=== PATIENT | female | born 1975 | race Caucasian/White ===

== ENCOUNTER 2025-01-28 09:24 | Outpatient (AMB) | payer BC, SELFPAY ==
--- OUTSIDE RECORDS SUMMARY | 2025-01-28 10:31 | XMS_ITS | Clinical Summary ---
Author Organization [facility] Address [address] [place] [address] Care Team Providers Care Junior Copywriter Name Role Phone Philip Bartlett MD Primary Care Provider Allergies Active Allergy Reactions Criticality Noted Date Comments Ipratropium Other (See Comments),Swelling 08/21/2007 Doesn't remember Facial swelling Ipratropium [facility] 04/15/2019 Other Swelling Low 04/13/2015 Prochlorperazine Other (See Comments) 04/15/2019 Doesn't remember Prochlorperazine Edisylate Other (See Comments) 05/13/2008 Passed out Tioconazole Other (See Comments) 04/22/2021 Doesn't remember Medications Medication Sig Dispensed Refills Start Date End Date Status pantoprazole (PROTONIX) 40 MG tablet TAKE 1 TAB BY MOUTH DAILY IN THE MORNING ON EMPTY STOMACH WAIT 30 MIN AND THEN EAT 0 10/28/2023 Active OXcarbazepine (TRILEPTAL) 150 MG tablet Take 1 tablet (150 mg total) by mouth 2 (two) times a day. 0 11/09/2023 Active oxybutynin (DITROPAN-XL) 10 MG 24 hr tablet Take 1 tablet (10 mg total) by mouth daily. 0 10/29/2023 Active citalopram (CeleXA) 10 MG tablet TAKE 1 TABLET BY MOUTH EVERY DAY IN THE MORNING 0 11/09/2023 Active fluticasone (FLONASE) 50 MCG/ACT nasal spray SPRAY 2 SPRAYS INTO EACH NOSTRIL EVERY DAY 0 11/13/2023 Active lactulose (CHRONULAC) 10 GM/15ML solution Take 30 mL (20 g total) by mouth. 0 08/31/2022 Active Magnesium 400 MG CAPS Take 400 mg by mouth daily. 30 capsule 3 01/23/2024 Active Riboflavin 400 MG CAPS Take 400 mg by mouth daily. 30 capsule 3 01/23/2024 Active Active Problems No known active problems Family History Medical History Relation Name Comments Diabetes Mother Relation Name Status Comments Mother Social History Tobacco Use Types Packs/Day Years Used Date Smoking Tobacco: Former Cigarettes Q uit: 1995 Smokeless Tobacco: Never Tobacco Cessation:Counseling Given: Not Answered Alcohol Use Standard Drinks/Week Comments Yes 0 (1 standard drink = 0.6 oz pur e alcohol) occ Sex and Gender Information Value Date Recorded Sex Assigned at Female 09/12/2021 2:58 PM EDT Gender Identity Female 09/12/2021 2:58 PM EDT Sexual Orientation Not on file Job Start Date Occupation Industry Not on file Not on file Not on file Last Filed Vital Signs Vital Sign Reading Time Taken Comments Blood Pressure 104/66 01/23/2024 8:04 AM EDT Pulse 73 01/23/2024 8:04 AM EDT Temperature 36.6 C (97.9 F) 01/23/2024 8:04 AM EDT Respiratory Rate 16 11/08/2022 12:47 PM EDT Oxygen Saturation 97% 01/23/2024 8:04 AM EDT Inhaled Oxygen Concentration - - Weight 72.3 kg (159 lb 6.4 oz) 01/23/2024 8:04 A M EDT Height 154.9 cm (5' 1 ) 01/23/2024 8:04 AM EDT Body Mass Index 30.12 01/23/2024 8:04 AM EDT Plan of Treatment Health Maintenance Due Date Last Done Comments Hepatitis B Vaccines (1 of 3 - 3-dose series) 1975 Hepatitis C Screening 1975 Depression Screening 1987 BMI Counseling 1993 Preventative Health Evaluation 1993 Cervical Cancer Screening (Pap Smear) 1996 Colon Cancer Screening (Colonoscopy) 2020 DTap / Tdap / Td (2 - Td or Tdap) 04/13/2021 04/13/2011 COVID-19 Vaccine ( season) 2024 08/17/2020, 07/27/2020 Influenza Vaccine (#1) 2025 4, 06/07/2022, 04/19/2021, Additional history exists Pneumococcal Vaccine Aged Out 07/09/2013 No long er eligible based on patient's age to complete this topic RSV Ped < 20 months Aged Out No longe r eligible based on patient's age to complete this topic Care Teams Junior Copywriter Relationship Specialty Start Date End Date Philip Bartlett MD PCP - General Internal Medicine 09/12/21
--- OUTSIDE RECORDS SUMMARY | 2025-01-28 10:31 | XMS_ITS | Clinical Summary ---
Author Organization [facility] Address [address] [place] [address] Care Team Providers Care Net Developer Programmer Name Role Phone Philip Bartlett MD Primary Care Provider Unavail able Allergies Active Allergy Reactions Criticality Noted Date Comments Prochlorperazine Edisylate Other (See Comments) 05/13/2008 Passed out Benzyl Alcohol Unknown/Patient and Family Unable to Define Medium 01/15/2023 Ipratropium [facility] Swelling Medium 04/15/2019 Linaclotide Itching Low 11/12/2022 Miconazole Swelling Medium 08/10/2022 Pneumococcal Vaccine Unknown/Patient and Family Unable to Define Medium 01/15/2023 Pneumococcal Vaccines Swelling,Unknown/P a tient and Family Unable to Define High 07/13/2013 Localized swelling @ inj site Prochlorperazine Other (See Comments) 08/10/2022 other Tioconazole Other (See Comments),Unknown/P atient and Family Unable to Define Medium 04/22/2021 Doesn't remember Doesn't remember Verapamil Unknown/Patient and Family Unable to Define Medium 01/15/2023 Medications cyanocobalamin (VITAMIN B-12) 500 MCG tablet Take 1 tablet (500 mcg total) by mouth daily. 05/14/2022 Active hydrOXYzine HCl (ATARAX) 25 MG tablet Take 1 tablet (25 mg total) by mouth. Active fluticasone (FloVENT HFA) 110 mcg/puff inhaler Inhale 1 puff. 03/30/2022 Active OMEprazole (PriLOSEC) 20 MG capsule 1 capsule 30 minutes before morning meal Active ondansetron (ZOFRAN) 4 MG tablet 1 tablet 06/09/2021 Active propranolol (INDERAL) 20 MG tablet 06/15/2022 Active naproxen (NAPROSYN) 375 MG tablet 1 tablet with food or milk as needed 07/28/2021 Active SUMAtriptan (IMITREX) 50 MG tablet 1 tablet at least 2 hours between doses as needed 07/28/2021 Active montelukast (SINGULAIR) 10 MG tablet 06/23/2022 Active lactulose (ENULOSE) 10 gm/15 mL solution Take by mouth. 02/17/2021 Active albuterol (PROVENTIL HFA; VENTOLIN HFA) 108 (90 Base) MCG/ACT inhaler Inhale. 02/17/2021 Act ael buPROPion (WELLBUTRIN SR) 150 MG 12 hr tablet 1 tablet in the morning 09/22/2014 Active Multiple Vitamin tablet Take 1 tablet by mouth daily. Active busPIRone (BUSPAR) 5 MG tablet Take 1 tablet by mouth daily as needed. 12/14/2022 Active medroxyPROGESTE Jack (PROVERA) 10 MG tablet TAKE 1 TABLET BY MOUTH THREE TIMES A DAY FOR 10 DAYS 12/24/2022 Active diphenhydrAMINE -Zinc Acetate (BANOPHEN EX) Apply topically. Active Active Problems No known active problems Encounters Date Type Department Care Team Description 11/20/2024 Transcribe Orders GENERIC EXTERNAL DATA DEPARTMENT Leslie Mann RN Migraine without status migrainosus, not intractable, unspecified migraine type (Primary Dx) from Last 3 Months Social History Tobacco Use Types Packs/Day Years Used Date Smoking Tobacco: Never Smokeless Tobacco: Former Tobacco Cessation:Counseling Given: Not Answered Alcohol Use Standard Drinks/Week Comments Never 0 (1 standard drink = 0.6 oz pur e alcohol) Comments Unknown Sex and Gender Information Value Date Recorded Sex Assigned at Not on file Legal Sex Female 12:04 PM EDT Gender Identity Not on file Sexual Orientation Not on file Last Filed Vital Signs Vital Sign Reading Time Taken Comments Blood Pressure 120/80 01/15/2023 12:53 PM EDT Pulse 83 01/15/2023 12:53 PM EDT Temperature 36.4 C (97.6 F) 08/10/2022 10:27 AM EST Respiratory Rate - - Oxygen Saturation 97% 01/15/2023 12:53 PM EDT Inhaled Oxygen Concentration - - Weight 71.2 kg (157 lb) 01/15/2023 12:53 PM EDT Height 154.9 cm (5' 1 ) 01/15/2023 12:53 PM EDT Body Mass Index 29.66 01/15/2023 12:53 PM EDT Plan of Treatment Health Maintenance Due Date Last Done Comments Hepatitis C Virus Screening 1975 HIV Screening 1988 DTaP/Tdap/Td Vaccines (1 - Tdap) 1994 Hepatitis B Vaccines (1 of 3 - 19+ 3-dose series) 1994 Pap Smear (Ages 21-65) 1996 Mammogram 2015 Colonoscopy 2020 COVID-19 Vaccine ( - 2023- season) 2024 08/17/2020, 07/27/2020 Influenza Vaccine 01/08/2025 06/18/2023, , 06/07/2022, Additional history exists Pneumococcal Vaccine: Pediatric (0-5 Years) and At-Risk Patients (6 to 49 Years) Aged Out No longer eligible based on patient's age to complete this topic Insurance [place] [employer] [facility] Care Teams Net Developer Programmer Relationship Specialty Start Date End Date Philip Bartlett MD PCP - General Internal Medicine 01/15/23
--- OUTSIDE RECORDS SUMMARY | 2025-01-28 10:31 | XMS_ITS ---
[facility] Name [facility] History of Medication Use Medication Directions Dispensed Refills Start Date End Date Stat us busPIRone (BUSPAR) 5 MG tablet Take 1 tablet by mouth daily as needed. 12/14/2022 active montelukast (SINGULAIR) 10 MG tablet 06/23/2022 active SUMAtriptan (IMITREX) 50 MG tablet 1 tablet at least 2 hours between doses as needed 07/28/2021 active ondansetron (ZOFRAN) 4 MG tablet 1 tablet 06/09/2021 active albuterol (PROVENTIL HFA; VENTOLIN HFA) 108 (90 Base) MCG/ACT inhaler Inhale. 02/17/2021 active lactulose (ENULOSE) 10 gm/15 mL solution Take by mouth. 02/17/2021 active buPROPion (WELLBUTRIN SR) 150 MG 12 hr tablet 1 tablet in the morning 09/22/2014 active diphenhydrAMINE-Zinc Acetate (BANOPHEN EX) Apply topically. active OMEprazole (PriLOSEC) 20 MG capsule 1 capsule 30 minutes before morning meal active Allergies Allergen Reaction Severity Comment Documented Date Source Status VERAPAMIL UNKNOWN/PATIE NT AND FAMILY UNABLE TO DEFINE 01/15/2023 [facility] active LINACLOTIDE ITCHING 11/12/2022 [facility] active PROCHLORPERAZINE OTHER (SEE COMMENTS) other 08/10/2022 [facility] active TIOCONAZOLE UNKNOWN/PATIE NT AND FAMILY UNABLE TO DEFINE Doesn't remember 04/22/2021 [facility] active IPRATROPIUM BROMIDE HFA SWELLING 04/15/2019 [facility] active PNEUMOCOCCAL VACCINES UNKNOWN/PATIE NT AND FAMILY UNABLE TO DEFINE Localized swelling @ inj site 07/13/2013 [facility] active PROCHLORPERAZINE EDISYLATE OTHER (SEE COMMENTS) Passed out 05/13/2008 [facility] active BENZYL ALCOHOL UNKNOWN/PATIE NT AND FAMILY UNABLE TO DEFINE [facility] MICONAZOLE SWELLING [facility] PNEUMOCOCCAL VACCINE UNKNOWN/PATIE NT AND FAMILY UNABLE TO DEFINE [facility] Problems Problem Status Onset Date Problem Type Date of Resoluti on Source Migraine without status migrainosus, not intractable, unspecified migraine type active EncounterDiagnosisAct [facility] Encounters Encounter Type Encounter Reason Primary Diagnosis Location Date Ambulatory Other specified abnormal findings of blood chemistry Other specified abnormal findings of blood chemistry [facility] 01/15/2023 Ambulatory Other symptoms a nd signs involving the musculoskeletal system [facility] Care Team Organization Name Specialty Phone Email Start Date End Da [facility] Philip Quijano Primary Care 01/15/2023 [facility] PHILIP QUIJANO Primary Care 01/15/2023 [facility] NO PCP Primary Care 06/28/2022 08/10/2022 [facility] PCP,No Primary Care 06/28/2022
--- OUTSIDE RECORDS SUMMARY | 2025-01-28 10:31 | XMS_ITS | Patient Health Record ---
Author Organization [facility] Address [address] [place] [address] Care Team Providers Care Senior Project Controls Specialist Name Role Phone Dhruv YIN, Philip Primary Care Provider Katherine Stout Unavailable [phone] Allergies Allergen (clinical drug ingredient) Drug/Non Drug Allergy documented on EMR Reaction Allergy Type Onset Date Status Atrovent Unknown Drug Allergy Active ipratropium Ipratropium [place] Unknown Drug Allergy Active tioconazole Monistat 1 Unknown Drug Allergy Acti ve Compazine Unknown Drug Allergy Active benzyl alcohol Benzyl Alcohol Unknown Drug Allergy Active Vaccine product containing Streptococcus pneumoniae antigen (medicinal product) Pneumococcal Vaccines Unknown Drug Allergy Active prochlorperazine Prochlorperazine Unknown Drug Allergy Active Reason For Referral No Information Medications Medication SIG (Take, Route, Frequency, Duration) Notes Start Date End Date Status Beano Active Topiramate 50 MG 1 tablet Orally Once a day; Duration: 30 day(s) Active Albuterol Sulfate HFA Active Iron Active Multivitamin Active Claritin 10 MG 1 tablet Orally Once a day; Duration: 30 day(s) Active Vitamin D Active MiraLax 17 GM/SCOOP as directed Orally Active SUMAtriptan Succinate 50 MG 1 tablet at least 2 hours between doses as needed Orally Twice a day Active Omeprazole 20 MG 1 capsule 30 minutes before morning meal Orally Once a day; Duration: 30 day(s) Active Sucralfate 1 GM 1 tablet on an empty stomach Orally Twice a day; Duration: 30 day(s) Active Singulair 10 MG 1 tablet Orally Once a day; Duration: 30 day(s) Active Ondansetron HCl 4 MG 1 tablet Orally Onc e a day; Duration: 30 day(s) Active Naproxen 375 MG 1 tablet with food o r milk as needed Orally every 12 hrs Active Pirmella 1-35 MG-MCG as directed Orally Active buPROPion HCl ER (SR) 150 MG 1 tablet in the morning Orally Once a day; Duration: 30 day(s) + 300 mg AM Active Phazyme Maximum Strength 250 MG 1 capsule after meals and at bedtime as needed Orally Twice a day Active Propranolol HCl 20 MG 1 tablet Orally On ce a day; Duration: 30 day(s) Active Pepcid Active Immunizations Vaccine Route Administration Date Status Comme nts COVID-19 Pfizer BioNTech Vaccine Unknown 08/17/2020 Administered 1st vaccine Social History Tobacco Use: Social History Observation Description Date Details (start date - stop date) Former Smoker NA - NA Tobacco Use/Smoking Question Answer Notes Are you a: former smoker Additional Findings: Tobacco Non-User Ex-cigaret te smoker Alcohol Screen Question Answer Notes Did you have a drink containing alcohol in the p ast year? No Points 0 Interpretation Negative Tobacco use other than smoking: Question Answer Notes Are you an other tobacco user? No Plan Of Treatment No Information Insurance Providers Payer Name Payer Address Payer Phone Subscriber Number Group Number Insured Name Patient Relationship to Insured Coverage Start Date Coverage End Date [facility] All Others [address] [place] [address] [id number] Jose R Harris Spouse - patient is the spouse of the insured Medical (General) History Medical History History ICD Code Anxiety asthma Depression Headaches/Migraines Chicken pox Gall bladder problems Irritable bowel syndrome Constipation Reflux ( GERD) Surgical History Surgery Date(Month/Year) gall bladder 04/2019
--- OUTSIDE RECORDS SUMMARY | 2025-01-28 10:31 | XMS_ITS | Clinical Summary ---
Author Organization [address] [facility] Address [address] [place] [address] Phone Care Team Providers Care Monument Letterer Name Role Phone Dwayne Puentes MD Primary Care Provider Allergies Active Allergy Reactions Criticality Noted Date Comments Benzocaine Swelling Low 04/13/2015 Benzyl Alcohol Unknown High 01/12/2025 Ipratropium Other,Swelling 08/21/2007 Facial swelling Doesn't remember Facial swelling Ipratropium Alanson 04/15/2019 Linaclotide Itching 11/12/2022 Boric Acid 06/08/2024 Other Swelling Low 05/13/2008 BENZYL NIN-[id number]-FAP - Other Reaction(s): OTHER Passed out Pneumococcal Vaccine High 07/13/2013 Localized swelling @ inj site Prochlorperazine Other 05/13/2008 Doesn't remember Passed out Tioconazole Other 04/22/2021 Doesn't remember Verapamil Unknown High 01/12/2025 Medications acetaminophen (TYLENOL) 325 mg capsule Take by mouth. OTC Active cetirizine (ZyrTEC) 10 mg tablet Take 1 tablet (10 mg total) by mouth 2 (two) times a day. Prescribed by keeper helper 06/18/19 24 Active fluticasone propionate (FLONASE) 50 mcg/actuation nasal spray Administer 2 sprays into affected nostril(s). Prescribe by keeper helper 06/18/19 24 Active OXcarbazepine (TRILEPTAL) 150 mg tablet Take 1 tablet (150 mg total) by mouth 1 (one) time each day in the morning. Prescribe by Psychiatrist 06/14/19 24 Active oxyBUTYnin XL (DITROPAN-XL) 10 mg 24 hr tablet Take 1 tablet (10 mg total) by mouth 1 (one) time each day. 08/01/19 24 Active pantoprazole (PROTONIX) 40 mg EC tablet Take 1 tablet (40 mg total) by mouth 2 (two) times a day. Do not crush, chew, or split. 180 tablet 3 04/22/20 24 Active cycloSPORINE (RESTASIS) 0.05 % ophthalmic emulsion 1 drop 2 (two) times a day. Active carboxymethylc [id number] 80 (Refresh Digital) 0.5-1-0.5 % drops Administer into affected eye(s). Active multivitamin tablet Take 1 tablet by mouth 1 (one) time each day. Buy OTC Active citalopram (CeleXA) 10 mg tablet Take 1 tablet (10 mg total) by mouth 1 (one) time each day. Prescribe by Psychiatrist Active aspirin 81 mg chewable tablet Chew 1 tablet (81 mg total) 1 (one) time each day. 30 each 11 09/08/19 25 026 Active topiramate (Topamax) 25 mg tablet 1 p.o. at bedtime x 1 week, then 1 p.o. twice daily 60 each 5 10/29/19 25 Active predniSONE (DELTASONE) 20 mg tablet Take 60 mg PO daily for 3 days, then take 40 mg PO daily for 3 days, then 20 mg PO daily for 3 days, then stop 18 tablet 01/13/20 25 Active sodium,potassi um,mag sulfates (Suprep Bowel Prep Kit) 17.5-3.13-1.6 gram recon soln bowel prep kit oral solution Take 177ML by mouth for 2 doses. SEE INSTRUCTIONS PROVIDED BY OFFICE. 1 kit 01/06/20 25 025 Discontinued Active Problems Problem Noted Date Diagnosed Date Varicose veins of lower extremity 10/07/2024 Bipolar disorder ([facility] V24, [facility] V28) 09/10 Anxiety 10/07/2024 Hyperlipidemia 10/07/2024 Obesity (BMI 30-39.9) 07/24/2024 Thyroid nodule 07/24/2024 Excessive eating 07/24/2024 Somatization disorder 05/24/2022 Chronic pain of right upper extremity 11/20/2021 Assessment & Plan (06/08/2024 4:32 PM EST): Patient describes pain in the right upper trapezius, right shoulder, on active days the pain increases and somewhat radiates down the right arm. Things started on a holiday weekend February 2021, she could not bend or lift the arm. She saw her PCP who ordered an x-ray, was referred to [facility] orthopedics, over the last few years has tried physical therapy 3 or 4 separate times addressing the neck and shoulder pain. She has tried injections with Dr. Carlisle, neonatal intensive care nurse. This morning she started a prednisone pack because the pain was worsening. 3 to 4 weeks ago she also started noticing some numbness in the right hand and digits. She cannot take NSAIDs because of her GERD. She uses Biofreeze, ice daily. She had EMGs June 2022, October 2021, read as normal studies. She was sent to [facility] for subtle nonspecific T2 changes on her brain MRI, no cord lesions noted in the thoracic spine, history of migraines. Overall denies axial neck pain. Patient had MRI thoracic spine January 2024 at [facility] with minimal degenerative changes, no significant degenerative disc disease noted other than small disc osteophyte C5-6, mild right foraminal stenosis, no signal change noted in the spinal cord. I reviewed MRI images in detail with the patient and her on the computer. Dr. Muñiz reviewed the MRI as well while patient was here. She also had shoulder x-ray 09/12/2021 that was read as normal, MRI shoulder 2020 that was unremarkable. Ms. Harris has chronic right upper trapezius, shoulder and at times right arm pain, and over the last 3 to 4 weeks noted some numbness tingling in the hand and fingers. On cervical MRI there are minimal degenerative changes, no significant foraminal or central stenosis, Dr. Muñiz is not recommending any neurosurgical intervention. She just started a prednisone Dosepak this morning, will see if she notes improvement. We talked about conservative treatment options, including acupuncture which she has not yet tried, name provided. I also talked to her about considering restarting the estrogen patch that she was prescribed by her LOADING CHECKER, musculoskeletal issues like she describes can be a symptom from perimenopause/menopause low hormone levels. She will call her LOADING CHECKER to let them know she is interested in restarting it. I asked her to call me with an update in a few months, call with any concerns or questions sooner. I also asked her to talk to her PCP to see if she needs updated thyroid ultrasound since there is mention on her C-spine MRI of a increased cystic nodule right lateral upper esophagus, possibly thyroid nodule. All questions answered at today's visit. Generalized anxiety disorder 06/12/2021 History of attempted suicide 06/12/2021 Acute non-recurrent maxillary sinusitis 05/22/20 21 Endometriosis 02/23/2019 Major depressive disorder, r ecurrent episode, moderate (CMS/HCC V24, [facility] V28) 10/06/2013 Genital herpes 04/13/2011 Overview (08/06/2023): Occasional outbreaks GERD (gastroesophageal reflux disease) 1 Tremor, essential 01/11/2010 Overview (08/06/2023): hands Depression 05/13/2008 Allergic rhinitis 03/12/2007 Migraine without aura 07/31/2006 Overview (08/06/2023): IMO update Asthma 03/05/2006 Irritable bowel syndrome 10/26/2005 Constipation 09/06/2005 Overview (08/06/2023): IMO update Papanicolaou smear of cervix with atypical squamous cells of undetermined significance (ASC-US) 08/30/2005 Overview (08/06/2023): colposcopy Encounters Date Type Department Care Team Description 01/19/2025 1:09 PM EDT Anesthesia Event [facility] Endoscopy [address] [place] [phone] Ceasar Bauer MD 01/19/2025 12:09 PM EDT - 01/19/2025 11:59 PM EDT Hospital Encounter [facility] [address] [place] [phone] Keon Sheehan MD Abrokwah, Foster Myles G, CRNA Saliga, Jesse L, MD Irritable bowel syndrome with constipation; Colon cancer screening Discharge Disposition: Home or Self Care 01/12/2025 10:11 AM EDT - 01/12/2025 11:59 PM EDT Hospital Encounter [address] [phone] Left elbow pain Discharge Disposition: Home or Self Care 01/12/2025 10:00 AM EDT Office Visit [address] [phone] Leda Bell PA Left lateral epicondylitis (Primary Dx); Left elbow pain 01/11/[address] [phone] Dwayne Puentes MD Arm Pain 12/29/2024 10:00 AM EDT Consult Vascular Surgery [facility] [address] [facility] [address] [place] [address] Danielle Spivey MD Ankle swelling, unspecified laterality 11/16/2024 3:30 PM EDT Office Visit [address] [phone] Karoline Mann NP Annual physical exam (Primary Dx); Generalized pain; Major depressive disorder, recurrent episode, moderate (CMS/HCC V24, CMS/HCC V28); Decreased hearing of both ears 10/28/2024 4:00 PM EDT Office Visit [facility] [address] [facility] [address] [place] [address] Jacklyn Altman, PA Headache associated with sexual activity (Primary Dx) from Last 3 Months Immunizations Name Administration Dates Next Due Influenza Quadravalent, MDCK , 0.5ml, preservative free (Flucelvax) 6mo and older 06/18/2023,06/07/2022,04/19/2021,03/07,02/23/2019 Influenza Quadravalent, MDCK , 0.5ml, with preservative (Flucelvax) 6mo and older 02/18/2018,02/20/2017 Influenza trivalent, with pr eservative (Fluzone; Afluria) 6mo and older 07/09/2013,07/02/2012,04/13/2011,03/29 Measles 02/18/2018 Mumps 02/18/2018 PPD Test 02/12/2018 [address] SARS-CoV-2 COVID-19, mRNA, LNP-S, preservative free 08/17/2020,07/27/2020 Pneumococcal polysaccharide 23 valent (Pneumovax 23) 2yo and older 07/09/2013 Rubella 06/24/2002 Td Tetanus diptheria (Tdvax) 7yo and older 08/02/2021 Td, Unspecified 08/16/2004 Tdap Tetanus diptheria acell ular pertussis (Boostrix; Adacel) 7yo and older 04/13/2011 Varicella live (Varivax) 12m o and older 02/18/2018 Surgical History Surgery Date Site/Laterality Comments SECTION times 2: 1995, 2002 ESOPHAGOGASTRODUODENOSCOPY 01/12/2010 Normal esophagus, Nl stomach-biopsy:reactive gastropathy with scanty eosinophils(HPylori-), Nl duodenum-biopsy:nl COLONOSCOPY 02/2010 SINUS SURGERY 1996 sinus opened up OTHER SURGICAL HISTORY 08/2018 CHOLECYSTECTOMY 04/2019 APPENDECTOMY 01/31/2023 HYSTERECTOMY 04/03/2023 with bilateral salpingectomy URETHRAL SLING 06/10/2023 - 06/09/2024 Medical History Medical History Date Comments Asthma Diverticulitis Unspecified constipation 09/06/2005 Irritable bowel syndrome 10/26/2005 Migraine without aura, witho ut mention of intractable migraine without mention of status migrainosus 07/31/2006 SEEING NEUROLOGIST Unspecified asthma(493.90) 03/05/2006 Depression 05/13/2008 DX:Depression Abnormal involuntary movements(781.0) benign Tremor, essential 01/11/2010 Genital herpes 04/13/2011 Papanicolaou smear of cervix with atypical squamous cells of undetermined significance (ASC-US) 08/30/2005 : colposco py Papanicolaou smear of cervix with atypical squamous cells of undetermined significance (ASC-US) 08/30/2005 Endometriosis 02/23/2019 GERD (gastroesophageal reflux disease) TMJ (dislocation of temporomandibular joint) Family History Medical History Relation Name Comments Breast cancer Aunt 1 maternal Breast cancer Aunt 2 maternal Depression Daughter 1 2 daughters Asthma Daughter 2 Other: alive and well Father Diabetes Maternal Grandmother Diabetes Mother Drug abuse Sister 1 Drug abuse Sister 2 Allergies Son 1 Asthma Son 2 Colon cancer Neg Hx Ovarian cancer Neg Hx Relation Name Status Comments Aunt 1 maternal Alive Aunt 2 maternal Alive Daughter 1 Alive Daughter 2 Alive Father Alive Maternal Grandmother Mother Alive Sister 1 Alive Sister 2 Alive Son 1 Alive Son 2 Alive Social History Tobacco Use Types Packs/Day Years Used Date Smoking Tobacco: Former Cigarettes Q uit: 06/10/1995 Passive Smoke Exposure: Past Smokeless Tobacco: Never Tobacco Cessation:Counseling Given: Not Answered Alcohol Use Standard Drinks/Week Comments Not Currently 0 (1 standard drink = 0.6 oz pur e alcohol) Interpersonal Safety Answer Date Record ed Physical Abuse 01/19/2025 Verbal Abuse 01/19/2025 Comments No Sex and Gender Information Value Date Recorded Sex Assigned at Female 01/19/2025 12:07 PM EDT Legal Sex Female 3:19 PM EST Gender Identity Female 01/19/2025 12:07 PM EDT Sexual Orientation Straight 01/19/2025 12 :07 PM EDT Obstetrics History Para Term AB IAB SAB Ectopic Multiple Livin g Live Births 3 3 3 3 Date Outcome GA Total Labor Labor/2nd/3rd Weight Sex Type Anes PTL Jackelin A1 A5 Name Clin Term Term Term Last Filed Vital Signs Vital Sign Reading Time Taken Comments Blood Pressure 112/45 01/19/2025 1:50 PM EDT Pulse 64 01/19/2025 1:50 PM EDT Temperature 36.3 C (97.3 F) 01/19/2025 1:30 PM EDT Respiratory Rate 14 01/19/2025 1:50 PM EDT Oxygen Saturation 97% 01/19/2025 1:50 PM EDT Inhaled Oxygen Concentration - - Weight 78.5 kg (173 lb) 01/15/2025 12:00 PM EDT Height 154.9 cm (5' 1 ) 01/15/2025 12:00 PM EDT Body Mass Index 32.69 01/15/2025 12:00 PM EDT Plan of Treatment Upcoming Encounters Date Type Department Care Team (Late st Contact Info) Description 02/03/2025 4:00 PM EDT Office Visit [facility] [address] [place] [address] Jacklyn Altman PA [address] [place] [address] [place] [address] 09/28/2025 10:40 AM EDT Appointment Radiology Department - [address] [phone] Health Maintenance Due Date Last Done Comments Medicare Annual Wellness Visit 05/18/2022 Social Influencers of Health Screening 05/18/2022 Influenza Vaccine (#1) 2025 , 06/07/2022, 04/19/2021, Additional history exists Cervical Cancer Screening: HPV 06/24/2025 06/24/2020 Breast Cancer Screening 09/22/2026 09/23/19 25, 09/10/2023, 08/08/2022, Additional history exists Cholesterol Screening (Lipid Panel) 09/02/2029 09/02/2024, 07/30/2024, 04/25/2024, Additional history exists DTaP,Tdap,and Td Vaccines (4 - Td or Tdap) 08/02/2031 08/02/2021, 04/13/2011, 08/16/2004 Colorectal Cancer Screening: Colonoscopy 01/19/2035 01/19/2025, 08/23/2023 Pneumococcal Vaccine: Pediatrics (0 to 5 Years) and At-Risk Patients (6 to 49 Years) Discontinued 07/09/2013 Varicella Vaccines Aged Out 02/18/2018 No longer eligible based on patient's age to complete this topic Hepatitis C Screening Completed 11/29/2022 COVID-19 Vaccine Discontinued 06/20/2023, 03/2021, 07/27/2020 Depression Screening Completed 11/16/2024 HIB Vaccines Aged Out No longer eligi ble based on patient's age to complete this topic HIV Screening Discontinued HPV Vaccines Aged Out No longer eligi ble based on patient's age to complete this topic Hepatitis A Vaccines Aged Out No long er eligible based on patient's age to complete this topic Hepatitis B Vaccines Discontinued IPV Vaccines Aged Out No longer eligi ble based on patient's age to complete this topic MMR Vaccines Aged Out No longer eligi ble based on patient's age to complete this topic Meningococcal ACWY Vaccine Aged Out N o longer eligible based on patient's age to complete this topic Meningococcal B Vaccine Aged Out No l onger eligible based on patient's age to complete this topic RSV Immunization Patients Under 20 months Aged Out No longer eligible based on patient's age to complete this topic Goals Goal Patient Goal Type Associated Problems Recent Progress Patient-Stated? Author STG (6 visits) General Eri Meza, PT Note: Pt will demonstrate compliance with HEP Pt will report decreased pain level to < 6/10 at worst Pt will report centralization of radicular symptoms Pt will demonstrate improved scapular resting position Pt will increase R shoulder flexion AROM to WFL Pt will demonstrate at least 3/5 middle and lower trapezius MMT LTG (12 visits) Eri Benitez, PT Note: Pt will demonstrate independence with HEP Pt will report decreased pain level to < 3/10 at worst Pt will report no radicular symptoms Pt will demonstrate R shoulder flexion and ABD AROM to 165 deg Pt will increase R shoulder MMT to 5/5 Pt will demonstrate fair -> fair plus scapulothoracic rhythm Procedures Procedure Name Priority Date/Time Associated Diagnosis Comments COLONOSCOPY Routine 01/19/2025 1:29 PM EDT Irritable bowel syndrome with constipation Colon cancer screening XR ELBOW 3+ VIEWS LEFT Routine 01/12/2025 10:31 AM EDT Left elbow pain CBC WITH AUTO DIFFERENTIAL Routine 11/16/2024 4:18 PM EDT Annual physical exam COMPREHENSIVE METABOLIC PANEL Routine 11/16/2024 4:18 PM EDT Annual physical exam CBC AND DIFFERENTIAL Routine 11/16/2024 4:18 PM EDT Annual physical exam EXTERNAL ULTRASOUND REPORT 11/06/2024 MG MAMMO DIGITAL SCREENING W ERIC BILAT Routine 09/22/2024 10:30 AM EDT Encounter for screening mammogram for breast cancer LIPID PANEL WITH REFLEX TO DIRECT LDL Routine 09/02/2024 8:38 AM EDT Hyperlipidemia, unspecified hyperlipidemia type HM HEPATITIS C SCREENING Routine 11/29/2022 HPV Routine 06/24/2020 from Last 3 Months or Most Recently Relevant to Health Maintenance Results * COLONOSCOPY Anesthesia - MAC; [facility] ENDOSCOPY (01/19/2025 1:29 PM EDT) Anatomical Region Laterality Modality Other 01/19/2025 1:15 PM EDT Impressions 01/19/2025 1:30 PM EDT - Diverticulosis in the entire examined colon. - No specimens collected. Recommendation: - Repeat colonoscopy in 10 years for screening purposes. - Use fiber, for example Citrucel, Fibercon, Konsyl or Metamucil. Narrative 01/19/2025 1:30 PM EDT [facility] GI Patient Name: Royal Harris Procedure Date: 01/19/2025 1:15 PM Date of : 1975 Age: 49 Gender: Female Note Status: Finalized Attending MD: Keon Sheehan MD, Procedure Date No Time: 01/19/2025 Procedure: Colonoscopy Indications: Screening for colorectal malignant neoplasm Providers: Keon Sheehan MD Referring MD: Keon Sheehan MD Medicines: Propofol per Anesthesia Complications: No immediate complications. Estimated Blood Loss: Estimated blood loss: none. Procedure: Pre-Anesthesia Assessment: - ASA Grade Assessment: II - A patient with mild systemic disease. After I obtained informed consent, the scope was passed under direct vision. Throughout the procedure, the patient's blood pressure, pulse, and oxygen saturations were monitored continuously.The Olympus Pediatric Colonosocpe was introduced through the anus and advanced to the cecum, identified by appendiceal orifice and ileocecal valve. The colonoscopy was performed without difficulty. The patient tolerated the procedure well. The quality of the bowel preparation was good. Findings: The perianal and digital rectal examinations were normal. Scattered diverticula were found in the entire colon. Procedure Code(s): --- Professional --- G0121, Colorectal cancer screening; colonoscopy on individual not meeting criteria for high risk Diagnosis Code(s): --- Professional --- Z12.11, Encounter for screening for malignant neoplasm of colon K57.30, Diverticulosis of large intestine without perforation or abscess without bleeding CPT copyright 2020 [employer]. All rights reserved. The codes documented in this report are preliminary and upon cash management associate review may be revised to meet current compliance requirements. Keon Sheehan MD 01/19/2025 1:29:57 PM This report has been signed electronically.Keon Sheehan MD Number of Addenda: 0 Note Initiated On: 01/19/2025 1:15 PM Scope In: Scope Out: Endoscopy Department at [facility] - [address] [place] [phone] Procedure Note Keon Sheehan MD - 01/19/2025 [facility] GI Patient Name: Royal Harris Procedure Date: 01/19/2025 1:15 PM Date of : 1975 Age: 49 Gender: Female Note Status: Finalized Attending MD: Keon Sheehan MD, Procedure Date No Time: 01/19/2025 Procedure: Colonoscopy Indications: Screening for colorectal malignant neoplasm Providers: Keon Sheehan MD Referring MD: Keon Sheehan MD Medicines: Propofol per Anesthesia Complications: No immediate complications. Estimated Blood Loss: Estimated blood loss: none. Procedure: Pre-Anesthesia Assessment: - ASA Grade Assessment: II - A patient with mild systemic disease. After I obtained informed consent, the scope was passed under direct vision. Throughout theprocedure, the patient's blood pressure, pulse, and oxygen saturations were monitored continuously.The Olympus Pediatric Colonosocpe was introduced through theanus and advanced to the cecum, identified byappendiceal orifice and ileocecal valve. The colonoscopy was performed without difficulty. The patient tolerated the procedure well. The quality of the bowel preparation was good. Findings: The perianal and digital rectal examinations were normal. Scattered diverticula were found in the entirecolon. Procedure Code(s): --- Professional --- G0121, Colorectal cancer screening; colonoscopy on individual not meeting criteria for high risk Diagnosis Code(s): --- Professional --- Z12.11, Encounter for screening for malignantneoplasm of colon K57.30, Diverticulosis of large intestine without perforation or abscess without bleeding CPT copyright 2020 [employer]. All rights reserved. The codes documented in this report are preliminary and upon cash management associate reviewmay be revised to meet current compliance requirements. Keon Sheehan MD 01/19/2025 1:29:57 PM This report has been signed electronically.Keon Sheehan MD Number of Addenda: 0 Note Initiated On: 01/19/2025 1:15 PM Scope In: Scope Out: Endoscopy Department at [facility] - [address] [place] [id number] IMPRESSION: - Diverticulosis in the entire examined colon. - No specimens collected. Recommendation: - Repeat colonoscopy in 10 years for screening purposes. - Use fiber, for example Citrucel, Fibercon, Konsylor Metamucil. us Keon Sheehan MD GI~PROCEDURE ORDERABLES Final Re sult * XR Elbow 3+ Views Left (01/12/2025 10:31 AM EDT) Anatomical Region Laterality Modality Upper Extremities, Elbow Left Radiogr aphic Imaging 01/12/2025 7:41 PM EDT Impressions 01/12/2025 7:43 PM EDT No abnormality detected. POS - [id number] -------- FINAL REPORT -------- Dictated By: Jeanne Hidalgo Dictated Date: 01/12/2025 19:41 ET Assigned Physician: Jeanne Hidalgo Reviewed and Electronically Signed By: Jeanne Hidalgo Signed Date: 01/12/2025 19:43 ET Workstation ID: [id number] Transcribed By: Self Edit Transcribed Date: 01/12/2025 19:41 ET Narrative 01/12/2025 7:43 PM EDT EXAM: Left elbow x-ray HISTORY: Left lateral elbow pain for 3 months. COMPARISON: None FINDINGS: 3 views performed. No acute fracture or dislocation. Joint spaces are maintained. No destructive bone lesion. No joint effusion. No soft tissue calcifications. Procedure Note Jeanne Hidalgo MD - 01/12/2025 EXAM: Left elbow x-ray HISTORY: Left lateral elbow pain for 3 months. COMPARISON: None FINDINGS: 3 views performed. No acute fracture or dislocation. Joint spaces are maintained. Nodestructive bone lesion. No joint effusion. No soft tissuecalcifications. IMPRESSION: No abnormality detected. POS - [id number] -------- FINAL REPORT -------- Dictated By: Jeanne Hidalgo Dictated Date: 01/12/2025 19:41 ET Assigned Physician: Jeanne Hidalgo Reviewed and Electronically Signed By: Jeanne Hidalgo Signed Date: 01/12/2025 19:43 ET Workstation ID: [id number] Transcribed By: Self Edit Transcribed Date: 01/12/2025 19:41 ET Leda NAILS IMG XR PROCEDURES Final Result * CBC auto differential (11/16/2024 4:18 PM EDT) WBC 6.5 4.8 - 10.8 K/mcL LAB HEMETOLOGY METHOD 11/16/2024 6:32 PM EDT [facility] RBC 4.10 3.80 - 4.80 M/mcL LAB HEMETOLOGY METHOD 11/16/2024 6:32 PM EDT [facility] Hemoglobin 12.5 11.5 - 16.0 g/dL LAB HEMETOLOGY METHOD 11/16/2024 6:32 PM EDT [facility] Hematocrit 38.1 35.0 - 47.0 % LAB HEMETOLOGY METHOD 11/16/2024 6:32 PM EDT [facility] MCV 94.1 79.0 - 98.0 FL LAB HEMETOLOGY METHOD 11/16/2024 6:32 PM EDT [facility] MCH 30.9 27.0 - 32.0 pcg LAB HEMETOLOGY METHOD 11/16/2024 6:32 PM EDT [facility] MCHC 32.8 32.0 - 37.0 g/dL LAB HEMETOLOGY METHOD 11/16/2024 6:[facility] PM [facility] RDW 11.6 11.0 - 15.0 % LAB HEMETOLOGY METHOD 11/16/2024 6:32 PM [facility] Platelets 300 130 - 400 K/mcL LAB HEMETOLOGY METHOD 11/16/2024 6:32 PM EDT [facility] MPV 10.5 7.0 - 11.0 FL LAB HEMETOLOGY METHOD 11/16/2024 6:32 PM [facility] NRBC 0.0 <1.0 % LAB HEMETOLOGY METHOD 11/16/2024 6:32 PM [facility] NRBC Absolute 0.00 <0.10 K/mcL LAB HEMETOLOGY METHOD 11/16/2024 6:32 PM EDT [facility] Neutrophils Relative 55.9 % LAB HEMETOLOGY METHOD 11/16/2024 6:32 PM EDT [facility] Lymphocytes Relative 33.0 % LAB HEMETOLOGY METHOD 11/16/2024 6:32 PM [facility] Monocytes Relative 8.2 % LAB [facility] Eosinophils Relative 2.0 % LAB HEMETOLOGY METHOD 11/16/2024 6:32 PM EDT [facility] Basophils Relative 0.6 % LAB HEMETOLOGY METHOD 11/16/2024 6:32 PM EDT [facility] Immature Granulocytes Relative 0.3 % LAB HEMETOLOGY METHOD 11/16/2024 6:32 PM EDT [facility] Neutrophils Absolute 3.61 1.50 - 7.00 K/mcL LAB HEMETOLOGY METHOD 11/16/2024 6:32 PM EDT [facility] Lymphocytes Absolute 2.13 1.00 - 5.00 K/mcL LAB HEMETOLOGY METHOD 11/16/2024 6:32 PM EDT [facility] Monocytes Absolute 0.53 0.20 - 1.00 K/mcL LAB HEMETOLOGY METHOD 11/16/2024 6:32 PM EDT [facility] Eosinophils Absolute 0.13 0.00 - 0.50 K/mcL LAB HEMETOLOGY METHOD 11/16/2024 6:32 PM EDT [facility] Basophils Absolute 0.04 0.00 - 0.20 K/mcL LAB HEMETOLOGY METHOD 11/16/2024 6:32 PM EDT [facility] Immature Granulocytes Absolute 0.02 0.00 - 0.03 K/mcL LAB HEMETOLOGY METHOD 11/16/2024 6:32 PM EDT [facility] Blood Venous blood specimen / Unknown Venipuncture / Unknown 11/16/2024 4:18 PM EDT 11/16/2024 4:18 PM EDT us Karoline Mann SLICE CUTTING MACHINE OPERATOR HELPER LAB BLOOD ORDERABLES Final R esult [facility] [address] [place] [address], * (ABNORMAL) Comprehensive metabolic panel (11/16/2024 4:18 PM EDT) [facility] Signature Sodium 138 133 - 145 mmol/L LAB CHEMISTRY METHOD 11/16/2024 8:[address] [facility] Potassium 4.0 3.5 - 5.5 mmol/L LAB CHEMISTRY METHOD 11/16/2024 8:[address] [facility] Chloride 105 96 - 110 mmol/L LAB CHEMISTRY METHOD 11/16/2024 8:[address] [facility] CO2 28 21 - 32 mmol/L LAB CHEMISTRY METHOD 11/16/2024 8:[address] [facility] Anion Gap 5 3 - 11 LAB CHEMISTRY METHOD 11/16/2024 8:[address] [facility] Glucose 104(H) 70 - 100 mg/dL LAB CHEMISTRY METHOD 11/16/2024 8:[address] [facility] BUN 12 5 - 25 mg/dL LAB CHEMISTRY METHOD 11/16/2024 8:[address] [facility] Creatinine 0.88 0.50 - 1.10 mg/dL LAB CHEMISTRY METHOD 11/16/2024 8:[address] [facility] eGFR 81 >=60 mL/min/1. 73m2 LAB CHEMISTRY METHOD 11/16/2024 8:[address] [facility] Comment:Calculation based on the Chronic Kidney Disease Epidemiology Collaboration (CKD-EPI) equation refit without adjustment for race. BUN/Creatinine Ratio 13.6 LAB CHEMISTRY METHOD 11/16/2024 8:[address] [facility] Calcium 9.2 8.5 - 10.5 mg/dL LAB CHEMISTRY METHOD 11/16/2024 8:[address] [facility] AST (SGOT) 12 10 - 42 unit/L LAB CHEMISTRY METHOD 11/16/2024 8:[address] [facility] ALT (SGPT) 33 10 - 60 unit/L LAB CHEMISTRY METHOD 11/16/2024 8:36 PM EDT [facility] Alkaline Phosphatase 103 42 - 121 unit/L LAB CHEMISTRY METHOD 11/16/2024 8:36 PM EDT [facility] Total Protein 6.8 6.0 - 8.0 g/dL LAB CHEMISTRY METHOD 11/16/2024 8:36 PM EDT [facility] Albumin 4.0 3.2 - 5.0 g/dL LAB CHEMISTRY METHOD 11/16/2024 8:36 PM EDT [facility] Total Bilirubin 0.2 0.0 - 1.4 mg/dL LAB CHEMISTRY METHOD 11/16/2024 8:36 PM EDT [facility] Blood Venous blood specimen / Unknown Venipuncture / Unknown 11/16/2024 4:18 PM EDT 11/16/2024 4:18 PM EDT Karoline Mann NP LAB BLOOD ORDERABLES Final R esult [facility] [address] [place] [address], * External Ultrasound Report (11/06/2024) Anatomical Region Laterality Modality Ultrasound us Provider [facility] IMG US PROCEDURES Final Result * MG Mammo Digital Screening w Eric bilat (09/22/2024 10:30 AM EDT) Anatomical Region Laterality Modality Breast Bilateral Mammography 09/22/2024 2:23 PM EDT Impressions 09/22/2024 2:28 PM EDT Benign. BI-RADS CATEGORY: 1 - NEGATIVE RECOMMENDATION: Screening bilateral mammogram is recommended in 1 year. Mammo Location: [facility], [address] [place] [address], [id number], . -------- FINAL REPORT -------- Dictated By: Iraida Curry Dictated Date: 09/22/2024 14:23 ET Assigned Physician: Iraida Curry Reviewed and Electronically Signed By: Iraida Curry Signed Date: 09/22/2024 14:28 ET Workstation ID: [id number] Transcribed By: Self Edit Transcribed Date: 09/22/2024 14:23 ET Narrative 09/22/2024 2:28 PM EDT CLINICAL: 49 years old, Female, routine annual exam. COMPARISON: Mammograms dating back to 07/21/2020 with most recent of 09/10/2023 TECHNIQUE: Bilateral MLO and CC views were obtained digitally with 3-D mammogram (digital breast tomosynthesis). Computer-aided detection was utilized in evaluation of this exam (CAD). FINDINGS: There is no evidence of suspicious mass or architectural distortion. No worrisome calcifications are evident. There has been no significant change from prior exam(s). BREAST DENSITY: B - There are scattered areas of fibroglandular density. Procedure Note Iraida Curry MD - 09/22/2024 CLINICAL: 49 years old, Female, routine annual exam. COMPARISON: Mammograms dating back to 07/21/2020 with most recent of09/10/2023 TECHNIQUE: Bilateral MLO and CC views were obtained digitally with 3-Dmammogram (digital breast tomosynthesis). Computer-aided detection wasutilized in evaluation of this exam (CAD). FINDINGS: There is no evidence of suspicious mass or architectural distortion. Noworrisome calcifications are evident. There has been no significantchange from prior exam(s). BREAST DENSITY: B - There are scattered areas of fibroglandular density. IMPRESSION: Benign. BI-RADS CATEGORY: 1 - NEGATIVE RECOMMENDATION: Screening bilateral mammogram is recommended in 1 year. Mammo Location: [facility], [address] [place] [address], [phone], . -------- FINAL REPORT -------- Dictated By: Iraida Curry Dictated Date: 09/22/2024 14:23 ET Assigned Physician: Iraida Curry Reviewed and Electronically Signed By: Iraida Curry Signed Date: 09/22/2024 14:28 ET Workstation ID: [id number] Transcribed By: Self Edit Transcribed Date: 09/22/2024 14:23 ET Dwayne Puentes MD IMG BI PROCEDURES Final Res ult * Lipid panel with reflex to direct LDL (09/02/2024 8:38 AM EDT) Cholesterol 170 0 - 200 mg/dL LAB CHEMISTRY METHOD 09/02/2024 1:48 PM EDT [facility] Triglycerides 119 0 - 150 mg/dL LAB CHEMISTRY METHOD 09/02/2024 1:48 PM EDT [facility] HDL 54 >=40 mg/dL LAB CHEMISTRY METHOD 09/02/2024 1:48 PM EDT [facility] LDL Calculated 92 0 - 100 mg/dL LAB CHEMISTRY METHOD 09/02/2024 1:48 PM EDT [facility] VLDL Cholesterol Jon 23.8 mg/dL LAB CHEMISTRY METHOD 09/02/2024 1:48 PM EDT [facility] Non HDL Chol. (LDL+VLDL) 116 <145 mg/dL LAB CHEMISTRY METHOD 09/02/2024 1:48 PM EDT [facility] Chol/HDL Ratio 3.1 0.0 - 4.4 LAB CHEMISTRY METHOD 09/02/2024 1:48 PM EDT [facility] Blood Venous blood specimen / Unknown Venipuncture / Unknown 09/02/2024 8:38 AM EDT 09/02/2024 8:38 AM EDT Dwayne Puentes MD LAB BLOOD ORDERABLES Final Result [facility] [address] [place] [address], [place] [phone] * Hepatitis C Screening (11/29/2022) Hepatitis C Screening abstracted Historical Provider HEALTH MAINTENANCE Final Result * Hm Cervical Cancer Screening: HPV (06/24/2020) Cervical Cancer Screening: HPV abstracted, negative Historical Provider HEALTH MAINTENANCE Final Result from Last 3 Months or Most Recently Relevant to Health Maintenance Insurance [facility] [id number] Care Teams Monument Letterer Relationship Specialty Start Date End Date Dwayne Puentes MD [address] [place] [address] PCP - General 01/13/24
== END 2025-01-28 09:27 | disposition home or self-care (01) ==
LOC: HO.HMGAL 09:24
PROVIDERS: PCP Internal Medicine; Visit Provider Registered Nurse Emergency
DX: J30.89 Other allergic rhinitis (principal)
CPT/HCPCS: 95117; 95165

== ENCOUNTER 2025-02-10 08:41 | Outpatient (AMB) | payer BC, SELFPAY ==
--- OUTSIDE RECORDS SUMMARY | 2025-02-10 09:07 | XMS_ITS | Patient Health Record ---
[facility] Address [address] [place] [address] Care Team Providers Care Event Set Up Specialist Name Role Phone Dhruv YIN, Philip Primary Care Provider Katherine Stout Unavailable [phone] Allergies Allergen (clinical drug ingredient) Drug/Non Drug Allergy documented on EMR Reaction Allergy Type Onset Date Status Atrovent Unknown Drug Allergy Active ipratropium Ipratropium [place] Unknown Drug Allergy Active tioconazole Monistat 1 [...] Insured Coverage Start Date Coverage End Date [facility] All Others [address] [place] [address] [phone] [id number] Jose R Harris Spouse - patient is the spouse of the insured Medical (General) History Medical History History ICD Code Anxiety asthma Depression Headaches/Migraines Chicken pox Gall bladder problems Irritable bowel syndrome Constipation Reflux ( GERD) Surgical History Surgery Date(Month/Year) gall bladder 04/2019
--- OUTSIDE RECORDS SUMMARY | 2025-02-10 09:07 | XMS_ITS | Clinical Summary ---
Author Organization [facility] Address [address] [place] [address] Care Team Providers Care Room Designer Name Role Phone Philip Bartlett MD Primary Care Provider [phone] Allergies Active Allergy Reactions Criticality Noted Date Comments Ipratropium Other (See Comments),Swelling 08/21/2007 Doesn't remember Facial swelling Ipratropium [place] [facility] 04/15/2019 Other Swelling Low 04/13/2015 Prochlorperazine [...] Tdap) 04/13/2021 04/13/2011 COVID-19 Vaccine ( season) 2025 08/17/2020, 07/27/2020 Influenza Vaccine (#1) 2025 4, 06/07/2022, 04/19/2021, Additional history exists Pneumococcal Vaccine Aged Out 07/09/2013 No long er eligible based on patient's age to complete this topic RSV Ped < 20 months Aged Out No longe r eligible based on patient's age to complete this topic Care Teams Room Designer Relationship Specialty Start Date End Date Philip Bartlett MD PCP - General Internal Medicine 09/12/21
--- OUTSIDE RECORDS SUMMARY | 2025-02-10 09:08 | XMS_ITS | Encounter Summary ---
Author Organization [facility] Address [address] [place] [address] Care Team Providers Care Hot Water Heater Installer Name Role Phone Pcp, Nidhi Primary Care Provider Unavailabl e Philip Bartlett MD Primary Care Provider Unavail able Encounter Details Date Type Department Care Team (Late st Contact Info) Description 12/12/2022 Scanned Document [facility] NE[facility] Unknown Unknow Provider Address Social History Tobacco Use Types Packs/Day Years Used Date Smoking Tobacco: Never Smokeless Tobacco: Never Alcohol Use Standard Drinks/Week Comments Never 0 (1 standard drink = 0.6 oz pur e alcohol) Comments Unknown Sex and Gender Information Value Date Recorded Sex Assigned at Not on file Legal Sex Female 12:04 PM EDT Gender Identity Not on file Sexual Orientation Not on file documented as of this encounter Plan of Treatment Not on file documented as of this encounter Visit Diagnoses Not on filedocumented in this encounter Care Teams Hot Water Heater Installer Relationship Specialty Start Date End Date Pcp, No PCP - General 04/13/22 01/14/23 Philip Bartlett MD PCP - General Internal Medicine 01/15/23 documented as of this encounter
--- OUTSIDE RECORDS SUMMARY | 2025-02-10 09:08 | XMS_ITS | Clinical Summary ---
Author Organization [facility] Address [address] [place] [address] Care Team Providers Care Pressure Vessel Inspector Name Role Phone Philip Bartlett MD Primary Care Provider Unavail able Allergies Active Allergy Reactions Criticality Noted Date Comments Prochlorperazine Edisylate Other (See Comments) 05/13/2008 Passed out Benzyl Alcohol Unknown/Patient and Family Unable to Define Medium 01/15/2023 Ipratropium [place] [facility] Swelling Medium 04/15/2019 Linaclotide Itching Low [...] (90 Base) MCG/ACT inhaler Inhale. 02/17/2021 Act ale buPROPion (WELLBUTRIN SR) 150 MG 12 hr [...] patient's age to complete this topic Insurance [employer] [facility] Care Teams Pressure Vessel Inspector Relationship Specialty Start Date End Date Philip Bartlett MD PCP - General Internal Medicine 01/15/23
--- OUTSIDE RECORDS SUMMARY | 2025-02-10 09:08 | XMS_ITS | Encounter Summary ---
Author Organization [facility] Address [address] [place] [address] Care Team Providers Care Payroll Processor Name Role Phone Philip Bartlett MD Primary Care Provider Unavail able Encounter Details Date Type Department Care Team (Late st Contact Info) Description 03/28/2023 Telephone [facility] Primary Care [address] [address] Philip Bartlett MD Social History Tobacco Use Types Packs/Day Years Used Date Smoking Tobacco: Never Smokeless Tobacco: Former Alcohol Use Standard Drinks/Week Comments Never 0 [...] on filedocumented in this encounter Care Teams Payroll Processor Relationship Specialty Start Date End Date Philip Bartlett MD PCP - General Internal Medicine 01/15/23 documented as of this encounter
--- OUTSIDE RECORDS SUMMARY | 2025-02-10 09:08 | XMS_ITS | Clinical Summary ---
Author Organization 175 [facility] Address [address] [place] [address] Phone Care Team Providers Care Ice Scraper Name Role Phone Dwayne Puentes MD Primary Care Provider Allergies Active Allergy Reactions Criticality Noted Date Comments Benzocaine Swelling Low 04/13/2015 Benzyl Alcohol Unknown High 01/12/2025 Ipratropium Other,Swelling 08/21/2007 Facial swelling Doesn't remember Facial swelling Ipratropium [place] 04/15/2019 Linaclotide Itching 11/12/2022 Boric Acid 06/08/2024 Other Swelling Low 05/13/2008 BENZYL [id number] - Other Reaction(s): OTHER Passed out Pneumococcal Vaccine High 07/13/2013 Localized swelling @ inj site Prochlorperazine Other 05/13/2008 Doesn't remember Passed out Tioconazole Other 04/22/2021 Doesn't remember Verapamil Unknown High 01/12/2025 Medications acetaminophen (TYLENOL) 325 mg capsule Take by mouth. OTC Active cetirizine (ZyrTEC) 10 mg tablet Take 1 tablet (10 mg total) by mouth 2 (two) times a day. Prescribed by lmft 06/18/19 24 Active fluticasone propionate (FLONASE) 50 mcg/actuation nasal spray Administer 2 sprays into affected nostril(s). Prescribe by lmft 06/18/19 24 Active OXcarbazepine (TRILEPTAL) 150 mg [...] drop 2 (two) times a day. Active carboxymethyl [id number] ly80 (Refresh Digital) 0.5-1-0.5 % drops Administer into [...] 30 each 11 09/08/19 25 026 Active predniSONE (DELTASONE) 20 mg tablet Take 60 mg PO daily for 3 days, then take 40 mg PO daily for 3 days, then 20 mg PO daily for 3 days, then stop 18 tablet 01/13/20 25 Active topiramate (Topamax) 25 mg tablet 2 po bid 120 each 02/04/20 25 Active topiramate (Topamax) 25 mg tablet 1 p.o. at bedtime x 1 week, then 1 p.o. twice daily 60 each 5 10/29/19 25 025 Discontinued(R eorder) sodium,potass ium,mag sulfates (Suprep Bowel Prep Kit) 17.5-3.13-1.6 gram recon soln bowel prep kit oral solution Take 177ML by mouth for 2 doses. SEE INSTRUCTIONS PROVIDED BY OFFICE. 1 kit 01/06/20 25 025 Discontinued Active Problems Problem Noted Date Diagnosed Date Varicose veins of lower extremity 10/07/2024 Bipolar disorder ([facility] V24, [facility] V28) 09/10 Anxiety 10/07/2024 Hyperlipidemia 10/07/2024 Obesity [...] who ordered an x-ray, was referred to [facility] orthopedics, over the last few years has tried physical therapy 3 or 4 separate times addressing the neck and shoulder pain. She has tried injections with Dr. Carlisle, health care sanitary technician. This morning she started a prednisone pack [...] had MRI thoracic spine January 2024 at [facility] with minimal degenerative changes, no significant degenerative [...] patch that she was prescribed by her DIRECTOR PART, musculoskeletal issues like she describes can be a symptom from perimenopause/menopause low hormone levels. She will call her DIRECTOR PART to let them know she is interested [...] Major depressive disorder, r ecurrent episode, moderate ([facility] V24, [facility] V28) 10/06/2013 Genital herpes 04/13/2011 Overview (08/06/2023): [...] Encounters Date Type Department Care Team Description 02/03/2025 4:00 PM EDT Office Visit [facility] 175 [facility] [address] [place] [phone] Jacklyn Altman PA 01/19/2025 1:09 PM EDT Anesthesia Event [facility] [address] [place] [phone] Ceasar Bauer MD 01/19/2025 12:09 PM EDT - 01/19/2025 11:59 PM EDT Hospital Encounter [facility] [address] [place] [phone] Keon Sheehan MD Abrokwah, Foster Myles G, CRNA Saliga, Jesse L, MD Irritable bowel syndrome with constipation; Colon cancer screening Discharge Disposition: Home or Self Care 01/12/2025 10:11 AM EDT - 01/12/2025 11:59 PM EDT Hospital Encounter [address] [phone] Left elbow pain Discharge Disposition: Home or Self Care 01/12/2025 10:00 AM EDT Office Visit Adult [address] [phone] Leda Bell PA Left lateral epicondylitis (Primary Dx); Left elbow pain 01/11/2025 Telephone Adult [address] [phone] Dwayne Puentes MD 12/29/2024 10:00 AM EDT Consult Vascular Surgery - [place] [address] [place] [phone] Danielle Spivey MD Ankle swelling, unspecified laterality 11/16/2024 3:30 PM EDT Office Visit Adult [address] [phone] Karoline Mann, [employer] Annual physical exam (Primary Dx); Generalized pain; Major depressive disorder, recurrent episode, moderate (CMS/HCC V24, CMS/HCC V28); Decreased hearing of both ears from Last 3 Months Immunizations Name Administration Dates Next Due Influenza Quadravalent, MDCK , 0.5ml, preservative free (Flucelvax) 6mo and older 06/18/2023,06/07/2022,04/19/2021,03/07,02/23/2019 Influenza Quadravalent, MDCK , 0.5ml, with preservative (Flucelvax) 6mo and older 02/18/2018,02/20/2017 Influenza trivalent, with pr eservative (Fluzone; Afluria) 6mo and older 07/09/2013,07/02/2012,04/13/2011,03/29 Measles 02/18/2018 Mumps 02/18/2018 PPD Test 02/12/2018 scrible SARS-CoV-2 COVID-19, mRNA, LNP-S, preservative free 08/17/2020,07/27/2020 [...] Sign Reading Time Taken Comments Blood Pressure 106/69 02/03/2025 3:57 PM EDT Pulse 66 02/03/2025 3:57 PM EDT Temperature 36.3 C (97.3 F) 01/19/2025 1:30 PM EDT Respiratory Rate 14 01/19/2025 1:50 PM EDT Oxygen Saturation 97% 02/03/2025 3:57 PM EDT Inhaled Oxygen Concentration - - Weight 78.9 kg (174 lb) 02/03/2025 3:57 PM EDT Height 162.6 cm (5' 4 ) 02/03/2025 3:57 PM EDT Body Mass Index 29.87 02/03/2025 3:57 PM EDT Plan of Treatment Upcoming Encounters Date Type Department Care Team (Late st Contact Info) Description 06/07/2025 8:30 AM EST Office Visit [facility] [place] [address] [facility] [address] [place] [phone] Kj Varma MD [address] [place] [phone] 09/28/2025 10:40 AM EDT Appointment Radiology Department - [address] [phone] Health Maintenance Due Date Last Done Comments [...] 11/16/2024 4:18 PM EDT Annual physical exam MG MAMMO DIGITAL SCREENING W ERIC BILAT Routine 09/22/2024 10:30 AM EDT Encounter for screening mammogram for breast cancer LIPID PANEL WITH REFLEX TO DIRECT LDL Routine 09/02/2024 8:38 AM EDT Hyperlipidemia, unspecified hyperlipidemia type HM HEPATITIS C SCREENING Routine 11/29/2022 HM HPV Routine 06/24/2020 from Last 3 Months or Most Recently Relevant to Health Maintenance Results * COLONOSCOPY Anesthesia - MAC; [facility] (01/19/2025 1:29 PM EDT) Anatomical Region Laterality Modality Other 01/19/2025 1:15 PM EDT Impressions 01/19/2025 1:30 PM EDT - Diverticulosis in the entire examined colon. - No specimens collected. Recommendation: - Repeat colonoscopy in 10 years for screening purposes. - Use fiber, for example Citrucel, Fibercon, Konsyl or Metamucil. Narrative 01/19/2025 1:30 PM EDT [facility] Patient Name: Royal Harris Procedure Date: [...] or abscess without bleeding CPT copyright 2020 [employer]. All rights reserved. The codes documented in this report are preliminary and upon fiction and nonfiction prose writer review may be revised to meet current compliance requirements. Keon Sheehan MD 01/19/2025 1:29:57 PM This report has been signed electronically.Keon Sheehan MD Number of Addenda: 0 Note Initiated On: 01/19/2025 1:15 PM Scope In: Scope Out: Endoscopy Department at [facility] - [address] [place] [phone] Procedure Note Keon Sheehan MD - 01/19/2025 [facility] Patient Name: Royal Harris Procedure Date: [...] or abscess without bleeding CPT copyright 2020 [employer]. All rights reserved. The codes documented in this report are preliminary and upon fiction and nonfiction prose writer reviewmay be revised to meet current compliance requirements. Keon Sheehan MD 01/19/2025 1:29:57 PM This report has been signed electronically.Keon Sheehan MD Number of Addenda: 0 Note Initiated On: 01/19/2025 1:15 PM Scope In: Scope Out: Endoscopy Department at [facility] - [address] [place] [phone] IMPRESSION: - Diverticulosis in the entire examined colon. - No specimens collected. Recommendation: - Repeat colonoscopy in 10 years for screening purposes. - Use fiber, for example Citrucel, Fibercon, Konsylor Metamucil. Keon Sheehan MD GI~PROCEDURE ORDERABLES Final Re sult * XR Elbow 3+ Views Left (01/12/2025 10:31 AM EDT) Anatomical Region Laterality Modality Upper Extremities, Elbow Left Radiogr aphic Imaging 01/12/2025 7:41 PM EDT Impressions 01/12/2025 7:43 PM EDT No abnormality detected. POS - [id number] -------- FINAL REPORT -------- Dictated By: Jeanne Hidalgo Dictated Date: 01/12/2025 19:41 ET Assigned Physician: Jeanne Hidalgo Reviewed and Electronically Signed By: Jeanne Hidalgo Signed Date: 01/12/2025 19:43 ET Workstation ID: [id number] Transcribed By: Self Edit Transcribed Date: 01/12/2025 [...] tissuecalcifications. IMPRESSION: No abnormality detected. POS - [id number] -------- FINAL REPORT -------- Dictated By: Jeanne Hidalgo Dictated Date: 01/12/2025 19:41 ET Assigned Physician: Jeanne Hidalgo Reviewed and Electronically Signed By: Jeanne Hidalgo Signed Date: 01/12/2025 19:43 ET Workstation ID: [id number] Transcribed By: Self Edit Transcribed Date: 01/12/2025 19:41 ET [facility] Nohemi NAILS IMG XR PROCEDURES Final Result * CBC auto differential (11/16/2024 4:18 PM EDT) WBC 6.5 4.8 - 10.8 K/mcL LAB HEMETOLOGY METHOD 11/16/2024 6:32 PM EDT [facility] RBC 4.10 3.80 - 4.80 M/mcL LAB HEMETOLOGY METHOD 11/16/2024 6:32 PM EDT [facility] Hemoglobin 12.5 11.5 - 16.0 g/dL LAB HEMETOLOGY METHOD 11/16/2024 6:32 PM EDT [facility] Hematocrit 38.1 35.0 - 47.0 % [facility] MCV 94.1 79.0 - 98.0 FL LAB HEMETOLOGY METHOD 11/16/2024 6:32 PM [facility] MCH 30.9 27.0 - 32.0 pcg LAB HEMETOLOGY METHOD 11/16/2024 6:32 PM [facility] MCHC 32.8 32.0 - 37.0 g/dL LAB HEMETOLOGY METHOD 11/16/2024 6:32 PM [facility] RDW 11.6 11.0 - 15.0 % LAB HEMETOLOGY METHOD 11/16/2024 6:32 PM [facility] Platelets 300 130 - 400 K/mcL LAB HEMETOLOGY METHOD 11/16/2024 6:32 PM [facility] MPV 10.5 7.0 - 11.0 FL LAB HEMETOLOGY METHOD 11/16/2024 6:32 PM [facility] NRBC 0.0 <1.0 % LAB HEMETOLOGY METHOD 11/16/2024 6:32 PM [facility] NRBC Absolute 0.00 <0.10 K/mcL LAB HEMETOLOGY METHOD 11/16/2024 6:32 PM [facility] Neutrophils Relative 55.9 % LAB HEMETOLOGY METHOD 11/16/2024 6:32 PM [facility] Lymphocytes Relative 33.0 % LAB HEMETOLOGY METHOD 11/16/2024 6:32 PM [facility] Monocytes Relative 8.2 % LAB HEMETOLOGY METHOD 11/16/2024 6:32 PM [facility] Eosinophils Relative 2.0 % LAB HEMETOLOGY METHOD 11/16/2024 6:32 PM EDT [facility] Basophils Relative 0.6 % LAB HEMETOLOGY METHOD 11/16/2024 6:32 PM EDT [facility] Immature Granulocytes Relative 0.3 % LAB HEMETOLOGY METHOD 11/16/2024 6:32 PM EDT [facility] Neutrophils Absolute 3.61 1.50 - 7.00 K/mcL LAB HEMETOLOGY METHOD 11/16/2024 6:32 PM EDT [facility] Lymphocytes Absolute 2.13 1.00 - 5.00 K/mcL LAB HEMETOLOGY METHOD 11/16/2024 6:32 PM EDT [facility] Monocytes Absolute 0.53 0.20 - 1.00 K/mcL LAB HEMETOLOGY METHOD 11/16/2024 6:32 PM EDT [facility] Eosinophils Absolute 0.13 0.00 - 0.50 K/mcL LAB HEMETOLOGY METHOD 11/16/2024 6:32 PM EDT [facility] Basophils Absolute 0.04 0.00 - 0.20 K/mcL LAB HEMETOLOGY METHOD 11/16/2024 6:32 PM EDT [facility] Immature Granulocytes Absolute 0.02 0.00 - 0.03 K/mcL LAB HEMETOLOGY METHOD 11/16/2024 6:32 PM EDT [facility] Blood Venous blood specimen / Unknown Venipuncture / Unknown 11/16/2024 4:18 PM EDT 11/16/2024 4:18 PM EDT us Karoline Mann NP LAB BLOOD ORDERABLES Final R esult [facility] [address] [place] [address], * (ABNORMAL) Comprehensive metabolic panel (11/16/2024 4:18 PM EDT) [facility] Signature Sodium 138 133 - 145 mmol/L LAB CHEMISTRY METHOD 11/16/2024 8:36 PM [facility] Potassium 4.0 3.5 - 5.5 mmol/L LAB CHEMISTRY METHOD 11/16/2024 8:36 PM [facility] Chloride 105 96 - 110 mmol/L LAB CHEMISTRY METHOD 11/16/2024 8:36 PM [facility] CO2 28 21 - 32 mmol/L LAB CHEMISTRY METHOD 11/16/2024 8:36 PM [facility] Anion Gap 5 3 - 11 LAB CHEMISTRY METHOD 11/16/2024 8:36 PM [facility] Glucose 104(H) 70 - 100 mg/dL LAB CHEMISTRY METHOD 11/16/2024 8:36 PM [facility] BUN 12 5 - 25 mg/dL LAB CHEMISTRY METHOD 11/16/2024 8:36 PM [facility] Creatinine 0.88 0.50 - 1.10 mg/dL LAB CHEMISTRY METHOD 11/16/2024 8:36 PM [facility] eGFR 81 >=60 mL/min/1. 73m2 LAB CHEMISTRY METHOD 11/16/2024 8:36 PM [facility] Comment:Calculation based on the Chronic Kidney Disease Epidemiology Collaboration (CKD-EPI) equation refit without adjustment for race. BUN/Creatinine Ratio 13.6 LAB CHEMISTRY METHOD 11/16/2024 8:36 PM [facility] Calcium 9.2 8.5 - 10.5 mg/dL LAB CHEMISTRY METHOD 11/16/2024 8:36 PM [facility] AST (SGOT) 12 10 - 42 unit/L LAB CHEMISTRY METHOD 11/16/2024 8:36 PM [facility] ALT (SGPT) 33 10 - 60 unit/L LAB CHEMISTRY METHOD 11/16/2024 8:36 PM [facility] Alkaline Phosphatase 103 42 - 121 unit/L LAB CHEMISTRY METHOD 11/16/2024 8:36 PM EDT [facility] Total Protein 6.8 6.0 - 8.0 g/dL LAB CHEMISTRY METHOD 11/16/2024 8:36 PM EDT [facility] Albumin 4.0 3.2 - 5.0 g/dL LAB CHEMISTRY METHOD 11/16/2024 8:36 PM EDT [facility] Total Bilirubin 0.2 0.0 - 1.4 mg/dL LAB CHEMISTRY METHOD 11/16/2024 8:36 PM EDT [facility] Blood Venous blood specimen / Unknown Venipuncture / Unknown 11/16/2024 4:18 PM EDT 11/16/2024 4:18 PM EDT Karoline Mann NP LAB BLOOD ORDERABLES Final R esult [facility] [address] [place] [address], [place] [phone] * MG Mammo Digital Screening w Eric bilat (09/22/2024 10:30 AM EDT) Anatomical Region Laterality Modality Breast Bilateral Mammography 09/22/2024 2:23 PM EDT Impressions 09/22/2024 2:28 PM EDT Benign. BI-RADS CATEGORY: 1 - NEGATIVE RECOMMENDATION: Screening bilateral mammogram is recommended in 1 year. Mammo Location: [facility], [address] [place] [address], [id number], . -------- FINAL REPORT -------- Dictated By: Iraida Curry Dictated Date: 09/22/2024 14:23 ET Assigned Physician: Iraida Curry Reviewed and Electronically Signed By: Iraida Curry Signed Date: 09/22/2024 14:28 ET Workstation ID: [id number] Transcribed By: Self Edit Transcribed Date: 09/22/2024 [...] is recommended in 1 year. Mammo Location: [facility], [address] [place] [address], [phone], . -------- FINAL REPORT -------- Dictated By: Iraida Curry Dictated Date: 09/22/2024 14:23 ET Assigned Physician: Iraida Curry Reviewed and Electronically Signed By: Iraida Curry Signed Date: 09/22/2024 14:28 ET Workstation ID: [id number] Transcribed By: Self Edit Transcribed Date: 09/22/2024 14:23 ET us Dwayne Puentes MD IMG BI PROCEDURES Final Res ult * Lipid panel with reflex to direct LDL (09/02/2024 8:38 AM EDT) [facility] Cholesterol 170 0 - 200 mg/dL LAB CHEMISTRY METHOD 09/02/2024 1:48 PM EDT [facility] Triglycerides 119 0 - 150 mg/dL LAB CHEMISTRY METHOD 09/02/2024 1:48 PM EDT [facility] HDL 54 >=40 mg/dL LAB CHEMISTRY METHOD 09/02/2024 1:48 PM EDT [facility] LDL Calculated 92 0 - 100 mg/dL LAB CHEMISTRY METHOD 09/02/2024 1:48 PM EDT [facility] VLDL Cholesterol Jon 23.8 mg/dL LAB CHEMISTRY METHOD 09/02/2024 1:48 PM EDT [facility] Non HDL Chol. (LDL+VLDL) 116 <145 mg/dL LAB CHEMISTRY METHOD 09/02/2024 1:48 PM EDT [facility] Chol/HDL Ratio 3.1 0.0 - 4.4 LAB CHEMISTRY METHOD 09/02/2024 1:48 PM EDT [facility] Blood Venous blood specimen / Unknown Venipuncture / Unknown 09/02/2024 8:38 AM EDT 09/02/2024 8:38 AM EDT Dwayne Puentes MD LAB BLOOD ORDERABLES Final Result [facility] [address] [place] [address], * Hepatitis C Screening (11/29/2022) [facility] Hepatitis C Screening abstracted Historical Provider HEALTH MAINTENANCE Final Result * Cervical Cancer Screening: HPV (06/24/2020) [facility] Cervical Cancer Screening: HPV abstracted, negative Historical Provider HEALTH MAINTENANCE Final Result from Last 3 Months or Most Recently Relevant to Health Maintenance Insurance [facility]) MEDICARE Care Teams Ice Scraper Relationship Specialty Start Date End Date Dwayne Puentes MD [address] [place] [address] PCP - General 01/13/24
== END 2025-02-10 09:09 | disposition home or self-care (01) ==
LOC: HO.HMGAL 08:41
PROVIDERS: PCP Internal Medicine; Visit Provider Registered Nurse Emergency
DX: J30.89 Other allergic rhinitis (principal)
CPT/HCPCS: 95117; 95165

== ENCOUNTER 2025-02-24 11:01 | Outpatient (AMB) | payer BC, SELFPAY ==
--- OUTSIDE RECORDS SUMMARY | 2025-02-20 09:45 | XMS_ITS | Encounter Summary ---
Author Organization [facility] Address [address] [place] [address] Care Team Providers Care Item Processing Clerk Name Role Phone Dwayne Puentes MD Primary Care Provider [phone] Reason for Referral * Imaging (Routine) - Pending Review Specialty Diagnoses / Procedures Referred By Suzy sinclair Referred To Contact Radiology Diagnoses Headache associated with sexual activity Procedures MR Brain wo Contrast Jacklyn Altman PA [address] [place] [address] Phone: tel: fax: [address] [address] Phone: tel: Referral ID Status Reason Start Date Expiration Date V isits Requested Visits Authorized [id number] Pending Review 02/14/2025 02/14/2026 1 1 Reason for Visit * Imaging (Routine) - Pending Review Specialty Diagnoses / Procedures Referred By Suzy sinclair Referred To Contact Radiology Diagnoses Headache associated with sexual activity Procedures MR Brain wo Contrast Jacklyn Altman PA [address] [place] [address] Phone: tel: fax: [address] [address] Phone: tel: Referral ID Status Reason Start Date Expiration Date V isits Requested Visits Authorized [id number] Pending Review 02/14/2025 02/14/2026 1 1 Encounter Details Date Type Department Care Team (Latest Contact Info) Description 02/20/2025 9:45 AM EDT - 02/20/2025 11:59 PM EDT Hospital Encounter [facility] MRI [address] [place] [address] Headache associated with sexual activity Discharge Disposition: Home or Self Care Social History Tobacco Use Types Packs/Day Years Used Date Smoking Tobacco: Former Cigarettes Q uit: 06/10/1995 Passive Smoke Exposure: Past Smokeless Tobacco: Never Alcohol Use Standard Drinks/Week Comments Not Currently [...] Orientation Straight 01/19/2025 12 :07 PM EDT documented as of this encounter Medications at Time of Discharge acetaminophen (TYLENOL) 325 mg capsule Take by mouth. OTC aspirin 81 mg chewable tablet Chew 1 tablet (81 mg total) 1 (one) time each day. 30 each 09/07/2024 carboxymethylce- glycern-poly80 (Refresh Digital) 0.5-1-0.5 % drops Administer into affected eye(s). cetirizine (ZyrTEC) 10 mg tablet Take 1 tablet (10 mg total) by mouth 2 (two) times a day. Prescribed by senior validation engineer 06/18/2023 citalopram (CeleXA) 10 mg tablet Take 1 tablet (10 mg total) by mouth 1 (one) time each day. Prescribe by Psychiatrist cycloSPORINE (RESTASIS) 0.05 % ophthalmic emulsion 1 drop 2 (two) times a day. fluticasone propionate (FLONASE) 50 mcg/actuation nasal spray Administer 2 sprays into affected nostril(s). Prescribe by senior validation engineer 06/18/2023 multivitamin tablet Take 1 tablet by mouth 1 (one) time each day. Buy OTC OXcarbazepine (TRILEPTAL) 150 mg tablet Take 1 tablet (150 mg total) by mouth 1 (one) time each day in the morning. Prescribe by Psychiatrist 06/14/2023 oxyBUTYnin XL (DITROPAN-XL) 10 mg 24 hr tablet Take 1 tablet (10 mg total) by mouth 1 (one) time each day. 08/01/2023 pantoprazole (PROTONIX) 40 mg EC tablet Take 1 tablet (40 mg total) by mouth 2 (two) times a day. Do not crush, chew, or split. 180 tablet 3 04/22/2024 predniSONE (DELTASONE) 20 mg tablet Take 60 mg PO daily for 3 days, then take 40 mg PO daily for 3 days, then 20 mg PO daily for 3 days, then stop 18 tablet 01/12/2025 topiramate (Topamax) 25 mg tablet 2 po bid 120 each 5 02/03/2025 documented as of this encounter Discharge Disposition Disposition Code Departure Means Destination Home or Self Care documented in this encounter Plan of Treatment Upcoming Encounters Date Type Department Care Team (Late st Contact Info) Description 03/03/2025 4:15 PM EDT Office Visit Adult Medicine [place] - [address] [phone] Karoline Mann, ALIA [address] [place], [place] 06/07/2025 8:30 AM EST Office Visit [facility] [place] [facility] [place] [address] [facility] [address] [place] [address] Kj Varma MD [address] [place] [phone] 09/28/2025 10:40 AM EDT Appointment Radiology Department - [address] [phone] documented as of this encounter Goals Goal Patient Goal Type Associated Problems Recent Progress Patient-Stated? Author STG (6 visits) General No Eri Benjamin PT Note: Pt will demonstrate compliance with HEP Pt will report decreased pain level to < 6/10 at worst Pt will report centralization of radicular symptoms Pt will demonstrate improved scapular resting position Pt will increase R shoulder flexion AROM to WFL Pt will demonstrate at least 3/5 middle and lower trapezius MMT LTG (12 visits) General No Eri Benjamin PT Note: Pt will demonstrate independence with HEP Pt will report decreased pain level to < 3/10 at worst Pt will report no radicular symptoms Pt will demonstrate R shoulder flexion and ABD AROM to 165 deg Pt will increase R shoulder MMT to 5/5 Pt will demonstrate fair -> fair plus scapulothoracic rhythm documented as of this encounter Procedures Procedure Name Priority Date/Time Associated Diagnosis Comments MR BRAIN WO CONTRAST Routine 02/20/2025 10:38 AM EDT Headache associated with sexual activity documented in this encounter Results * MR Brain wo Contrast (02/20/2025 10:38 AM EDT) Anatomical Region Laterality Modality Head and Neck Magnetic Resonan ce 02/23/2025 12:3 4 PM EDT Impressions 02/23/2025 3:15 PM EDT No acute findings. Unchanged appearance of the brain compared with 01/21/2014. -------- FINAL REPORT -------- Dictated By: Jose Clemens Dictated Date: 02/23/2025 12:34 ET Assigned Physician: Jose Clemens Reviewed and Electronically Signed By: Jose Clemens Signed Date: 02/23/2025 15:15 ET Workstation ID: [id number] Transcribed By: Self Edit Transcribed Date: 02/23/2025 12:41 ET Narrative 02/23/2025 3:15 PM EDT PROCEDURE: Noncontrast MRI of the brain. HISTORY: Multiple sclerosis, monitor. COMPARISON: 01/21/2014. TECHNIQUE: Multiplanar multisequence MRI of the brain without intravenous contrast administration. FINDINGS: BRAIN: No diffusion abnormality. No mass or extra-axial fluid collection. No hydrocephalus. The major intracranial flow voids are preserved. Age commensurate ventricles and sulci. A few very small scattered foci of T2 prolongation in the supratentorial white matter are unchanged. ORBITS: Normal. SINUSES/MASTOIDS: Small mucous retention cyst in the inferior maxillary antra. Minimal mucosal thickening in the frontal sinuses and ethmoid air cells. CALVARIUM: Normal. OTHER: The visualized skull base soft tissues are normal. Procedure Note Jose Clemens MD - 02/23/2025 PROCEDURE: Noncontrast MRI of the brain. HISTORY: Multiple sclerosis, monitor. COMPARISON: 01/21/2014. TECHNIQUE: Multiplanar multisequence MRI of the brain without intravenouscontrast administration. FINDINGS: BRAIN: No diffusion abnormality. No mass or extra-axial fluid collection.No hydrocephalus. The major intracranial flow voids are preserved. Agecommensurate ventricles and sulci. A few very small scattered foci of J8szoxzvlhtrrp in the supratentorial white matter are unchanged. ORBITS: Normal. SINUSES/MASTOIDS: Small mucous retention cyst in the inferior maxillaryantra. Minimal mucosal thickening in the frontal sinuses and ethmoid aircells. CALVARIUM: Normal. OTHER: The visualized skull base soft tissues are normal. IMPRESSION: No acute findings. Unchanged appearance of the brain compared with01/21/2014. -------- FINAL REPORT -------- Dictated By: Jose Clemens Dictated Date: 02/23/2025 12:34 ET Assigned Physician: Jose Clemens Reviewed and Electronically Signed By: Joes Clemens Signed Date: 02/23/2025 15:15 ET Workstation ID: [id number] Transcribed By: Self Edit Transcribed Date: 02/23/2025 12:41 ET Jacklyn ROWE MRI PROCEDURES Final Res ult documented in this encounter Visit Diagnoses Diagnosis Headache associated with sexual activity documented in this encounter Additional Health Concerns Assessment Noted Time PHQ-9 Depression Total Score: 10 11/16/ 025 3:00 PM EDT documented as of this encounter Care Teams Item Processing Clerk Relationship Specialty Start Date End Date Dwayne Puentes MD [address] [place] [address] PCP - General 01/13/24 documented as of this encounter
--- OUTSIDE RECORDS SUMMARY | 2025-02-24 14:08 | XMS_ITS | Clinical Summary ---
Author Organization [facility] Address [address] [place] [address] Care Team Providers Care Linux System Admin Name Role Phone Philip Bartlett MD Primary Care Provider Unavail able Allergies Active Allergy Reactions Criticality Noted Date Comments Prochlorperazine Edisylate Other (See Comments) 05/13/2008 Passed out Benzyl Alcohol Unknown/Patient and Family Unable to Define Medium 01/15/2023 Ipratropium [place] [facility] Swelling Medium 04/15/2019 Linaclotide Itching Low [...] Active Active Problems No known active problems Social History Tobacco Use Types Packs/Day Years [...] (Ages 21-65) 1996 Mammogram 2015 Colonoscopy 2020 Influenza Vaccine 01/08/2025 06/18/2023, , 06/07/2022, Additional history exists COVID-19 Vaccine (2024- season) 2025 08/17/2020, 07/27/2020 Pneumococcal Vaccine: Pediatric (0-5 Years) and At-Risk Patients (6 to 49 Years) Aged Out No longer eligible based on patient's age to complete this topic Insurance [facility] [employer] [facility] Care Teams Linux System Admin Relationship Specialty Start Date End Date Philip Bartlett MD PCP - General Internal Medicine 01/15/23
--- OUTSIDE RECORDS SUMMARY | 2025-02-24 14:08 | XMS_ITS | Encounter Summary ---
Author Organization [facility] Address [address] [place] [address] Care Team Providers Care Tire Sorter Name Role Phone Philip Bartlett MD Primary Care Provider Unavail able Encounter Details Date Type Department Care Team (Late st Contact Info) Description 03/28/2023 Telephone [facility] Primary Care [address] [phone] Philip Bartlett MD Social History [...] on filedocumented in this encounter Care Teams Tire Sorter Relationship Specialty Start Date End Date Philip Bartlett MD PCP - General Internal Medicine 01/15/23 documented as of this encounter
--- OUTSIDE RECORDS SUMMARY | 2025-02-24 14:08 | XMS_ITS | Encounter Summary ---
Author Organization [facility] Address [address] [place] [address] Care Team Providers Care Data Processing Systems Project Planner Name Role Phone Pcp, Nidhi Primary Care Provider Unavailabl e Philip Bartlett MD Primary Care Provider Unavail able Encounter Details Date Type Department Care Team (Late st Contact Info) Description 12/12/2022 Scanned Document [facility] NEUROPSYCH SCAN Unknown Unknow Provider Address [...] on filedocumented in this encounter Care Teams Data Processing Systems Project Planner Relationship Specialty Start Date End Date Pcp, No PCP - General 04/13/22 01/14/23 Philip Bartlett MD PCP - General Internal Medicine 01/15/23 documented as of this encounter
--- OUTSIDE RECORDS SUMMARY | 2025-02-24 14:08 | XMS_ITS | Clinical Summary ---
Author Organization [address] [facility] Address [address] [place] [address] Phone Care Team Providers Care Clinical Social Work Aide Name Role Phone Dwayne Puentes MD Primary Care Provider Allergies Active Allergy Reactions Criticality Noted Date Comments Benzocaine Swelling Low 04/13/2015 Benzyl Alcohol Unknown High 01/12/2025 Ipratropium Other,Swelling 08/21/2007 Facial swelling Doesn't remember Facial swelling Ipratropium [place] 04/15/2019 Linaclotide Itching 11/12/2022 Boric Acid 06/08/2024 Other Swelling Low 05/13/2008 BENZYL CAP-ATFEPRIBROQKYSNJ-KPL - Other Reaction(s): OTHER Passed out Pneumococcal Vaccine High 07/13/2013 Localized swelling @ inj site Prochlorperazine Other 05/13/2008 Doesn't remember Passed out Tioconazole Other 04/22/2021 Doesn't remember Verapamil Unknown High 01/12/2025 Medications acetaminophen (TYLENOL) 325 mg capsule Take by mouth. OTC Active cetirizine (ZyrTEC) 10 mg tablet Take 1 tablet (10 mg total) by mouth 2 (two) times a day. Prescribed by elevator mechanic apprentice 4 Active fluticasone propionate (FLONASE) 50 mcg/actuation nasal spray Administer 2 sprays into affected nostril(s). Prescribe by elevator mechanic apprentice 4 Active OXcarbazepine (TRILEPTAL) 150 mg tablet Take 1 tablet (150 mg total) by mouth 1 (one) time each day in the morning. Prescribe by Psychiatrist 4 Active oxyBUTYnin XL (DITROPAN-XL) 10 mg 24 hr tablet Take 1 tablet (10 mg total) by mouth 1 (one) time each day. 4 Active pantoprazole (PROTONIX) 40 mg EC tablet Take 1 tablet (40 mg total) by mouth 2 (two) times a day. Do not crush, chew, or split. 180 tablet 3 4 Active cycloSPORINE (RESTASIS) 0.05 % ophthalmic emulsion 1 drop 2 (two) times a day. Active carboxymethylc j-ulbkbkc-fvyk 80 (Refresh Digital) 0.5-1-0.5 % drops Administer [...] (one) time each day. 30 each 11 5 026 Active predniSONE (DELTASONE) 20 mg tablet Take 60 mg PO daily for 3 days, then take 40 mg PO daily for 3 days, then 20 mg PO daily for 3 days, then stop 18 tablet 5 Active topiramate (Topamax) 25 mg tablet 2 po bid 120 each 5 5 Active topiramate (Topamax) 25 mg tablet 1 p.o. at bedtime x 1 week, then 1 p.o. twice daily 60 each 5 5 025 Discontin ued(Reord er) Active Problems Problem Noted Date Diagnosed Date Varicose veins of lower extremity 10/07/2024 Bipolar disorder (CMS/HCC V24, CMS/HCC V28) 09/10 Anxiety 10/07/2024 Hyperlipidemia 10/07/2024 Obesity [...] who ordered an x-ray, was referred to [facility] orthopedics, over the last few years has tried physical therapy 3 or 4 separate times addressing the neck and shoulder pain. She has tried injections with Dr. Carlisle, home health care respiratory therapist. This morning she started a prednisone pack [...] had MRI thoracic spine January 2024 at [facility] with minimal degenerative changes, no significant degenerative [...] patch that she was prescribed by her WATER TREATMENT PLANT REPAIRER, musculoskeletal issues like she describes can be a symptom from perimenopause/menopause low hormone levels. She will call her WATER TREATMENT PLANT REPAIRER to let them know she is interested [...] disorder, r ecurrent episode, moderate (CMS/HCC V24, CMS/HCC V28) 10/06/2013 Genital herpes 04/13/2011 Overview (08/06/2023): [...] Encounters Date Type Department Care Team Description 02/20/2025 9:45 AM EDT - 02/20/2025 11:59 PM EDT Hospital Encounter [facility] MRI [address] [place] [phone] Headache associated with sexual activity Discharge Disposition: Home or Self Care 02/03/2025 4:00 PM EDT Office Visit [facility] [address] [facility] [address] [place] [phone] Jacklyn Altman PA Headache associated with sexual activity (Primary Dx) 01/19/2025 1:09 PM EDT Anesthesia Event [facility] Endoscopy [address] [place] [phone] Ceasar Bauer MD 01/19/2025 12:09 PM EDT - 01/19/2025 11:59 PM EDT Hospital Encounter [facility] Endoscopy [address] [place] [phone] Keon Sheehan MD Abrokwah, Foster Myles G, CRNA Saliga, Jesse L, MD Irritable bowel syndrome with constipation; Colon cancer screening Discharge Disposition: Home or Self Care 01/12/2025 10:11 AM EDT - 01/12/2025 11:59 PM EDT Hospital Encounter [address] [phone] Left elbow pain Discharge Disposition: Home or Self Care 01/12/2025 10:00 AM EDT Office Visit Adult Medicine [address] [phone] Leda Bell PA Left lateral epicondylitis (Primary Dx); Left elbow pain 01/11/2025 Telephone Adult [address] [phone] Dwayne Puentes MD 12/29/2024 10:00 AM EDT Consult Vascular Surgery - [place] [address] [place] [phone] Danielle Spivey MD Ankle swelling, unspecified laterality from Last 3 Months Immunizations Name Administration Dates Next Due Influenza Quadravalent, MDCK , 0.5ml, preservative free (Flucelvax) 6mo and older 06/18/2023,06/07/2022,04/19/2021,03/07,02/23/2019 Influenza Quadravalent, MDCK , 0.5ml, with preservative (Flucelvax) 6mo and older 02/18/2018,02/20/2017 Influenza trivalent, with pr eservative (Fluzone; Afluria) 6mo and older 07/09/2013,07/02/2012,04/13/2011,03/29 Measles 02/18/2018 Mumps 02/18/2018 PPD Test 02/12/2018 EarlySense SARS-CoV-2 COVID-19, mRNA, LNP-S, preservative free 08/17/2020,07/27/2020 [...] eosinophils(HPylori-), Nl duodenum-biopsy:nl COLONOSCOPY 02/2010 SINUS SURGERY 1997 sinus opened up OTHER SURGICAL HISTORY 08/2018 [...] 4:15 PM EDT Office Visit Adult Medicine [facility] [address] [place] [address] Karoline Mann NP [address] [place], [place] 06/07/2025 8:30 AM EST Office Visit [address] [place] [address] Kj Vrama MD [address] [place] [phone] 09/28/2025 10:40 AM EDT Appointment Radiology Department - [address] [phone] Health Maintenance Due Date Last Done Comments Medicare Annual Wellness Visit 05/18/2022 Social Influencers of Health Screening 05/18/2022 Influenza Vaccine (#1) 2025 , 06/07/2022, 04/19/2021, Additional history exists Cervical Cancer Screening: HPV 06/24/2025 06/24/2020 Breast Cancer Screening 09/22/2026 09/23/19, 09/10/2023, 08/08/2022, Additional history exists Cholesterol Screening [...] AM EDT Headache associated with sexual activity COLONOSCOPY Routine 01/19/2025 1:29 PM EDT Irritable bowel syndrome with constipation Colon cancer screening XR ELBOW 3+ VIEWS LEFT Routine 01/12/2025 10:31 AM EDT Left elbow pain MG MAMMO DIGITAL SCREENING W ERIC BILAT Routine 09/22/2024 10:30 AM EDT Encounter for screening mammogram for breast cancer LIPID PANEL WITH REFLEX TO DIRECT LDL Routine 09/02/2024 8:38 AM EDT Hyperlipidemia, unspecified hyperlipidemia type HM HEPATITIS C SCREENING Routine 11/29/2022 HM HPV Routine 06/24/2020 from Last 3 Months or Most Recently Relevant to Health Maintenance Results * MR Brain wo Contrast (02/20/2025 [...] Signed Date: 02/23/2025 15:15 ET Workstation ID: [id number] Transcribed By: Self Edit Transcribed Date: 02/23/2025 [...] A few very small scattered foci of L5wewzwundrhyn in the supratentorial white matter are unchanged. [...] Signed Date: 02/23/2025 15:15 ET Workstation ID: [id number] Transcribed By: Self Edit Transcribed Date: 02/23/2025 12:41 ET Jacklyn NAILS IMUmesh MRI PROCEDURES Final Res ult * COLONOSCOPY Anesthesia - MAC; [facility] ENDOSCOPY (01/19/2025 1:29 PM EDT) Anatomical Region Laterality Modality Other 01/19/2025 1:15 PM EDT Impressions 01/19/2025 1:30 PM EDT - Diverticulosis in the entire examined colon. - No specimens collected. Recommendation: - Repeat colonoscopy in 10 years for screening purposes. - Use fiber, for example Citrucel, Fibercon, Konsyl or Metamucil. Narrative 01/19/2025 1:30 PM EDT [facility] GI Patient Name: Royal Harris Procedure [...] or abscess without bleeding CPT copyright 2020 [employer] [place] [employer]. All rights reserved. The codes documented in this report are preliminary and upon intelligence group supervisor review may be revised to meet current compliance requirements. Keon Sheehan MD 01/19/2025 1:29:57 PM This report has been signed electronically.Keon Sheehan MD Number of Addenda: 0 Note Initiated On: 01/19/2025 1:15 PM Scope In: Scope Out: Endoscopy Department at [facility] - [address] [place] [phone] Procedure Note Keon Sheehan MD - 01/19/2025 [facility] GI Patient Name: Royal Harris Procedure [...] or abscess without bleeding CPT copyright 2020 [employer] [place] [employer]. All rights reserved. The codes documented in this report are preliminary and upon intelligence group supervisor reviewmay be revised to meet current compliance requirements. Keon Sheehan MD 01/19/2025 1:29:57 PM This report has been signed electronically.Keon Sheehan MD Number of Addenda: 0 Note Initiated On: 01/19/2025 1:15 PM Scope In: Scope Out: Endoscopy Department at [facility] - [address] [place] [phone] IMPRESSION: - Diverticulosis in the entire examined [...] PM EDT No abnormality detected. POS - [id number] -------- FINAL REPORT -------- Dictated By: Jeanne Hidalgo Dictated Date: 01/12/2025 19:41 ET Assigned Physician: Jeanne Hidalgo Reviewed and Electronically Signed By: Jeanne Hidalgo Signed Date: 01/12/2025 19:43 ET Workstation ID: [id number] Transcribed By: Self Edit Transcribed Date: 01/12/2025 [...] tissuecalcifications. IMPRESSION: No abnormality detected. POS - [id number] -------- FINAL REPORT -------- Dictated By: Jeanne Hidalgo Dictated Date: 01/12/2025 19:41 ET Assigned Physician: Jeanne Hidalgo Reviewed and Electronically Signed By: Jeanne Hidalgo Signed Date: 01/12/2025 19:43 ET Workstation ID: [id number] Transcribed By: Self Edit Transcribed Date: 01/12/2025 19:41 ET [facility] Nohemi Claude Bell PA IMG XR PROCEDURES Final Result * MG Mammo Digital Screening w Eric bilat (09/22/2024 10:30 AM EDT) Anatomical Region Laterality Modality Breast Bilateral Mammography 09/22/2024 2:23 PM EDT Impressions 09/22/2024 2:28 PM EDT Benign. BI-RADS CATEGORY: 1 - NEGATIVE RECOMMENDATION: Screening bilateral mammogram is recommended in 1 year. Mammo Location: [facility], [address] [place] [address], [id number], . -------- FINAL REPORT -------- Dictated By: Iraida Curry Dictated Date: 09/22/2024 14:23 ET Assigned Physician: Iraida Curry Reviewed and Electronically Signed By: Iraida Curry Signed Date: 09/22/2024 14:28 ET Workstation ID: [id number] Transcribed By: Self Edit Transcribed Date: 09/22/2024 [...] is recommended in 1 year. Mammo Location: [facility], [address] [place] [address], [id number], . -------- FINAL REPORT -------- Dictated By: Iraida Curry Dictated Date: 09/22/2024 14:23 ET Assigned Physician: Iraida Curry Reviewed and Electronically Signed By: Iraida Curry Signed Date: 09/22/2024 14:28 ET Workstation ID: [id number] Transcribed By: Self Edit Transcribed Date: 09/22/2024 14:23 ET us Dwayne Puentes MD IMG BI PROCEDURES Final Res ult * Lipid panel with reflex to direct LDL (09/02/2024 8:38 AM EDT) Cholesterol 170 0 - 200 mg/dL LAB CHEMISTRY METHOD 09/02/2024 1:48 PM EDT [facility] Triglycerides 119 0 - 150 mg/dL LAB CHEMISTRY METHOD 09/02/2024 1:48 PM EDT [facility] HDL 54 >=40 mg/dL LAB CHEMISTRY METHOD 09/02/2024 1:48 PM EDT [facility] LDL Calculated 92 0 - 100 mg/dL LAB CHEMISTRY METHOD 09/02/2024 1:48 PM EDT [facility] VLDL Cholesterol Jon 23.8 mg/dL LAB CHEMISTRY METHOD 09/02/2024 1:48 PM EDT [facility] Non HDL Chol. (LDL+VLDL) 116 <145 mg/dL LAB CHEMISTRY METHOD 09/02/2024 1:48 PM EDT [facility] Chol/HDL Ratio 3.1 0.0 - 4.4 LAB CHEMISTRY METHOD 09/02/2024 1:48 PM EDT [facility] Blood Venous blood specimen / Unknown Venipuncture / Unknown 09/02/2024 8:38 AM EDT 09/02/2024 8:38 AM EDT Dwayne Puentes MD LAB BLOOD ORDERABLES Final Result [facility] [address] [place] [address], * Hepatitis C Screening (11/29/2022) Hepatitis C Screening abstracted Historical Provider HEALTH MAINTENANCE Final Result * Cervical Cancer Screening: HPV (06/24/2020) Cervical Cancer Screening: HPV abstracted, negative Historical Provider HEALTH MAINTENANCE Final Result from Last 3 Months or Most Recently Relevant to Health Maintenance Insurance [facility]) MEDICARE Care Teams Clinical Social Work Aide Relationship Specialty Start Date End Date Dwayne Puentes MD [address] [place] [address] PCP - General 01/13/24
--- OUTSIDE RECORDS SUMMARY | 2025-02-24 14:08 | XMS_ITS | Patient Health Record ---
[facility] Address [address] [place] [address] Care Team Providers Care Assistant Professor Of Surgery Name Role Phone Dhruv YIN, Philip Primary Care Provider Katherine Stout Unavailable [phone] Allergies Allergen (clinical drug ingredient) Drug/Non Drug Allergy documented on EMR Reaction Allergy Type Onset Date Status Atrovent Unknown Drug Allergy Active ipratropium Ipratropium [place] Unknown Drug Allergy Active tioconazole Monistat 1 [...] Insured Coverage Start Date Coverage End Date [facility] All Others [address] [place] [address] [id number] Jose R Harris Spouse - patient is the spouse of the insured Medical (General) History Medical History History ICD Code Anxiety asthma Depression Headaches/Migraines Chicken pox Gall bladder problems Irritable bowel syndrome Constipation Reflux ( GERD) Surgical History Surgery Date(Month/Year) gall bladder 04/2019
--- OUTSIDE RECORDS SUMMARY | 2025-02-24 14:08 | XMS_ITS | Clinical Summary ---
Author Organization [facility] Address [address] [place] [address] Care Team Providers Care Chart Collector Name Role Phone Philip Bartlett MD Primary Care Provider [phone] Allergies Active Allergy Reactions Criticality Noted Date Comments Ipratropium Other (See Comments),Swelling 08/21/2007 Doesn't remember Facial swelling Ipratropium [place] [facility] 04/15/2019 Other Swelling Low 04/13/2015 Prochlorperazine [...] age to complete this topic Care Teams Chart Collector Relationship Specialty Start Date End Date Philip Bartlett MD PCP - General Internal Medicine 09/12/21
== END 2025-02-24 11:13 | disposition home or self-care (01) ==
LOC: HO.HMGAL 11:01
PROVIDERS: PCP Internal Medicine; Visit Provider Registered Nurse Emergency
DX: J30.89 Other allergic rhinitis (principal)
CPT/HCPCS: 95117; 95165

== ENCOUNTER 2025-03-15 15:26 | Outpatient (AMB) | payer BC, SELFPAY ==
--- OUTSIDE RECORDS SUMMARY | 2025-03-15 17:50 | XMS_ITS | Encounter Summary ---
Author Organization [facility] [place] [address] Care Team Providers Care Cap Lining Machine Operator Name Role Phone Dwayne Puentes MD Primary Care Provider [phone] Encounter Details Date Type Department Care Team ([facility] st Contact Info) Description 03/11/2025 Results Follow-Up Adult Medicine [facility] [address] [place] [address] Dwayne Puentes MD [address] [place] [address] Social History Tobacco Use Types Packs/Day Years Used Date Smoking Tobacco: Former Cigarettes Q uit: 06/10/1995 Passive Smoke Exposure: Past Smokeless Tobacco: Never Alcohol Use Standard Drinks/Week Comments Not Currently 0 (1 standard drink = 0.6 oz pur e alcohol) Housing Instability Answer Date Recorde d Are you worried that in the next 2 months you may not have stable housing? No 03/08/2025 Food Access & Nutrition Answer Date Rec orded Do you have access to a vari ety of food including fruits and vegetables? Yes 03/08/2025 Access to Healthcare Answer Date Record ed Within the last 3 months, ho w many times did you visit the emergency department for your medical care? 0 03/08/2025 Health Literacy Answer Date Recorded How often do you need to hav e someone help you when you read instructions, pamphlets, or other written material from your doctor or pharmacy? Never 03/08/2025 Caregiver: How often do you need to have someone help you when you read instructions, pamphlets, or other written material from your doctor or pharmacy? Not on file 03/08/2025 Financial Risk Answer Date Recorded How hard is it for you to pa y for the very basics like food, housing, medical care, and air conditioning / heating? Hard 03/08/2025 Transportation Answer Date Recorded Has the lack of transportati on kept you from meetings, work, or from getting things needed for daily living? Unable to respond 03/08/2025 Has the lack of transportati on kept you from medical appointments or from getting medications? No 03/08/2025 Social Isolation Answer Date Recorded How often do you feel lonely or isolated from th ose around you? Always 03/08/2025 Food Risk Answer Date Recorded Within the past 12 months we worried whether our food would run out before we got money to buy more. Never true 03/08/2025 Within the past 12 months th e food we bought just didn't last and we didn't have money to get more. Never true 03/08/2025 Dependent Care Answer Date Recorded Do you need help finding or paying for care for your loved ones. For example, early childhood lead teacher or elderly care for an older adult? No 03/08/2025 Education Answer Date Recorded Do you think completing more education or training, like finishing a GED, going to college, or learning a trade, would be helpful for you? No 03/08/2025 Employment and Income Answer Date Recor ded During the last four weeks, have you been actively looking for work? No 03/08/2025 Living Situation Answer Date Recorded What is your living situation? Unrecognized valu e 03/08/2025 Interpersonal Safety Answer Date Record ed Physical Abuse Unrecognized value 01/19/2025 Verbal Abuse Unrecognized value 01/19/2025 Comments No Sex and Gender Information Value Date Recorded Sex Assigned at Female 01/19/2025 12:07 PM EDT Legal Sex Female 3:19 PM EST Gender Identity Female 01/19/2025 12:07 PM EDT Sexual Orientation Straight 01/19/2025 12 :07 PM EDT documented as of this encounter Plan of Treatment Upcoming Encounters Date Type Department Care Team (Late st Contact Info) Description 03/17/2025 3:00 PM EDT Office Visit Pulmonology - [place] [address] [facility] [address] [place] [id number] Zahida Bolivar MD [address] [address] [place] [address] 07/08/2025 9:30 AM EST Office Visit [facility] [place] [address] [place] [address] Dwayne Puentes MD [address] [place], [place] 09/28/2025 10:40 AM EDT Appointment Radiology Department - [address] [phone] Scheduled Orders Name Type Priority Associated Diagnoses Orde r Schedule Lipid panel with reflex to direct LDL Lab Routine Hyperlipidemia, unspecified hyperlipidemia type 1 Occurrences starting 03/11/2025 until 03/11/2026 documented as of this encounter Goals Goal [...] scapulothoracic rhythm documented as of this encounter Visit Diagnoses Diagnosis Hyperlipidemia, unspecified hyperlipidemia type- Primary documented in this encounter Additional Health Concerns Assessment Noted Time PHQ-9 Depression Total Score: 11/16/2 025 3:00 PM EDT documented as of this encounter Care Teams Cap Lining Machine Operator Relationship Specialty Start Date End Date Dwayne Puentes MD [address] [place] [address] PCP - General 01/13/24 documented as of this encounter
--- OUTSIDE RECORDS SUMMARY | 2025-03-15 17:50 | XMS_ITS | Encounter Summary ---
Author Organization [facility] Address [address] [place] [address] Care Team Providers Care Supervisor Scrap Preparation Name Role Phone Pcp, Nidhi Primary Care Provider Unavailabl e Philip Bartlett MD Primary Care Provider Unavail able Encounter Details Date Type Department Care Team (Late st Contact Info) Description 12/12/2022 Scanned Document [facility] NEUR[facility] Unknown Unknow Provider [...] on filedocumented in this encounter Care Teams Supervisor Scrap Preparation Relationship Specialty Start Date End Date Pcp, No PCP - General 04/13/22 01/14/23 Philip Bartlett MD PCP - General Internal Medicine 01/15/23 documented as of this encounter
--- OUTSIDE RECORDS SUMMARY | 2025-03-15 17:50 | XMS_ITS | Encounter Summary ---
Author Organization [place] [address] Care Team Providers Care Supervisor Ride Assembly Name Role Phone Dwayne Puentes MD Primary Care Provider [phone] Encounter Details Date Type Department Care Team (Late st Contact Info) Description 03/10/2025 Results Follow-Up Adult Medicine [facility] [address] [place], [place] [phone] Karoline Mann NP [address] [place], [place] Social History Tobacco Use Types Packs/Day Years [...] care for your loved ones. For example, child life assistant or elderly care for an older adult? [...] 3:00 PM EDT Office Visit Pulmonology - [place] [address] [facility] [address] [place] [address] Zahida Bolivar MD [address] [facility] [address] [address] [place] [address] 07/08/2025 9:30 AM EST Office Visit [facility] [place] [address] [place], [place] [phone] Dwayne Puentes MD [address] [place], [place] 09/28/2025 10:40 AM EDT Appointment Radiology Department - [address] [phone] documented as of this encounter Goals Goal Patient Goal Type Associated Problems Recent Progress Patient-Stated? Author STG (6 visits) General No Eri Benjamin, PT Note: Pt will demonstrate compliance with HEP Pt will report decreased pain level to < 6/10 at worst Pt will report centralization of radicular symptoms Pt will demonstrate improved scapular resting position Pt will increase R shoulder flexion AROM to WFL Pt will demonstrate at least 3/5 middle and lower trapezius MMT LTG (12 visits) General Eri Meza, PT Note: Pt will demonstrate independence with [...] Diagnoses Not on filedocumented in this encounter Additional Health Concerns Assessment Noted Time PHQ-9 Depression Total Score: 10 11/16/2 025 3:00 PM EDT documented as of this encounter Care Teams Supervisor Ride Assembly Relationship Specialty Start Date End Date Dwayne Puentes MD [address] [place] [address] PCP - General 01/13/24 documented as of this encounter
--- OUTSIDE RECORDS SUMMARY | 2025-03-15 17:50 | XMS_ITS | Patient Health Record ---
[facility] Address [address] [place] [address] Care Team Providers Care Cold Rolling Supervisor Name Role Phone Dhruv YIN, Philip Primary Care Provider Katherine Stout Unavailable [phone] Allergies Allergen (clinical drug ingredient) Drug/Non Drug Allergy documented on EMR Reaction Allergy Type Onset Date Status Atrovent Unknown Drug Allergy Active ipratropium Ipratropium [place] Unknown Drug Allergy Active tioconazole Monistat 1 [...] Insured Coverage Start Date Coverage End Date [facility] All Others [address] [place] [address] [phone] [id number] Jose R Harris Spouse - patient is the spouse of the insured Medical (General) History Medical History History ICD Code Anxiety asthma Depression Headaches/Migraines Chicken pox Gall bladder problems Irritable bowel syndrome Constipation Reflux ( GERD) Surgical History Surgery Date(Month/Year) gall bladder 04/2019
--- OUTSIDE RECORDS SUMMARY | 2025-03-15 17:50 | XMS_ITS | Clinical Summary ---
Author Organization [facility] Address [address] [place] [address] Care Team Providers Care Publication Editor Name Role Phone Philip Bartlett MD Primary Care Provider [phone] Allergies Active Allergy Reactions Criticality Noted Date Comments Ipratropium Other (See Comments),Swelling 08/21/2007 Doesn't remember Facial swelling Ipratropium [place] [facility] 04/15/2019 Other Swelling Low 04/13/2015 Prochlorperazine [...] age to complete this topic Care Teams Publication Editor Relationship Specialty Start Date End Date Philip Bartlett MD PCP - General Internal Medicine 09/12/21
--- OUTSIDE RECORDS SUMMARY | 2025-03-15 17:50 | XMS_ITS | Encounter Summary ---
Author Organization [facility] Address [address] [place] [address] Care Team Providers Care Intellectual Property Legal Assistant Name Role Phone Philip Bartlett MD Primary Care Provider Unavail able Encounter Details Date Type Department Care Team (Late st Contact Info) Description 03/28/2023 Telephone [facility] Primary Care [address] [address] Philip Bartlett MD Social History [...] on filedocumented in this encounter Care Teams Intellectual Property Legal Assistant Relationship Specialty Start Date End Date Philip Bartlett MD PCP - General Internal Medicine 01/15/23 documented as of this encounter
--- OUTSIDE RECORDS SUMMARY | 2025-03-15 17:50 | XMS_ITS | Clinical Summary ---
Author Organization [facility] Address [address] [place] [address] Care Team Providers Care Religious Ritual Slaughterer Name Role Phone Philip Bartlett MD Primary Care Provider Unavail able Allergies Active Allergy Reactions Criticality Noted Date Comments Prochlorperazine Edisylate Other (See Comments) 05/13/2008 Passed out Benzyl Alcohol Unknown/Patient and Family Unable to Define Medium 01/15/2023 Ipratropium [place] [facility] Swelling Medium 04/15/2019 Linaclotide Itching Low [...] patient's age to complete this topic Insurance [facility] [employer] - [facility] Care Teams Religious Ritual Slaughterer Relationship Specialty Start Date End Date Philip Bartlett MD PCP - General Internal Medicine 01/15/23
--- OUTSIDE RECORDS SUMMARY | 2025-03-15 17:51 | XMS_ITS | Clinical Summary ---
Author Organization [facility] Address [address] [place] [address] Phone Care Team Providers Care Documentation Liaison Name Role Phone Dwayne Puentes MD Primary Care Provider Allergies Active Allergy Reactions Criticality Noted Date Comments Benzocaine Swelling Low 04/13/2015 Benzyl Alcohol Unknown High 01/12/2025 Ipratropium Other,Swelling 08/21/2007 Facial swelling Doesn't remember Facial swelling Ipratropium [place] 04/15/2019 Linaclotide Itching 11/12/2022 Boric Acid 06/08/2024 Other Swelling Low 05/13/2008 BENZYL [id number] - Other Reaction(s): OTHER Passed out Pneumococcal Vaccine High 07/13/2013 Localized swelling @ inj site Prochlorperazine Other 05/13/2008 Doesn't remember Passed out Tioconazole Other 04/22/2021 Doesn't remember Verapamil Unknown High 01/12/2025 Medications acetaminophen (TYLENOL) 325 mg capsule Take by mouth. OTC Active cetirizine (ZyrTEC) 10 mg tablet Take 1 tablet (10 mg total) by mouth 2 (two) times a day. Prescribed by american history teacher 06/18/19 24 Active fluticasone propionate (FLONASE) 50 mcg/actuation nasal spray Administer 2 sprays into affected nostril(s). Prescribe by american history teacher 06/18/19 24 Active OXcarbazepine (TRILEPTAL) 150 mg tablet Take 1 tablet (150 mg total) by mouth 1 (one) time each day in the morning. Prescribe by Psychiatrist 06/14/19 24 Active oxyBUTYnin XL (DITROPAN-XL) 10 mg 24 hr tablet Take 1 tablet (10 mg total) by mouth 1 (one) time each day. Prescribed in Urology 08/01/19 24 Active pantoprazole (PROTONIX) 40 mg EC tablet Take 1 tablet (40 mg total) by mouth 2 (two) times a day. Do not crush, chew, or split. 180 tablet 3 04/22/20 24 Active cycloSPORINE (RESTASIS) 0.05 % ophthalmic emulsion Administer 1 drop into both eyes 2 (two) times a day. Prescribed by opthalmology Active carboxymethyl [id number] (Refresh Digital) 0.5-1-0.5 % drops Administer into affected eye(s). Prescribed by eye doctor Active multivitamin tablet Take 1 tablet by mouth 1 (one) time each day. Buy OTC Active citalopram (CeleXA) 10 mg tablet Take 1 tablet (10 mg total) by mouth 1 (one) time each day. Prescribe by Psychiatrist Active aspirin 81 mg chewable tablet Chew 1 tablet (81 mg total) 1 (one) time each day. 30 each 11 09/08/19 25 025 Discontinued predniSONE (DELTASONE) 20 mg tablet Take 60 mg PO daily for 3 days, then take 40 mg PO daily for 3 days, then 20 mg PO daily for 3 days, then stop 18 tablet 01/13/20 25 025 Discontinued(T herapy completed) topiramate (Topamax) 25 mg tablet 2 po bid 120 each 5 02/04/20 25 025 Discontinued(A llergic response) Active Problems Problem Noted Date Diagnosed Date Varicose veins of lower extremity 10/07/2024 Bipolar disorder ([facility] V24, [facility] V28) 09/10 Anxiety 10/07/2024 Hyperlipidemia [...] who ordered an x-ray, was referred to [facility] orthopedics, over the last few years has tried physical therapy 3 or 4 separate times addressing the neck and shoulder pain. She has tried injections with Dr. Carlisle, inpatient care manager rn. This morning she started a prednisone pack [...] had MRI thoracic spine January 2024 at [facility] with minimal degenerative changes, no significant degenerative [...] patch that she was prescribed by her [employer]BI[employer] EQUIPMENT REPAIRER, musculoskeletal issues like she describes can be a symptom from perimenopause/menopause low hormone levels. She will call her HEAV[employer] MOBILE EQUIPMENT REPAIRER to let them know she is [...] disorder, r ecurrent episode, moderate (CMS/HCC V24, CMS/[facility] V28) 10/06/2013 Genital herpes 04/13/2011 [...] Encounters Date Type Department Care Team Description 03/11/2025 Results Follow-Up Adult [address] [phone] Dwayne Puentes MD 03/10/2025 Results Follow-Up [address] [phone] Kaorline Mann NP 03/08/2025 10:30 AM EDT Office Visit [address] [phone] Karoline Mann, ALIA Nasal bleeding (Primary Dx); SOB (shortness of breath) on exertion; Increased thirst; Blood glucose elevated; Need for prophylactic vaccination and inoculation against influenza 02/20/2025 9:45 AM EDT - 02/20/2025 11:59 PM EDT Hospital Encounter [facility] MRI [address] [place] [phone] Headache associated with sexual activity Discharge Disposition: Home or Self Care 02/03/2025 4:00 PM EDT Office Visit [facility] [address] [phone] Jacklyn Altman PA Headache associated with sexual activity (Primary Dx) 01/19/2025 1:09 PM EDT Anesthesia Event [facility] Endoscopy [address] [place] [address] Ceasar Bauer MD 01/19/2025 12:09 PM EDT - 01/19/2025 11:59 PM EDT Hospital Encounter [facility] Endoscopy [address] [place] [phone] Keon Sheehan MD Abrokwah, Foster Myles G, CRNA Saliga, Jesse L, MD Irritable bowel syndrome with constipation; Colon cancer screening Discharge Disposition: Home or Self Care 01/12/2025 10:11 AM EDT - 01/12/2025 11:59 PM EDT Hospital Encounter [address] [phone] Left elbow pain Discharge Disposition: Home or Self Care 01/12/2025 10:00 AM EDT Office Visit [facility] [address] [place] [phone] Leda Bell PA Left lateral epicondylitis (Primary Dx); Left elbow pain 01/11/2025 Telephone Adult [facility] [address] [place] [phone] Dwayne Puentes MD 12/29/2024 10:00 AM EDT Consult Vascular Surgery - [place] [address] [place] [address] Danielle Spivey MD Ankle swelling, unspecified laterality from Last 3 Months Immunizations Immunization Administration Dates Next Due Influenza Quadravalent, MDCK , 0.5ml, preservative free (Flucelvax) 6mo and older 06/18/2023,06/07/2022,04/19/2021,03/07,02/23/2019 Influenza Quadravalent, MDCK , 0.5ml, with preservative (Flucelvax) 6mo and older 02/18/2018,02/20/2017 Influenza trivalent, MDCK, 0 .5mL, preservative free (Flucelvax) 6mo and older 03/08/2025 Influenza trivalent, with pr eservative (Fluzone; Afluria) 6mo and older 07/09/2013,07/02/2012,04/13/2011,03/29 Measles 02/18/2018 Mumps 02/18/2018 PPD Test 02/12/2018 [employer] SARS-CoV-2 COVID-19, mRNA, LNP-S, preservative free 08/17/2020,07/27/2020 [...] for your loved ones. For example, child care aide or elderly care for an older adult? [...] Sign Reading Time Taken Comments Blood Pressure 108/65 03/08/2025 10:22 AM EDT Pulse 66 03/08/2025 10:22 AM EDT Temperature 36.3 C (97.4 F) 03/08/2025 10:22 AM EDT Respiratory Rate 14 03/08/2025 10:22 AM EDT Oxygen Saturation 98% 03/08/2025 10:22 AM EDT Inhaled Oxygen Concentration - - Weight 76.7 kg (169 lb) 03/08/2025 10:22 AM EDT Height 162.6 cm (5' 4 ) 03/08/2025 10:22 AM EDT Body Mass Index 29.01 03/08/2025 10:22 AM EDT Plan of Treatment Upcoming Encounters Date Type Department Care Team (Late st Contact Info) Description 03/17/2025 3:00 PM EDT Office Visit Pulmonology - [place] [address] [facility] [address] [place] [address] Zahida Bolivar MD [address] [facility] [place] [address] [place] [address] 07/08/2025 9:30 AM EST Office Visit Adult Medicine [place] - [address] [phone] Dwayne Puentes MD [address] [place] [address] 09/28/2025 10:40 AM EDT Appointment Radiology Department - [address] [phone] Health Maintenance Due Date Last Done Comments Medicare Annual Wellness Visit 05/18/2022 Cervical Cancer Screening: HPV 06/24/2025 06/24/2020 Social Influencers of Health Screening 03/08/2026 03/08/2025 Breast Cancer Screening 09/22/2026 09/23/19, 09/10/2023, 08/08/2022, Additional history exists Cholesterol Screening (Lipid Panel) 03/08/2030 03/08/2025, 09/02/2024, 07/30/2024, Additional history exists DTaP,Tdap,and Td Vaccines (4 - Td or Tdap) 08/02/2031 08/02/2021, 04/13/2011, 08/16/2004 Colorectal Cancer Screening: Colonoscopy 01/19/2035 01/19/2025, 08/23/2023 RSV Immunization Adult Patients (1 - 1-dose 75+ series) 2050 Pneumococcal Vaccine: Pediatrics (0 to 5 Years) and At-Risk Patients (6 to 49 Years) Discontinued 07/09/2013 Varicella Vaccines Aged Out 02/18/2018 No longer eligible based on patient's age to complete this topic Hepatitis C Screening Completed 11/29/2022 COVID-19 Vaccine Discontinued 06/20/2023, 03/2021, 07/27/2020 Depression Screening Completed 11/16/2024 Influenza Vaccine Completed 03/08/2025, , 06/07/2022, Additional history exists HIB Vaccines Aged Out No longer eligi [...] Procedure Name Priority Date/Time Associated Diagnosis Comments LIPID PANEL WITH REFLEX TO DIRECT LDL Routine 03/08/2025 11:47 AM EDT Hyperlipidemia, unspecified hyperlipidemia type D-DIMER STAT 03/08/2025 11:47 AM EDT Nasal bleeding SOB (shortness of breath) on exertion Need for prophylactic vaccination and inoculation against influenza COMPREHENSIVE METABOLIC PANEL Routine 03/08/2025 11:47 AM EDT Nasal bleeding SOB (shortness of breath) on exertion Need for prophylactic vaccination and inoculation against influenza HEMOGLOBIN A1C Routine 03/08/2025 11:47 AM EDT Nasal bleeding SOB (shortness of breath) on exertion Increased thirst Blood glucose elevated Need for prophylactic vaccination and inoculation against influenza MR BRAIN WO CONTRAST Routine 02/20/2025 10:38 AM EDT Headache associated with sexual activity COLONOSCOPY Routine 01/19/2025 1:29 PM EDT Irritable bowel syndrome with constipation Colon cancer screening XR ELBOW 3+ VIEWS LEFT Routine 01/12/2025 10:31 AM EDT Left elbow pain MG MAMMO DIGITAL SCREENING W ERIC BILAT Routine 09/22/2024 10:30 AM EDT Encounter for screening mammogram for breast cancer HEPATITIS C SCREENING Routine 11/29/2022 HPV Routine 06/24/2020 from Last 3 Months or Most Recently Relevant to Health Maintenance Results * (ABNORMAL) Lipid panel with reflex to direct LDL (03/08/2025 11:47 AM EDT) Cholesterol 172 0 - 200 mg/dL LAB CHEMISTRY METHOD 03/08/2025 4:02 PM EDT [facility] Triglycerides 87 0 - 150 mg/dL LAB CHEMISTRY METHOD 03/08/2025 4:02 PM EDT [facility] HDL 51 >=40 mg/dL LAB CHEMISTRY METHOD 03/[facility] LDL Calculated 104(H) 0 - 100 mg/dL LAB CHEMISTRY METHOD 03/08/2025 4:02 PM EDT [facility] Comment:Estimated LDL Calcul ated using equation: Total cholesterol - HDL cholesterol - (Triglycerides/5) VLDL Cholesterol Jon 17.4 mg/dL LAB CHEMISTRY METHOD 03/08/2025 4:02 PM EDT [facility] Non HDL Chol. (LDL+VLDL) 121 <145 mg/dL LAB CHEMISTRY METHOD 03/08/2025 4:02 PM EDT [facility] Chol/HDL Ratio 3.4 0.0 - 4.4 LAB CHEMISTRY METHOD 03/08/2025 4:02 PM [facility] Blood Venous blood specimen / Unknown Venipuncture / Unknown 03/08/2025 11:47 AM EDT 03/08/2025 11:47 AM EDT us Dwayne Puentes MD LAB BLOOD ORDERABLES Final Result [facility] [address] [place] [address], * D-Dimer (03/08/2025 11:47 AM EDT) D-Dimer, Quant (D-DU) <150 <=230 ng/mL DDU LAB COAGULATION METHOD 03/08/2025 1:56 PM EDT [facility] Blood Venous blood specimen / Unknown Venipuncture / Unknown 03/08/2025 11:47 AM EDT 03/08/2025 11:47 AM EDT Narrative [facility] - 03/08/2025 1:56 PM EDT D-Dimer <230 ng/mL (D-Dimer units) is the threshold for exclusion of DVT/PE. D-Dimer may be elevated in: Critically ill, severely infected, trauma patients, DIC, acute CVA, acute CT, unstable angina, AF, old age, , and smoking. D-Dimer may be decreased with: Initiation of heparin therapy and oral anticoagulants. Karoline Mann VINYL CUTTER LAB BLOOD ORDERABLES Final R esult [facility] [address] [place] [address], * Hemoglobin A1c (03/08/2025 11:47 AM EDT) Hemoglobin A1C 5.3 <6.5 % LAB CHEMISTRY METHOD 03/09/2025 8:51 AM EDT [facility] Mean Bld Glu Estim. 105 mg/dL LAB CHEMISTRY METHOD 03/09/2025 8:51 AM EDT [facility] Blood Venous blood specimen / Unknown Venipuncture / Unknown 03/08/2025 11:47 AM EDT 03/08/2025 11:47 AM EDT Karoline Mann VINYL CUTTER LAB BLOOD ORDERABLES Final R esult [facility] [address] [place] [address], * (ABNORMAL) Comprehensive metabolic panel (03/08/2025 11:47 AM EDT) Sodium 139 133 - 145 mmol/L LAB CHEMISTRY METHOD 03/08/2025 4:11 PM [facility] Potassium 3.9 3.5 - 5.5 mmol/L LAB CHEMISTRY METHOD 03/08/2025 4:11 PM [facility] Chloride 107 96 - 110 mmol/L LAB CHEMISTRY METHOD 03/08/2025 4:11 PM [facility] CO2 28 21 - 32 mmol/L LAB CHEMISTRY METHOD 03/08/2025 4:11 PM [facility] Anion Gap 4 3 - 11 LAB CHEMISTRY METHOD 03/08/2025 4:11 PM [facility] Glucose 101(H) 70 - 100 mg/dL LAB CHEMISTRY METHOD 03/08/2025 4:11 PM [facility] BUN 14 5 - 25 mg/dL LAB CHEMISTRY METHOD 03/08/2025 4:11 PM [facility] Creatinine 0.87 0.50 - 1.10 mg/dL LAB CHEMISTRY METHOD 03/08/2025 4:11 PM [facility] eGFR 82 >=60 mL/min/1. 73m2 LAB CHEMISTRY METHOD 03/08/2025 4:11 PM [facility] Comment:Calculation based on the Chronic Kidney Disease Epidemiology Collaboration (CKD-EPI) equation refit without adjustment for race. BUN/Creatinine Ratio 16.1 LAB CHEMISTRY METHOD 03/08/2025 4:11 PM [facility] Calcium 9.2 8.5 - 10.5 mg/dL LAB CHEMISTRY METHOD 03/08/2025 4:11 PM [facility] AST (SGOT) 19 10 - 42 unit/L LAB CHEMISTRY METHOD 03/08/2025 4:11 PM EDT [facility] ALT (SGPT) 33 10 - 60 unit/L LAB CHEMISTRY METHOD 03/08/2025 4:11 PM EDT [facility] Alkaline Phosphatase 82 42 - 121 unit/L LAB CHEMISTRY METHOD 03/08/2025 4:11 PM EDT [facility] Total Protein 6.8 6.0 - 8.0 g/dL LAB CHEMISTRY METHOD 03/08/2025 4:11 PM EDT [facility] Albumin 4.1 3.2 - 5.0 g/dL LAB CHEMISTRY METHOD 03/08/2025 4:11 PM EDT [facility] Total Bilirubin 0.5 0.0 - 1.4 mg/dL LAB CHEMISTRY METHOD 03/08/2025 4:11 PM EDT [facility] Blood Venous blood specimen / Unknown Venipuncture / Unknown 03/08/2025 11:47 AM EDT 03/08/2025 11:47 AM EDT us Karoline Mann VINYL CUTTER LAB BLOOD ORDERABLES Final R esult [facility] [address] [place] [address], * MR Brain wo Contrast (02/20/2025 10:38 [...] Signed Date: 02/23/2025 15:15 ET Workstation ID: [id number] Transcribed By: Self Edit Transcribed Date: 02/23/2025 [...] A few very small scattered foci of [id number] in the supratentorial white matter are unchanged. [...] Signed Date: 02/23/2025 15:15 ET Workstation ID: [id number] Transcribed By: Self Edit Transcribed Date: 02/23/2025 12:41 ET Jacklyn Wright Anupama NAILS IMG MRI PROCEDURES Final Res ult * COLONOSCOPY Anesthesia - MAC; [facility] ENDOSCOPY (01/19/2025 1:29 PM EDT) Anatomical Region Laterality Modality Other 01/19/2025 1:15 PM EDT Impressions 01/19/2025 1:30 PM EDT - Diverticulosis in the entire examined colon. - No specimens collected. Recommendation: - Repeat colonoscopy in 10 years for screening purposes. - Use fiber, for example Citrucel, Fibercon, Konsyl or Metamucil. Narrative 01/19/2025 1:30 PM EDT [facility] GI Patient Name: Royal Harris Procedure [...] or abscess without bleeding CPT copyright 2020 [employer]. All rights reserved. The codes documented in this report are preliminary and upon automatic profile sander operator review may be revised to meet current compliance requirements. Keon Sheehan MD 01/19/2025 1:29:57 PM This report has been signed electronically.Keon Sheehan MD Number of Addenda: 0 Note Initiated On: 01/19/2025 1:15 PM Scope In: Scope Out: Endoscopy Department at [facility] - [address] [place] [phone] Procedure Note Keon Sheehan MD - 01/19/2025 [facility] GI Patient Name: Royal Harris Procedure [...] or abscess without bleeding CPT copyright 2020 [employer]. All rights reserved. The codes documented in this report are preliminary and upon automatic profile sander operator reviewmay be revised to meet current compliance requirements. Keon Sheehan MD 01/19/2025 1:29:57 PM This report has been signed electronically.Keon Sheehan MD Number of Addenda: 0 Note Initiated On: 01/19/2025 1:15 PM Scope In: Scope Out: Endoscopy Department at [facility] - [address] [place] [phone] IMPRESSION: - Diverticulosis in the entire examined [...] PM EDT No abnormality detected. POS - [id number] -------- FINAL REPORT -------- Dictated By: Jeanne Hidalgo Dictated Date: 01/12/2025 19:41 ET Assigned Physician: Jeanne Hidalgo Reviewed and Electronically Signed By: Jeanne Hidalgo Signed Date: 01/12/2025 19:43 ET Workstation ID: [id number] Transcribed By: Self Edit Transcribed Date: 01/12/2025 [...] tissuecalcifications. IMPRESSION: No abnormality detected. POS - [id number] -------- FINAL REPORT -------- Dictated By: Jeanne Hidalgo Dictated Date: 01/12/2025 19:41 ET Assigned Physician: Jeanne Hidalgo Reviewed and Electronically Signed By: Jeanne Hidalgo Signed Date: 01/12/2025 19:43 ET Workstation ID: [id number] Transcribed By: Self Edit Transcribed Date: 01/12/2025 19:41 ET [facility] Nohemi Claude Bell PA IMG XR PROCEDURES Final Result * MG Mammo Digital Screening w Eric bilat (09/22/2024 10:30 AM EDT) Anatomical Region Laterality Modality Breast Bilateral Mammography 09/22/2024 2:23 PM EDT Impressions 09/22/2024 2:28 PM EDT Benign. BI-RADS CATEGORY: 1 - NEGATIVE RECOMMENDATION: Screening bilateral mammogram is recommended in 1 year. Mammo Location: [facility], [address] [place] [address], [id number], . -------- FINAL REPORT -------- Dictated By: Iraida Curry Dictated Date: 09/22/2024 14:23 ET Assigned Physician: Iraida Curry Reviewed and Electronically Signed By: Iraida Curry Signed Date: 09/22/2024 14:28 ET Workstation ID: [id number] Transcribed By: Self Edit Transcribed Date: 09/22/2024 [...] is recommended in 1 year. Mammo Location: [facility], [address] [place] [address], [id number], . -------- FINAL REPORT -------- Dictated By: Iraida Curry Dictated Date: 09/22/2024 14:23 ET Assigned Physician: Iraida Curry Reviewed and Electronically Signed By: Iraida Curry Signed Date: 09/22/2024 14:28 ET Workstation ID: [id number] Transcribed By: Self Edit Transcribed Date: 09/22/2024 14:23 ET Dwayne Puentes MD IMG BI PROCEDURES Final Res ult * Hepatitis C Screening (11/29/2022) Hepatitis C Screening abstracted Historical Provider HEALTH MAINTENANCE Final Result * Cervical Cancer Screening: HPV (06/24/2020) Cervical Cancer Screening: HPV abstracted, negative Historical Provider HEALTH MAINTENANCE Final Result from Last 3 Months or Most Recently Relevant to Health Maintenance Insurance DEMIAN NAILS ([facility]) MEDICARE Care Teams Documentation Liaison Relationship Specialty Start Date End Date Dwayne Puentes MD [address] [place] [address] PCP - General 01/13/24
== END 2025-03-15 15:28 | disposition home or self-care (01) ==
LOC: HO.HMGAL 15:26
PROVIDERS: PCP Internal Medicine; Visit Provider Registered Nurse Emergency
DX: J30.89 Other allergic rhinitis (principal)
CPT/HCPCS: 95117; 95165

== ENCOUNTER 2025-03-31 15:06 | Outpatient (AMB) | payer BC, MEDICARE, SELFPAY ==
--- OUTSIDE RECORDS SUMMARY | 2025-03-31 21:23 | XMS_ITS | Encounter Summary ---
Author Organization [facility] [place] [address] Care Team Providers Care Logistics Center Manager Name Role Phone Dwayne Puentes MD Primary Care Provider [phone] Encounter Details Date Type Department Care Team ([facility] st Contact Info) Description 03/11/2025 Results Follow-Up Adult Medicine [facility] [address] [place] [address] Dwayne Puentes MD [address] [place] [address] Social History Tobacco Use Types Packs/Day Years [...] care for your loved ones. For example, children's entertainer or elderly care for an older adult? [...] Care Team (Late st Contact Info) Description 07/08/2025 9:30 AM EST Office Visit [place] [facility] [place] - [place] [address] [facility] [place] [phone] Dwayne Puentes MD [address] [place] 09/28/2025 10:40 AM EDT Appointment Radiology Department - [address] [place], [place] [phone] Scheduled Orders Name Type Priority Associated Diagnoses [...] Noted Time PHQ-9 Depression Total Score: 10 025 3:00 PM EDT documented as of this encounter Care Teams Logistics Center Manager Relationship Specialty Start Date End Date Dwayne Puentes MD [address] [facility] [place] PCP - General 01/13/24 documented as of this encounter
--- OUTSIDE RECORDS SUMMARY | 2025-03-31 21:23 | XMS_ITS | Encounter Summary ---
Author Organization [facility] Address [address] [place] [address] Care Team Providers Care Vehicle Mechanic Name Role Phone Philip Bartlett MD Primary Care Provider Unavail able Encounter Details Date Type Department Care Team (Late st Contact Info) Description 03/28/2023 Telephone [facility] Primary Care [address] [phone] Philip Bartlett MD Social History [...] on filedocumented in this encounter Care Teams Vehicle Mechanic Relationship Specialty Start Date End Date Philip Bartlett MD PCP - General Internal Medicine 01/15/23 documented as of this encounter
--- OUTSIDE RECORDS SUMMARY | 2025-03-31 21:23 | XMS_ITS | Clinical Summary ---
Author Organization [facility] Address [address] [place] [address] Phone Care Team Providers Care Gas Engine Operator Compressors Name Role Phone Dwayne Puentes MD Primary Care Provider Allergies Active Allergy Reactions Criticality Noted Date Comments Benzocaine Swelling Low 04/13/2015 Benzyl Alcohol Unknown High 01/12/2025 Ipratropium Other,Swelling 08/21/2007 Facial swelling Doesn't remember Facial swelling Ipratropium [place] 04/15/2019 Linaclotide Itching 11/12/2022 Boric Acid 06/08/2024 Other Swelling Low 05/13/2008 BENZYL [id number] - Other Reaction(s): OTHER Passed out Pneumococcal Vaccine High 07/13/2013 Localized swelling @ inj site Prochlorperazine Other 05/13/2008 Doesn't remember Passed out Tioconazole Other 04/22/2021 Doesn't remember Verapamil Unknown High 01/12/2025 Medications acetaminophen (TYLENOL) 325 mg capsule Take by mouth. OTC Active cetirizine (ZyrTEC) 10 mg tablet Take 1 tablet (10 mg total) by mouth 2 (two) times a day. Prescribed by dish room worker 06/18/19 24 Active fluticasone propionate (FLONASE) 50 mcg/actuation nasal spray Administer 2 sprays into affected nostril(s). Prescribe by dish room worker 06/18/19 24 Active OXcarbazepine (TRILEPTAL) 150 mg [...] a day. Prescribed by opthalmology Active carboxymethyl fl-thlqkls-bv ly80 (Refresh Digital) 0.5-1-0.5 % drops Administer into affected eye(s). Prescribed by eye doctor Active multivitamin tablet Take 1 tablet by mouth 1 (one) time each day. Buy OTC Active citalopram (CeleXA) 10 mg tablet Take 1 tablet (10 mg total) by mouth 1 (one) time each day. Prescribe by Psychiatrist Active citalopram (CeleXA) 20 mg tablet Take 1 tablet (20 mg total) by mouth 1 (one) time each day. Active hydrOXYzine HCL (ATARAX) 25 mg tablet Take by mouth. Ac tive aspirin 81 mg chewable tablet Chew 1 [...] veins of lower extremity 10/07/2024 Bipolar disorder ([facility] V24, [facility] V28) 09/10 Anxiety 10/07/2024 Hyperlipidemia [...] who ordered an x-ray, was referred to [facility] orthopedics, over the last few years has tried physical therapy 3 or 4 separate times addressing the neck and shoulder pain. She has tried injections with Dr. Carlisle, day care home mother. This morning she started a prednisone pack [...] had MRI thoracic spine January 2024 at [facility] with minimal degenerative changes, no significant [...] patch that she was prescribed by her COMPLIANCE CLERK, musculoskeletal issues like she describes can be a symptom from perimenopause/menopause low hormone levels. She will call her COMPLIANCE CLERK to let them know she is interested [...] Major depressive disorder, r ecurrent episode, moderate ([facility] V24, [facility] V28) 10/06/2013 Genital herpes 04/13/2011 [...] Encounters Date Type Department Care Team Description 03/17/2025 3:00 PM EDT Office Visit Pulmonology [facility] 175 [facility] [address] [place] [phone] Zahida Bolivar MD Dyspnea, unspecified type (Primary Dx); Mild intermittent asthma, unspecified whether complicated 03/11/2025 Results Follow-Up [address] [phone] Dwayne Puentes MD 03/10/2025 Results Follow-Up [address] [phone] Karoline Mann NP 03/08/2025 10:30 AM EDT Office Visit [address] [phone] Karoline Mann NP Nasal bleeding (Primary Dx); SOB (shortness of breath) on exertion; Increased thirst; Blood glucose elevated; Need for prophylactic vaccination and inoculation against influenza 02/20/2025 9:45 AM EDT - 02/20/2025 11:59 PM EDT Hospital Encounter [facility] MRI [address] [place] [phone] Headache associated with sexual activity Discharge Disposition: Home or Self Care 02/03/2025 4:00 PM EDT Office Visit [facility] [place] [address] [facility] [address] [place] [phone] Jacklyn Altman PA Headache associated with sexual activity (Primary Dx) 01/19/2025 1:09 PM EDT Anesthesia Event [facility] Endoscopy [address] [place] [phone] Ceasar Bauer MD 01/19/2025 12:09 PM EDT - 01/19/2025 11:59 PM EDT Hospital Encounter [facility] Endoscopy [address] [place] [phone] Sheehan, MD Thor Herbert Foster Myles G, CRNA Saliga, Jesse L, MD Irritable bowel syndrome with constipation; Colon cancer screening Discharge Disposition: Home or Self Care 01/12/2025 10:11 AM EDT - 01/12/2025 11:59 PM EDT Hospital Encounter [address] [phone] Left elbow pain Discharge Disposition: Home or Self Care 01/12/2025 10:00 AM EDT Office Visit Adult Medicine [address] [phone] Leda Bell PA Left lateral epicondylitis (Primary Dx); Left elbow pain 01/11/2025 Telephone Adult [address] [phone] Dwayne Puentes MD 12/29/2024 10:00 AM EDT Consult Vascular [facility] - [place] [address] [place] [phone] Danielle Spivey MD Ankle swelling, unspecified laterality [...] Measles 02/18/2018 Mumps 02/18/2018 PPD Test 02/12/2018 Pfizer SARS-CoV-2 COVID-19, mRNA, LNP-S, preservative free 08/17/2020,07/27/2020 [...] care for your loved ones. For example, childcare center director or elderly care for an older adult? [...] Sign Reading Time Taken Comments Blood Pressure 110/74 03/17/2025 3:02 PM EDT Pulse 76 03/17/2025 3:02 PM EDT Temperature 36.5 C (97.7 F) 03/17/2025 3:02 PM EDT Respiratory Rate 16 03/17/2025 3:02 PM EDT Oxygen Saturation 98% 03/17/2025 3:02 PM EDT Inhaled Oxygen Concentration - - Weight 77.8 kg (171 lb 9.6 oz) 03/17/2025 3:02 P M EDT Height 154.9 cm (5' 1 ) 03/17/2025 3:02 PM EDT Body Mass Index 32.42 03/17/2025 3:02 PM EDT Plan of Treatment Upcoming Encounters Date Type Department Care Team (Late st Contact Info) Description 07/08/2025 9:30 AM EST Office Visit Adult Medicine [facility] [place] [address] [place] [address] Dwayne Puentes MD [address] [place] [address] 09/28/2025 10:40 AM EDT Appointment Radiology Department - [address] [phone] Health Maintenance Due Date Last Done Comments Pneumococcal Vaccine: 50+ Years (2 of 2 - PCV) 07/09/2014 07/09/2013 Medicare Annual Wellness Visit 05/18/2022 RSV Immunization Adult Patients (1 - Risk 50-74 years 1-dose series) 2025 Zoster Vaccines (1 of 2) 2025 02/18/2018 Cervical Cancer Screening: HPV 06/24/2025 06/24/2020 Social Influencers of Health Screening 03/08/2026 03/08/2025 Breast Cancer Screening 09/22/2026 09/23/19, 09/10/2023, 08/08/2022, Additional history exists Cholesterol Screening (Lipid Panel) 03/08/2030 03/08/2025, 09/02/2024, 07/30/2024, Additional history exists DTaP,Tdap,and Td Vaccines (4 - Td or Tdap) 08/02/2031 08/02/2021, 04/13/2011, 08/16/2004 Colorectal Cancer Screening: Colonoscopy 01/19/2035 01/19/2025, 08/23/2023 Varicella Vaccines Aged Out 02/18/2018 No longer [...] Patient-Stated? Author STG (6 visits) General Eri Meza PT Note: Pt will demonstrate compliance with HEP Pt will report decreased pain level to < 6/10 at worst Pt will report centralization of radicular symptoms Pt will demonstrate improved scapular resting position Pt will increase R shoulder flexion AROM to WFL Pt will demonstrate at least 3/5 middle and lower trapezius MMT LTG (12 visits) General Eri Meza PT Note: Pt will demonstrate independence with [...] mg/dL LAB CHEMISTRY METHOD 03/08/2025 4:02 PM [facility] Triglycerides 87 0 - 150 mg/dL LAB CHEMISTRY METHOD 03/08/2025 4:02 PM [facility] HDL 51 >=40 mg/dL LAB CHEMISTRY METHOD 03/08/2025 4:02 PM [facility] LDL Calculated 104(H) 0 - 100 mg/dL LAB CHEMISTRY METHOD 03/08/2025 4:02 PM [facility] Comment:Estimated LDL Calcul ated using equation: Total cholesterol - HDL cholesterol - (Triglycerides/5) VLDL Cholesterol Jon 17.4 mg/dL LAB CHEMISTRY METHOD 03/08/2025 4:02 PM [facility] Non HDL Chol. (LDL+VLDL) 121 <145 mg/dL LAB CHEMISTRY METHOD 03/08/2025 4:02 PM [facility] Chol/HDL Ratio 3.4 0.0 - 4.4 LAB CHEMISTRY METHOD 03/08/2025 4:02 PM [facility] Blood Venous blood specimen / Unknown Venipuncture / Unknown 03/08/2025 11:47 AM EDT 03/08/2025 11:47 AM EDT Dwayne Puentes MD LAB BLOOD ORDERABLES Final Result Performing Organization Address [facility]/ZIP Co de Phone Number [facility] [address] [place] [address], * D-Dimer (03/08/2025 11:47 AM EDT) D-Dimer, Quant (D-DU) <150 <=230 ng/mL DDU LAB COAGULATION METHOD 03/08/2025 1:56 PM EDT [facility] Blood Venous blood specimen / Unknown Venipuncture / Unknown 03/08/2025 11:47 AM EDT 03/08/2025 11:47 AM EDT Narrative [facility] - 03/08/2025 1:56 PM EDT D-Dimer <230 ng/mL (D-Dimer units) is the threshold for exclusion of DVT/PE. D-Dimer may be elevated in: Critically ill, severely infected, trauma patients, DIC, acute CVA, acute PR, unstable angina, AF, old age, , and smoking. D-Dimer may be decreased with: Initiation of heparin therapy and oral anticoagulants. Karoline Mann NP LAB BLOOD ORDERABLES Final R esult Performing Organization Address [facility]/ZIP Co de Phone Number [facility] [address] [place] [address], * Hemoglobin A1c (03/08/2025 11:47 AM EDT) Hemoglobin A1C 5.3 <6.5 % LAB CHEMISTRY METHOD 03/09/2025 8:51 AM EDT [facility] Mean Bld Glu Estim. 105 mg/dL LAB CHEMISTRY METHOD 03/09/2025 8:51 AM EDT [facility] Blood Venous blood specimen / Unknown Venipuncture / Unknown 03/08/2025 11:47 AM EDT 03/08/2025 11:47 AM EDT us Karoline Mann NP LAB BLOOD ORDERABLES Final R esult [facility] [address] [place] [address], [place] [phone] * (ABNORMAL) Comprehensive metabolic panel (03/08/2025 11:47 AM EDT) Sodium 139 133 - 145 mmol/L LAB CHEMISTRY METHOD 03/08/2025 4:11 PM [facility] Potassium 3.9 3.5 - 5.5 mmol/L LAB CHEMISTRY METHOD 03/08/2025 4:11 PM [facility] Chloride 107 96 - 110 mmol/L LAB CHEMISTRY METHOD 03/08/2025 4:11 PM [facility] CO2 28 21 - 32 mmol/L LAB CHEMISTRY METHOD 03/08/2025 4:11 PM [facility] Anion Gap 4 3 - 11 LAB CHEMISTRY METHOD 03/08/2025 4:11 PM [facility] Glucose 101(H) 70 - 100 mg/dL LAB CHEMISTRY METHOD 03/08/2025 4:11 PM [facility] BUN 14 5 - 25 mg/dL LAB CHEMISTRY METHOD 03/08/2025 4:11 PM [facility] Creatinine 0.87 0.50 - 1.10 mg/dL LAB CHEMISTRY METHOD 03/08/2025 4:11 PM [facility] eGFR 82 >=60 mL/min/1. 73m2 LAB CHEMISTRY METHOD 03/08/2025 4:11 PM [facility] Comment:Calculation based on the Chronic Kidney Disease Epidemiology Collaboration (CKD-EPI) equation refit without adjustment for race. BUN/Creatinine Ratio 16.1 LAB CHEMISTRY METHOD 03/08/2025 4:11 PM [facility] Calcium 9.2 8.5 - 10.5 mg/dL LAB CHEMISTRY METHOD 03/08/2025 4:11 PM EDT [facility] AST (SGOT) 19 10 - 42 unit/L LAB CHEMISTRY METHOD 03/08/2025 4:11 PM EDT [facility] ALT (SGPT) 33 10 - 60 unit/L LAB CHEMISTRY METHOD 03/08/2025 4:11 PM EDT [facility] Alkaline Phosphatase 82 42 - 121 unit/L LAB CHEMISTRY METHOD 03/08/2025 4:11 PM EDT [facility] Total Protein 6.8 6.0 - 8.0 g/dL LAB CHEMISTRY METHOD 03/08/2025 4:11 PM EDT [facility] Albumin 4.1 3.2 - 5.0 g/dL LAB CHEMISTRY METHOD 03/08/2025 4:11 PM EDT [facility] Total Bilirubin 0.5 0.0 - 1.4 mg/dL LAB CHEMISTRY METHOD 03/08/2025 4:11 PM EDT [facility] Blood Venous blood specimen / Unknown Venipuncture / Unknown 03/08/2025 11:47 AM EDT 03/08/2025 11:47 AM EDT us Karoline Mann RECRUITMENT COORDINATOR LAB BLOOD ORDERABLES Final R esult [facility] [address] [place] [address], * MR Brain wo Contrast (02/20/2025 10:38 [...] Signed Date: 02/23/2025 15:15 ET Workstation ID: [id number] Transcribed By: Self Edit Transcribed Date: 02/23/2025 [...] A few very small scattered foci of [id number] in the supratentorial white matter are unchanged. [...] Signed Date: 02/23/2025 15:15 ET Workstation ID: [id number] Transcribed By: Self Edit Transcribed Date: 02/23/2025 12:41 ET Jacklyn Wright Aracelifélix JESU IMG MRI PROCEDURES Final Res ult * COLONOSCOPY Anesthesia - MAC; [facility] ENDOSCOPY (01/19/2025 1:29 PM EDT) Anatomical Region Laterality Modality Other 01/19/2025 1:15 PM EDT Impressions 01/19/2025 1:30 PM EDT - Diverticulosis in the entire examined colon. - No specimens collected. Recommendation: - Repeat colonoscopy in 10 years for screening purposes. - Use fiber, for example Citrucel, Fibercon, Konsyl or Metamucil. Narrative 01/19/2025 1:30 PM EDT [facility] GI Patient Name: Royal Harris Procedure Date: [...] or abscess without bleeding CPT copyright 2020 [employer]. All rights reserved. The codes documented in this report are preliminary and upon campaign advisor review may be revised to meet current compliance requirements. Keon Sheehan MD 01/19/2025 1:29:57 PM This report has been signed electronically.Keon Sheehan MD Number of Addenda: 0 Note Initiated On: 01/19/2025 1:15 PM Scope In: Scope Out: Endoscopy Department at [facility] - [address] [place] [phone] Procedure Note Keon Sheehan MD - 01/19/2025 [facility] GI Patient Name: Royal Harris Procedure Date: [...] or abscess without bleeding CPT copyright 2020 [employer]. All rights reserved. The codes documented in this report are preliminary and upon campaign advisor reviewmay be revised to meet current compliance requirements. Keon Sheehan MD 01/19/2025 1:29:57 PM This report has been signed electronically.Keon Sheehan MD Number of Addenda: 0 Note Initiated On: 01/19/2025 1:15 PM Scope In: Scope Out: Endoscopy Department at [facility] - [address] [place] [phone] IMPRESSION: - Diverticulosis in the entire examined [...] PM EDT No abnormality detected. POS - [id number] -------- FINAL REPORT -------- Dictated By: Jeanne Hidalgo Dictated Date: 01/12/2025 19:41 ET Assigned Physician: Jeanne Hidalgo Reviewed and Electronically Signed By: Jeanne Hidalgo Signed Date: 01/12/2025 19:43 ET Workstation ID: [id number] Transcribed By: Self Edit Transcribed Date: 01/12/2025 [...] tissuecalcifications. IMPRESSION: No abnormality detected. POS - [id number] -------- FINAL REPORT -------- Dictated By: Jeanne Hidalgo Dictated Date: 01/12/2025 19:41 ET Assigned Physician: Jeanne Hidalgo Reviewed and Electronically Signed By: Jeanne Hidalgo Signed Date: 01/12/2025 19:43 ET Workstation ID: [id number] Transcribed By: Self Edit Transcribed Date: 01/12/2025 19:41 ET Leda Nohemi Claude Bell PA IMG XR PROCEDURES Final Result * MG Mammo Digital Screening w Eric bilat (09/22/2024 10:30 AM EDT) Anatomical Region Laterality Modality Breast Bilateral Mammography 09/22/2024 2:23 PM EDT Impressions 09/22/2024 2:28 PM EDT Benign. BI-RADS CATEGORY: 1 - NEGATIVE RECOMMENDATION: Screening bilateral mammogram is recommended in 1 year. Mammo Location: [facility], [address] [place] [address], [id number], . -------- FINAL REPORT -------- Dictated By: Iraida Curry Dictated Date: 09/22/2024 14:23 ET Assigned Physician: Iraida Curry Reviewed and Electronically Signed By: Iraida Curry Signed Date: 09/22/2024 14:28 ET Workstation ID: [id number] Transcribed By: Self Edit Transcribed Date: 09/22/2024 [...] is recommended in 1 year. Mammo Location: [facility], [address] [place] [address], [address], . -------- FINAL REPORT -------- Dictated By: Iraida Curry Dictated Date: 09/22/2024 14:23 ET Assigned Physician: Iraida Curry Reviewed and Electronically Signed By: Iraida Curry Signed Date: 09/22/2024 14:28 ET Workstation ID: [id number] Transcribed By: Self Edit Transcribed Date: 09/22/2024 14:23 ET Dwayne Puentes MD IM BI PROCEDURES Final Res ult * Hepatitis C Screening (11/29/2022) Pathologist [facility] Hepatitis C Screening abstracted Historical Provider HEALTH MAINTENANCE Final Result * Cervical Cancer Screening: HPV (06/24/2020) Pathologist [facility] Cervical Cancer Screening: HPV abstracted, negative us Historical Provider HEALTH MAINTENANCE Final Result from Last 3 Months or Most Recently Relevant to Health Maintenance Insurance [facility]) MEDICARE Care Teams Gas Engine Operator Compressors Relationship Specialty Start Date End Date Dwayne Puentes MD [address] [place] [address] PCP - General 01/13/24
--- OUTSIDE RECORDS SUMMARY | 2025-03-31 21:23 | XMS_ITS | Encounter Summary ---
Author Organization Formerly [facility] Address [address] [place] [address] Care Team Providers Care Occupancy Specialist Name Role Phone Pcp, Nidhi Primary Care Provider Unavailabl e Philip Bartlett MD Primary Care Provider Unavail able Encounter Details Date Type Department Care Team (Late st Contact Info) Description 12/12/2022 Scanned Document [facility] NEUROPSYCH SCAN Unknown Unknow Provider Address Social [...] on filedocumented in this encounter Care Teams Occupancy Specialist Relationship Specialty Start Date End Date Pcp, No PCP - General 04/13/22 01/14/23 Philip Bartlett MD PCP - General Internal Medicine 01/15/23 documented as of this encounter
--- OUTSIDE RECORDS SUMMARY | 2025-03-31 21:23 | XMS_ITS | Patient Health Record ---
[facility] Address [address] [place] [address] Care Team Providers Care Tongue Carrier Name Role Phone Dhruv YIN, Philip Primary Care Provider Katherine Stout Unavailable [phone] Allergies Allergen (clinical drug ingredient) Drug/Non Drug Allergy documented on EMR Reaction Allergy Type Onset Date Status Atrovent Unknown Drug Allergy Active ipratropium Ipratropium [place] Unknown Drug Allergy Active tioconazole Monistat 1 [...] Insured Coverage Start Date Coverage End Date [facility] All Others [id number] [place] [address] [phone] [id number] Jose R Harris Spouse - patient is the spouse of the insured Medical (General) History Medical History History ICD Code Anxiety asthma Depression Headaches/Migraines Chicken pox Gall bladder problems Irritable bowel syndrome Constipation Reflux ( GERD) Surgical History Surgery Date(Month/Year) gall bladder 04/2019
--- OUTSIDE RECORDS SUMMARY | 2025-03-31 21:23 | XMS_ITS | Clinical Summary ---
Author Organization [facility] Address [address] [place] [address] Care Team Providers Care Hearing Officer Name Role Phone Philip Bartlett MD Primary Care Provider Unavail able Allergies Active Allergy Reactions Criticality Noted Date Comments Prochlorperazine Edisylate Other (See Comments) 05/13/2008 Passed out Benzyl Alcohol Unknown/Patient and Family Unable to Define Medium 01/15/2023 Ipratropium [place] [facility] Swelling Medium 04/15/2019 Linaclotide Itching Low [...] , 06/07/2022, Additional history exists COVID-19 Vaccine (3 - 2024-2 6 season) 2025 08/17/2020, 07/27/2020 Pneumococcal Vaccines 50+ (1 of 1 - PCV) 2025 Zoster (Shingles) Vaccine (1 of 2) 2025 RSV Vaccine 50 years and old er and Patients (1 - 1-dose 75+ series) 2050 Insurance [facility] Care Teams Hearing Officer Relationship Specialty Start Date End Date Philip Bartlett MD PCP - General Internal Medicine 01/15/23
--- OUTSIDE RECORDS SUMMARY | 2025-03-31 21:23 | XMS_ITS | Encounter Summary ---
Author Organization [facility] [place] [address] Care Team Providers Care Director Industrial Nursing Name Role Phone Dwayne Puentes MD Primary Care Provider [phone] Encounter Details Date Type Department Care Team (Late st Contact Info) Description 03/10/2025 Results Follow-Up Adult Medicine [facility] [place] [address] [place], [place] [phone] Karoline Mann NP [address] [place], [place] Social History Tobacco Use Types Packs/Day [...] care for your loved ones. For example, child's nurse or elderly care for an older adult? [...] EST Office Visit [facility] [place] [facility] [place] [address] [facility] [place] [phone] Dwayne Puentes MD [address] [place] 09/28/2025 10:40 AM EDT Appointment Radiology Department - [address] [place], [place] [phone] documented as of this encounter Goals Goal Patient Goal Type Associated Problems Recent Progress Patient-Stated? Author STG (6 visits) Eri Benitez, PT Note: Pt will demonstrate compliance with [...] documented as of this encounter Care Teams Director Industrial Nursing Relationship Specialty Start Date End Date Dwayne Puentes MD [address] [place] PCP - General 01/13/24 documented as of this encounter
--- OUTSIDE RECORDS SUMMARY | 2025-03-31 21:23 | XMS_ITS | Clinical Summary ---
Author Organization [facility] Address [address] [place] [address] Care Team Providers Care Patient Services Manager Name Role Phone Philip Bartlett MD Primary Care Provider [phone] Allergies Active Allergy Reactions Criticality Noted Date Comments Ipratropium Other (See Comments),Swelling 08/21/2007 Doesn't remember Facial swelling Ipratropium [place] [facility] 04/15/2019 Other Swelling Low 04/13/2015 Prochlorperazine [...] 2025 4, 06/07/2022, 04/19/2021, Additional history exists Breast Cancer Screening (Mammogram) 2025 Shingrix-Zoster Vaccine (1 of 2) 2025 Pneumococcal Vaccine Aged Out 07/09/2013 No long er eligible based on patient's age to complete this topic RSV Ped < 20 months Aged Out No longe r eligible based on patient's age to complete this topic Care Teams Patient Services Manager Relationship Specialty Start Date End Date Philip Bartlett MD PCP - General Internal Medicine 09/12/21
== END 2025-03-31 15:07 | disposition home or self-care (01) ==
LOC: HO.HMGAL 15:06
PROVIDERS: PCP Internal Medicine; Visit Provider Registered Nurse Emergency
DX: J30.89 Other allergic rhinitis (principal)
CPT/HCPCS: 95117; 95165

== ENCOUNTER 2025-04-19 09:24 | Outpatient (AMB) | payer BC, MEDICARE, SELFPAY ==
--- OUTSIDE RECORDS SUMMARY | 2025-04-19 10:19 | XMS_ITS | Encounter Summary ---
Author Organization [facility] Address [address] [place] [address] Care Team Providers Care Die Cut Operator Name Role Phone Roxi Cesar MD Primary Care Provider [phone] Philip Bartlett MD Primary Care Provider [phone] Aubrey Grimaldo DO Primary Care Provider [facility] Dwayne Rosen MD Primary Care Provider [phone] Encounter Details Date Type Department Care Team Description 04/17/2019 Hospital Medical Records [address] [place] [address] Keon Sheehan MD [address] [facility] [address] [place] [address] Social History Tobacco Use Types Packs/Day Years Used Date Smoking Tobacco: Former Cigarettes 0.5 19 Q uit: 06/10/1995 Passive Smoke Exposure: Past Smokeless Tobacco: Never Comments:QUIT-1995, Started @ age 14, doesn't remember how many daily Alcohol Use Standard Drinks/Week Comments Not Currently 0 (1 standard drink = 0.6 oz pur e alcohol) Sex Assigned at Date Recorded Not on file Job Start Date Occupation Industry Not on file Not on file Not on file documented as of this encounter Plan of Treatment Not on file documented as of this encounter Visit Diagnoses Not on filedocumented in this encounter Care Teams Die Cut Operator Relationship Specialty Start Date End Date Roxi Cesar MD [address] [place] [address] PCP - General 09/12/03 07/15/19 Philip Bartlett MD [address] [place] [address] PCP - General Internal Medicine 07/16/19 05/12/23 Aubrey Grimaldo DO [address] [place] [address] PCP - General Internal Medicine 05/13/23 01/12/24 Dwayne Puentes MD [address] [place] [address] PCP - General Internal Medicine 01/13/24 documented as of this encounter
--- OUTSIDE RECORDS SUMMARY | 2025-04-19 10:19 | XMS_ITS | Patient Health Record ---
Author Organization [facility] Address [address] [place] [address] Care Team Providers Care Home Appliance Technician Name Role Phone Dhruv YIN, Philip Primary Care Provider Katherine Stout Unavailable [phone] Allergies Allergen (clinical drug ingredient) Drug/Non Drug Allergy documented on EMR Reaction Allergy Type Onset Date Status Atrovent Unknown Drug Allergy Active ipratropium Ipratropium [place] Unknown Drug Allergy Active tioconazole Monistat 1 [...] Insured Coverage Start Date Coverage End Date [facility] All Others [address] [place] [address] [phone] [id number] Jose R Harris Spouse - patient is the spouse of the insured Medical (General) History Medical History History ICD Code Anxiety asthma Depression Headaches/Migraines Chicken pox Gall bladder problems Irritable bowel syndrome Constipation Reflux ( GERD) Surgical History Surgery Date(Month/Year) gall bladder 04/2019
--- OUTSIDE RECORDS SUMMARY | 2025-04-19 10:19 | XMS_ITS | Encounter Summary ---
Author Organization [facility] Address [address] [place] [address] Care Team Providers Care New Accounts Clerk Name Role Phone Roxi Cesar MD Primary Care Provider [phone] Philip Bartlett MD Primary Care Provider [phone] Aubrey Grimaldo DO Primary Care Provider [facility] Dwayne Rosen MD Primary Care Provider [phone] Encounter Details Date Type Department Care Team Description 05/12/2019 Shotgun Shell Reprinting Unit Operator Report Medical Records [address] [place] [address] Anju Faye DO Social History Tobacco Use Types Packs/Day Years Used Date Smoking Tobacco: Former Cigarettes 19 Q uit: 06/10/1995 Smokeless Tobacco: Never Comments:QUIT-1995, Started @ age 14, doesn't remember how many daily Alcohol Use Standard Drinks/Week Comments Yes 0 (1 standard drink = 0.6 oz pur e alcohol) 2 drinks per mo Sex Assigned at Date Recorded Not on file Job Start Date Occupation Industry Not on file Not on file Not on file documented as of this encounter Plan of Treatment Not on file documented as of this encounter Visit Diagnoses Not on filedocumented in this encounter Care Teams New Accounts Clerk Relationship Specialty Start Date End Date Roxi Cesar MD [address] [place], [place] [phone] PCP - General 09/12/03 07/15/19 Philip Bartlett MD [address] [place] [address] PCP - General Internal Medicine 07/16/19 05/12/23 Aubrey Grimaldo, DO [address] [place] [address], [place] [address] PCP - General Internal Medicine 05/13/23 01/12/24 Dwayne Puentes MD [address] [place] [address] PCP - General Internal Medicine 01/13/24 documented as of this encounter
--- OUTSIDE RECORDS SUMMARY | 2025-04-19 10:19 | XMS_ITS | Encounter Summary ---
Author Organization [facility] Address [address] [place] [address] Care Team Providers Care Cable Splicer Assistant Name Role Phone Roxi Cesar MD Primary Care Provider [phone] Philip Bartlett MD Primary Care Provider [phone] Aubrey Grimaldo DO Primary Care Provider Aleisha Dwayne Rosen MD Primary Care Provider [phone] Encounter Details Date Type Department Care Team Description 04/17/2019 Old Medical Records Medical Records [address] [place] [address] Abstract, Provider Social History Tobacco Use Types Packs/Day Years [...] on filedocumented in this encounter Care Teams Cable Splicer Assistant Relationship Specialty Start Date End Date Roxi Cesar MD [address] [place] [address] [phone] PCP - General 09/12/03 07/15/19 Philip Bartlett MD [address] [place] [address] PCP - General Internal Medicine 07/16/19 05/12/23 Aubrey Grimaldo, [address] [place] [address] PCP - General Internal Medicine 05/13/23 01/12/24 Dwayne Puentes MD [address] [place] [address] PCP - General Internal Medicine 01/13/24 documented as of this encounter
--- OUTSIDE RECORDS SUMMARY | 2025-04-19 10:19 | XMS_ITS | Encounter Summary ---
Author Organization [facility] Address [address] [place] [address] Care Team Providers Care Information Systems Operator Name Role Phone Philip Bartlett MD Primary Care Provider [phone] Aubrey Grimaldo DO Primary Care Provider Unavaila Dwayne Rosen MD Primary Care Provider [phone] Reason for Visit * Reason Onset Date Comments Surgery Cancelled 08/18/2019 Encounter Details Date Type Department Care Team Description 08/18/2019 Telephone OBGYN - [facility] [address] [place], [place] [phone] Elizabeth Suazo DO Surgery Cancelled Social History Tobacco Use Types Packs/Day Years [...] on file documented as of this encounter Miscellaneous Notes * Telephone Encounter - Alexandra Mack R.N. - 08/18/2019 9:07 AM EDT Message forwarded to . (msg was already sent to surgical scheduling by BSR). * Telephone Encounter - Jenny García - 08/18/2019 8:44 AM EDT Chief Complaint/problem: Just to let you know patient has to cancel her surgery for Wednesday 08/[address] Suazo because they want $2000 up front and she can not afford it right now - also sent message to surgery booking pool How long has the patient had this problem? - Pt???s SPECIAL POLICE provider: Elizabeth Suazo DO Last menstrual period (LMP) or EDC (due date): N/A documented in this encounter Plan of Treatment Not on file documented as of this encounter Visit Diagnoses Not on filedocumented in this encounter Care Teams Information Systems Operator Relationship Specialty Start Date End Date Philip Bartlett MD [address] [place] [address] PCP - General Internal Medicine 07/16/19 05/12/23 Aubrey Grimaldo DO [address] [place] [address] PCP - General Internal Medicine 05/13/23 01/12/24 Dwayne Puentes MD [address] [place] [address] PCP - General Internal Medicine 01/13/24 documented as of this encounter
--- OUTSIDE RECORDS SUMMARY | 2025-04-19 10:19 | XMS_ITS | Encounter Summary ---
Author Organization [facility] Address [address] [place] [address] Care Team Providers Care Technical Publications Manager Name Role Phone Roxi Csear MD Primary Care Provider [phone] Philip Bartlett MD Primary Care Provider [phone] Aubrey Grimaldo DO Primary Care Provider [facility] Dwayne Rosen MD Primary Care Provider [phone] Reason for Visit * Reason Comments E-prescribe Rx Request Encounter Details Date Type Department Care Team Description 07/14/2019 Refill OBGYN - [facility] [address] [place] [address] Elizabeth Suazo DO E-prescribe Rx Request Social History Tobacco Use Types Packs/Day Years [...] Telephone Encounter - Alexandra Mack R.N. - 07/14/2019 4:49 PM EST OCP Rx to local pharmacy denied. She only needed 1 month to et her until her mail order from [facility] came in. * Telephone Encounter - Kaley Hein - 07/14/2019 4:44 PM EST Please see encounter from yesterday documented in this encounter Plan of Treatment Not on file documented as of this encounter Visit Diagnoses Diagnosis Dysmenorrhea documented in this encounter Care Teams Technical Publications Manager Relationship Specialty Start Date End Date Roxi Cesar MD [address] [place] [address] PCP - General 09/12/03 07/15/19 Philip Bartlett MD [address] [place] [address] PCP - General Internal Medicine 07/16/19 05/12/23 Aubrey Grimaldo DO [address] [place] [address] PCP - General Internal Medicine 05/13/23 01/12/24 Dwayne Puentes MD [address] [place] [address] PCP - General Internal Medicine 01/13/24 documented as of this encounter
--- OUTSIDE RECORDS SUMMARY | 2025-04-19 10:19 | XMS_ITS | Encounter Summary ---
Author Organization [facility] Address [address] [place] [address] Care Team Providers Care Retail Coverage Merchandiser Name Role Phone Roxi Cesar MD Primary Care Provider [phone] Philip Bartlett MD Primary Care Provider [phone] Aubrey Grimaldo DO Primary Care Provider Unavaila Dwayne Rosen MD Primary Care Provider [phone] Reason for Visit * Reason Onset Date Comments Provider Call Back 05/04/2019 Encounter Details Date Type Department Care Team Description 05/04/2019 Telephone Gastroenterology - [place] [address] [facility] [address] [place] [address] Nevaeh Uriostegui DScPAS Provider Call Back Social History Tobacco Use Types Packs/Day Years [...] encounter Miscellaneous Notes * Telephone Encounter - Harper Perea - 05/04/2019 10:04 AM EST Patient calling states she is unhappy and disappointed with medical staff, had Endoscopy done on 04/17/19, was also sent by [facility] on 04/22 for an ultrasound at which no medical staff calledher back regarding results, was in pain and went to the hospital on 05/01 at 1 am they did another ultrasound as well as ct scan where they found gall stones and had to do emergency surgery removing patients ballbladder... Please advise documented in this encounter Plan of Treatment Not on file documented as of this encounter Visit Diagnoses Not on filedocumented in this encounter Care Teams Retail Coverage Merchandiser Relationship Specialty Start Date End Date Roxi Cesar MD [address] [place] [address] PCP - General 09/12/03 07/15/19 Philip Bartlett MD [address] [place] [address] PCP - General Internal Medicine 07/16/19 05/12/23 Aburey Grimaldo DO [address] [place] [address] PCP - General Internal Medicine 05/13/23 01/12/24 Dwayne Puentes MD [address] [place] [address] PCP - General Internal Medicine 01/13/24 documented as of this encounter
--- OUTSIDE RECORDS SUMMARY | 2025-04-19 10:19 | XMS_ITS | Encounter Summary ---
Author Organization [facility] Address [address] [place] [address] Care Team Providers Care Wire Winding Machine Tender Name Role Phone Roxi Cesar MD Primary Care Provider [phone] Philip Bartlett MD Primary Care Provider [phone] Aubrey Grimaldo DO Primary Care Provider [facility] Dwayne Rosen MD Primary Care Provider [phone] Encounter Details Date Type Department Care Team Description 05/04/2019 Orders Only Gastroenterology - [address] [place] [address] Nevaeh Uriostegui DScPAS Social History Tobacco Use Types Packs/Day Years [...] on filedocumented in this encounter Care Teams Wire Winding Machine Tender Relationship Specialty Start Date End Date Roxi Cesar MD [address] [place] [address] PCP - General 09/12/03 07/15/19 Philip Bartlett MD [address] [place] [address] PCP - General Internal Medicine 07/16/19 05/12/23 Aubrey Grimaldo DO [address] [place] [address] PCP - General Internal Medicine 05/13/23 01/12/24 Dwayne Puentes MD [address] [place] [address] PCP - General Internal Medicine 01/13/24 documented as of this encounter
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
--- OUTSIDE RECORDS SUMMARY | 2025-04-19 10:20 | XMS_ITS | Encounter Summary ---
Author Organization [facility] Address [address] [place] [address] Care Team Providers Care Ornamental Plaster Sticker Name Role Phone Roxi Cesar MD Primary Care Provider [phone] Philip Bartlett MD Primary Care Provider [phone] Aubrey Grimaldo DO Primary Care Provider [facility] Dwayne Rosen MD Primary Care Provider [phone] Reason for Visit * Reason Onset Date Comments Call From Hospital 09/24/2014 [facility] Encounter Details Date Type Department Care Team Description 09/24/2014 Telephone Adult Medicine [address] [phone] Roxi Cesar MD [address] [place] [address] [phone] Call From Hospital ([facility]) Social History Tobacco Use Types Packs/Day Years Used Date Smoking Tobacco: Former Cigarettes Q uit: 06/10/1995 Smokeless Tobacco: Never Comments:QUIT-1995, Started @ age 14 Alcohol Use Standard Drinks/Week Comments Yes 0 (1 standard drink = 0.6 oz pur e alcohol) 2 drinks per mo Sex Assigned at Date Recorded Not on file Job Start Date Occupation Industry Not on file Not on file Not on file documented as of this encounter Miscellaneous Notes * Telephone Encounter - Tigist Abreu - 09/24/2014 9:52 AM EDT Received a call from [facility], this patient has been admitted to hospital today documented in this encounter Plan of Treatment Not on file documented as of this encounter Visit Diagnoses Not on filedocumented in this encounter Care Teams Ornamental Plaster Sticker Relationship Specialty Start Date End Date Roxi Cesar MD [address] [place] [address] PCP - General 09/12/03 07/15/19 Philip Bartlett MD [address] [place] [address] PCP - General Internal Medicine 07/16/19 05/12/23 Aubrey Grimaldo DO [address] [place] [address] PCP - General Internal Medicine 05/13/23 01/12/24 Dwayne Puentes MD [address] [place] [address] PCP - General Internal Medicine 01/13/24 documented as of this encounter
--- OUTSIDE RECORDS SUMMARY | 2025-04-19 10:20 | XMS_ITS | Encounter Summary ---
Author Organization [facility] Address [address] [place] [address] Care Team Providers Care Braiding Machine Operator Name Role Phone Philip Bartlett MD Primary Care Provider [phone] Aubrey Grimaldo DO Primary Care Provider [facility] Dwayne Rosen MD Primary Care Provider [phone] Encounter Details Date Type Department Care Team Description 05/02/2020 Telephone Gastroenterology [facility] [address] [facility] [address] [place] [address] Nevaeh Uriostegui DScPAS Social History [...] Exposure Response Date Recorded In the last month, have you been in contact with someone who was confirmed or suspected to have Coronavirus / COVID-19? Unable to assess 05/02/2020 8:21 AM EST documented as of this encounter Plan of Treatment Not on file documented as of this encounter Visit Diagnoses Not on filedocumented in this encounter Care Teams Braiding Machine Operator Relationship Specialty Start Date End Date Philip Bartlett MD [address] [place] [address] PCP - General Internal Medicine 07/16/19 05/12/23 Aubrey Grimaldo, [address] [place] [address] PCP - General Internal Medicine 05/13/23 01/12/24 Dwayne Puentes MD [address] [place] [address] PCP - General Internal Medicine 01/13/24 documented as of this encounter
--- OUTSIDE RECORDS SUMMARY | 2025-04-19 10:20 | XMS_ITS | Encounter Summary ---
Author Organization [facility] Address [address] [place] [address] Care Team Providers Care Senior Oracle Developer Name Role Phone Philip Bartlett MD Primary Care Provider [phone] Aubrey Grimaldo DO Primary Care Provider Unavaila Dwayne Rosen MD Primary Care Provider [phone] Reason for Visit * Reason Onset Date Comments Medication, Reaction To 01/31/2023 Encounter Details Date Type Department Care Team Description 01/31/2023 Telephone Adult Medicine [address] [phone] Philip Bartlett MD [address] [place] [address] Medication, Reaction To Social History Tobacco Use Types Packs/Day Years [...] encounter Miscellaneous Notes * Telephone Encounter - Anne Kern L.P.N. - 02/01/2023 10:40 AM EDT No, sorry this was just an FYI. * Telephone Encounter - Elizabeth Shay NP - 01/31/2023 4:20 PM EDT Did they need something from me? * Telephone Encounter - Anne Kern L.P.N. - 01/31/2023 3:57 PM EDT Pt presented to [facility] ER and is being admitted for possible surgery or IV ABX or both. From [facility] note: Irma Harris is a 47-year-old woman with a recent diagnosis of hepatic flexure diverticulitis, whopresented to the ED with generalized malaise. Although her history is not classic, imaging was concerning for acute appendicitis, so we will plan for IV antibiotics and OR for laparoscopic appendectomy. Plan Admit to [facility] NPO/IVF IV antibiotics OR for laparoscopic appendectomy Discussed with attending surgeon, Dr. Faye. * Telephone Encounter - Ashli Mckenna R.N. - 01/31/2023 11:28 AM EDT Telephone Information: Work Phone Not on file. 2nd attempt to call pt;[facility] for phone triage. * Telephone Encounter - Xiomara Black R.N. - 01/31/2023 11:09 AM EDT Called and left a VM for the patient to call back and ask to speak to a triage nurse. * Telephone Encounter - Charmaine Brian - 01/31/2023 8:52 AM EDT Symptoms patient is presenting: pt called [facility] for a nurse, afsaneh Caldera is overdosing her on medication, state sshe she does not feel well. For ALL patients calling to schedule any appointment (routine, sick visit, follow up, consult, etc.) in the outpatient setting please ask the following questions: ?? Do you have fever of higher than 101, sore throat with difficulty swallowing or severe shortnessof breath? NO If YES to any of these above symptoms, send a message to triage and do not book. Red dot. If no, an audio or video visit should be booked. ?? Have you had close contact with someone with Coronavirus in the last 14 days? NO ?? Have you traveled abroad? NO ?? Have you traveled recently to another state outside of [place], [place], [place], [place], [place], [place], [place]? NO o If yes, did you quarantine for 14 days or have a negative covid test? NO If yes to any of the above, patient is not to be scheduled in office until after 14 day quarantine or negative covid test. If pain or injury related was it due to an accident at work or from a motor vehicle accident? NO If yes, gather 3rd libertarian insurance information Date of accident/Injury: n/a How long has patient had these symptoms?: since yesterday PCP: Philip Bartlett Payor: [place]/KARIE POS / Plan: PPO $0 [place] [id number] / Product Type: PPO [id number] documented in this encounter Plan of Treatment Not on file documented as of this encounter Visit Diagnoses Not on filedocumented in this encounter Care Teams Senior Oracle Developer Relationship Specialty Start Date End Date Philip Bartlett MD [address] [place] [address] PCP - General Internal Medicine 07/16/19 05/12/23 Aubrey Grimaldo DO [address] [place] [address] PCP - General Internal Medicine 05/13/23 01/12/24 Dwayne Puentes MD [address] [place] [address] PCP - General Internal Medicine 01/13/24 documented as of this encounter
--- OUTSIDE RECORDS SUMMARY | 2025-04-19 10:20 | XMS_ITS | Encounter Summary ---
Author Organization [facility] Address [address] [place] [address] Care Team Providers Care Business Services Sales Representative Name Role Phone Philip Bartlett MD Primary Care Provider [phone] Aubrey Grimaldo DO Primary Care Provider Unavaila Dwayne Rosen MD Primary Care Provider [phone] Encounter Details Date Type Department Care Team Description 08/28/2022 Pt. Non Urgent Medic al Question OBGYN - [place] [address] [place] [address] Navarro Stewart, CN [address] [place] [address] Social History Tobacco Use Types Packs/Day Years Used Date Smoking Tobacco: Former Cigarettes 19 Q uit: 06/10/1995 Smokeless Tobacco: Never Comments:QUIT-1995, Started @ age 14, doesn't remember how many daily Alcohol Use Standard Drinks/Week Comments Yes 0 (1 standard drink = 0.6 oz pur e alcohol) occas Sex Assigned at Date Recorded Not on file Job Start Date Occupation Industry Not on file Not on file Not on file COVID-19 Exposure Response Date Recorded In the last 10 days, have yo u been in contact with someone who was confirmed or suspected to have Coronavirus/COVID-19? No / Unsure 08/14/2022 8:59 AM EST documented as of this encounter Miscellaneous Notes * Telephone Encounter - Bianca Purdy R.N. - 08/28/2022 11:37 AM EDTFrom: Irma Harris To: Navarro Stewart CNM Sent: 08/28/2022 10:37 AM EDT Subject: Medications I am due to see you at the end of the month. I would like to try stopping the control to see how things go and see if I can handle things without it. Thank you Irma Harris documented in this encounter Plan of Treatment Not on file documented as of this encounter Visit Diagnoses Not on filedocumented in this encounter Care Teams Business Services Sales Representative Relationship Specialty Start Date End Date Philip Bartlett MD [address] [place] [address] PCP - General Internal Medicine 07/16/19 05/12/23 Aubrey Grimaldo DO [address] [place] [address] PCP - General Internal Medicine 05/13/23 01/12/24 Dwayne Puentes MD [address] [place] [address] PCP - General Internal Medicine 01/13/24 documented as of this encounter
--- OUTSIDE RECORDS SUMMARY | 2025-04-19 10:20 | XMS_ITS | Encounter Summary ---
Author Organization [facility] Address [address] [place] [address] Care Team Providers Care Emergency Technician Name Role Phone Philip Bartlett MD Primary Care Provider [phone] Aubrey Grimaldo DO Primary Care Provider Unavaila Dwayne Rosen MD Primary Care Provider [phone] Reason for Visit * Reason Onset Date Comments medication problems 09/14/2022 Encounter Details Date Type Department Care Team Description 09/14/2022 Telephone Gastroenterology - [place] [address] [facility] [address] [place] [address] Nevaeh Uriostegui DScPAS medication problems Social History Tobacco Use Types Packs/Day [...] suspected to have Coronavirus/COVID-19? No / Unsure 09/11/2022 3:13 PM EDT documented as of this encounter Miscellaneous Notes * Telephone Encounter - Nikkie Dawson M.A. - 09/14/2022 4:20 PM EDT Please review * Telephone Encounter - Nirali Sena - 09/14/2022 12:49 PM EDT Patient states constipation has gotten much more severe after starting lactulose. documented in this encounter Plan of Treatment Not on file documented as of this encounter Visit Diagnoses Not on filedocumented in this encounter Care Teams Emergency Technician Relationship Specialty Start Date End Date Philip Bartlett MD [address] [place] [address] PCP - General Internal Medicine 07/16/19 05/12/23 Aubrey Grimaldo DO [address] [place] [address] PCP - General Internal Medicine 05/13/23 01/12/24 Dwayne Puentes MD [address] [place] [address] PCP - General Internal Medicine 01/13/24 documented as of this encounter
--- OUTSIDE RECORDS SUMMARY | 2025-04-19 10:20 | XMS_ITS | Encounter Summary ---
Author Organization [facility] Address [address] [place] [address] Care Team Providers Care Leadership Program Internship Name Role Phone Philip Bartlett MD Primary Care Provider [phone] Aubrey Grimaldo DO Primary Care Provider Unavaila Dwayne Rosen MD Primary Care Provider [phone] Encounter Details Date Type Department Care Team Description 02/23/2023 Pt. Non Urgent Medic al Question OBGYN - [place] [address] [place] [address] Pau Jiménez DO Social History Tobacco Use Types Packs/Day [...] suspected to have Coronavirus/COVID-19? No / Unsure 02/19/2023 3:03 PM EDT documented as of this encounter Miscellaneous Notes * Telephone Encounter - Alison Harry R.N. - 02/25/2023 10:16 AM EDTFrom: Irma Harris To: Kyle Jiménez Sent: 02/23/2023 11:22 AM EDT Subject: Medicine I don't have anymore refills on the medication and I'm pretty sure I'm going to start any day now due to the pain. I had my period on the 3rd of this month and getting it again. That's only 8 days since last on the . Thank you Irma Harris documented in this encounter Plan of Treatment Not on file documented as of this encounter Visit Diagnoses Not on filedocumented in this encounter Care Teams Leadership Program Internship Relationship Specialty Start Date End Date Philip Bartlett MD [address] [place] [address] PCP - General Internal Medicine 07/16/19 05/12/23 Aubrey Grimaldo DO [address] [place] [address] PCP - General Internal Medicine 05/13/23 01/12/24 Dwayne Puentes MD [address] [place] [address] PCP - General Internal Medicine 01/13/24 documented as of this encounter
--- OUTSIDE RECORDS SUMMARY | 2025-04-19 10:20 | XMS_ITS | Encounter Summary ---
Author Organization [facility] Address [address] [place] [address] Care Team Providers Care Office Worker Name Role Phone Roxi Cesar MD Primary Care Provider [phone] Philip Bartlett MD Primary Care Provider [phone] Aubrey Grimaldo DO Primary Care Provider [facility] Dwayne Rosen MD Primary Care Provider [phone] Encounter Details Date Type Department Care Team Description 09/29/2014 Sales Director Report Medical Records [address] [place] [address] Justice Nova MD Social History Tobacco Use Types Packs/Day [...] on filedocumented in this encounter Care Teams Office Worker Relationship Specialty Start Date End Date Roxi Cesar MD [address] [place], [place] [phone] PCP - General 09/12/03 07/15/19 Philip Bartlett MD [address] [place] [address] [id number] PCP - General Internal Medicine 07/16/19 05/12/23 Aubrey Grimaldo, [address] [place] [address] PCP - General Internal Medicine 05/13/23 01/12/24 Dwayne Puentes MD [address] [place] [address] PCP - General Internal Medicine 01/13/24 documented as of this encounter
--- OUTSIDE RECORDS SUMMARY | 2025-04-19 10:20 | XMS_ITS | Encounter Summary ---
Author Organization [facility] Address [address] [place] [address] Care Team Providers Care Emblem Drawer In Name Role Phone Philip Bartlett MD Primary Care Provider [phone] Aubrey Grimaldo DO Primary Care Provider [facility] Dwayne Rosen MD Primary Care Provider [phone] Encounter Details Date Type Department Care Team Description 02/15/2023 Gas Meter Repair Supervisor Report Medical Records [address] [place] [address] Abstract, Provider Social History Tobacco Use Types [...] on filedocumented in this encounter Care Teams Emblem Drawer In Relationship Specialty Start Date End Date Philip Bartlett MD [address] [place] [address] PCP - General Internal Medicine 07/16/19 05/12/23 Aubrey Grimaldo, DO [address] [place] [address] PCP - General Internal Medicine 05/13/23 01/12/24 Dwayne Puentes MD [address] [place] [address] PCP - General Internal Medicine 01/13/24 documented as of this encounter
--- OUTSIDE RECORDS SUMMARY | 2025-04-19 10:20 | XMS_ITS | Encounter Summary ---
Author Organization [facility] Address [address] [place] [address] Care Team Providers Care Nike Athlete Name Role Phone Roxi Cesar MD Primary Care Provider [phone] Philip Bartlett MD Primary Care Provider [phone] Aubrey Grimaldo DO Primary Care Provider [facility] Dwayne Rosen MD Primary Care Provider [phone] Encounter Details Date Type Department Care Team Description 09/19/2012 Electronic Die Maker Report Medical Records [address] [place] [address] Anil Dominguez PA-C Social History Tobacco Use Types Packs/Day Years [...] on filedocumented in this encounter Care Teams Nike Athlete Relationship Specialty Start Date End Date Roxi Cesar MD [address] [place], [place] [phone] PCP - General 09/12/03 07/15/19 Philip Bartlett MD [address] [place] [address] PCP - General Internal Medicine 07/16/19 05/12/23 Aubrey Grimaldo, [address] [place] [address] PCP - General Internal Medicine 05/13/23 01/12/24 Dwayne Puentes MD [address] [place] [address] PCP - General Internal Medicine 01/13/24 documented as of this encounter
--- OUTSIDE RECORDS SUMMARY | 2025-04-19 10:20 | XMS_ITS | Encounter Summary ---
Author Organization [facility] Address [address] [place] [address] Care Team Providers Care Talent Acquisition Relationship Manager Name Role Phone Roxi Cesar MD Primary Care Provider [phone] Philip Bartlett MD Primary Care Provider [phone] Aubrey Grimaldo DO Primary Care Provider Unavaila Dwayne Rosen MD Primary Care Provider [phone] Reason for Visit * Reason Onset Date Comments Constipation 10/14/2014 Encounter Details Date Type Department Care Team Description 10/14/2014 Telephone Adult Medicine [address] [phone] Roxi Cesar MD [address] [place] [address] [id number] Constipation Social History Tobacco Use Types Packs/Day Years [...] encounter Miscellaneous Notes * Telephone Encounter - Daniella Martino R.N. - 10/15/2014 1:59 PM EDT Call placed to patient she went to the er on 10/13/14 for constipation she doesn't understand how she can still be constipated she takes miralax and moves her bowels qd Home Care Advice: Advised home care following the constipation protocol RN reinforced telephone consultation and advice. Reviewed with patient signs and symptoms to watch for that would require immediate attention. If symptoms change, worsen or increase in intensity, call doctor's office or answering service during off hours immediately. If seeks care in ER, patient told to call PCP office for an ER follow up visit next day, as needed. Referenced Telephone Triage Protocols for Nurses: Charmaine Black: Tierra Velasquez * Telephone Encounter - Bernard Phan - 10/15/2014 8:49 AM EDT Patient returned call demanding to speak to a nurse now, please call and advise [phone] * Telephone Encounter - Daniella Martino R.N. - 10/14/2014 11:25 AM EDT CALL #1 PLACED TO PATIENT Patient called. Left message on answering machine to call back [facility] at [phone] * Telephone Encounter - Moira Manjarrez - 10/14/2014 8:46 AM EDT Caller requesting call back from provider:Roxi Cesar Is the caller the patient? YES If caller is not the patient, what is the callers name? Callers relationship to patient? If person calling is not the patient themselves, is there a verbal release in FYI or permanent comments for this person: Reason for call back: Patient Called and stated that she spoke with a nurse yesterday about her Constipation. Patient Stated that she that she went to [place] [facility] yesterday for her Constipation. Patient was requesting to Speak With a Nurse. Patient was offered appointment. Please advise. Caller offered to speak with the nurse for assistance: YES Response: Patient offered to speak with nurse for assistance and patient agreed. Message forwarded to nurse. documented in this encounter Plan of Treatment Not on file documented as of this encounter Visit Diagnoses Not on filedocumented in this encounter Care Teams Talent Acquisition Relationship Manager Relationship Specialty Start Date End Date Roxi Cesar MD [address] [place] [address] PCP - General 09/12/03 07/15/19 Philip Bartlett MD [address] [place] [address] PCP - General Internal Medicine 07/16/19 05/12/23 Aubrey Grimaldo DO [address] [place] [address] PCP - General Internal Medicine 05/13/23 01/12/24 Dwayne Puentes MD [address] [place] [address] PCP - General Internal Medicine 01/13/24 documented as of this encounter
--- OUTSIDE RECORDS SUMMARY | 2025-04-19 10:20 | XMS_ITS | Encounter Summary ---
Author Organization [facility] Address [address] [place] [address] Care Team Providers Care Aviation Safety Officer Name Role Phone Roxi Cesar MD Primary Care Provider [phone] Philip Bartlett MD Primary Care Provider [phone] Aubrey Grimaldo DO Primary Care Provider [facility] Dwayne Rosen MD Primary Care Provider [phone] Encounter Details Date Type Department Care Team Description 10/01/2012 Radio Commentator Report Medical Records [address] [place] [address] Justice Nova MD Social History Tobacco Use [...] on filedocumented in this encounter Care Teams Aviation Safety Officer Relationship Specialty Start Date End Date Roxi Cesar MD [address] [place] [address] [phone] PCP - General 09/12/03 07/15/19 Philip Bartlett MD [address] [place] [address] [phone] PCP - General Internal Medicine 07/16/19 05/12/23 Aubrey Grimaldo, [address] [place] [address] PCP - General Internal Medicine 05/13/23 01/12/24 Dwayne Puentes MD [address] [place] [address] PCP - General Internal Medicine 01/13/24 documented as of this encounter
--- OUTSIDE RECORDS SUMMARY | 2025-04-19 10:20 | XMS_ITS | Encounter Summary ---
Author Organization [facility] Address [address] [place] [address] Care Team Providers Care Control Center Operator Name Role Phone Roxi Cesar MD Primary Care Provider [phone] Philip Bartlett MD Primary Care Provider [phone] Aubrey Grimaldo DO Primary Care Provider [facility] Dwayne Rosen MD Primary Care Provider [phone] Encounter Details Date Type Department Care Team Description 03/23/2015 Java Web Services Developer Report Medical Records [address] [place] [address] Justice Nova MD Social History Tobacco Use [...] on filedocumented in this encounter Care Teams Control Center Operator Relationship Specialty Start Date End Date Roxi Cesar MD [address] [place], [place] [phone] PCP - General 09/12/03 07/15/19 Philip Bartlett MD [address] [place] [address] [phone] PCP - General Internal Medicine 07/16/19 05/12/23 Aubrey Grimaldo, [address] [place] [address] PCP - General Internal Medicine 05/13/23 01/12/24 Dwayne Puentes MD [address] [place] [address] PCP - General Internal Medicine 01/13/24 documented as of this encounter
--- OUTSIDE RECORDS SUMMARY | 2025-04-19 10:20 | XMS_ITS | Encounter Summary ---
Author Organization [facility] Address [address] [place] [address] Care Team Providers Care Supervisor Scrap Preparation Name Role Phone Philip Bartlett MD Primary Care Provider [phone] Aubrey Grimaldo DO Primary [facility] Daw[facility] Rosen MD Primary Care Provider [phone] Encounter Details Date Type Department Care Team Description 09/13/2022 Electrician Substation Report Medical Records [address] [place] [address] Kenn Rutherford MD Social History Tobacco Use Types Packs/Day [...] Preparation Relationship Specialty Start Date End Date Philip Bartlett MD [address] [place] [address] PCP - General Internal Medicine 07/16/19 05/12/23 Aubrey Grimaldo, [address] [place] [address] PCP - General Internal Medicine 05/13/23 01/12/24 Dwayne Puentes MD [address] [place] [address] PCP - General Internal Medicine 01/13/24 documented as of this encounter
--- OUTSIDE RECORDS SUMMARY | 2025-04-19 10:20 | XMS_ITS | Encounter Summary ---
Author Organization [facility] [place] [address] Care Team Providers Care Eap Specialist Name Role Phone Dwayne Puentes MD Primary Care Provider [phone] Encounter Details Date Type Department Care Team (Late st Contact Info) Description 03/10/2025 Results Follow-Up Adult Medicine [facility] [address] [place], [place] [phone] Karoline Mann NP [address] [place], [place] Social History Tobacco Use Types Packs/Day Years Used Date Smoking Tobacco: Former Cigarettes 0.5 Q uit: 06/10/1995 Passive Smoke Exposure: Past [...] for your loved ones. For example, children's author or elderly care for an older adult? [...] EST Office Visit Adult Medicine [place] - [address] [place] [place] [phone] Dwayne Puentes MD [address] [place] 09/28/2025 10:40 AM EDT Appointment Radiology Department - [address] [place], [place] [phone] documented as of this encounter Goals Goal [...] and lower trapezius MMT LTG (12 visits) rEi Benitez, PT Note: Pt will demonstrate independence [...] documented as of this encounter Care Teams Eap Specialist Relationship Specialty Start Date End Date Dwayne Puentes MD [address] [place] PCP - General 01/13/24 documented as of this encounter
--- OUTSIDE RECORDS SUMMARY | 2025-04-19 10:20 | XMS_ITS | Encounter Summary ---
Author Organization [facility] Address [address] [place] [address] Care Team Providers Care School Psychometrist Name Role Phone Philip Bartlett MD Primary Care Provider [phone] Aubrey Grimaldo DO Primary Care Provider Unavaila Dwayne Rosne MD Primary Care Provider [phone] Encounter Details Date Type Department Care Team Description 02/01/2023 Pt. Non Urgent Medical Question Gastroenterology - [place] [address] [facility] [address] [place] [address] Nevaeh Uriostegui DScPAS Social History [...] on filedocumented in this encounter Care Teams School Psychometrist Relationship Specialty Start Date End Date Philip Bartlett MD [address] [place] [address] PCP - General Internal Medicine 07/16/19 05/12/23 Aubrey Grimaldo DO [address] [place] [address] PCP - General Internal Medicine 05/13/23 01/12/24 Dwayne Puentes MD [address] [place] [address] PCP - General Internal Medicine 01/13/24 documented as of this encounter
--- OUTSIDE RECORDS SUMMARY | 2025-04-19 10:20 | XMS_ITS | Encounter Summary ---
Author Organization [facility] Address [address] [place] [address] Care Team Providers Care Community Outreach Manager Name Role Phone Roxi Cesar MD Primary Care Provider [phone] Philip Bartlett MD Primary Care Provider [phone] Aubrey Grimaldo DO Primary Care Provider [facility] Dwayne Rosen MD Primary Care Provider [phone] Encounter Details Date Type Department Care Team Description 09/29/2013 Crusher Report Medical Records [address] [place] [address] Justice Nova MD Social History Tobacco Use [...] on filedocumented in this encounter Care Teams Community Outreach Manager Relationship Specialty Start Date End Date Roxi Cesar MD [address] [place] [address] [phone] PCP - General 09/12/03 07/15/19 Philip Bartlett MD [address] [place] [address] [phone] PCP - General Internal Medicine 07/16/19 05/12/23 Aubrey Grimaldo, [address] [place] [address] PCP - General Internal Medicine 05/13/23 01/12/24 Dwayne Puentes MD [address] [place] [address] PCP - General Internal Medicine 01/13/24 documented as of this encounter
--- OUTSIDE RECORDS SUMMARY | 2025-04-19 10:20 | XMS_ITS | Encounter Summary ---
Author Organization [facility] Address [address] [place] [address] Care Team Providers Care Servicing Rep Name Role Phone Philip Bartlett MD Primary Care Provider [phone] Aubrey Grimaldo DO Primary Care Provider Unavaila Dwayne Rosen MD Primary Care Provider [phone] Encounter Details Date Type Department Care Team Description 01/26/2020 Orders Only Radiology - [address] [address] Philip Bartlett MD [address] [place] [address] [id number] Social History Tobacco Use Types Packs/Day Years [...] on filedocumented in this encounter Care Teams Servicing Rep Relationship Specialty Start Date End Date Philip Bartlett MD [address] [place] [address] [phone] PCP - General Internal Medicine 07/16/19 05/12/23 Aubrey Grimaldo DO [address] [place] [address] PCP - General Internal Medicine 05/13/23 01/12/24 Dwayne Puentes MD [address] [place] [address] PCP - General Internal Medicine 01/13/24 documented as of this encounter
--- OUTSIDE RECORDS SUMMARY | 2025-04-19 10:20 | XMS_ITS | Encounter Summary ---
Author Organization [facility] Address [address] [place] [address] Care Team Providers Care Electronics Tester Name Role Phone Philip Bartlett MD Primary Care Provider [phone] Aubrey Grimaldo DO Primary Care Provider Unavaila Dwayne Rosen MD Primary Care Provider [phone] Encounter Details Date Type Department Care Team Description 02/26/2021 Pt. Non Urgent Medical Question Adult Medicine B - [address] [phone] Philip Bartlett MD [address] [place] [address] Social History Tobacco Use Types Packs/Day Years [...] or suspected to have Coronavirus / COVID-19? No / Unsure 02/23/2021 5:53 PM EDT documented as of this encounter Miscellaneous Notes * Telephone Encounter - Ifeoma Glaser M.A. - 02/27/2021 8:40 AM EDTFrom: Irma Harris To: Katie Bartlett Sent: 02/26/2021 8:16 PM EDT Subject: Physical I need to make an appointment for a physical since I believe I am due. I also believe I am due for a flu shot as well. My 's company usually does screening for reduced insurance rates. Due to my work schedule I am unable to attend there on site times would it be possible to screen for all ofthere requirements. Blood pressure, LDL, BM I, Blood Glucose and Triglycerides is what they screen for. I would need a letter stating all that information. Thank you documented in this encounter Plan of Treatment Not on file documented as of this encounter Visit Diagnoses Not on filedocumented in this encounter Care Teams Electronics Tester Relationship Specialty Start Date End Date Philip Bartlett MD [address] [place] [address] PCP - General Internal Medicine 07/16/19 05/12/23 Aubrey Grimaldo DO [address] [place] [address] PCP - General Internal Medicine 05/13/23 01/12/24 Dwayne Puentes MD [address] [place] [address] PCP - General Internal Medicine 01/13/24 documented as of this encounter
--- OUTSIDE RECORDS SUMMARY | 2025-04-19 10:20 | XMS_ITS | Encounter Summary ---
Author Organization [facility] Address [address] [place] [address] Care Team Providers Care Kitchen Cleaner Name Role Phone Philip Bartlett MD Primary Care Provider [phone] Aubrey Grimaldo DO Primary Care Provider Unavaila Dwayne Rosen MD Primary Care Provider [phone] Reason for Visit * Reason Onset Date Comments TEST RESULTS 12/06/2022 Encounter Details Date Type Department Care Team Description 12/06/2022 Telephone Adult Medicine [address] [id number] Philip Bartlett MD [address] [place] [id number] TEST RESULTS Social History Tobacco Use Types Packs/Day Years [...] suspected to have Coronavirus/COVID-19? No / Unsure 12/06/2022 7:35 AM EDT documented as of this encounter Miscellaneous Notes * Telephone Encounter - Elizabeth Dacosta M.A. - 12/06/2022 1:15 PM EDT Called pt with ultrasound results and told her liver functions are elevated and to go to lab for repeat test. * Telephone Encounter - Esther Kim APRN - 12/06/2022 12:10 PM EDT It looks like she reveiwed my message for her on [employer] Results after she called: Good morning, your ultrasound shows a normal appearing liver. As noted, your hepatitis panel was also negative. At this point in time, since your AST/ALT were mildly elevated we can repeat them to see if they have decreased. They can sometimes be elevated for number of benign reasons, for example, if a person has a mild viral infection. You may return to the lab to reevaluate at your earliest convenience. ?? Sincerely, Esther Kim * Telephone Encounter - Elizabeth Dacosta M.A. - 12/06/2022 11:13 AM EDT Please review and advise * Telephone Encounter - Charmaine Brian - 12/06/2022 11:07 AM EDT Inform patient: ANY URGENT OR ABNORMAL RESULTS WIILL RESULT IN A CALL BACK TO THE PATIENT HARRY. Type of test: Ultrasound of liver Date test was performed: 12/06/22 Where was the test performed: [facility] Who ordered this test?: Esther Kim Is the doctor here today?: YES Can the message wait until the doctor returns?: NO IF PATIENT'S PCP IS NOT IN INSTRUCT PATIENT THAT THEY WILL RECEIVE A CALL BACK WHEN THE PCP IS IN THE OFFICE NEXT. documented in this encounter Plan of Treatment Not on file documented as of this encounter Visit Diagnoses Not on filedocumented in this encounter Care Teams Kitchen Cleaner Relationship Specialty Start Date End Date Philip Bartlett MD [address] [place] [address] PCP - General Internal Medicine 07/16/19 05/12/23 Aubrey Grimaldo DO [address] [place] [address] PCP - General Internal Medicine 05/13/23 01/12/24 Dwayne Puentes MD [address] [place] [address] PCP - General Internal Medicine 01/13/24 documented as of this encounter
--- OUTSIDE RECORDS SUMMARY | 2025-04-19 10:20 | XMS_ITS | Encounter Summary ---
Author Organization [facility] Address [address] [place] [address] Care Team Providers Care Overage Shortage And Damage Clerk Name Role Phone Dwayne Puentes MD Primary Care Provider Encounter Details Date Type Department Care Team (Late st Contact Info) Description 03/11/2025 Results Follow-Up Adult Medicine [facility] [address] [place] [address] Dwayne Puentes MD [address] [place] [address] Social History Tobacco Use Types Packs/Day Years [...] your loved ones. For example, child care supervisor or elderly care for an older adult? [...] EST Office Visit [place] [facility] [place] [facility] [place] [address] [place] [address] [place] [phone] Dwayne Puentes MD [address] [place] 09/28/2025 10:40 AM EDT Appointment Radiology Department - [address] [phone] Scheduled Orders Name Type Priority Associated Diagnoses [...] documented as of this encounter Care Teams Overage Shortage And Damage Clerk Relationship Specialty Start Date End Date Dwayne Puentes MD [address] [facility] [place] PCP - General 01/13/24 documented as of this encounter
--- OUTSIDE RECORDS SUMMARY | 2025-04-19 10:20 | XMS_ITS | Encounter Summary ---
Author Organization [facility] Address [address] [place] [address] Care Team Providers Care Triage Rn Name Role Phone Philip Bartlett MD Primary Care Provider [phone] Aubrey Grimaldo DO Primary Care Provider Unavaila Dwayne Rosen MD Primary Care Provider [phone] Reason for Visit * Reason Onset Date Comments refill request 08/31/2022 Encounter Details Date Type Department Care Team Description 08/31/2022 Refill Gastroenterology - [address] [place] [address] Nevaeh Uriostegui DScPAS refill request Social History Tobacco Use Types Packs/Day Years [...] encounter Miscellaneous Notes * Telephone Encounter - Sienna Xavier - 08/31/2022 8:51 AM EDT LÓPEZ 01/08/22 NOV 10/15/22 Patient was advised Per Pretty that an RX was going to be sent to the pharmacy per the encounter on 08/[address] Bartlett labeled constipation. Patient state the pharmacy has not received anything. Patient also stated she has not used the bathroom in over a week. Please call patient to make her aware this is all set she is trying to avoid going to the ER. [phone] documented in this encounter Plan of Treatment Not on file documented as of this encounter Visit Diagnoses Not on filedocumented in this encounter Care Teams Triage Rn Relationship Specialty Start Date End Date Philip Bartlett MD [address] [place] [address] PCP - General Internal Medicine 07/16/19 05/12/23 Aubrey Grimaldo DO [address] [place] [address] PCP - General Internal Medicine 05/13/23 01/12/24 Dwayne Puentes MD [address] [place] [address] PCP - General Internal Medicine 01/13/24 documented as of this encounter
--- OUTSIDE RECORDS SUMMARY | 2025-04-19 10:20 | XMS_ITS | Encounter Summary ---
Author Organization [facility] Address [address] [place] [address] Care Team Providers Care Beauty Shop Manager Name Role Phone Philip Bartlett MD Primary Care Provider [phone] Aubrey Grimaldo DO Primary Care Provider Unavaila Dwayne Rosen MD Primary Care Provider [phone] Reason for Visit * Reason Comments E-prescribe Rx Request Encounter Details Date Type Department Care Team Description 12/15/2022 Refill Gastroenterology - [address] [place] [address] Nevaeh Uriostegui DScPAS E-prescribe Rx Request Social History Tobacco Use [...] AM EDT documented as of this encounter Plan of Treatment Not on file documented as of this encounter Visit Diagnoses Diagnosis Gastroesophageal reflux disease Esophageal reflux documented in this encounter Care Teams Beauty Shop Manager Relationship Specialty Start Date End Date Philip Bartlett MD [address] [place] [address] PCP - General Internal Medicine 07/16/19 05/12/23 Aubrey Grimaldo DO [address] [place] [address] PCP - General Internal Medicine 05/13/23 01/12/24 Dwayne Puentes MD [address] [place] [address] PCP - General Internal Medicine 01/13/24 documented as of this encounter
--- OUTSIDE RECORDS SUMMARY | 2025-04-19 10:20 | XMS_ITS | Clinical Summary ---
Author Organization [facility] Address [address] [place] [address] Care Team Providers Care Associate Application Developer Name Role Phone Philip Bartlett MD Primary Care Provider [phone] Allergies Active Allergy Reactions Criticality Noted Date Comments Ipratropium Other (See Comments),Swelling 08/21/2007 Doesn't remember Facial swelling Ipratropium [facility] 04/15/2019 Other Swelling Low 04/13/2015 Prochlorperazine [...] age to complete this topic Care Teams Associate Application Developer Relationship Specialty Start Date End Date Philip Bartlett MD PCP - General Internal Medicine 09/12/21
--- OUTSIDE RECORDS SUMMARY | 2025-04-19 10:20 | XMS_ITS | Encounter Summary ---
Author Organization [facility] Address [address] [place] [address] Care Team Providers Care Kennel Attendant Name Role Phone Philip Bartlett MD Primary Care Provider [phone] Aubrey Grimaldo DO Primary Care Provider Unavaila Dwayne Rosen MD Primary Care Provider [phone] Encounter Details Date Type Department Care Team Description 01/30/2023 Pt. Non Urgent Medical Question Gastroenterology - [place] [address] [facility] [address] [place] [address] Nevaeh Uriostegui DScPAS Social History [...] on filedocumented in this encounter Care Teams Kennel Attendant Relationship Specialty Start Date End Date Philip Bartlett MD [address] [place] [address] PCP - General Internal Medicine 07/16/19 05/12/23 Aubrey Grimaldo DO [address] [place] [address] PCP - General Internal Medicine 05/13/23 01/12/24 Dwayne Puentes MD [address] [place] [address] PCP - General Internal Medicine 01/13/24 documented as of this encounter
--- OUTSIDE RECORDS SUMMARY | 2025-04-19 10:20 | XMS_ITS | Encounter Summary ---
Author Organization [facility] Address [address] [place] [address] Care Team Providers Care Manager Work Name Role Phone Philip Bartlett MD Primary Care Provider [phone] Aubrey Grimaldo DO Primary Care Provider Unavaila Dwayne Rosen MD Primary Care Provider [phone] Reason for Visit * Reason Onset Date Comments LAB WORK 11/28/2022 Encounter Details Date Type Department Care Team Description 11/28/2022 Telephone Adult Medicine [address] [id number] Philip Bartlett MD [address] [place] [address] LAB WORK Social History Tobacco Use Types Packs/Day Years [...] suspected to have Coronavirus/COVID-19? No / Unsure 11/29/2022 11:46 AM EDT documented as of this encounter Miscellaneous Notes * Telephone Encounter - Elizabeth Dacosta M.A. - 11/29/2022 9:25 AM EDT Informed pt of lab results and told her to go to lab for additional labs that have been ordered andultrasound has been ordered and to make a follow up appt with care team . * Telephone Encounter - Esther Kim APRN - 11/29/2022 8:58 AM EDT I reviewed her labs this morning. Her LFTs are mildly elevated. Her bilirubin level is normal though and she was not jaundice so I donot believe it is likely contributing to her symtpoms. I have ordered hepatitis labs which she should return to the lab and complete as well as an ultrasound of her liver. Please advise her I am Perdiem and she should schedule a follow-up with her care team to review results of additional testing. * Telephone Encounter - Daniella Starkey - 11/28/2022 3:35 PM EDT Pt notified of the few results that are out of range and told I am not certain of the significance and that Esther would need to review and decide if further testing or just repeat labs were indicated. Pt is upset as values are higher than they were 3 months ago and that they they were flagged and that's bad, that's real bad , explained again that a value can be flagged for only being 1/10th out of range, that is just how the reporting system works and it does not necessarily indicate something is bad. Reviewed again that provider will review and contact patient tomorrow when in the office. * Telephone Encounter - Sandy Fonseca - 11/28/2022 2:58 PM EDT Pt upset about not getting getting results * Telephone Encounter - Jocelyn Sánchez - 11/28/2022 11:29 AM EDT Patient calling back, would like a call back faye. * Telephone Encounter - Philip Bartlett MD - 11/28/2022 11:10 AM EDT Ok to wait until ordering providers return tomorrow * Telephone Encounter - Belinda Hayes - 11/28/2022 8:49 AM EDT Caller requesting call back from provider: Is the caller the patient? YES If caller is not the patient, what is the callers name? N/A Callers relationship to patient? N/A If person calling is not the patient themselves, is there a verbal release in FYI or permanent comments for this person: NO Reason for call back: Pt wants to discuss her lab work from November 27, 2022 Caller offered to speak with the nurse for assistance: YES Response: Patient offered to speak with nurse for assistance and patient agreed. Message forwardedto nurse. documented in this encounter Plan of Treatment Not on file documented as of this encounter Results * US SOFT TISSUE ABDOMEN/BACK, LIMITED ABD (12/06/2022 8:04 AM EDT) 12/06/2022 10:0 9 AM EDT Impressions [facility] - 12/06/2022 10:29 AM EDT Cholecystectomy. Otherwise normal right upper quadrant abdominal ultrasound. Narrative [facility] - 12/06/2022 10:29 AM EDT History: Right upper quadrant pain. Right upper quadrant abdominal ultrasound: The gallbladder has been removed. The intra-and extrahepatic bile ducts are normal in caliber. The liver, pancreas and right kidney are normal in size, configuration and echogenicity. There is no identifiable abnormality of the visualized IVC. Portal venous flow is normal. Procedure Note Chris Baez MD - 12/06/2022 History: Right upper quadrant pain. Right upper quadrant abdominal ultrasound: The gallbladder has beenremoved. The intra-and extrahepatic bile ducts are normal in caliber. The liver, pancreas andright kidney are normal in size, configuration and echogenicity. There is no identifiableabnormality of the visualized IVC. Portal venous flow is normal. IMPRESSION Cholecystectomy. Otherwise normal right upper quadrant abdominalultrasound. Esther Kim APRN ULTRASOUND Performing Organization Address [facility]/ZIP Co de Phone Number [facility]TER[facility] * HEPATITIS PANEL (11/29/2022 11:46 AM EDT) Hepatitis B surface antibody NEGATIVE NEGATIVE 11/29/2022 2:45 PM EDT [facility] [employer] Hepatitis B surface antigen NEGATIVE NEGATIVE 11/29/2022 2:57 PM EDT [facility] [employer] Comment: Over the counter supplements containing high doses of biotin may interfere with this assay. If interference is suspected, patients shoud be retested after refraining from biotin supplements for 72 hours. Hepatitis C Virus Diagnostic NEGATIVE NEGATIVE 11/29/2022 3:25 PM EDT [facility] [employer] HEPATITIS B CORE ANTIBODY NEGATIVE NEGATIVE 11/29/2022 3:31 PM EDT [facility] [employer] HEPATITIS A ANTIBODY TOTAL NEGATIVE NEGATIVE 11/29/2022 3:31 PM EDT [facility] [employer] Comment: Over the counter supplements containing high doses of biotin may interfere with this assay. If interference is suspected, patients shoud be retested after refraining from biotin supplements for 72 hours. 11/29/2022 11:4 6 AM EDT 11/29/2022 11:47 AM EDT Narrative [facility] - 11/29/2022 3:31 PM EDT Release to patient->Immediate Esther Kim APRN LAB Performing Organization Address [facility]/ZIP Co de Phone Number [employer] documented in this encounter Visit Diagnoses Diagnosis Elevated liver enzymes- Primary Nonspecific elevation of levels of transaminase or lactic acid dehydrogenase (LDH) Elevated liver enzymes Nonspecific elevation of levels of transaminase or lactic acid dehydrogenase (LDH) Elevated liver enzymes Nonspecific elevation of levels of transaminase or lactic acid dehydrogenase (LDH) documented in this encounter Care Teams Manager Work Relationship Specialty Start Date End Date Philip Bartlett MD [address] [place] [address] PCP - General Internal Medicine 07/16/19 05/12/23 Aubrey Grimaldo DO [address] [place] [address] PCP - General Internal Medicine 05/13/23 01/12/24 Dwayne Puentes MD [address] [place] [address] PCP - General Internal Medicine 01/13/24 documented as of this encounter
--- OUTSIDE RECORDS SUMMARY | 2025-04-19 10:20 | XMS_ITS | Encounter Summary ---
Author Organization [facility] Address [address] [place] [address] Care Team Providers Care Leather Stretcher Name Role Phone Philip Bartlett MD Primary Care Provider Aubrey Grimaldo DO Primary Care Provider [facility] Dwayne Rosen MD Primary Care Provider [phone] Encounter Details Date Type Department Care Team Description 11/14/2019 Orders Only Adult Medicine [address] [address] Sarah Hussein PA-C Hematuria, unspecified type (Primary Dx) Social History Tobacco Use Types Packs/Day Years [...] as of this encounter Plan of Treatment Scheduled Orders Name Type Priority Associated Diagnoses Orde r Schedule URINALYSIS, ROUTINE Lab Routine Hematuria, unspecified type Expected: 11/14/2019, Expires: 11/13/2020 documented as of this encounter Visit Diagnoses Diagnosis Hematuria, unspecified type- Primary documented in this encounter Care Teams Leather Stretcher Relationship Specialty Start Date End Date Philip Bartlett MD [address] [place] [id number] PCP - General Internal Medicine 07/16/19 05/12/23 Aubrey Grimaldo, [address] [place] [address] PCP - General Internal Medicine 05/13/23 01/12/24 Dwayne Puentes MD [address] [place] [address] PCP - General Internal Medicine 01/13/24 documented as of this encounter
--- OUTSIDE RECORDS SUMMARY | 2025-04-19 10:20 | XMS_ITS | Encounter Summary ---
Author Organization [facility] Address [address] [place] [address] Care Team Providers Care Hematologist Name Role Phone Philip Bartlett MD Primary Care Provider [phone] Aubrey Grimaldo DO Primary Care Provider Unavaila Dwayne Rosen MD Primary Care Provider [phone] Encounter Details Date Type Department Care Team Description 09/27/2022 Orders Only Gastroenterology - [place] [address] [facility] [address] [place] [address] Nevaeh Uriostegui DScPAS Lower abdominal pain; Constipation, unspecified constipation type Social History Tobacco Use Types Packs/Day Years [...] suspected to have Coronavirus/COVID-19? No / Unsure 09/19/2022 3:15 PM EDT documented as of this encounter Progress Notes * Stephanie Davis - 09/29/2022 6:49 PM EDT I will send g. documented in this encounter Plan of Treatment Not on file documented as of this encounter Procedures Procedure Name Priority Date/Time Associated Diagnosis Comments CT ABD & PELVIS W/CONTRAST Routine 09/27/2022 Lower abdominal pain Constipation, unspecified constipation type documented in this encounter Results * CT ABD & PELVIS W/CONTRAST (09/27/2022) Nevaeh Brown CT SCANS documented in this encounter Visit Diagnoses Diagnosis Lower abdominal pain Abdominal pain, other specified site Constipation, unspecified constipation type documented in this encounter Care Teams Hematologist Relationship Specialty Start Date End Date Philip Bartlett MD [address] [place] [address] PCP - General Internal Medicine 07/16/19 05/12/23 Aubrey Grimaldo DO [address] [place] [address] PCP - General Internal Medicine 05/13/23 01/12/24 Dwayne Puentes MD [address] [place] [address] PCP - General Internal Medicine 01/13/24 documented as of this encounter
--- OUTSIDE RECORDS SUMMARY | 2025-04-19 10:20 | XMS_ITS | Encounter Summary ---
Author Organization [facility] Address [address] [place] [address] Care Team Providers Care Welding Manager Name Role Phone Philip Bartlett MD Primary Care Provider [phone] Aubrey Grimaldo DO Primary Care Provider [facility] Dwayne Rosen MD Primary Care Provider [phone] Encounter Details Date Type Department Care Team Description 05/25/2020 Release of Information Medical Records [address] [place] [id number] [place] [address] Social History Tobacco Use Types Packs/Day Years [...] have Coronavirus / COVID-19? No / Unsure 05/16/2020 2:33 PM EST documented as of this encounter Plan of Treatment Not on file documented as of this encounter Visit Diagnoses Not on filedocumented in this encounter Care Teams Welding Manager Relationship Specialty Start Date End Date Philip Bartlett MD [address] [place] [address] PCP - General Internal Medicine 07/16/19 05/12/23 Aubrey Grimaldo DO [address] [place] [address] PCP - General Internal Medicine 05/13/23 01/12/24 Dwayne Puentes MD [address] [place] [address] PCP - General Internal Medicine 01/13/24 documented as of this encounter
--- OUTSIDE RECORDS SUMMARY | 2025-04-19 10:20 | XMS_ITS | Encounter Summary ---
Author Organization [facility] Address [address] [place] [address] Care Team Providers Care Phlebotomy Supervisor Name Role Phone Philip Bartlett MD Primary Care Provider [phone] Aubrey Grimaldo DO Primary Care Provider Unavaila Dwayne Rosen MD Primary Care Provider [phone] Reason for Visit * Reason Onset Date Comments Testing 11/13/2019 Ct Scan Abd & Pe lvis Encounter Details Date Type Department Care Team Description 11/13/2019 Telephone Adult Medicine B - [place] [address] [place] [address] Sarah Hussein PA-C Testing (Ct Scan Abd & Pelvis) Social History Tobacco Use Types Packs/Day Years [...] encounter Miscellaneous Notes * Telephone Encounter - Elda Luong - 11/13/2019 2:30 PM EDT [employer] auth # [id number] 11/13/19- 05/11/29 Janet Call from nurse- she will call Janet to schedule. Order faxed to Janet Ct Scan documented in this encounter Plan of Treatment Not on file documented as of this encounter Visit Diagnoses Not on filedocumented in this encounter Care Teams Phlebotomy Supervisor Relationship Specialty Start Date End Date Philip Bartlett MD [address] [place] [address] PCP - General Internal Medicine 07/16/19 05/12/23 Aubrey Grimaldo DO [address] [place] [address] PCP - General Internal Medicine 05/13/23 01/12/24 Dwayne Puentes MD [address] [place] [address] PCP - General Internal Medicine 01/13/24 documented as of this encounter
--- OUTSIDE RECORDS SUMMARY | 2025-04-19 10:20 | XMS_ITS | Encounter Summary ---
Author Organization [facility] Address [address] [place] [address] Care Team Providers Care Soft Sugar Cutter Name Role Phone Roxi Cesar MD Primary Care Provider [phone] Philip Bartlett MD Primary Care Provider [phone] Aubrey Grimaldo DO Primary Care Provider Unavaila Dwayne Rosen MD Primary Care Provider [phone] Reason for Visit * Reason Onset Date Comments anxiety 09/18/2014 Encounter Details Date Type Department Care Team Description 09/18/2014 Telephone Adult Urgent Care - [address] [id number] Roxi Cesar MD [address] [place] [address] [id number] anxiety Social History Tobacco Use Types Packs/Day Years [...] Miscellaneous Notes * Telephone Encounter - Daniella Worley L.P.N. - 09/18/2014 12:16 PM EDT Pt is severely stressed between work and family. She didn't go into details but she did say her sister will be having upcoming surgery. She saw Dr. Orellana this week and just talked. She didn't seem to really open up to him about how stressed she was. She has lorazepam which she hasn't had to use and doesn't like to use it because it makes her too tired and feels out of it. She also takes Wellbutrin. She denies any thoughts of hurting herself or others. She cries throughout the conversation. I've advised her to try to cut the Lorazepam in 1/2 to see if it would take the edge off and also advised to go to the ER if this didn't help. If the Lorazepam helps, she's agreed to call Dr. Reyna Alexander to see him sooner than [address] Orellana. * Telephone Encounter - Jen Sawyer - 09/18/2014 11:40 AM EDT Symptoms patient is presenting: anxiety, no other symptoms. How long has patient had these symptoms?: 1 week PCP: Roxi Cesar Payor: LORENZO/PPO POS / Plan: PPO $0 [id number] / Product Type: PPO [id number] documented in this encounter Plan of Treatment Not on file documented as of this encounter Visit Diagnoses Not on filedocumented in this encounter Care Teams Soft Sugar Cutter Relationship Specialty Start Date End Date Roxi Cesar MD [address] [place] [address] PCP - General 09/12/03 07/15/19 Philip Bartlett MD [address] [place] [address] PCP - General Internal Medicine 07/16/19 05/12/23 Aubrey Grimaldo DO [address] [place] [address] PCP - General Internal Medicine 05/13/23 01/12/24 Dwayne Puentes MD [address] [place] [address] PCP - General Internal Medicine 01/13/24 documented as of this encounter
--- OUTSIDE RECORDS SUMMARY | 2025-04-19 10:20 | XMS_ITS | Encounter Summary ---
Author Organization [facility] Address [address] [place] [address] Care Team Providers Care Sand Analyst Name Role Phone Philip Barltett MD Primary Care Provider [phone] Aubrey Grimaldo DO Primary Care Provider Unavaila Dwayne Rosen MD Primary Care Provider [phone] Reason for Visit * Reason Onset Date Comments Faxed Refill 07/08/2020 Encounter Details Date Type Department Care Team Description 07/08/2020 Refill Pulmonology - [place] [address] [facility] [address] [place] [phone] Zahida Bolivar MD [address] [place] [phone] Faxed Refill Social History Tobacco Use Types Packs/Day Years [...] have Coronavirus / COVID-19? No / Unsure 06/28/2020 2:44 PM EST documented as of this encounter Miscellaneous Notes * Telephone Encounter - Eliana Cobian - 07/08/2020 1:01 PM EST Patient would like script to be: E-PRESCRIBED/FAXED TO PHARMACY When was the patients last office visit in [facility]?: 05.16.2020 When was the last time the patient saw their PCP? Same as above Does patient have an upcoming appointment? Yes 07.19.2020 (THE MEDICATION IS NOT ON THE MED LIST AND IS IDENTIFIED BELOW): {MED LIST:83849) Med name: Ana Squiresus Dosage: 250-50 # of tablets: N/a Local pharmacy with request for 90 -day supply Instructions: N/a Did you check the pharmacy information above?: YES Patients current insurance carrier: Payor: [facility]/PPO POS / Plan: PPO $0 [id number] / Product Type: PPO [id number] documented in this encounter Plan of Treatment Not on file documented as of this encounter Visit Diagnoses Not on filedocumented in this encounter Care Teams Sand Analyst Relationship Specialty Start Date End Date Philip Bartlett MD [address] [place] [address] PCP - General Internal Medicine 07/16/19 05/12/23 Aubrey Grimaldo DO [address] [place] [address] PCP - General Internal Medicine 05/13/23 01/12/24 Dwayne Puentes MD [address] [place] [address] PCP - General Internal Medicine 01/13/24 documented as of this encounter
--- OUTSIDE RECORDS SUMMARY | 2025-04-19 10:20 | XMS_ITS | Encounter Summary ---
Author Organization [facility] Address [address] [place] [address] Care Team Providers Care Boathouse Keeper Name Role Phone Philip Bartlett MD Primary Care Provider [phone] Aubrey Grimaldo DO Primary Care Provider Unavaila Dwayne Rosen MD Primary Care Provider [phone] Encounter Details Date Type Department Care Team Description 03/06/2023 Pt. Non Urgent Medical Question Gastroenterology - [place] [address] [facility] [address] [place] [address] Nevaeh Uriostegui DScPAS Social History [...] suspected to have Coronavirus/COVID-19? No / Unsure 03/04/2023 3:14 PM EDT documented as of this encounter Plan of Treatment Not on file documented as of this encounter Visit Diagnoses Not on filedocumented in this encounter Care Teams Boathouse Keeper Relationship Specialty Start Date End Date Philip Bartlett MD [address] [place] [address] PCP - General Internal Medicine 07/16/19 05/12/23 Aubrey Grimaldo DO [address] [place] [address] PCP - General Internal Medicine 05/13/23 01/12/24 Dwayne Puentes MD [address] [place] [address] PCP - General Internal Medicine 01/13/24 documented as of this encounter
--- OUTSIDE RECORDS SUMMARY | 2025-04-19 10:20 | XMS_ITS | Encounter Summary ---
Author Organization [facility] Address [address] [place] [address] Care Team Providers Care Restoration Silversmith Name Role Phone Philip Bartlett MD Primary Care Provider [phone] Aubrey Grimaldo DO Primary Care Provider Unavaila Dwayne Rosen MD Primary Care Provider [phone] Encounter Details Date Type Department Care Team Description 12/23/2022 Pt. Non Urgent Medical Question Adult Medicine B - [address] [id number] Philip Bartlett MD [address] [place] [address] Social History Tobacco Use Types Packs/Day Years [...] suspected to have Coronavirus/COVID-19? No / Unsure 12/21/2022 2:55 PM EDT documented as of this encounter Miscellaneous Notes * Telephone Encounter - Mary Yang R.N. - 12/24/2022 7:48 AM EDTFrom: Irma Harris To: Katie Bartlett Sent: 12/23/2022 12:35 PM EDT Subject: Itching The itching came back this morning. My aniexty Meds have been increased to 3 times a day. I haven'robin an aneixty attack since last . I took a shower and dried off and now I'm so itchy my isburning with the calamin lotion. I believe it's from something that my clothes are washed in. Stopping all detergents and washing everything again. Not sure this is going to go away. Please advise. Irma Harris documented in this encounter Plan of Treatment Not on file documented as of this encounter Visit Diagnoses Not on filedocumented in this encounter Care Teams Restoration Silversmith Relationship Specialty Start Date End Date Philip Bartlett MD [address] [place] [address] PCP - General Internal Medicine 07/16/19 05/12/23 Aubrey Grimaldo DO [address] [place] [address] PCP - General Internal Medicine 05/13/23 01/12/24 Dwayne Puentes MD [address] [place] [address] PCP - General Internal Medicine 01/13/24 documented as of this encounter
--- OUTSIDE RECORDS SUMMARY | 2025-04-19 10:20 | XMS_ITS | Encounter Summary ---
Author Organization [facility] Address [address] [place] [address] Care Team Providers Care Type Inspector Name Role Phone Roxi Cesar MD Primary Care Provider [phone] Philip Bartlett MD Primary Care Provider [phone] Aubrey Grimaldo DO Primary Care Provider [facility] Dwayne Rosen MD Primary Care Provider [phone] Encounter Details Date Type Department Care Team Description 09/19/2011 Marshmallow Machine Operator Report Medical Records [address] [place] [address] Justice Nova MD Social History Tobacco Use [...] on filedocumented in this encounter Care Teams Type Inspector Relationship Specialty Start Date End Date Roxi Cesar MD [address] [place], [place] [phone] PCP - General 09/12/03 07/15/19 Philip Bartlett MD [address] [place] [phone] PCP - General Internal Medicine 07/16/19 05/12/23 Aubrey Grimaldo, [address] [place] [address] PCP - General Internal Medicine 05/13/23 01/12/24 Dwayne Puentes MD [address] [place] [address] PCP - General Internal Medicine 01/13/24 documented as of this encounter
--- OUTSIDE RECORDS SUMMARY | 2025-04-19 10:20 | XMS_ITS | Encounter Summary ---
Author Organization [facility] Address [address] [place] [address] Care Team Providers Care Oil Processing Technician Name Role Phone Philip Bartlett MD Primary Care Provider [phone] Aubrey Grimaldo DO Primary Care Provider Unavaila Dwayne Rosen MD Primary Care Provider [phone] Encounter Details Date Type Department Care Team Description 01/14/2023 Orders Only OBGYN - [place] [address] [place] [address] Pau Jiménez DO Abnormal uterine bleeding (AUB) (Primary Dx); Excessive bleeding in premenopausal period; Preoperative examination; Screening for deficiency anemia Social History Tobacco Use Types Packs/Day Years [...] suspected to have Coronavirus/COVID-19? No / Unsure 01/01/2023 2:56 PM EDT documented as of this encounter Plan of Treatment Scheduled Orders Name Type Priority Associated Diagnoses Orde r Schedule MA ECG ROUTINE ECG W/LEAST 12 LDS W/I&R Cardiology Routine Preoperative examination 1 Occurrences starting 02/07/2023 until 02/07/2024 documented as of this encounter Results * CHG BASIC METABOLIC PANEL CALCIUM TOTAL (02/19/2023 3:28 PM EDT) Pathologist [facility] GLUCOSE 97 70 - 100 mg/dL 02/19/2023 6:43 PM EDT [facility] Comment:Reference range appl icable to fasting specimens only Blood Urea Nitrogen 9 5 - 25 mg/dL 02/19/2023 6:43 PM EDT [facility] CREAT 0.92 0.5 - 1.1 mg/dL 02/19/2023 6:43 PM EDT [facility] GLOMERULAR FILTRATION RATE 77 >60 02/19/2023 6:43 PM EDT [facility] Comment: This eGFR result was calculated using the CKD-EPI 2020 Creatinine Equation NA 141 135 - 145 mEq/L 02/19/2023 6:43 PM EDT [facility] K 4.0 3.5 - 5.5 mmol/L 02/19/2023 6:43 PM EDT [facility] CL 109 96 - 110 mmol/L 02/19/2023 6:43 PM EDT [facility] CARBON DIOXIDE (CO2) 27 21 - 32 mmol/L 02/19/2023 6:43 PM EDT [facility] ANION GAP 5 3 - 11 02/19/2023 6:43 PM EDT [facility] CALCIUM 9.3 8.5 - 10.5 mg/dL 02/19/2023 6:43 PM EDT [facility] 02/19/2023 3:28 PM EDT 02/19/2023 3:28 PM EDT Narrative [facility] - 02/19/2023 6:43 PM EDT Release to patient->Immediate Pau Jiménez DO LAB [facility] * CHG BLOOD COUNT COMPLETE AUTO&AUTO DIFRNTL WBC (02/19/2023 3:28 PM EDT) [facility] WHITE BLOOD COUNT 6.1 4.8 - 10.8 x10-3/uL 02/19/2023 6:36 PM EDT [facility] RED BLOOD COUNT 4.3 3.8 - 4.8 x10-6/uL 02/19/2023 6:36 PM EDT [facility] Hemoglobin 13.6 11.5 - 16.0 g/dL 02/19/2023 6:36 PM EDT [facility] Hematocrit 41.9 35 - 47 % 02/19/2023 6:36 PM EDT [facility] CORPUSCULAR VOLUME 96.8 79 - 98 fL 02/19/2023 6:36 PM EDT [facility] HEMOGLOBIN 31.4 27 - 32 pg 02/19/2023 6:36 PM EDT [facility] HGB CONC 32.5 32 - 37 g/dL 02/19/2023 6:36 PM EDT [facility] RED CELL DISTRIBUTION WIDTH 11.7 11 - 15 % 02/19/2023 6:36 PM EDT [facility] PLT COUNT 333 130 - 400 x10-3/uL 02/19/2023 6:36 PM EDT [facility] MEAN PLATELET VOLUME 10.5 7 - 11 fL 02/19/2023 6:36 PM EDT [facility] NRBC % AUTO 0.0 <1 % 02/19/2023 6:36 PM EDT [facility] NEUTROPHILS % 48.9 % 02/19/2023 6:36 PM EDT [facility] LYMPH % 36.9 % 02/19/2023 6:36 PM EDT [facility] MONO % 10.3 % 02/19/2023 6:36 PM EDT [facility] EOS % 2.6 % 02/19/2023 6:36 PM EDT [facility] BASO % 1.0 % 02/19/2023 6:36 PM EDT [facility] IMMATURE GRANULOCYTES % 0.3 % 02/19/2023 6:36 PM EDT [facility] NRBC # AUTO 0.00 <0.1 x10-3/uL 02/19/2023 6:36 PM EDT [facility] NEUT # 2.99 1.5 - 7.0 x10-3/uL 02/19/2023 6:36 PM EDT [facility] LYMPH # 2.26 1 - 5.0 x10-3/uL 02/19/2023 6:36 PM EDT [facility] MONO # 0.63 0.2 - 1.0 x10-3/uL 02/19/2023 6:36 PM EDT [facility] EOS # 0.16 0 - 0.5 x10-3/uL 02/19/2023 6:36 PM EDT [facility] BASO # 0.06 0 - 0.2 x10-3/uL 02/19/2023 6:36 PM EDT [facility] IMMATURE GRANULOCYTES # 0.02 0 - 0.03 x10-3/uL 02/19/2023 6:36 PM EDT [facility] 02/19/2023 3:28 PM EDT 02/19/2023 3:28 PM EDT Narrative [facility] - 02/19/2023 6:36 PM EDT Release to patient->Immediate Pau Jiménez DO LAB [facility] documented in this encounter Visit Diagnoses Diagnosis Abnormal uterine bleeding (AUB)- Primary Excessive bleeding in premenopausal period Premenopausal menorrhagia Preoperative examination Preoperative examination, unspecified Screening for deficiency anemia Screening for other and unspecified deficiency anemia Elevated liver enzymes Nonspecific elevation of levels of transaminase or lactic acid dehydrogenase (LDH) Preoperative examination Preoperative examination, unspecified documented in this encounter Care Teams Oil Processing Technician Relationship Specialty Start Date End Date Philip Bartlett MD [address] [place] [address] PCP - General Internal Medicine 07/16/19 05/12/23 Aubrey Grimaldo DO [address] [place] [address] PCP - General Internal Medicine 05/13/23 01/12/24 Dwayne Puentes MD [address] [place] [address] PCP - General Internal Medicine 01/13/24 documented as of this encounter
--- OUTSIDE RECORDS SUMMARY | 2025-04-19 10:20 | XMS_ITS | Encounter Summary ---
Author Organization [facility] Address [address] [place] [address] Care Team Providers Care Planning Intern Name Role Phone Philip Bartlett MD Primary Care Provider [phone] Aubrey Grimaldo DO Primary Care Provider Unavaila Dwayne Rosen MD Primary Care Provider Encounter Details Date Type Department Care Team Description 11/19/2022 Pt. Non Urgent Medic al Question OBGYN - [place] [address] [place] [address] Navarro Stewart, CNM [address] [place] [address] Social History Tobacco Use Types Packs/Day Years [...] suspected to have Coronavirus/COVID-19? No / Unsure 11/06/2022 9:10 AM EDT documented as of this encounter Miscellaneous Notes * Telephone Encounter - Bianca Purdy R.N. - 11/20/2022 9:10 AM EDTFrom: Irma Harris To: Navarro Stewart CNM Sent: 11/19/2022 8:30 PM EDT Subject: Stopping control I stopped the control on September 07. I have had no issues until yesterday November 18 when I started bleeding again. It wasn't bad yesterday but today I started bleeding through my pad and a needto change it at least every 2 hours or I bleed through everything. Not sure what to do. documented in this encounter Plan of Treatment Not on file documented as of this encounter Visit Diagnoses Not on filedocumented in this encounter Care Teams Planning Intern Relationship Specialty Start Date End Date Philip Bartlett MD [address] [place] [address] PCP - General Internal Medicine 07/16/19 05/12/23 Aubrey Grimaldo DO [address] [place] [address] PCP - General Internal Medicine 05/13/23 01/12/24 Dwayne Puentes MD [address] [place] [address] PCP - General Internal Medicine 01/13/24 documented as of this encounter
--- OUTSIDE RECORDS SUMMARY | 2025-04-19 10:21 | XMS_ITS | Encounter Summary ---
Author Organization [facility] Address [address] [place] [address] Care Team Providers Care Nail Technician Name Role Phone Roxi Cesar MD Primary Care Provider [phone] Philip Bartlett MD Primary Care Provider [phone] Aubrey Grimaldo DO Primary Care Provider [facility] Dwayne Rosen MD Primary Care Provider [phone] Encounter Details Date Type Department Care Team Description 03/31/2018 Implant Polisher Report Medical Records [address] [place] [address] Justice Nova MD Social History Tobacco Use [...] on filedocumented in this encounter Care Teams Nail Technician Relationship Specialty Start Date End Date Roxi Cesar MD [address] [place], [place] [phone] PCP - General 09/12/03 07/15/19 Philip Bartlett MD [address] [place] [address] PCP - General Internal Medicine 07/16/19 05/12/23 Aubrey Grimaldo, [address] [place] [address] PCP - General Internal Medicine 05/13/23 01/12/24 Dwayne Puentes MD [address] [place] [address] PCP - General Internal Medicine 01/13/24 documented as of this encounter
--- OUTSIDE RECORDS SUMMARY | 2025-04-19 10:21 | XMS_ITS | Encounter Summary ---
Author Organization [facility] Address [address] [place] [address] Care Team Providers Care Internal Grinder Set Up Operator Name Role Phone Roxi Cesar MD Primary Care Provider [phone] Philip Bartlett MD Primary Care Provider [phone] Aubrey Grimaldo DO Primary Care Provider [facility] Dwayne Rosen MD Primary Care Provider [phone] Reason for Visit * Reason Onset Date Comments refill request 06/20/2016 Encounter Details Date Type Department Care Team Description 06/20/2016 Refill OBGYN - [facility] [address] [place] [address] Carly Arce MD refill request Social History Tobacco Use Types [...] encounter Miscellaneous Notes * Telephone Encounter - Dennise Starkey - 06/20/2016 3:38 PM EST Rx approved * Telephone Encounter - Alexandra Mack R.N. - 06/20/2016 2:57 PM EST Rx for refill, annual pending. * Telephone Encounter - Jenny García - 06/20/2016 2:54 PM EST WHEN WAS THE PATIENTS LAST ANNUAL HORTICULTURE SUPERINTENDENT EXAM? 07/12/15 Does patient have an upcoming appointment? Yes 08/16/16 (THE MEDICATION REQUESTED IS ON THE MED LIST ABOVE) Did you check the Pharmacy information above?: YES Indicate how soon the patient needs the script: BY THE END OF THE DAY Patient would like script to be: E-PRESCRIBED/FAXED TO PHARMACY Is the doctor here today?: NO Can the message wait until the doctor returns?: NO Has the patient been told that the prescription will not be filled until the end of the day? YES Payor: [employer]/PPO POS / Plan: PPO $0 [employer] [id number] / Product Type: PPO [id number] documented in this encounter Plan of Treatment Not on file documented as of this encounter Visit Diagnoses Not on filedocumented in this encounter Care Teams Internal Grinder Set Up Operator Relationship Specialty Start Date End Date Roxi Cesar MD [address] [place] [address] PCP - General 09/12/03 07/15/19 Philip Bartlett MD [address] [place] [address] PCP - General Internal Medicine 07/16/19 05/12/23 Aubrey Grimaldo DO [address] [place] [address] PCP - General Internal Medicine 05/13/23 01/12/24 Dwayne Puentes MD [address] [place] [address] PCP - General Internal Medicine 01/13/24 documented as of this encounter
--- OUTSIDE RECORDS SUMMARY | 2025-04-19 10:21 | XMS_ITS | Encounter Summary ---
Author Organization [facility] Address [address] [place] [address] Care Team Providers Care Consulting Property Manager Name Role Phone Philip Bartlett MD Primary Care Provider [phone] Aubrey Grimaldo DO Primary Care Provider Unavaila [facility] Dwayne Puentes MD Primary Care Provider [phone] Encounter Details Date Type Department Care Team Description 06/08/2021 Building Cleaning Supervisor Report Medical Records [address] [place] [address] [place] Walker Social History Tobacco Use Types Packs/Day Years [...] on filedocumented in this encounter Care Teams Consulting Property Manager Relationship Specialty Start Date End Date Philip Bartlett MD [address] [place] [address] PCP - General Internal Medicine 07/16/19 05/12/23 Aubrey Grimaldo DO [address] [place] [address] PCP - General Internal Medicine 05/13/23 01/12/24 Dwayne Puentes MD [address] [place] [address] PCP - General Internal Medicine 01/13/24 documented as of this encounter
--- OUTSIDE RECORDS SUMMARY | 2025-04-19 10:21 | XMS_ITS | Encounter Summary ---
Author Organization [facility] Address [address] [place] [address] Care Team Providers Care Borematic Operator Name Role Phone Roxi eCsar MD Primary Care Provider [phone] Philip Bartlett MD Primary Care Provider [phone] Aubrey Grimaldo DO Primary Care Provider [facility] Dwayne Rosen MD Primary Care Provider [phone] Encounter Details Date Type Department Care Team Description 09/30/2017 Batch Heat Treat Operator Report Medical Records [address] [place] [address] Justice Nova MD Social History Tobacco Use [...] on filedocumented in this encounter Care Teams Borematic Operator Relationship Specialty Start Date End Date Roxi Cesar MD [address] [place], [place] [phone] PCP - General 09/12/03 07/15/19 Philip Bartlett MD [address] [place] [address] PCP - General Internal Medicine 07/16/19 05/12/23 Aubrey Grimaldo, [address] [place] [address] PCP - General Internal Medicine 05/13/23 01/12/24 Dwayne Puentes MD [address] [place] [address] PCP - General Internal Medicine 01/13/24 documented as of this encounter
--- OUTSIDE RECORDS SUMMARY | 2025-04-19 10:21 | XMS_ITS | Encounter Summary ---
Author Organization [facility] Address [address] [place] [address] Care Team Providers Care Aircraft Technician Name Role Phone Roxi Cesar MD Primary Care Provider [phone] Philip Bartlett MD Primary Care Provider [phone] Aubrey Grimaldo DO Primary Care Provider Aleisha Dwayne Rosen MD Primary Care Provider [phone] Encounter Details Date Type Department Care Team Description 09/19/2015 Release of Information Medical Records [address] [place] [address] Abstract, Provider Social History Tobacco Use Types [...] on filedocumented in this encounter Care Teams Aircraft Technician Relationship Specialty Start Date End Date Roxi Cesar MD [address] [place] [address] PCP - General 09/12/03 07/15/19 Philip Bartlett MD [address] [place] [address] PCP - General Internal Medicine 07/16/19 05/12/23 Aubrey Grimaldo, [address] [place] [address] PCP - General Internal Medicine 05/13/23 01/12/24 Dwayne Puentes MD [address] [place] [address] PCP - General Internal Medicine 01/13/24 documented as of this encounter
--- OUTSIDE RECORDS SUMMARY | 2025-04-19 10:21 | XMS_ITS | Encounter Summary ---
Author Organization [facility] Address [address] [place] [address] Care Team Providers Care Gluer Name Role Phone Pcp, Nidhi Primary Care Provider Unavailabl e Philip Bartlett MD Primary Care Provider Unavail able Encounter Details Date Type Department Care Team (Late st Contact Info) Description 12/12/2022 Scanned Document [facility] Unknown Unknow Provider Address [...] on filedocumented in this encounter Care Teams Gluer Relationship Specialty Start Date End Date Pcp, No PCP - General 04/13/22 01/14/23 Philip Bartlett MD PCP - General Internal Medicine 01/15/23 documented as of this encounter
--- OUTSIDE RECORDS SUMMARY | 2025-04-19 10:21 | XMS_ITS | Encounter Summary ---
Author Organization [facility] Address [address] [place] [address] Care Team Providers Care Production Consultant Name Role Phone Philip Bartlett MD Primary Care Provider [phone] Aubrey Grimaldo DO Primary Care Provider Unavaila Dwayne Rosen MD Primary Care Provider [phone] Reason for Visit * Reason Onset Date Comments Surgery (Schedule) 03/29/2023 Encounter Details Date Type Department Care Team Description 03/29/2023 Telephone OBN - [place] [address] [place] [address] Pau Jiménez DO Surgery (Schedule) Social History Tobacco Use Types Packs/Day Years [...] suspected to have Coronavirus/COVID-19? No / Unsure 03/11/2023 10:01 AM EDT documented as of this encounter Miscellaneous Notes * Telephone Encounter - Sheryl Boyle - 04/01/2023 11:23 AM EDT Left voice message for pt. Leaving my contact info -pt call to find out correct arrival time. * Telephone Encounter - Quyen Edmond - 03/29/2023 3:26 PM EDT Patient received a call from [facility] confirming her surgery on 04/03/23. Patient is confused with thetime of surgery and when she needs to be there, She has been given 2 different times. Please call documented in this encounter Plan of Treatment Not on file documented as of this encounter Visit Diagnoses Not on filedocumented in this encounter Care Teams Production Consultant Relationship Specialty Start Date End Date Philip Bartlett MD [address] [place] [address] PCP - General Internal Medicine 07/16/19 05/12/23 Aubrey Grimaldo DO [address] [place] [address] PCP - General Internal Medicine 05/13/23 01/12/24 Dwayne Puentes MD [address] [place] [address] PCP - General Internal Medicine 01/13/24 documented as of this encounter
--- OUTSIDE RECORDS SUMMARY | 2025-04-19 10:21 | XMS_ITS | Encounter Summary ---
Author Organization [facility] Address [address] [place] [address] Care Team Providers Care Clinical Program Director Name Role Phone Roxi Cesar MD Primary Care Provider [phone] Philip Bartlett MD Primary Care Provider [phone] Aubrey Grimaldo DO Primary Care Provider Aleisha Dwayne Rosen MD Primary Care Provider [phone] Encounter Details Date Type Department Care Team Description 01/18/2017 Release of Information Medical Records [address] [place] [address] Abstract, Provider Social History Tobacco Use Types [...] on filedocumented in this encounter Care Teams Clinical Program Director Relationship Specialty Start Date End Date Roxi Cesar MD [address] [place] [address] PCP - General 09/12/03 07/15/19 Philip Bartltet MD [address] [place] [address] PCP - General Internal Medicine 07/16/19 05/12/23 Aubrey Grimaldo, [address] [place] [address] PCP - General Internal Medicine 05/13/23 01/12/24 Dwayne Puentes MD [address] [place] [address] PCP - General Internal Medicine 01/13/24 documented as of this encounter
--- OUTSIDE RECORDS SUMMARY | 2025-04-19 10:21 | XMS_ITS | Encounter Summary ---
Author Organization [facility] Address [address] [place] [address] Care Team Providers Care Acidizer Helper Name Role Phone Philip Bartlett MD Primary Care Provider [phone] Aubrey Grimaldo DO Primary Care Provider Unavaila Dwayne Rosen MD Primary Care Provider [phone] Encounter Details Date Type Department Care Team Description 06/25/2021 Pt. Non Urgent Medical Question [facility] [address] [place] [address] Monique Mitchell CNM Social History Tobacco Use Types Packs/Day Years [...] have Coronavirus / COVID-19? No / Unsure 06/12/2021 2:36 PM EST documented as of this encounter Miscellaneous Notes * Telephone Encounter - Alexandra Mack R.N. - 06/26/2021 9:08 AM ESTFrom: Irma Harris To: Monique Mitchell CNM Sent: 06/25/2021 7:36 AM EST Subject: Prescription refill I need to have a refill of my control sent to [facility]. They have no more refills available. Thank you. documented in this encounter Plan of Treatment Not on file documented as of this encounter Visit Diagnoses Not on filedocumented in this encounter Care Teams Acidizer Helper Relationship Specialty Start Date End Date Philip Bartlett MD [address] [place] [address] PCP - General Internal Medicine 07/16/19 05/12/23 Aubrey Grimaldo DO [address] [place] [address] PCP - General Internal Medicine 05/13/23 01/12/24 Dwayne Puentes MD [address] [place] [address] PCP - General Internal Medicine 01/13/24 documented as of this encounter
--- OUTSIDE RECORDS SUMMARY | 2025-04-19 10:21 | XMS_ITS | Clinical Summary ---
Author Organization [facility] Address [address] [place] [address] Care Team Providers Care Web Content Writer Name Role Phone Philip Bartlett MD Primary Care Provider Unavail able Allergies Active Allergy Reactions Criticality Noted Date Comments Prochlorperazine Edisylate Other (See Comments) 05/13/2008 Passed out Benzyl Alcohol Unknown/Patient and Family Unable to Define Medium 01/15/2023 Ipratropium [place] [facility] Swelling Medium 04/15/2019 Linaclotide Itching Low [...] (1 - 1-dose 75+ series) 2050 Insurance [facility] - [facility] Care Teams Web Content Writer Relationship Specialty Start Date End Date Philip Bartlett MD PCP - General Internal Medicine 01/15/23
--- OUTSIDE RECORDS SUMMARY | 2025-04-19 10:21 | XMS_ITS | Encounter Summary ---
Author Organization [facility] Address [address] [place] [address] Care Team Providers Care Cooler Deliverer Name Role Phone Philip Bartlett MD Primary Care Provider [phone] Aubrey Grimaldo DO Primary Care Provider Unavaila Dwayne Rosen MD Primary Care Provider [phone] Reason for Visit * Reason Onset Date Comments refill request 07/05/2021 Encounter Details Date Type Department Care Team Description 07/05/2021 Refill Pulmonology - [place] [address] [facility] [address] [place] [phone] Zahida Nevarez MD [address] [place] [phone] refill request Social History Tobacco Use Types [...] encounter Miscellaneous Notes * Telephone Encounter - Zahida Nevarez MD - 07/17/2021 6:46 PM EST done * Telephone Encounter - Judy Clements - 07/17/2021 8:47 AM EST Patient needs 90 day supply due to going to a mailaway. * Telephone Encounter - Gabi Cardoso M.A. - 07/17/2021 8:45 AM EST Medication was pended and send to dr karol nevarez for signature * Telephone Encounter - Sarah Tracy - 07/14/2021 2:27 PM EST [facility] fax received, requesting for 90day supply for this medication. * Telephone Encounter - Flavia Page - 07/05/2021 11:58 AM EST Patient would like script to be: E-PRESCRIBED/FAXED TO PHARMACY WHEN WAS THE PATIENT'S LAST APPOINTMENT WITH THE PRESCRIBING PROVIDER? 07/19/20 Does patient have an upcoming appointment? Yes 09/15/21 (THE MEDICATION REQUESTED IS ON THE MED LIST ABOVE) All of the medications requested were on the CURRENT MEDS list Did you check the Pharmacy information above?: YES Patient wants: 90 -day supply Is this a mail order prescription request ? YES Patients current insurance carrier is: Payor: LORENZO/PPO POS / Plan: PPO $0 [id number] / Product Type: PPO [id number] documented in this encounter Plan of Treatment Not on file documented as of this encounter Visit Diagnoses Diagnosis Moderate persistent asthma, unspecified whether complicated documented in this encounter Care Teams Cooler Deliverer Relationship Specialty Start Date End Date Philip Bartlett MD [address] [place] [address] PCP - General Internal Medicine 07/16/19 05/12/23 Aubrey Grimaldo DO [address] [place] [address] PCP - General Internal Medicine 05/13/23 01/12/24 Dwayne Puentes MD [address] [place] [address] PCP - General Internal Medicine 01/13/24 documented as of this encounter
--- OUTSIDE RECORDS SUMMARY | 2025-04-19 10:21 | XMS_ITS | Encounter Summary ---
Author Organization [facility] Address [address] [place] [address] Care Team Providers Care Water Service Dispatcher Name Role Phone Philip Bartlett MD Primary Care Provider [phone] Aubrey Grimaldo DO Primary Care Provider Unavaila Dwayne Rosen MD Primary Care Provider [phone] Encounter Details Date Type Department Care Team Description 07/05/2021 Refill Adult Medicine [address] [id number] Philip Bartlett MD [address] [place] [address] [id number] Social History Tobacco Use Types Packs/Day Years [...] on filedocumented in this encounter Care Teams Water Service Dispatcher Relationship Specialty Start Date End Date Philip Bartlett MD [address] [place] [address] PCP - General Internal Medicine 07/16/19 05/12/23 Aubrey Grimaldo DO [address] [place] [address] PCP - General Internal Medicine 05/13/23 01/12/24 Dwayne Puentes MD [address] [place] [address] PCP - General Internal Medicine 01/13/24 documented as of this encounter
--- OUTSIDE RECORDS SUMMARY | 2025-04-19 10:21 | XMS_ITS | Encounter Summary ---
Author Organization [facility] Address [address] [place] [address] Care Team Providers Care Aviculturist Name Role Phone Philip Bartlett MD Primary Care Provider [phone] Aubrey Grimaldo DO Primary Care Provider Unavaila Dwayne Rosen MD Primary Care Provider [phone] Encounter Details Date Type Department Care Team Description 03/18/2023 Pt. Non Urgent Medic al Question OBGYN - [place] [address] [place] [address] Pau Jiménez DO Social History Tobacco Use [...] Miscellaneous Notes * Telephone Encounter - Bianca uPrdy R.N. - 03/18/2023 9:17 AM EDTFrom: Irma Harris To: Kyle Jiménez Sent: 03/18/2023 9:02 AM EDT Subject: Bleeding I started the pills you ordered on Saturday 3 times a day. I am still taking them and still fully bleeding. Since it has been 6 days since I started them up again I don't believe they are working. Please advise. documented in this encounter Plan of Treatment Not on file documented as of this encounter Visit Diagnoses Not on filedocumented in this encounter Care Teams Aviculturist Relationship Specialty Start Date End Date Philip Bartlett MD [address] [place] [address] PCP - General Internal Medicine 07/16/19 05/12/23 Aubrey Grimaldo DO [address] [place] [address] PCP - General Internal Medicine 05/13/23 01/12/24 Dwayne Puentes MD [address] [place] [address] PCP - General Internal Medicine 01/13/24 documented as of this encounter
--- OUTSIDE RECORDS SUMMARY | 2025-04-19 10:21 | XMS_ITS | Encounter Summary ---
Author Organization [facility] Address [address] [place] [address] Care Team Providers Care Orthopedic Coder Name Role Phone Philip Bartlett MD Primary Care Provider [phone] Aubrey Grimaldo DO Primary Care Provider Unavaila Dwayne Rosen MD Primary Care Provider [phone] Reason for Visit * Reason Onset Date Comments APPOINTMENT 06/30/2021 Encounter Details Date Type Department Care Team Description 06/30/2021 Telephone Pulmonology - [place] [address] [facility] [address] [place] [address] Zahida Bolivar MD [address] [place] [phone] APPOINTMENT Social History Tobacco Use Types Packs/Day Years [...] encounter Miscellaneous Notes * Telephone Encounter - Flavia Page - 06/30/2021 10:35 AM EST 06/30/21 Left message for patient to call to schedule a follow up appointment for Asthma with Dr. Bolivar (last seen 07/19/20) documented in this encounter Plan of Treatment Not on file documented as of this encounter Visit Diagnoses Not on filedocumented in this encounter Care Teams Orthopedic Coder Relationship Specialty Start Date End Date Philip Bartlett MD [address] [place] [address] PCP - General Internal Medicine 07/16/19 05/12/23 Aubrey Grimaldo DO [address] [place] [address] PCP - General Internal Medicine 05/13/23 01/12/24 Dwayne Puentes MD [address] [place] [address] PCP - General Internal Medicine 01/13/24 documented as of this encounter
--- OUTSIDE RECORDS SUMMARY | 2025-04-19 10:21 | XMS_ITS | Encounter Summary ---
Author Organization [facility] Address [address] [place] [address] Care Team Providers Care Rn Integrity Name Role Phone Philip Bartlett MD Primary Care Provider [phone] Aubrey Grimaldo DO Primary [facility] Provider [facility] Dwayne Rosen MD Primary Care Provider [phone] Encounter Details Date Type Department Care Team Description 04/03/2023 Hospital Medical Records [address] [place] [address] Pau Jiménez DO Social History Tobacco Use [...] on filedocumented in this encounter Care Teams Rn Integrity Relationship Specialty Start Date End Date Philip Bartlett MD [address] [place] [address] PCP - General Internal Medicine 07/16/19 05/12/23 Aubrey Grimaldo, [address] [place] [address] PCP - General Internal Medicine 05/13/23 01/12/24 Dwayne Puentes MD [address] [place] [address] PCP - General Internal Medicine 01/13/24 documented as of this encounter
--- OUTSIDE RECORDS SUMMARY | 2025-04-19 10:22 | XMS_ITS | Encounter Summary ---
Author Organization [facility] Address [address] [place] [address] Care Team Providers Care Van Owner Operator Name Role Phone Dwayne Puentes MD Primary Care Provider [phone] Reason for Visit * Reason Onset Date Comments Medication 02/03/2024 Encounter Details Date Type Department Care Team Description 02/03/2024 Telephone Gastroenterology - [place] [address] [facility] [address] [place] [phone] Moody, Nevaeh, DScPAS Medication Social History Tobacco Use Types Packs/Day Years [...] encounter Miscellaneous Notes * Telephone Encounter - Ling Monk M.A. - 02/03/2024 4:02 PM EDT Called and let pt know * Telephone Encounter - Alejandra del valle Aditi - 02/03/2024 10:25 AM EDT Patient calling states she has been constipated for the last 5 days, until last night after taking exlax, she had a full bowel movement, patient feels the trulance and lactolose is not working, please advise documented in this encounter Plan of Treatment Not on file documented as of this encounter Visit Diagnoses Not on filedocumented in this encounter Care Teams Van Owner Operator Relationship Specialty Start Date End Date Dwayne Puentes MD [address] [place] [address] PCP - General Internal Medicine 01/13/24 documented as of this encounter
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
--- OUTSIDE RECORDS SUMMARY | 2025-04-19 10:22 | XMS_ITS | Encounter Summary ---
Author Organization [facility] Address [address] [place] [address] Care Team Providers Care Decorating Consultant Name Role Phone Philip Bartlett MD Primary Care Provider [phone] Aubrey Grimaldo DO Primary Care Provider Unavaila Dwayne Rosen MD Primary Care Provider [phone] Reason for Visit * Reason Onset Date Comments TEST RESULTS 01/24/2022 Encounter Details Date Type Department Care Team Description 01/24/2022 Telephone Adult Medicine - [address] [address] Philip Bartlett MD [address] [place] [address] TEST RESULTS Social History Tobacco Use Types [...] suspected to have Coronavirus/COVID-19? No / Unsure 01/23/2022 1:19 PM EDT documented as of this encounter Miscellaneous Notes * Telephone Encounter - Eileen Richard M.A. - 01/24/2022 11:24 AM EDT Notified patient that she needs to contact Dr Carlisle's office - forward to his office * Telephone Encounter - Eileen Richard M.A. - 01/24/2022 11:09 AM EDT LMOM for patient to contact the office - Eileen Starkey at ex [phone] - please re- message to pool ([phone]) if no answer MRI was done by Dr Carlisle - patient needs to contact his office to results * Telephone Encounter - Eileen Richard M.A. - 01/24/2022 10:04 AM EDT Who is calling for the results? * Telephone Encounter - Jada Waters - 01/24/2022 9:40 AM EDT Inform patient: ANY URGENT OR ABNORMAL RESULTS WIILL RESULT IN A CALL BACK TO THE PATIENT HARRY. Type of test: MRI Date test was performed: 01.23.2022 Where was the test performed: [facility] Who ordered this test?: Dr. Carlisle Is the doctor here today?: N/A Can the message wait until the doctor returns?: N/A IF PATIENT'S PCP IS NOT IN INSTRUCT PATIENT THAT THEY WILL RECEIVE A CALL BACK WHEN THE PCP IS IN THE OFFICE NEXT. documented in this encounter Plan of Treatment Not on file documented as of this encounter Visit Diagnoses Not on filedocumented in this encounter Care Teams Decorating Consultant Relationship Specialty Start Date End Date Philip Bartlett MD [address] [place] [address] PCP - General Internal Medicine 07/16/19 05/12/23 Aubrey Grimaldo, [address] [place] [address] PCP - General Internal Medicine 05/13/23 01/12/24 Dwayne Puentes MD [address] [place] [address] PCP - General Internal Medicine 01/13/24 documented as of this encounter
--- OUTSIDE RECORDS SUMMARY | 2025-04-19 10:22 | XMS_ITS | Encounter Summary ---
Author Organization [facility] Address [address] [place] [address] Care Team Providers Care Pickling Grader Name Role Phone Philip Bartlett MD Primary Care Provider [phone] Aubrey Grimaldo DO Primary Care Provider Unavaila Dwayne Rosen MD Primary Care Provider [phone] Reason for Visit * Reason Onset Date Comments Arm Pain 10/13/2021 Encounter Details Date Type Department Care Team Description 10/13/2021 Telephone Adult Medicine [address] [id number] Philip Bartlett MD [address] [place] [address] Arm Pain Social History Tobacco Use Types Packs/Day [...] suspected to have Coronavirus/COVID-19? No / Unsure 09/26/2021 2:14 PM EDT documented as of this encounter Miscellaneous Notes * Telephone Encounter - Philip Bartlett MD - 10/18/2021 8:17 AM EDT Whomever has an opening= * Telephone Encounter - Ifeoma Glaser M.A. - 10/17/2021 1:38 PM EDT Did you see Chris Grijalva previous note: Appointment should be with PCP (Dr Bartlett) not other providers at this time. Are you still requesting that it is ok to see other provider? Please advise * Telephone Encounter - Irene Brannon M.A - 10/16/2021 9:46 AM EDT Left message to call back ask to speak to Dr Bartlett MA [phone] If no answer, please re-message to drew soto. * Telephone Encounter - Philip Bartlett MD - 10/16/2021 8:14 AM EDT May be with another provider as well * Telephone Encounter - Darcy Starkey - 10/13/2021 11:39 AM EDT No open slots with you before 11/01/21 (when she sees [facility]) ok to double book you to see pt sooner for a medication review? * Telephone Encounter - Chris Grijalva PA-C - 10/13/2021 10:17 AM EDT Patient needs to be following up with [facility] as they have been seeing her for this. She should make an appointment with Dr Bartlett for further evaluation and medication review if indicated. Appointment should be with PCP (Dr Bartlett) not other providers at this time. * Telephone Encounter - Marcy Salinas - 10/13/2021 9:23 AM EDT Please see note from PCP and previous messages. Please send to triage or appropriate pool with recommendation * Telephone Encounter - Philip Bartlett MD - 10/13/2021 9:22 AM EDT Seen with Chris for shoulder pain -- pls forward * Telephone Encounter - Marcy Salinas - 10/13/2021 8:47 AM EDT Please also see multiple previous telephone messages Pt has 10/10 shoulder pain, [facility] cannot see pt sooner than 11/01 appt * Telephone Encounter - Jocelyn Sánchez - 10/13/2021 8:41 AM EDT Symptoms patient is presenting: Patient with to [facility] ER with arm pain and still not feeling better. For ALL patients calling to schedule any [...] traveled recently to another state outside of [place], [place], [place], [place], [place], [place], [place]? NO o If yes, did you quarantine [...] How long has patient had these symptoms?: Few days PCP: Philip Bartlett Payor: LORENZO/KARIE POS / Plan: PPO $0 [id number] [id number] / Product Type: PPO [id number] documented in this encounter Plan of Treatment Not on file documented as of this encounter Visit Diagnoses Not on filedocumented in this encounter Care Teams Pickling Grader Relationship Specialty Start Date End Date Philip Bartlett MD [address] [place] [address] PCP - General Internal Medicine 07/16/19 05/12/23 Aubrey Grimaldo DO [address] [place] [address] PCP - General Internal Medicine 05/13/23 01/12/24 Dwayne Puentes MD [address] [place] [address] PCP - General Internal Medicine 01/13/24 documented as of this encounter
--- OUTSIDE RECORDS SUMMARY | 2025-04-19 10:22 | XMS_ITS | Clinical Summary ---
Author Organization [facility] Address [address] [place] [address] Care Team Providers Care Bellows Charger Assembler Name Role Phone Dwayne Puentes MD Primary Care Provider [phone] Allergies Active Allergy Reactions Severity Noted Date Comments Alc-Ipratropium Sciota 04/15/2019 Benzyl Qmd-Lpbzjrrwqymvhrku-Qneeunx in OTHER 05/13/2008 Passed out Prochlorperazine 04/15/2019 Ipratropium Sciota Swelling/Edema 08/21/2007 Facial swelling Linaclotide Itching/Pruritus 11/12/2022 Monistat Swelling/Edema Low 04/13/2015 Pneumococcal Vaccine High 07/13/2013 Localized swelling @ inj site Medications Medication Sig Dispensed Refills Start Date End Date Status ALBUTEROL SULFATE (ProAir HFA) 108 (90 Base) MCG/ACT Aero SolnIndications:Mild intermittent asthma, unspecified whether complicated Inhale 2 Puffs into the lungs every 6 hours as needed for Cough or Wheezing for up to 30 days. 1 g 1 11/06/2022 Active Acetaminophen (Tylenol) 325 MG Cap Take by mouth. 0 Active oxcarbazepine (TRILEPTAL) 150 MG tablet 2 Tablets daily. 0 06/14/2023 Active oxybutynin (DITROPAN-XL) 10 MG 24 hr tablet Take 1 Tablet by mouth daily. 0 08/01/2023 Active pantoprazole (Protonix) 40 MG tablet Take 1 Tablet by mouth daily. Take in a.m. on empty stomach, wait 30 minutes and then eat to activate medication 30 Tablet 11 08/16/2023 Active Citalopram Hydrobromide (CELEXA OR) Take 10 mg by mouth daily. 0 Active cetirizine (ZYRTEC) 10 MG tablet TAKE 1 TABLET BY MOUTH EVERY DAY 90 Tablet 0 09/12/2023 Active fluticasone 50 MCG/ACT nasal spray 2 Sprays by Each Nare route daily. 48 g 0 11/13/2023 Active lactulose (CHRONULAC) 10 GM/15ML solution Take 30 mL by mouth 2 times daily for 30 days. 473 mL 3 11/13/2023 Active estradiol (VIVELLE-DOT) 0.1 MG/24HR Place 1 Patch onto the skin twice a week. 8 Patch 11 01/30/2024 Active jiaaoezz-xdmxyfnwt-y ydrocortisone (CORTISPORIN) 3.5-99678-[address] 3 Drops into the right ear 4 times daily for 10 days. Tilt head so ear to be treated points towards the ceiling. 10 mL 0 01/29/2024 Active Active Problems Problem Noted Date Somatization disorder 05/24/2022 Chronic pain of right upper extremity History of attempted suicide 06/12/2021 Generalized anxiety disorder 06/12/2021 Acute non-recurrent maxillary sinusitis 05/22/2021 Endometriosis 02/23/2019 Major depressive disorder, recurrent epi sode, moderate 10/06/2013 Genital herpes 04/13/2011 Overview: Occasional outbreaks GERD (gastroesophageal reflux disease) 1 06/13/2010 Tremor, essential 01/11/2010 Overview: hands Depression 05/13/2008 ALLERGIC RHINITIS 03/12/2007 COMMON MIGRAINE 07/31/2006 Overview: IMO update Asthma 03/05/2006 Irritable bowel syndrome 10/26/2005 CONSTIPATION 09/06/2005 Overview: IMO update ASCUS 08/30/2005 Overview: colposcopy Resolved Problems Problem Noted Date Resolved Date COVID-19 04/30/2021 05/22/2021 Immunizations Name Administration Dates Next Due COVID-19 (Pfizer) Pt Reported 08/17/2020, 021 Influenza (> 6 Months) 07/09/2013,2012,04/13/2011,03/29 Influenza Vaccine-preservati ve Free-quadrivalent 4 Years 06/18/2023,06/07/2022,04/19/2021,03/07,02/23/2019 Influenza Vaccine-quadrivale nt 4 Years Plus 02/18/2018,02/20/2017 Grxgxeo-Pedrl-Htxetvva + 02/18/2018 Siwjr-Qbsaq-Fefctbcz + 02/18/2018 PPD-RBMG 02/12/2018 Pneumoccoccal(Adult) Polysac charide PPSV23 07/09/2013 Etseqeh-Ijqgc-Brbggewl + 06/24/2002 TD (STATE SUPPLIED FOR ADULT S AND CHILDREN) 08/02/2021 TETANUS/DIPTHERIA (ADULT) 08/16/2004 Tdap 04/13/2011 Varicella Titre-Positive + 02/18/2018 Family History Medical History Relation Name Comments CA Breast Aunt 1 maternal Cancer of the Breast Aunt 1 maternal materna l CA Breast Aunt 2 maternal Depression Daughter 1 2 daughters Asthma Daughter 2 alive and well Father Diabetes Maternal Grandmother Diabetes Mother Drug Abuse Sister 1 Drug Abuse Sister 2 Allergies Son 1 Asthma Son 2 CA Colon Negative Hx CA Ovarian Negative Hx Relation Name Status Comments Aunt 1 [...] Tobacco: Never Tobacco Cessation:Counseling Given: Not Answered Comments:QUIT-1995, Started @ age 14, doesn't remember how many daily Alcohol Use Standard Drinks/Week Comments Not Currently 0 (1 standard drink = 0.6 oz pur e alcohol) Sex Assigned at Date Recorded Not on file Job Start Date Occupation Industry Not on file Not on file Not on file Last Filed Vital Signs Vital Sign Reading Time Taken Comments Blood Pressure 108/67 01/29/2024 5:29 PM EDT Pulse 81 01/29/2024 5:29 PM EDT Temperature 36.6 C (97.8 F) 01/29/2024 5:29 PM EDT Respiratory Rate 16 01/28/2024 9:23 AM EDT Oxygen Saturation 98% 01/29/2024 5:29 PM EDT Inhaled Oxygen Concentration - - Weight 72.2 kg (159 lb 3.2 oz) 01/28/2024 9:23 A M EDT Height 152.4 cm (5') 01/28/2024 9:23 AM EDT Body Mass Index 31.09 01/28/2024 9:23 AM EDT Plan of Treatment Health Maintenance Due Date Last Done Comments CERVICAL CANCER SCREENING 06/22/20232020, 08/16/2016, 05/10/2014, Additional history exists BMI CHECK/ADVISE 06/10/2024 09/10/2023, 07/2023, 08/05/2023, Additional history exists MAMMOGRAM 09/09/2024 09/10/2023, 03/0 06/2022, 08/07/2021, Additional history exists Covid-19 Vaccine (3 - 2022-2 4 season) 2025 08/17/2020, 07/27/2020 INFLUENZA (#1) 2025 06/18/2023, 05/11, 04/19/2021, Additional history exists SHINGLES VACCINE (1 of 2) 2025 BASELINE HEALTH EXAM 40-64 06/18/202506/18, 06/07/2022, 03/07/2020, Additional history exists CHOLESTEROL SCREENING 06/07/2027 06/07/2022 , 08/02/2021, 03/07/2020, Additional history exists DTAP/TDAP/TD (3 - Td or Tdap) 08/02/2031 08/02/2021, 04/13/2011 COLON CANCER SCREENING 08/22/2033 08/23/2023, 2009 PNEUMOCOCCAL VACCINE FOR HIG H RISK PATIENTS (#2) 2040 07/09/2013 Advance Directives For more information, please contact: [phone] Documents on File Type Date Recorded Patient Wire Cutter Expl anation Health Care Proxy 12/12/2018 4:14 PM HEALTH CARE PROXY Care Teams Bellows Charger Assembler Relationship Specialty Start Date End Date Dwayne Puentes MD [address] [place] [address] PCP - General Internal Medicine 01/13/24
--- OUTSIDE RECORDS SUMMARY | 2025-04-19 10:22 | XMS_ITS | Encounter Summary ---
Author Organization [facility] Address [address] [place] [address] Care Team Providers Care Fixture Relamper Name Role Phone Philip Bartlett MD Primary Care Provider [phone] Aubrey Grimaldo DO Primary Care Provider Unavaila Dwayne Rosen MD Primary Care Provider Encounter Details Date Type Department Care Team Description 05/22/2022 Pt. Non Urgent Medical Question Adult Medicine B - [address] [id number] Katherine Harris PA-C [address] [place] [address] Social History Tobacco Use Types Packs/Day Years [...] suspected to have Coronavirus/COVID-19? No / Unsure 05/24/2022 10:41 AM EST documented as of this encounter Miscellaneous Notes * Telephone Encounter - Eileen Richard M.A. - 05/22/2022 9:46 AM ESTFrom: Irma Fryeguillermohiram To: Kyle Harris Sent: 05/22/2022 9:44 AM EST Subject: Neurological issues I am still having significant memory problems and no seems to be helping. Not sure what to do. I stopped driving because I ended up getting lost going to places I have been to going for years. I can't seem to balance the checking account or pay the correct bills anymore. Some passwords and important numbers I can't remember anymore. I can look at something to copy it writing it down and completely spell something that makes no sense. Not even a word. I have a hard time pronouncing words I could say before. 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 He requested I get a second opinion which isn't until august. This is not psycho semantic when it's getting worse. I have been transposing numbers a lot. This all makes m e very nervous since both my mothers aunts young from dementia. Please tell me what I should be doing. documented in this encounter Plan of Treatment Not on file documented as of this encounter Visit Diagnoses Not on filedocumented in this encounter Care Teams Fixture Relamper Relationship Specialty Start Date End Date Philip Bartlett MD [address] [place] [address] PCP - General Internal Medicine 07/16/19 05/12/23 Aubrey Grimaldo DO [address] [place] [address] PCP - General Internal Medicine 05/13/23 01/12/24 Dwayne Puentes MD [address] [place] [address] PCP - General Internal Medicine 01/13/24 documented as of this encounter
--- OUTSIDE RECORDS SUMMARY | 2025-04-19 10:22 | XMS_ITS | Encounter Summary ---
Author Organization [facility] Address [address] [place] [address] Care Team Providers Care Senior Production Planner Name Role Phone Philip Bartlett MD Primary Care Provider Aubrey Grimaldo DO Primary Care Provider Unavaila Dwayne Rosen MD Primary Care Provider [phone] Reason for Visit * Reason Onset Date Comments vaginal problems 12/13/2021 yeast infection Encounter Details Date Type Department Care Team Description 12/13/2021 Telephone Adult Medicine [address] [phone] Philip Bartlett MD [address] [place] [phone] vaginal problems (yeast infection) Social History Tobacco Use Types Packs/Day Years [...] suspected to have Coronavirus/COVID-19? No / Unsure 12/15/2021 1:24 PM EDT documented as of this encounter Miscellaneous Notes * Telephone Encounter - Sun Troncoso M.A. - 12/14/2021 10:04 AM EDT Pt notified, she virbalized understanding * Telephone Encounter - Philip Bartlett MD - 12/14/2021 9:47 AM EDT Diflucan ordered * Telephone Encounter - Mary Yang R.N. - 12/13/2021 10:01 AM EDT Pt had telehealth appt with Marj 12/07/21 dx with sinusitis and Rx with Augmentin Pt is c/o she has a yeast infection, pt is c/o vaginal itchiness and she has a white discharge, pt denies any odor. Pt states she is unable to use OTC Monistat she is allergic to it, it causes swelling. Pt has been treated in the past with Diflucan. Please review * Telephone Encounter - Vaishnavi Bennett - 12/13/2021 9:37 AM EDT Caller requesting call back from provider: Is the caller the patient? YES If caller is not the patient, what is the callers name? N/A Callers relationship to patient? N/A If person calling is not the patient themselves, is there a verbal release in FYI or permanent comments for this person: NO Reason for call back: Put on antibiotic last week and is on the last pill today. Now she has a yeast infection since 12/11. Can we write a prescritpion since she is allergic to monostat? Please advise,otherwise she will go to a walk-in clinic since PHOTOLETTERING MACHINE OPERATOR can't get her in soon. Caller offered to speak with the nurse for assistance: YES Response: Patient offered to speak with nurse for assistance and patient agreed. Message forwarded to nurse. documented in this encounter Plan of Treatment Not on file documented as of this encounter Visit Diagnoses Not on filedocumented in this encounter Care Teams Senior Production Planner Relationship Specialty Start Date End Date Philip Bartlett MD [address] [place] [address] PCP - General Internal Medicine 07/16/19 05/12/23 Aubrey Grimaldo DO [address] [place] [address] PCP - General Internal Medicine 05/13/23 01/12/24 Dwayne Puentes MD [address] [place] [address] PCP - General Internal Medicine 01/13/24 documented as of this encounter
--- OUTSIDE RECORDS SUMMARY | 2025-04-19 10:22 | XMS_ITS | Encounter Summary ---
Author Organization [facility] Address [address] [place] [address] Care Team Providers Care Print Developer Name Role Phone Philip Bartlett MD Primary Care Provider [phone] Aubrey Grimaldo DO Primary Care Provider Unavaila Dwayne Rosen MD Primary Care Provider [phone] Reason for Visit * Reason Onset Date Comments Provider Call Back 11/21/2021 Encounter Details Date Type Department Care Team Description 11/21/2021 Telephone Adult Medicine [address] [phone] Philip Bartlett MD [address] [place] [id number] Provider Call Back Social History Tobacco Use [...] suspected to have Coronavirus/COVID-19? No / Unsure 11/20/2021 9:25 AM EDT documented as of this encounter Miscellaneous Notes * Telephone Encounter - Trish Wheeler RN - 11/21/2021 11:35 AM EDT Please advise: Spoke to pt. Pt calling to make you aware of appt she had with Dr. Reese, physiatry, concerning her right arm. Pt had MRI in Feb showed C5-C6 disc is bulging and putting pressure on the nerve wherethe pain is coming from. He is suggesting a surgical spinal injection. Now waiting to find out about insurance. * Telephone Encounter - Jocelyn Sánchez - 11/21/2021 11:29 AM EDT Caller requesting call back from provider: Is the caller the patient? YES If caller is not the patient, what is the callers name? N/A Callers relationship to patient? N/A If person calling is not the patient themselves, is there a verbal release in FYI or permanent comments for this person: YES Reason for call back: Patient would like to discuss her x-ray appointment from 11/20/21, after her office visit on 11/20/21. Caller offered to speak with the nurse for assistance: YES Response: Patient offered to speak with nurse for assistance and patient agreed. Message forwarded to nurse. documented in this encounter Plan of Treatment Not on file documented as of this encounter Visit Diagnoses Not on filedocumented in this encounter Care Teams Print Developer Relationship Specialty Start Date End Date Philip Bartlett MD [address] [place] [address] PCP - General Internal Medicine 07/16/19 05/12/23 Aubrey Grimaldo DO [address] [place] [address] PCP - General Internal Medicine 05/13/23 01/12/24 Dwayne Puentes MD [address] [place] [address] PCP - General Internal Medicine 01/13/24 documented as of this encounter
--- OUTSIDE RECORDS SUMMARY | 2025-04-19 10:22 | XMS_ITS | Clinical Summary ---
Author Organization [facility] Address [address] [place] [address] Phone Care Team Providers Care Camera Mechanic Name Role Phone Dwayne Puentes MD Primary Care Provider Allergies Active Allergy Reactions Criticality Noted Date Comments Benzocaine Swelling Low 04/13/2015 Benzyl Alcohol Unknown High 01/12/2025 Ipratropium Other,Swelling 08/21/2007 Facial swelling Doesn't remember Facial swelling Ipratropium [place] 04/15/2019 Linaclotide Itching 11/12/2022 Boric Acid 06/08/2024 Other Swelling Low 05/13/2008 BENZYL [id number] - Other Reaction(s): OTHER Passed out Pneumococcal Vaccine High 07/13/2013 Localized swelling @ inj site Prochlorperazine Other 05/13/2008 Doesn't remember Passed out Tioconazole Other 04/22/2021 Doesn't remember Verapamil Unknown High 01/12/2025 Medications acetaminophen (TYLENOL) 325 mg capsule Take by mouth. OTC Active cetirizine (ZyrTEC) 10 mg tablet Take 1 tablet (10 mg total) by mouth 2 (two) times a day. Prescribed by brands editor 4 Active fluticasone propionate (FLONASE) 50 mcg/actuation nasal spray Administer 2 sprays into affected nostril(s). Prescribe by brands editor 4 Active OXcarbazepine (TRILEPTAL) 150 mg tablet Take 1 tablet (150 mg total) by mouth 1 (one) time each day in the morning. Prescribe by Psychiatrist 4 Active oxyBUTYnin XL (DITROPAN-XL) 10 mg 24 hr tablet Take 1 tablet (10 mg total) by mouth 1 (one) time each day. Prescribed in Urology 4 Active pantoprazole (PROTONIX) 40 mg EC tablet Take 1 tablet (40 mg total) by mouth 2 (two) times a day. Do not crush, chew, or split. 180 tablet 3 4 Active cycloSPORINE (RESTASIS) 0.05 % ophthalmic emulsion Administer 1 drop into both eyes 2 (two) times a day. Prescribed by opthalmology Active carboxymethylce -glycern-poly80 (Refresh Digital) 0.5-1-0.5 % drops Administer into [...] (ATARAX) 25 mg tablet Take by mouth. Activ e Active Problems Problem Noted Date Diagnosed Date Varicose veins of lower extremity 10/07/2024 Bipolar disorder ([facility] V24, [facility] V28) 09/10 Anxiety 10/07/2024 Hyperlipidemia 10/07/2024 Obesity [...] who ordered an x-ray, was referred to [facility] orthopedics, over the last few years has tried physical therapy 3 or 4 separate times addressing the neck and shoulder pain. She has tried injections with Dr. Carlisle, healthcare manager. This morning she started a prednisone pack [...] had MRI thoracic spine January 2024 at [facility] with minimal degenerative changes, no significant degenerative [...] MRI shoulder 2020 that was unremarkable. Ms. Monterroso has chronic right upper trapezius, shoulder and [...] patch that she was prescribed by her VINYL WELDER AND FABRICATOR, musculoskeletal issues like she describes can be a symptom from perimenopause/menopause low hormone levels. She will call her VINYL WELDER AND FABRICATOR to let them know she is interested [...] 03/17/2025 3:00 PM EDT Office Visit Pulmonology [facility] [address] [facility] [address] [place] [address] Zahida Bolivar MD Dyspnea, unspecified type (Primary Dx); Mild intermittent asthma, unspecified whether complicated 03/11/2025 Results Follow-Up Adult Medicine [facility] [address] [place] [phone] Dwayne Puentes MD 03/10/2025 Results Follow-Up [address] [phone] Karoline Mann NP 03/08/2025 10:30 AM EDT Office Visit [address] [phone] Karoline Mann NP Nasal bleeding (Primary Dx); SOB (shortness of breath) on exertion; Increased thirst; Blood glucose elevated; Need for prophylactic vaccination and inoculation against influenza 02/20/2025 9:45 AM EDT - 02/20/2025 11:59 PM EDT Hospital Encounter [facility] MRI [address] [place] [address] Headache associated with sexual activity Discharge Disposition: Home or Self Care 02/03/2025 4:00 PM EDT Office Visit [facility] [address] [facility] [address] [place] [phone] Jacklyn Altman PA Headache associated with sexual activity (Primary Dx) 01/19/2025 1:09 PM EDT Anesthesia Event [facility] [address] [place] [address] Ceasar Bauer MD 01/19/2025 12:09 PM EDT - 01/19/2025 11:59 PM EDT Hospital Encounter [facility] [address] [place] [address] Keon Sheehan MD Abrokwah, Foster Myles G, CRNA Saliga, Jesse L, MD Irritable bowel syndrome with constipation; Colon cancer screening Discharge Disposition: Home or Self Care from Last 3 Months Immunizations Immunization Administration [...] Measles 02/18/2018 Mumps 02/18/2018 PPD Test 02/12/2018 [employer] SARS-CoV-2 COVID-19, mRNA, LNP-S, preservative free 08/17/2020,07/27/2020 [...] your loved ones. For example, child care cook or elderly care for an older adult? [...] EST Office Visit [facility] [address] [phone] Dwayne Puentes MD [address] [place] [address] 09/28/2025 10:40 AM EDT Appointment Radiology Department - [address] [phone] Health Maintenance Due Date Last Done Comments [...] bowel syndrome with constipation Colon cancer screening MG MAMMO DIGITAL SCREENING W ERIC BILAT [...] mg/dL LAB CHEMISTRY METHOD 03/08/2025 4:02 PM [facility] Triglycerides 87 0 - 150 mg/dL LAB CHEMISTRY METHOD 03/08/2025 4:02 PM [facility] HDL 51 >=40 mg/dL LAB CHEMISTRY METHOD 03/08/2025 4:02 PM [facility] LDL Calculated 104(H) 0 - 100 mg/dL LAB CHEMISTRY METHOD 03/08/2025 4:02 PM [facility] Comment:Estimated LDL Calcul ated using equation: Total cholesterol - HDL cholesterol - (Triglycerides/5) VLDL Cholesterol Jon 17.4 mg/dL LAB CHEMISTRY METHOD 03/08/2025 4:02 PM [facility] Non HDL Chol. (LDL+VLDL) 121 <145 mg/dL LAB CHEMISTRY METHOD 03/08/2025 4:02 PM EDT [facility] Chol/HDL Ratio 3.4 0.0 - 4.4 LAB CHEMISTRY METHOD 03/08/2025 4:02 PM EDT [facility] Blood Venous blood specimen / Unknown Venipuncture / Unknown 03/08/2025 11:47 AM EDT 03/08/2025 11:47 AM EDT Dwayne Puentes MD LAB BLOOD ORDERABLES Final Result Performing Organization Address [facility]/ZIP Co de Phone Number [facility] [address] [place] [address], [place] [phone] * D-Dimer (03/08/2025 11:47 AM EDT) D-Dimer, Quant (D-DU) <150 <=230 ng/mL DDU LAB COAGULATION METHOD 03/08/2025 1:56 PM EDT [facility] Blood Venous blood specimen / Unknown Venipuncture / Unknown 03/08/2025 11:47 AM EDT 03/08/2025 11:47 AM EDT Narrative [facility] - 03/08/2025 1:56 PM EDT D-Dimer <230 ng/mL (D-Dimer units) is the threshold for exclusion of DVT/PE. D-Dimer may be elevated in: Critically ill, severely infected, trauma patients, DIC, acute CVA, acute LA, unstable angina, AF, old age, , and smoking. D-Dimer may be decreased with: Initiation of heparin therapy and oral anticoagulants. Karoline Mann NP LAB BLOOD ORDERABLES Final R esult Performing Organization Address City/[facility]/ZIP Co de Phone Number [facility] [address] [place] [address], [place] [phone] * Hemoglobin A1c (03/08/2025 11:47 AM EDT) Hemoglobin A1C 5.3 <6.5 % LAB CHEMISTRY METHOD 03/09/2025 8:51 AM [facility] Mean Bld Glu Estim. 105 mg/dL LAB CHEMISTRY METHOD 03/09/2025 8:51 AM [facility] Blood Venous blood specimen / Unknown Venipuncture / Unknown 03/08/2025 11:47 AM EDT 03/08/2025 11:47 AM EDT us Karoline Mann WATER TREATMENT PLANT SUPERVISOR LAB BLOOD ORDERABLES Final R esult [facility] [address] [place] [address], [place] [phone] * (ABNORMAL) Comprehensive metabolic panel (03/08/2025 11:47 AM EDT) Sodium 139 133 - 145 mmol/L LAB CHEMISTRY METHOD 03/08/2025 4:11 PM [facility] Potassium 3.9 3.5 - 5.5 mmol/L LAB CHEMISTRY METHOD 03/08/2025 4:11 PM [facility] Chloride 107 96 - 110 mmol/L LAB CHEMISTRY METHOD 03/08/2025 4:11 PM [facility] CO2 28 21 - 32 mmol/L LAB CHEMISTRY METHOD 03/08/2025 4:11 PM [facility] Anion Gap 4 3 - 11 LAB CHEMISTRY METHOD 03/08/2025 4:11 PM [facility] Glucose 101(H) 70 - 100 mg/dL LAB CHEMISTRY METHOD 03/08/2025 4:11 PM [facility] BUN 14 5 - 25 mg/dL LAB CHEMISTRY METHOD 03/08/2025 4:11 PM [facility] Creatinine 0.87 0.50 - 1.10 mg/dL LAB CHEMISTRY METHOD 03/08/2025 4:11 PM [facility] eGFR 82 >=60 mL/min/1. 73m2 LAB CHEMISTRY METHOD 03/08/2025 4:11 PM T [facility] Comment:Calculation based on the Chronic Kidney Disease Epidemiology Collaboration (CKD-EPI) equation refit without adjustment for race. BUN/Creatinine Ratio 16.1 LAB CHEMISTRY METHOD 03/08/2025 4:11 PM T [facility] Calcium 9.2 8.5 - 10.5 mg/dL LAB CHEMISTRY METHOD 03/08/2025 4:11 PM [facility] AST (SGOT) 19 10 - 42 unit/L LAB CHEMISTRY METHOD 03/08/2025 4:11 PM [facility] ALT (SGPT) 33 10 - 60 unit/L LAB CHEMISTRY METHOD 03/08/2025 4:11 PM [facility] Alkaline Phosphatase 82 42 - 121 unit/L LAB CHEMISTRY METHOD 03/08/2025 4:11 PM [facility] Total Protein 6.8 6.0 - 8.0 g/dL LAB CHEMISTRY METHOD 03/08/2025 4:11 PM [facility] Albumin 4.1 3.2 - 5.0 g/dL LAB CHEMISTRY METHOD 03/08/2025 4:11 PM [facility] Total Bilirubin 0.5 0.0 - 1.4 mg/dL LAB CHEMISTRY METHOD 03/08/2025 4:11 PM [facility] Blood Venous blood specimen / Unknown Venipuncture / Unknown 03/08/2025 11:47 AM EDT 03/08/2025 11:47 AM EDT us Karoline Mann NP LAB BLOOD ORDERABLES Final R esult [facility] [address] [place] [address], * MR Brain wo Contrast (02/20/2025 10:38 [...] Signed Date: 02/23/2025 15:15 ET Workstation ID: [id number] Transcribed By: Self Edit Transcribed Date: 02/23/2025 [...] A few very small scattered foci of [id number] in the supratentorial white matter are unchanged. [...] Dictated Date: 02/23/2025 12:34 ET Assigned Physician: Jsoe Clemens Reviewed and Electronically Signed By: Jose Clemens Signed Date: 02/23/2025 15:15 ET Workstation ID: [id number] Transcribed By: Self Edit Transcribed Date: 02/23/2025 12:41 ET Jacklyn NAILS IMUmesh MRI PROCEDURES Final Res ult * COLONOSCOPY Anesthesia - MAC; [facility] ENDOSCOPY (01/19/2025 1:29 PM EDT) Anatomical Region Laterality Modality Other 01/19/2025 1:15 PM EDT Impressions 01/19/2025 1:30 PM EDT - Diverticulosis in the entire examined colon. - No specimens collected. Recommendation: - Repeat colonoscopy in 10 years for screening purposes. - Use fiber, for example Citrucel, Fibercon, Konsyl or Metamucil. Narrative 01/19/2025 1:30 PM EDT [facility] Patient Name: Royal Monterroso Procedure Date: 01/19/2025 1:15 PM Date of [...] without bleeding CPT copyright 2020 [employer] [place] [employer]. All rights reserved. The codes documented in this report are preliminary and upon apprentice machinist outside review may be revised to meet current compliance requirements. Keon Sheehan MD 01/19/2025 1:29:57 PM This report has been signed electronically.Keon Sheehan MD Number of Addenda: 0 Note Initiated On: 01/19/2025 1:15 PM Scope In: Scope Out: Endoscopy Department at [facility] - [address] [place] [phone] Procedure Note Keon Sheehan MD - 01/19/2025 [facility] Patient Name: Royal Monterroso Procedure Date: 01/19/2025 1:15 PM Date of [...] without bleeding CPT copyright 2020 [employer] [place] [employer]. All rights reserved. The codes documented in this report are preliminary and upon apprentice machinist outside reviewmay be revised to meet current compliance requirements. Keon Sheehan MD 01/19/2025 1:29:57 PM This report has been signed electronically.Keon Sheehan MD Number of Addenda: 0 Note Initiated On: 01/19/2025 1:15 PM Scope In: Scope Out: Endoscopy Department at [facility] - [address] [place] [phone] IMPRESSION: - Diverticulosis in the entire examined colon. - No specimens collected. Recommendation: - Repeat colonoscopy in 10 years for screening purposes. - Use fiber, for example Citrucel, Fibercon, Konsylor Metamucil. Keon Sheehan MD GI~PROCEDURE ORDERABLES Final Re sult * MG Mammo Digital Screening w Eric bilat (09/22/2024 10:30 AM EDT) Anatomical Region Laterality Modality Breast Bilateral Mammography 09/22/2024 2:23 PM EDT Impressions 09/22/2024 2:28 PM EDT Benign. BI-RADS CATEGORY: 1 - NEGATIVE RECOMMENDATION: Screening bilateral mammogram is recommended in 1 year. Mammo Location: [facility], [address] [place] [address], [id number], . -------- FINAL REPORT -------- Dictated By: Iraida Curry Dictated Date: 09/22/2024 14:23 ET Assigned Physician: Iraida Curry Reviewed and Electronically Signed By: Iraida Curry Signed Date: 09/22/2024 14:28 ET Workstation ID: [id number] Transcribed By: Self Edit Transcribed Date: 09/22/2024 [...] is recommended in 1 year. Mammo Location: [facility], [address] [place] [address], [address], . -------- FINAL REPORT -------- Dictated By: Iraida Curry Dictated Date: 09/22/2024 14:23 ET Assigned Physician: Iraida Curry Reviewed and Electronically Signed By: Iraida Curry Signed Date: 09/22/2024 14:28 ET Workstation ID: [id number] Transcribed By: Self Edit Transcribed Date: 09/22/2024 14:23 ET Dwayne Puentes MD IMG BI PROCEDURES Final Res ult * Hepatitis C Screening (11/29/2022) Hepatitis C Screening abstracted Historical Provider HEALTH MAINTENANCE Final Result * Cervical Cancer Screening: HPV (06/24/2020) Pathologist [facility] Cervical Cancer Screening: HPV abstracted, negative Historical Provider HEALTH MAINTENANCE Final Result from Last 3 Months or Most Recently Relevant to Health Maintenance Insurance [employer]) MEDICARE Care Teams Camera Mechanic Relationship Specialty Start Date End Date Dwayne Puentes MD [address] [place] [address] (work) [facility] - General 01/13/24
--- OUTSIDE RECORDS SUMMARY | 2025-04-19 10:22 | XMS_ITS | Encounter Summary ---
Author Organization [facility] Address [address] [place] [address] Care Team Providers Care Agriculture Scientist Name Role Phone Philip Bartlett MD Primary Care Provider [phone] Aubrey Grimaldo DO Primary Care Provider Unavaila Dwayne Rosen MD Primary Care Provider [phone] Reason for Visit * Reason Onset Date Comments Provider Call Back 06/12/2022 Encounter Details Date Type Department Care Team Description 06/12/2022 Telephone Adult Medicine [address] [phone] Philip Bartlett MD [address] [place] [address] Provider Call Back Social History Tobacco Use [...] suspected to have Coronavirus/COVID-19? No / Unsure 06/14/2022 9:53 AM EST documented as of this encounter Miscellaneous Notes * Telephone Encounter - Anika Yoder - 07/27/2022 11:51 AM EST Refaxed order, benefits and demographic information to [facility]. * Telephone Encounter - Vaishnavi Donald - 06/12/2022 9:44 AM EST Caller requesting call back from provider: Is the caller the patient? YES If caller is not the patient, what is the callers name? N/A Callers relationship to patient? N/A If person calling is not the patient themselves, is there a verbal release in FYI or permanent comments for this person: NO Reason for call back: Pt needs the referral information from 05/24 psychiatry #[id number] re-faxed over with office notes and demographic information. When she called to make an appt they said that noneof the information or referral were received. She does not want to speak to the referral departmentbut wants a call back from someone at this office as she wants to be seen faye. I did try to explain that they are the ones with the information but she would like a call back from us. Caller offered to speak with the nurse for assistance: YES Response: Patient offered to speak with nurse for assistance and patient agreed. Message forwarded to nurse. documented in this encounter Plan of Treatment Not on file documented as of this encounter Visit Diagnoses Not on filedocumented in this encounter Care Teams Agriculture Scientist Relationship Specialty Start Date End Date Philip Bartlett MD [address] [place] [address] PCP - General Internal Medicine 07/16/19 05/12/23 Aubrey Grimaldo DO [address] [place] [address] PCP - General Internal Medicine 05/13/23 01/12/24 Dwayne Puentes MD [address] [place] [address] PCP - General Internal Medicine 01/13/24 documented as of this encounter
--- OUTSIDE RECORDS SUMMARY | 2025-04-19 10:22 | XMS_ITS | Encounter Summary ---
Author Organization [facility] Address [address] [place] [address] Care Team Providers Care Parts Sales Associate Name Role Phone Aubrey Grimaldo DO Primary Care Provider Aleishaa Dwayne Rosen MD Primary Care Provider [phone] Encounter Details Date Type Department Care Team Description 10/01/2023 Child Life Assistant Report Medical Records [address] [place] [address] Radha Urias PA-C Social History Tobacco Use Types Packs/Day [...] on filedocumented in this encounter Care Teams Parts Sales Associate Relationship Specialty Start Date End Date Aubrey Grimaldo DO PCP - General Internal Medicine 05/13/23 01/12/24 Dwayne Puentes MD [address] [place], [place] [phone] PCP - General Internal Medicine 01/13/24 documented as of this encounter
--- OUTSIDE RECORDS SUMMARY | 2025-04-19 10:22 | XMS_ITS | Encounter Summary ---
Author Organization [facility] Address [address] [place] [address] Care Team Providers Care Electric Golf Cart Repairer Name Role Phone Philip Bartlett MD Primary Care Provider [phone] Aubrey Grimaldo DO Primary Care Provider Unavaila Dwayne Rosen MD Primary Care Provider [phone] Reason for Visit * Reason Onset Date Comments Error 12/08/2021 Encounter Details Date Type Department Care Team Description 12/08/2021 Telephone Adult Medicine [facility] [address] [place], [place] [phone] Philip Bartlett MD [address] [place] [phone] Error Social History Tobacco Use Types Packs/Day Years [...] on filedocumented in this encounter Care Teams Electric Golf Cart Repairer Relationship Specialty Start Date End Date Philip Bartlett MD [address] [place] [address] PCP - General Internal Medicine 07/16/19 05/12/23 Aubrey Grimaldo DO [address] [place] [address] PCP - General Internal Medicine 05/13/23 01/12/24 Dwayne Puentes MD [address] [place] [address] PCP - General Internal Medicine 01/13/24 documented as of this encounter
--- OUTSIDE RECORDS SUMMARY | 2025-04-19 10:22 | XMS_ITS | Encounter Summary ---
Author Organization [facility] Address [address] [place] [address] Care Team Providers Care Hazardous Substances Scientist Name Role Phone Philip Bartlett MD Primary Care Provider [phone] Aubrey Grimaldo DO Primary Care Provider Unavaila Dwayne Rosen MD Primary Care Provider [phone] Encounter Details Date Type Department Care Team Description 04/08/2023 Orders Only Medical Records [address] [place] [address] Pau Jiménez DO Social History Tobacco Use [...] Procedure Name Priority Date/Time Associated Diagnosis Comments OUTSIDE PATHOLOGY Routine 04/03/2023 documented in this encounter Results * OUTSIDE PATHOLOGY (04/03/2023) Pau Jiménez DO OUTSIDE LAB documented in this encounter Visit Diagnoses Not on filedocumented in this encounter Care Teams Hazardous Substances Scientist Relationship Specialty Start Date End Date Philip Bartlett MD [address] [place] [address] PCP - General Internal Medicine 07/16/19 05/12/23 Aubrey Grimaldo DO [address] [place] [address] PCP - General Internal Medicine 05/13/23 01/12/24 Dwayne Puentes MD [address] [place] [address] PCP - General Internal Medicine 01/13/24 documented as of this encounter
--- OUTSIDE RECORDS SUMMARY | 2025-04-19 10:22 | XMS_ITS | Encounter Summary ---
Author Organization [facility] Address [address] [place] [address] Care Team Providers Care Junior Software Developer Name Role Phone Philip Bartlett MD Primary Care Provider [phone] Aubrey Grimaldo DO Primary Care Provider Unavaila Dwayne Rosen MD Primary Care Provider [phone] Encounter Details Date Type Department Care Team Description 08/14/2022 Telephone Adult Medicine [address] [phone] Philip Bartlett MD [address] [place] [address] Social History Tobacco Use Types Packs/Day Years [...] on filedocumented in this encounter Care Teams Junior Software Developer Relationship Specialty Start Date End Date Philip Bartlett MD [address] [place] [address] PCP - General Internal Medicine 07/16/19 05/12/23 Aubrey Grimaldo DO [address] [place] [address] PCP - General Internal Medicine 05/13/23 01/12/24 Dwayne Puentes MD [address] [place] [address] PCP - General Internal Medicine 01/13/24 documented as of this encounter
--- OUTSIDE RECORDS SUMMARY | 2025-04-19 10:22 | XMS_ITS | Encounter Summary ---
Author Organization [facility] Address [address] [place] [address] Care Team Providers Care Gallery Or Museum Curator Name Role Phone Philip Bartlett MD Primary Care Provider [phone] Aubrey Grimaldo DO Primary Care Provider [facility] Dwayne Rosen MD Primary Care Provider [phone] Encounter Details Date Type Department Care Team Description 05/16/2022 Mma Fighter Report Medical Records [address] [place] [address] Justice Nova MD Social History Tobacco Use [...] suspected to have Coronavirus/COVID-19? No / Unsure 05/11/2022 11:02 AM EST documented as of this encounter Plan of Treatment Not on file documented as of this encounter Visit Diagnoses Not on filedocumented in this encounter Care Teams Gallery Or Museum Curator Relationship Specialty Start Date End Date Philip Bartlett MD [address] [place] [address] PCP - General Internal Medicine 07/16/19 05/12/23 Aubrey Grimaldo, [address] [place] [address] PCP - General Internal Medicine 05/13/23 01/12/24 Dwayne Puentes MD [address] [place] [address] PCP - General Internal Medicine 01/13/24 documented as of this encounter
--- OUTSIDE RECORDS SUMMARY | 2025-04-19 10:22 | XMS_ITS | Encounter Summary ---
Author Organization [facility] Address [address] [place] [address] Care Team Providers Care Buncher Operator Name Role Phone Philip Bartlett MD Primary Care Provider [phone] Aubrey Grimaldo DO Primary Care Provider Unavaila Dwayne Rosen MD Primary Care Provider [phone] Encounter Details Date Type Department Care Team Description 01/22/2022 Pt. Non Urgent Medical Question Adult Medicine B - [address] [phone] Philip Bartlett MD [address] [place] [address] Social History Tobacco Use Types Packs/Day Years [...] Telephone Encounter - Eileen Richard M.A. - 01/22/2022 10:33 AM EDTFrom: Irma Harris To: Katie Bartlett Sent: 01/22/2022 10:23 AM EDT Subject: Physical I am due for my annual physical any time after March 07. When I try to book online it only gives me dates in November and December. I would prefer not to wait that long. Thank You Irma Harris documented in this encounter Plan of Treatment Not on file documented as of this encounter Visit Diagnoses Not on filedocumented in this encounter Care Teams Buncher Operator Relationship Specialty Start Date End Date Philip Bartlett MD [address] [place] [address] PCP - General Internal Medicine 07/16/19 05/12/23 Aubrey Grimaldo DO [address] [place] [address] PCP - General Internal Medicine 05/13/23 01/12/24 Dwayne Puentes MD [address] [place] [address] PCP - General Internal Medicine 01/13/24 documented as of this encounter
--- OUTSIDE RECORDS SUMMARY | 2025-04-19 10:22 | XMS_ITS | Encounter Summary ---
Author Organization [facility] Address [address] [place] [address] Care Team Providers Care Fire Fighter Crash Fire And [employer] Name Role Phone Aubrey Grimaldo DO Primary Care Provider Dwayne Fleming MD Primary Care Provider [phone] Encounter Details Date Type Department Care Team Description 08/28/2023 Orders Only Medical Records [address] [place] [address] Adarsh Webb DO [address] [facility] [address] [facility] [place] [address] Social History Tobacco Use Types Packs/Day Years [...] on file documented as of this encounter Progress Notes * Stephanie Davis - 09/02/2023 8:55 AM EDT I will esnd msg. * Ling Monk M.A. - 08/30/2023 12:54 PM EDT Letter generated and sent * Adarsh Webb DO - 08/30/2023 9:23 AM EDT Please let the patient know that her colon polyp was benign and not precancerous. These are great news. Based on current guidelines, I recommend that she has a repeat screening colonoscopy in [address] the reminder into our system. The small bowel, colon and stomach biopsies came back normal. No signs of inflammation, infections,allergic conditions or precancerous lesions were identified. I recommend that she follows up with JESU Davis and her PCP as instructed for management of her chronic diarrhea/bloating. High-fiber diet recommended. Thank you. documented in this encounter Plan of Treatment Not on file documented as of this encounter Procedures Procedure Name Priority Date/Time Associated Diagnosis Comments OUTSIDE PATHOLOGY Routine 08/23/2023 documented in this encounter Results * OUTSIDE PATHOLOGY (08/23/2023) Adarsh Webb DO OUTSIDE LAB documented in this encounter Visit Diagnoses Not on filedocumented in this encounter Care Teams Fire Fighter [employer] Fire [employer] Relationship Specialty Start Date End Date Aubrey Grimaldo DO PCP - General Internal Medicine 05/13/23 01/12/24 Dwayne Puentes MD [address] [place] [address] PCP - General Internal Medicine 01/13/24 documented as of this encounter
--- OUTSIDE RECORDS SUMMARY | 2025-04-19 10:22 | XMS_ITS | Encounter Summary ---
Author Organization [facility] Address [address] [place] [address] Care Team Providers Care Order Puller Name Role Phone Re Aubrey BARTHOLOMEW Primary Care Provider Dwayne Fleming MD Primary Care Provider [phone] Reason for Visit * Reason Onset Date Comments Information Needed 07/08/2023 Encounter Details Date Type Department Care Team Description 07/08/2023 Telephone [facility]am[facility] - [address] [address] Pau Jiménez DO Information Needed Social History Tobacco Use Types Packs/Day Years [...] Telephone Encounter - Bianca Purdy R.N. - 07/08/2023 9:22 AM EST Call to pt- advised TRUNG does need to be signed. Discussed calling back with fax number to her 's work place. TRUNG can be faxed to given number for pt to complete and fax back to us tomorrow. * Telephone Encounter - Radha Ames - 07/08/2023 9:17 AM EST Pt states she had a hysterectomy in mar - wants her records sent to urology at [facility] - advised she would need a release signed pt states she was told she would not need to have this done? -wants it faxed to [phone] - any questions please call pt documented in this encounter Plan of Treatment Not on file documented as of this encounter Visit Diagnoses Not on filedocumented in this encounter Care Teams Order Puller Relationship Specialty Start Date End Date Aubrey Grimaldo DO PCP - General Internal Medicine 05/13/23 01/12/24 Dwayne Puentes MD [address] [place] [address] PCP - General Internal Medicine 01/13/24 documented as of this encounter
--- OUTSIDE RECORDS SUMMARY | 2025-04-19 10:22 | XMS_ITS | Encounter Summary ---
Author Organization [facility] Address [address] [place] [address] Care Team Providers Care Director Of Teenage Activities Name Role Phone Philip Bartlett MD Primary Care Provider [phone] Aubrey Grimaldo DO Primary Care Provider Unavaila Dwayne Rosen MD Primary Care Provider [phone] Encounter Details Date Type Department Care Team Description 04/12/2023 Pt. Non Urgent Medic al Question OBGYN - [place] [address] [place] [address] Pau Jiménez DO Social History Tobacco Use [...] Telephone Encounter - Bianca Purdy R.N. - 04/12/2023 2:41 PM EDTFrom: Irma Kaseyhiram To: Kyle Jiménez Sent: 04/12/2023 2:39 PM EDT Subject: Urine Does that mean I have an infection. documented in this encounter Plan of Treatment Not on file documented as of this encounter Visit Diagnoses Not on filedocumented in this encounter Care Teams Director Of Teenage Activities Relationship Specialty Start Date End Date Philip Bartlett MD [address] [place] [address] PCP - General Internal Medicine 07/16/19 05/12/23 Aubrey Grimaldo DO [address] [place] [address] PCP - General Internal Medicine 05/13/23 01/12/24 Dwayne Puentes MD [address] [place] [address] PCP - General Internal Medicine 01/13/24 documented as of this encounter
--- OUTSIDE RECORDS SUMMARY | 2025-04-19 10:22 | XMS_ITS | Encounter Summary ---
Author Organization [facility] Address [address] [place] [address] Care Team Providers Care Communication And Outreach Manager Name Role Phone Aubrey Grimaldo DO Primary Care Provider Dwayne Fleming MD Primary Care Provider [phone] Encounter Details Date Type Department Care Team Description 09/22/2023 Pt. Non Urgent Medic al Question Adult Medicine - [address] [address] Aubrey Grimaldo DO Social History Tobacco Use Types Packs/Day [...] encounter Miscellaneous Notes * Telephone Encounter - Monique Og M.A. - 09/23/2023 9:27 AM EDTFrom: Irma Harris To: Hesham Grimaldo Sent: 09/22/2023 4:08 PM EDT Subject: Being tired I was starting to feel good but all of a sudden I feel exhausted all the time. I'm so tired I end up napping during the day. documented in this encounter Plan of Treatment Not on file documented as of this encounter Visit Diagnoses Not on filedocumented in this encounter Care Teams Communication And Outreach Manager Relationship Specialty Start Date End Date Aubrey Grimaldo DO PCP - General Internal Medicine 05/13/23 01/12/24 Dwayne Puentes MD [address] [place] [address] PCP - General Internal Medicine 01/13/24 documented as of this encounter
--- OUTSIDE RECORDS SUMMARY | 2025-04-19 10:22 | XMS_ITS | Encounter Summary ---
Author Organization [facility] Address [address] [place] [address] Care Team Providers Care Channel Marketing Manager Name Role Phone Aubrey Grimaldo DO Primary Care Provider Dwayne Fleming MD Primary Care Provider [phone] Encounter Details Date Type Department Care Team Description 08/13/2023 Pt. Non Urgent Medic al Question Adult Medicine - [address] [address] Aubrey Grimaldo DO Social History Tobacco Use [...] Miscellaneous Notes * Telephone Encounter - Amarilis Peralta L.P.N. - 08/13/2023 1:59 PM EST From: Irma Harris To: Hesham Grimaldo Sent: 08/13/2023 1:51 PM EST Subject: Er follow up I was seen in the [facility] er on Saturday and they want me to follow up with you. documented in this encounter Plan of Treatment Not on file documented as of this encounter Visit Diagnoses Not on filedocumented in this encounter Care Teams Channel Marketing Manager Relationship Specialty Start Date End Date Aubrey Grimaldo DO PCP - General Internal Medicine 05/13/23 01/12/24 Dwayne Puentes MD [address] [place] [address] PCP - General Internal Medicine 01/13/24 documented as of this encounter
--- OUTSIDE RECORDS SUMMARY | 2025-04-19 10:22 | XMS_ITS | Encounter Summary ---
Author Organization [facility] Address [address] [place] [address] Care Team Providers Care Electronic Scale Assembler And Tester Name Role Phone Philip Bartlett MD Primary Care Provider [phone] Aubrey Grimaldo DO Primary Care Provider Unavaila Dwayne Rosen MD Primary Care Provider [phone] Reason for Visit * Reason Onset Date Comments Scrummaster Feedback 05/31/2022 Neuropsychology Encounter Details Date Type Department Care Team Description 05/31/2022 Telephone Adult Medicine [address] [address] Philip Bartlett MD [address] [place] [address] Scrummaster Feedback (Neuropsychology) Social History Tobacco Use Types Packs/Day Years [...] encounter Miscellaneous Notes * Telephone Encounter - Ayesha Romero - 05/31/2022 3:37 PM EST Message below was given too Irma and as patient requested . Letter for Neuro psychology mailed too patient addressed on 05/29/2022. Number, addressed was verbal given too Irma . KA RMA * Telephone Encounter - Katherine Harris PA-C - 05/31/2022 3:14 PM EST I [address] place referral to Neuropsychology for evaluation. She also requested a specific referral be placed to a Dr. Mary Brown ([place] lastvisit so that is why this was placed. * Telephone Encounter - Julian Jaramillo - 05/31/2022 2:07 PM EST Patient states that referral should be for Neuropsychology and not Neurology. Patient states this referral was not needed. Current referral closed at this time. Thanks, [facility] Referral Department documented in this encounter Plan of Treatment Not on file documented as of this encounter Visit Diagnoses Not on filedocumented in this encounter Care Teams Electronic Scale Assembler And Tester Relationship Specialty Start Date End Date Philip Bartlett MD [address] [place] [address] PCP - General Internal Medicine 07/16/19 05/12/23 Aubrey Grimaldo DO [address] [place] [address] PCP - General Internal Medicine 05/13/23 01/12/24 Dwayne Puentes MD [address] [place] [address] PCP - General Internal Medicine 01/13/24 documented as of this encounter
--- OUTSIDE RECORDS SUMMARY | 2025-04-19 10:22 | XMS_ITS | Encounter Summary ---
Author Organization [facility] Address [address] [place] [address] Care Team Providers Care Union Organizer Name Role Phone Philip Bartlett MD Primary Care Provider [phone] Aubrey Grimaldo DO Primary Care Provider Unavaila Dwayne Rosen MD Primary Care Provider [phone] Reason for Visit * Reason Onset Date Comments Surgical Follow Up 05/08/2023 Encounter Details Date Type Department Care Team Description 05/08/2023 Telephone OBGYN - [address] [address] Pau Jiménez DO Surgical Follow Up Social History Tobacco Use Types Packs/Day Years [...] Telephone Encounter - Bianca Purdy R.N. - 05/08/2023 9:38 AM EST Message sent to provider. * Telephone Encounter - Theresa Valdivia - 05/08/2023 9:29 AM EST Pt calling concerned; states had an surgical follow up yesterday and was giving Rx estradiol to insert vaginally; patient states she was unable to insert estradiol because her vagina is severely swollen and she feels an burning sensation. Pls advise (pt requesting message be sent to dr. Jiménez) documented in this encounter Plan of Treatment Not on file documented as of this encounter Visit Diagnoses Not on filedocumented in this encounter Care Teams Union Organizer Relationship Specialty Start Date End Date Philip Bartlett MD [address] [place] [address] PCP - General Internal Medicine 07/16/19 05/12/23 Aubrey Grimaldo DO [address] [place] [address] PCP - General Internal Medicine 05/13/23 01/12/24 Dwayne Puentes MD [address] [place] [address] PCP - General Internal Medicine 01/13/24 documented as of this encounter
--- OUTSIDE RECORDS SUMMARY | 2025-04-19 10:22 | XMS_ITS | Encounter Summary ---
Author Organization [facility] Address [address] [place] [address] Care Team Providers Care Instrumental Musician Name Role Phone Philip Bartlett MD Primary Care Provider Aubrey Grimaldo DO Primary Care Provider Unavaila Dwayne Rosen MD Primary Care Provider Reason for Visit * Reason Onset Date Comments Streetcar Starter Feedback 01/11/2022 Otolaryngology Encounter Details Date Type Department Care Team Description 01/11/2022 Telephone Adult Medicine [address] [id number] Philip Bartlett MD [address] [place] [address] Streetcar Starter Feedback (Otolaryngology) Social History Tobacco Use Types Packs/Day Years [...] suspected to have Coronavirus/COVID-19? No / Unsure 01/10/2022 8:31 AM EDT documented as of this encounter Miscellaneous Notes * Telephone Encounter - Philip Bartlett MD - 03/05/2022 12:57 PM EDT Seen by Chris for this pls forward * Telephone Encounter - Nakita Lincoln - 03/05/2022 11:51 AM EDT Please review this patients new referral request. The referral has been pended. Please complete thefollowing: If approved> sign order If denied>please give instructions and route to your practice nursing pool. Practice nurse should inform referrals and the patient if denied. * Telephone Encounter - Pablo Martinez - 01/11/2022 9:48 AM EDT What insurance does the patient have today? [place] $0 [id number] Effective 03/10/09: BCBS will not retro referral requests over 90 days. If request is for this please instruct patient to call the 800# on their insurance card to appeal. Do not submit a request. Referrals cannot be processed if the insurance is not accurate. If the insurance listed above in red is NO BILLING INFORMATION FOUND FOR THIS ENCOUTNER The patients correct insurance must be obtained and registered in [facility] or their referral can not be processed. Is this a retro request? NO. If yes for what date of service do you need the retro referral? N/A Who is calling to request this referral? Patient If the caller is not the patient, what is their name? N/A Ask the patient WHO referred them to this specialty: Patient saw Chris Grijalva at [facility] for the problem and was told if symptoms did not resolve or worsen they would refer them to this specialty FIRST and LAST NAME of SPECIALIST PATIENT is seeing: TBD What specialty is this? Otolaryngology DIAGNOSIS Patient is being seen for (Not a body part or a procedure): Rt ear pain and headaches Have you seen this SPECIALIST for this PROBLEM/DX before?NO If YES, when:n/a Have you checked REVIEW or the APPT DESK to see if this referral has already been done or has visits left? YES Is this visit:Initial Visit Address of Specialist:[place] Phone # of Specialist:[place] Fax #: (if applicable):TBD Does patient have an appointment scheduled?: NO Date of appointment- (including a retro-request): n/a Is this appointment related to: Not MVA, WC or Surgery related documented in this encounter Plan of Treatment Not on file documented as of this encounter Visit Diagnoses Not on filedocumented in this encounter Care Teams Instrumental Musician Relationship Specialty Start Date End Date Philip Bartlett MD [address] [place] [address] PCP - General Internal Medicine 07/16/19 05/12/23 Aubrey Grimaldo DO [address] [place] [address] PCP - General Internal Medicine 05/13/23 01/12/24 Dwayne Puentes MD [address] [place] [address] PCP - General Internal Medicine 01/13/24 documented as of this encounter
--- OUTSIDE RECORDS SUMMARY | 2025-04-19 10:22 | XMS_ITS | Encounter Summary ---
Author Organization [facility] Address [address] [place] [address] Care Team Providers Care Finish Machine Tender Name Role Phone Dwayne Puentes MD Primary Care Provider [phone] Encounter Details Date Type Department Care Team Description 01/26/2024 Pt. Non Urgent Medical Question Gastroenterology - [place] [address] [facility] [address] [place] [address] Nevaeh Uriostegui, LorenaPAS Social History Tobacco Use Types Packs/Day Years [...] on filedocumented in this encounter Care Teams Finish Machine Tender Relationship Specialty Start Date End Date Dwayne Puentes MD [address] [place] [address] PCP - General Internal Medicine 01/13/24 documented as of this encounter
--- OUTSIDE RECORDS SUMMARY | 2025-04-19 10:22 | XMS_ITS | Encounter Summary ---
Author Organization [facility] Address [address] [place] [address] Care Team Providers Care Alignment Mechanic Name Role Phone Philip Bartlett MD Primary Care Provider [phone] Aubrey Grimaldo DO Primary Care Provider Unavaila Dwayne Rosen MD Primary Care Provider [phone] Encounter Details Date Type Department Care Team Description 04/09/2023 Orders Only Medical Records [address] [place] [address] [facility] Social History Tobacco Use Types Packs/Day Years [...] Name Priority Date/Time Associated Diagnosis Comments OUTSIDE CT Routine 04/08/2023 documented in this encounter Results * OUTSIDE CT (04/08/2023) [facility] RADIOLOGY documented in this encounter Visit Diagnoses Not on filedocumented in this encounter Care Teams Alignment Mechanic Relationship Specialty Start Date End Date Philip Bartlett MD [address] [place] [address] PCP - General Internal Medicine 07/16/19 05/12/23 Aubrey Grimaldo DO [address] [place] [address] PCP - General Internal Medicine 05/13/23 01/12/24 Dwayne Puentes MD [address] [place] [address] PCP - General Internal Medicine 01/13/24 documented as of this encounter
--- OUTSIDE RECORDS SUMMARY | 2025-04-19 10:22 | XMS_ITS | Encounter Summary ---
Author Organization [facility] Address [address] [place] [address] Care Team Providers Care Music Minister Name Role Phone Philip Bartlett MD Primary Care Provider [phone] Aubrey Grimaldo DO Primary Care Provider [facility] Dwayne Rosen MD Primary Care Provider [phone] Encounter Details Date Type Department Care Team Description 10/16/2021 Client Support Representative Report Medical Records [address] [place] [address] Justice Nova MD Social History Tobacco Use [...] on filedocumented in this encounter Care Teams Music Minister Relationship Specialty Start Date End Date Philip Bartlett MD [address] [place] [address] PCP - General Internal Medicine 07/16/19 05/12/23 Aubrey Grimaldo, [address] [place] [address] PCP - General Internal Medicine 05/13/23 01/12/24 Dwayne Puentes MD [address] [place] [address] PCP - General Internal Medicine 01/13/24 documented as of this encounter
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
--- OUTSIDE RECORDS SUMMARY | 2025-04-19 10:22 | XMS_ITS | Encounter Summary ---
Author Organization [facility] Address [address] [place] [address] Care Team Providers Care Sustainability Coach Name Role Phone Aubrey Grimaldo DO Primary Care Provider Aleishaa Dwayne Rosen MD Primary Care Provider [phone] Encounter Details Date Type Department Care Team Description 07/13/2023 Pt. Non Urgent Medical Question Gastroenterology - [place] 175 [facility] [address] [place] [address] Nevaeh Uriostegui DScPAS Social History [...] on filedocumented in this encounter Care Teams Sustainability Coach Relationship Specialty Start Date End Date Aubrey Grimaldo DO PCP - General Internal Medicine 05/13/23 01/12/24 Dwayne Puentes MD [address] [place] [address] PCP - General Internal Medicine 01/13/24 documented as of this encounter
== END 2025-04-19 09:24 | disposition home or self-care (01) ==
LOC: HO.HMGAL 09:24
PROVIDERS: PCP Internal Medicine; Visit Provider Registered Nurse Emergency
DX: J30.89 Other allergic rhinitis (principal)
CPT/HCPCS: 95117; 95165

== ENCOUNTER 2025-05-03 14:52 | Outpatient (AMB) | payer BC, MEDICARE, SELFPAY ==
--- OUTSIDE RECORDS SUMMARY | 2025-05-03 19:39 | XMS_ITS | Encounter Summary ---
Author Organization [facility] Address [address] [place] [address] Care Team Providers Care Capsule Inspector Name Role Phone Roxi Cesar MD Primary Care Provider [phone] Philip Bartlett MD Primary Care Provider [phone] Aubrey Grimaldo DO Primary Care Provider [facility] Dwayne Rosen MD Primary Care Provider [phone] Encounter Details Date Type Department Care Team Description 09/19/2012 Paint Roller Covermaker Report Medical Records [address] [place] [address] Anil Dominguez PA-C Social History Tobacco Use [...] on filedocumented in this encounter Care Teams Capsule Inspector Relationship Specialty Start Date End Date Roxi Cesar MD [address] [place], [place] [phone] PCP - General 09/12/03 07/15/19 Philip Bartlett MD [address] [place] [address] PCP - General Internal Medicine 07/16/19 05/12/23 Aubrey Grimaldo, [address] [place] [address] PCP - General Internal Medicine 05/13/23 01/12/24 Dwayne Puentes MD [address] [place] [address] PCP - General Internal Medicine 01/13/24 documented as of this encounter
--- OUTSIDE RECORDS SUMMARY | 2025-05-03 19:39 | XMS_ITS | Encounter Summary ---
Author Organization [facility] Address [address] [place] [address] Care Team Providers Care Drop Machine Operator Name Role Phone Roxi Cesar MD Primary Care Provider [phone] Philpi Bartlett MD Primary Care Provider [phone] Aubrey Grimaldo DO Primary Care Provider [facility] Dwayne Rosen MD Primary Care Provider [phone] Encounter Details Date Type Department Care Team Description 09/19/2011 Software Test Developer Report Medical Records [address] [place] [address] Justice Nova MD Social History Tobacco Use [...] on filedocumented in this encounter Care Teams Drop Machine Operator Relationship Specialty Start Date End Date Roxi Cesar MD [address] [place], [place] [phone] PCP - General 09/12/03 07/15/19 Philip Bartlett MD [address] [place] [address] PCP - General Internal Medicine 07/16/19 05/12/23 Aubrey Grimaldo, [address] [place] [address] PCP - General Internal Medicine 05/13/23 01/12/24 Dwayne Puentes MD [address] [place] [address] PCP - General Internal Medicine 01/13/24 documented as of this encounter
--- OUTSIDE RECORDS SUMMARY | 2025-05-03 19:39 | XMS_ITS | Encounter Summary ---
Author Organization [facility] Address [address] [place] [address] Care Team Providers Care Component Inspector Name Role Phone Philip Bartlett MD Primary Care Provider [phone] Aubrey Grimaldo DO [facility] MD Primary Care Provider [phone] Encounter Details Date Type Department Care Team Description 05/12/2020 Pt. Non Urgent Medical Question Gastroenterology - [place] 175 [facility] [address] [place] [address] Nevaeh Uriostegui DScPAS Social History [...] on filedocumented in this encounter Care Teams Component Inspector Relationship Specialty Start Date End Date Philip Bartlett MD [address] [place] [address] PCP - General Internal Medicine 07/16/19 05/12/23 Aubrey Grimaldo, [address] [place] [address] PCP - General Internal Medicine 05/13/23 01/12/24 Dwayne Puentes MD [address] [place] [address] PCP - General Internal Medicine 01/13/24 documented as of this encounter
--- OUTSIDE RECORDS SUMMARY | 2025-05-03 19:39 | XMS_ITS | Encounter Summary ---
Author Organization [facility] Address [address] [place] [address] Care Team Providers Care Broke Man Name Role Phone Philip Bartlett MD Primary Care Provider [phone] Aubrey Grimaldo DO Primary Care Provider [facility] Dwayne Rosen MD Primary Care Provider [phone] Encounter Details Date Type Department Care Team Description 11/14/2019 Orders Only Adult Medicine [address] [address] Sarah Husesin PA-C Hematuria, unspecified type (Primary Dx) Social [...] Primary documented in this encounter Care Teams Broke Man Relationship Specialty Start Date End Date Philip Bartlett MD [address] [place] [address] [phone] PCP - General Internal Medicine 07/16/19 05/12/23 Aubrey Grimaldo, [address] [place] [address] PCP - General Internal Medicine 05/13/23 01/12/24 Dwayne Puentes MD [address] [place] [address] PCP - General Internal Medicine 01/13/24 documented as of this encounter
--- OUTSIDE RECORDS SUMMARY | 2025-05-03 19:39 | XMS_ITS | Encounter Summary ---
Author Organization [facility] Address [address] [place] [address] Care Team Providers Care Pest Controller Name Role Phone Philip Bartlett MD Primary Care Provider [phone] Aubrey Grimaldo DO Primary Care Provider [facility] MD Primary Care Provider [phone] Encounter Details Date Type Department Care Team Description 11/16/2019 Orders Only Adult Medicine [address] [address] Sarah Hussein PA-C Periumbilical abdominal pain Social History Tobacco Use Types Packs/Day Years [...] Associated Diagnosis Comments CT ABD & PELVIS W/O CONTRAST STAT 11/13/2019 Periumbilical abdominal pain documented in this encounter Results * CT ABD & PELVIS W/O CONTRAST (11/13/2019) Sarah Hussein PA-C CT SCANS Performing Organization Address City/State/[facility] Co de Phone Number [facility] [address] [facility] documented in this encounter Visit Diagnoses Diagnosis Periumbilical abdominal pain Abdominal pain, periumbilic documented in this encounter Care Teams Pest Controller Relationship Specialty Start Date End Date Philip Bartlett MD [address] [place] [address] PCP - General Internal Medicine 07/16/19 05/12/23 Aubrey Grimaldo DO [address] [place] [address] PCP - General Internal Medicine 05/13/23 01/12/24 Dwayne Puentes MD [address] [place] [address] PCP - General Internal Medicine 01/13/24 documented as of this encounter
--- OUTSIDE RECORDS SUMMARY | 2025-05-03 19:39 | XMS_ITS | Encounter Summary ---
Author Organization [facility] Address [address] [place] [address] Care Team Providers Care Machine Hamper Maker Name Role Phone Roxi Cesar MD Primary Care Provider Philip Bartlett MD Primary Care Provider [phone] Aubrey Grimaldo DO Primary Care Provider Unavaila Dwayne Rosen MD Primary Care Provider [phone] Encounter Details Date Type Department Care Team Description 04/23/2019 Orders Only Gastroenterology - [address] [place] [address] Nevaeh Uriostegui DScPAS Gastroesophageal reflux disease, esophagitis presence not specified; Chronic nausea Social History Tobacco Use Types Packs/Day [...] Procedure Name Priority Date/Time Associated Diagnosis Comments SONO ABDOMEN COMPLETE Routine 04/22/2019 Gastroesophageal reflux disease, esophagitis presence not specified Chronic nausea documented in this encounter Results * SONO ABDOMEN COMPLETE (04/22/2019) Nevaeh Uriostegui DScPAS ULTRASOUND documented in this encounter Visit Diagnoses Diagnosis Gastroesophageal reflux disease, esophagitis presence not specified Chronic nausea Nausea alone documented in this encounter Care Teams Machine Hamper Maker Relationship Specialty Start Date End Date Roxi Cesar MD [address] [place] [address] PCP - General 09/12/03 07/15/19 Philip Bartlett MD [address] [place] [address] PCP - General Internal Medicine 07/16/19 05/12/23 Aubrey Grimaldo DO [address] [place] [address] PCP - General Internal Medicine 05/13/23 01/12/24 Dwayne Puentes MD [address] [place] [address] PCP - General Internal Medicine 01/13/24 documented as of this encounter
--- OUTSIDE RECORDS SUMMARY | 2025-05-03 19:39 | XMS_ITS | Encounter Summary ---
Author Organization [facility] Address [address] [place] [address] Care Team Providers Care Commercial Center Manager Name Role Phone Roxi Cesar MD Primary Care Provider Philip Bartlett MD Primary Care Provider [phone] Aubrey Grimaldo DO Primary Care Provider [facility] Dwayne Rosen MD Primary Care Provider [phone] Encounter Details Date Type Department Care Team Description 04/14/2012 Half Backer Report Medical Records 4 [place] [address] Justice Nova MD Social History Tobacco Use [...] on filedocumented in this encounter Care Teams Commercial Center Manager Relationship Specialty Start Date End Date Roxi Cesar MD [address] [place], [place] [phone] PCP - General 09/12/03 07/15/19 Philip Bartlett MD [address] [place] [address] PCP - General Internal Medicine 07/16/19 05/12/23 Aubrey Grimaldo, [address] [place] [address] PCP - General Internal Medicine 05/13/23 01/12/24 Dwayne Puentes MD [address] [place] [address] PCP - General Internal Medicine 01/13/24 documented as of this encounter
--- OUTSIDE RECORDS SUMMARY | 2025-05-03 19:39 | XMS_ITS | Encounter Summary ---
Author Organization [facility] Address [address] [place] [address] Care Team Providers Care Tool Room Machinist Name Role Phone Roxi Cesar MD Primary Care Provider [phone] Philip Bartlett MD Primary Care Provider [phone] Aubrey Grimaldo DO Primary Care Provider [facility] Dwayne Rosen MD Primary Care Provider [phone] Encounter Details Date Type Department Care Team Description 05/01/2019 Hospital Medical Records [address] [place] [address] Anju Faye DO Social History Tobacco Use [...] on filedocumented in this encounter Care Teams Tool Room Machinist Relationship Specialty Start Date End Date Roxi Cesar MD [address] [place], [place] [phone] PCP - General 09/12/03 07/15/19 Philip Bartlett MD [address] [place] [address] PCP - General Internal Medicine 07/16/19 05/12/23 Aubrey Grimaldo, DO [address] [place] [address] PCP - General Internal Medicine 05/13/23 01/12/24 Dwayne Puentes MD [address] [place] [address] PCP - General Internal Medicine 01/13/24 documented as of this encounter
--- OUTSIDE RECORDS SUMMARY | 2025-05-03 19:39 | XMS_ITS | Encounter Summary ---
Author Organization [facility] Address [address] [place] [address] Care Team Providers Care Relief Map Modeler Name Role Phone Philip Bartlett MD Primary Care Provider [phone] Aubrey Grimaldo DO Primary Care Provider [facility] Dwayne Rosen MD Primary Care Provider [phone] Encounter Details Date Type Department Care Team Description 05/02/2020 Telephone Gastroenterology [facility] 175 [facility] [address] [place] [address] Nevaeh Uriostegui DScPAS Social History [...] on filedocumented in this encounter Care Teams Relief Map Modeler Relationship Specialty Start Date End Date Philip Bartlett MD [address] [place] [address] PCP - General Internal Medicine 07/16/19 05/12/23 Aubrey Grimaldo, [address] [place] [address] PCP - General Internal Medicine 05/13/23 01/12/24 Dwayne Puentes MD [address] [place] [address] PCP - General Internal Medicine 01/13/24 documented as of this encounter
--- OUTSIDE RECORDS SUMMARY | 2025-05-03 19:39 | XMS_ITS | Encounter Summary ---
Author Organization [facility] Address [address] [place] [address] Care Team Providers Care Parking Lot Spotter Name Role Phone Philip Bartlett MD Primary Care Provider [phone] Aubrey Grimaldo DO Primary Care Provider Unavaila [facility] Dwayne Puentes MD Primary Care Provider [phone] Encounter Details Date Type Department Care Team Description 11/16/2019 SCAN Medical Records [address] [place] [address] Abstract, Provider Social History Tobacco Use Types [...] on filedocumented in this encounter Care Teams Parking Lot Spotter Relationship Specialty Start Date End Date Philip Bartlett MD [address] [place] [address] PCP - General Internal Medicine 07/16/19 05/12/23 Aubrey Grimaldo DO [address] [place] [address] PCP - General Internal Medicine 05/13/23 01/12/24 Dwayne Puentes MD [address] [place] [address] PCP - General Internal Medicine 01/13/24 documented as of this encounter
--- OUTSIDE RECORDS SUMMARY | 2025-05-03 19:39 | XMS_ITS | Encounter Summary ---
Author Organization [facility] Address [address] [place] [address] Care Team Providers Care Urology Nurse Name Role Phone Roxi Cesar MD Primary Care Provider [phone] Philip Bartlett MD Primary Care Provider [phone] Aubrey Grimaldo DO Primary Care Provider [facility] Dwayne Rosen MD Primary Care Provider [phone] Encounter Details Date Type Department Care Team Description 07/01/2019 Telephone Adult Medicine [facility] [address] [place] [address] Roxi Cesar MD [address] [place] [address] Social History Tobacco Use Types Packs/Day Years [...] on filedocumented in this encounter Care Teams Urology Nurse Relationship Specialty Start Date End Date Roxi Cesar MD [address] [place] [address] PCP - General 09/12/03 07/15/19 Philip Bartlett MD [address] [place] [address] PCP - General Internal Medicine 07/16/19 05/12/23 Aubrey Grimaldo DO [address] [place] [address] PCP - General Internal Medicine 05/13/23 01/12/24 Dwayne Puentes MD [address] [place] [address] PCP - General Internal Medicine 01/13/24 documented as of this encounter
--- OUTSIDE RECORDS SUMMARY | 2025-05-03 19:39 | XMS_ITS | Encounter Summary ---
Author Organization [facility] Address [address] [place] [address] Care Team Providers Care Senior Account Executive Name Role Phone Roxi Cesar MD Primary Care Provider [phone] Philip Bartlett MD Primary Care Provider [phone] Aubrey Grimaldo DO Primary Care Provider [facility] Dwayne Rosen MD Primary Care Provider [phone] Encounter Details Date Type Department Care Team Description 05/12/2019 Relish Maker Report Medical Records [address] [place] [address] Anju Faye DO Social History Tobacco Use [...] filedocumented in this encounter Care Teams Senior Account Executive Relationship Specialty Start Date End Date Roxi Cesar MD [address] [place], [place] [phone] PCP - General 09/12/03 07/15/19 Philip Bartlett MD [address] [place] [address] PCP - General Internal Medicine 07/16/19 05/12/23 Aubrey Grimaldo, DO [address] [place] [address], [place] [address] PCP - General Internal Medicine 05/13/23 01/12/24 Dwayne Puentes MD [address] [place] [address] PCP - General Internal Medicine 01/13/24 documented as of this encounter
--- OUTSIDE RECORDS SUMMARY | 2025-05-03 19:39 | XMS_ITS | Encounter Summary ---
Author Organization [facility] Address [address] [place] [address] Care Team Providers Care Acrylic Fabricator Name Role Phone Roxi Cesar MD Primary Care Provider [phone] Philip Bartlett MD Primary Care Provider [phone] Aubrey Grimaldo DO Primary Care Provider Aleisha Dwayne Rosen MD Primary Care Provider [phone] Encounter Details Date Type Department Care Team Description 05/01/2019 Old Medical Records Medical Records [address] [place] [address] Abstract, Provider Social History Tobacco Use Types [...] on filedocumented in this encounter Care Teams Acrylic Fabricator Relationship Specialty Start Date End Date Roxi Cesar MD [address] [place] [address] [phone] PCP - General 09/12/03 07/15/19 Philip Bartlett MD [address] [place] [address] PCP - General Internal Medicine 07/16/19 05/12/23 Aubrey Grimaldo, [address] [place] [address] PCP - General Internal Medicine 05/13/23 01/12/24 Dwayne Puentes MD [address] [place] [address] PCP - General Internal Medicine 01/13/24 documented as of this encounter
--- OUTSIDE RECORDS SUMMARY | 2025-05-03 19:39 | XMS_ITS | Encounter Summary ---
Author Organization [facility] Address [address] [place] [address] Care Team Providers Care Garment Cutter Name Role Phone Roxi Cesar MD Primary Care Provider [phone] Philip Bartlett MD Primary Care Provider Aubrey Grimaldo DO Primary Care Provider Aleisha Dwayne Rosen MD Primary Care Provider [phone] Encounter Details Date Type Department Care Team Description 04/17/2019 Old Medical Records Medical Records [address] [place] [address] Abstract, Provider Social History Tobacco Use Types [...] on filedocumented in this encounter Care Teams Garment Cutter Relationship Specialty Start Date End Date Roxi Cesar MD [address] [place] [address] [phone] PCP - General 09/12/03 07/15/19 Philip Bartlett MD [address] [place] [address] PCP - General Internal Medicine 07/16/19 05/12/23 Aubrey Grimaldo, [address] [place] [address] PCP - General Internal Medicine 05/13/23 01/12/24 Dwayne Puentes MD [address] [place] [address] PCP - General Internal Medicine 01/13/24 documented as of this encounter
--- OUTSIDE RECORDS SUMMARY | 2025-05-03 19:39 | XMS_ITS | Encounter Summary ---
Author Organization [facility] Address [address] [place] [address] Care Team Providers Care House Wirer Helper Name Role Phone Roxi Cesar MD Primary Care Provider [phone] Philip Bartlett MD Primary Care Provider [phone] Aubrey Grimaldo DO Primary Care Provider [facility] Dwayne Rosen MD Primary Care Provider [phone] Reason for Visit * Reason Comments E-prescribe Rx Request Encounter Details Date Type Department Care Team Description 07/14/2019 Refill OBGYN - [facility] [address] [place] [address] Elizabeth Suazo DO E-prescribe Rx Request Social [...] Dysmenorrhea documented in this encounter Care Teams House Wirer Helper Relationship Specialty Start Date End Date Roxi Cesar MD [address] [place] [address] PCP - General 09/12/03 07/15/19 Philip Bartlett MD [address] [place] [address] PCP - General Internal Medicine 07/16/19 05/12/23 Aubrey Grimaldo DO [address] [place] [address] PCP - General Internal Medicine 05/13/23 01/12/24 Dwayne Puentes MD [address] [place] [address] PCP - General Internal Medicine 01/13/24 documented as of this encounter
--- OUTSIDE RECORDS SUMMARY | 2025-05-03 19:39 | XMS_ITS | Encounter Summary ---
Author Organization [facility] Address [address] [place] [address] Care Team Providers Care Furnace Repair Mechanic Name Role Phone Philip Bartlett MD Primary Care Provider [phone] Aubrey Grimaldo DO Primary Care Provider [facility] Dwayne Rosen MD Primary Care Provider [phone] Encounter Details Date Type Department Care Team Description 05/25/2020 Release of Information Medical Records [address] [place] [address] [place] [address] Social History Tobacco Use Types Packs/Day Years [...] on filedocumented in this encounter Care Teams Furnace Repair Mechanic Relationship Specialty Start Date End Date Philip Bartlett MD [address] [place] [address] PCP - General Internal Medicine 07/16/19 05/12/23 Aubrey Grimaldo DO [address] [place] [address] PCP - General Internal Medicine 05/13/23 01/12/24 Dwayne Puentes MD [address] [place] [address] PCP - General Internal Medicine 01/13/24 documented as of this encounter
--- OUTSIDE RECORDS SUMMARY | 2025-05-03 19:39 | XMS_ITS | Encounter Summary ---
Author Organization [facility] Address [address] [place] [address] Care Team Providers Care Radiology Transcriptionist Name Role Phone Roxi Cesar MD Primary Care Provider [phone] Philip Bartlett MD Primary Care Provider [phone] Aubrey Grimaldo DO Primary Care Provider [facility] Dwayne Rosen MD Primary Care Provider [phone] Encounter Details Date Type Department Care Team Description 04/17/2019 Hospital Medical Records [address] [place] [address] Keon Sheehan MD 175 [facility] [address] [place] [address] Social History Tobacco Use Types Packs/Day Years [...] on filedocumented in this encounter Care Teams Radiology Transcriptionist Relationship Specialty Start Date End Date Roxi Cesar MD [address] [place] [address] PCP - General 09/12/03 07/15/19 Philip Bartlett MD [address] [place] [address] PCP - General Internal Medicine 07/16/19 05/12/23 Aubrey Grimaldo DO [address] [place] [address] PCP - General Internal Medicine 05/13/23 01/12/24 Dwayne Puentes MD [address] [place] [address] PCP - General Internal Medicine 01/13/24 documented as of this encounter
--- OUTSIDE RECORDS SUMMARY | 2025-05-03 19:40 | XMS_ITS | Encounter Summary ---
Author Organization [facility] Address [address] [place] [address] Care Team Providers Care Department Administrator Name Role Phone Philip Bartlett MD Primary Care Provider [phone] Aubrey Grimaldo DO Primary Care Provider [facility] D[facility] Rosen MD Primary Care Provider [phone] Encounter Details Date Type Department Care Team Description 02/21/2021 Paleontological Helper Report Medical Records [address] [place] [address] Matteo Carlisle, Social History Tobacco Use Types Packs/Day Years [...] on filedocumented in this encounter Care Teams Department Administrator Relationship Specialty Start Date End Date Philip Bartlett MD [address] [place] [address] PCP - General Internal Medicine 07/16/19 05/12/23 Aubrey Grimaldo, [address] [place] [address] PCP - General Internal Medicine 05/13/23 01/12/24 Dwayne Puentes MD [address] [place] [address] PCP - General Internal Medicine 01/13/24 documented as of this encounter
--- OUTSIDE RECORDS SUMMARY | 2025-05-03 19:40 | XMS_ITS | Encounter Summary ---
Author Organization [facility] Address [address] [place] [address] Care Team Providers Care Admitting Representative Name Role Phone Philip Bartlett MD Primary Care Provider [phone] Aubrey Grimaldo DO Primary Care Provider Unavaila Dwayne Rosen MD Primary Care Provider [phone] Encounter Details Date Type Department Care Team Description 06/16/2020 Pt. Non Urgent Medical Question Pulmonology - [place] 175 [facility] [address] [place] [id number] Zahida Bolivar MD 175 [place] [phone] Social History Tobacco Use Types Packs/Day Years [...] have Coronavirus / COVID-19? No / Unsure 06/15/2020 2:51 PM EST documented as of this encounter Plan of Treatment Not on file documented as of this encounter Visit Diagnoses Not on filedocumented in this encounter Care Teams Admitting Representative Relationship Specialty Start Date End Date Philip Bartlett MD [address] [place] [address] PCP - General Internal Medicine 07/16/19 05/12/23 Aubrey Grimaldo DO [address] [place] [address] PCP - General Internal Medicine 05/13/23 01/12/24 Dwayne Puentes MD [address] [place] [address] PCP - General Internal Medicine 01/13/24 documented as of this encounter
--- OUTSIDE RECORDS SUMMARY | 2025-05-03 19:40 | XMS_ITS | Encounter Summary ---
Author Organization [facility] Address [address] [place] [address] Care Team Providers Care Microchip Specialist Name Role Phone Roxi Cesar MD Primary Care Provider [phone] Philip Bartlett MD Primary Care Provider [phone] Aubrey Grimaldo DO Primary Care Provider [facility] Dwayne Rosen MD Primary Care Provider [phone] Encounter Details Date Type Department Care Team Description 09/29/2014 Information Services Vice President Report Medical Records [address] [place] [address] Justice Nova MD Social History Tobacco Use [...] on filedocumented in this encounter Care Teams Microchip Specialist Relationship Specialty Start Date End Date Roxi Cesar MD [address] [place], [place] [phone] PCP - General 09/12/03 07/15/19 Philip Bartlett MD [address] [place] [address] PCP - General Internal Medicine 07/16/19 05/12/23 Aubrey Grimaldo, [address] [place] [address] PCP - General Internal Medicine 05/13/23 01/12/24 Dwayne Puentes MD [address] [place] [address] PCP - General Internal Medicine 01/13/24 documented as of this encounter
--- OUTSIDE RECORDS SUMMARY | 2025-05-03 19:40 | XMS_ITS | Encounter Summary ---
Author Organization [facility] Address [address] [place] [address] Care Team Providers Care Client Services Administrator Name Role Phone Roxi Cesar MD Primary Care Provider [phone] Philip Bartlett MD Primary Care Provider [phone] Aubrey Grimaldo DO Primary Care Provider [facility] Dwayne Rosen MD Primary Care Provider [phone] Reason for Visit * Reason Onset Date Comments Call From Hospital 09/24/2014 [facility] Encounter Details Date Type Department Care Team Description 09/24/2014 Telephone Adult Medicine [address] [phone] Roxi Cesar MD [address] [place] [address] [phone] Call From Hospital ([facility]) Social History Tobacco Use Types Packs/Day Years [...] 9:52 AM EDT Received a call from [facility], this patient has been admitted to hospital today documented in this encounter Plan of Treatment Not on file documented as of this encounter Visit Diagnoses Not on filedocumented in this encounter Care Teams Client Services Administrator Relationship Specialty Start Date End Date Roxi Cesar MD [address] [place] [address] PCP - General 09/12/03 07/15/19 Philip Bartlett MD [address] [place] [address] PCP - General Internal Medicine 07/16/19 05/12/23 Aubrey Grimaldo DO [address] [place] [address] PCP - General Internal Medicine 05/13/23 01/12/24 Dwayne Puentes MD [address] [place] [address] 64[address] PCP - General Internal Medicine 01/13/24 documented as of this encounter
--- OUTSIDE RECORDS SUMMARY | 2025-05-03 19:40 | XMS_ITS | Clinical Summary ---
Author Organization [facility] Address [address] [place] [address] Care Team Providers Care Flare Worker Name Role Phone Philip Bartlett MD Primary Care Provider [phone] Allergies Active Allergy Reactions Criticality Noted Date Comments Ipratropium Other (See Comments),Swelling 08/21/2007 Doesn't remember Facial swelling Ipratropium [facility] 04/15/2019 Other Swelling Low 04/13/2015 Prochlorperazine [...] age to complete this topic Care Teams Flare Worker Relationship Specialty Start Date End Date Philip Bartlett MD PCP - General Internal Medicine 09/12/21
--- OUTSIDE RECORDS SUMMARY | 2025-05-03 19:40 | XMS_ITS | Encounter Summary ---
Author Organization [facility] Address [address] [place] [address] Care Team Providers Care Temporary Receptionist Name Role Phone Philip Bartlett MD Primary Care Provider [phone] Aubrey Grimaldo DO Primary Care Provider Unavaila Dwayne Rosen MD Primary Care Provider [phone] Encounter Details Date Type Department Care Team Description 08/28/2022 Pt. Non Urgent Medic al Question OBGYN - [place] [address] [place] [address] Navarro Stewart, CN [address] [place] [address] Social History Tobacco Use Types Packs/Day Years [...] on filedocumented in this encounter Care Teams Temporary Receptionist Relationship Specialty Start Date End Date Philip Bartlett MD [address] [place] [address] PCP - General Internal Medicine 07/16/19 05/12/23 Aubrey Grimaldo DO [address] [place] [address] PCP - General Internal Medicine 05/13/23 01/12/24 Dwayne Puentes MD [address] [place] [address] PCP - General Internal Medicine 01/13/24 documented as of this encounter
--- OUTSIDE RECORDS SUMMARY | 2025-05-03 19:40 | XMS_ITS | Encounter Summary ---
Author Organization [facility] Address [address] [place] [address] Care Team Providers Care Vp Purchasing Name Role Phone Phiilp Bartlett MD Primary Care Provider Aubrey Grimaldo DO Primary Care Provider Unavaila Dwayne Rosen MD Primary Care Provider [phone] Reason for Visit * Reason Onset Date Comments medication problems 09/14/2022 Encounter Details Date Type Department Care Team Description 09/14/2022 Telephone Gastroenterology - [place] [address] [facility] [address] [place] [address] Nevaeh Uriostegui DScPAS medication problems [...] on filedocumented in this encounter Care Teams Vp Purchasing Relationship Specialty Start Date End Date Philip Bartlett MD [address] [place] [address] PCP - General Internal Medicine 07/16/19 05/12/23 Aubrey Grimaldo DO [address] [place] [address] PCP - General Internal Medicine 05/13/23 01/12/24 Dwayne Puentes MD [address] [place] [address] PCP - General Internal Medicine 01/13/24 documented as of this encounter
--- OUTSIDE RECORDS SUMMARY | 2025-05-03 19:40 | XMS_ITS | Encounter Summary ---
Author Organization [facility] Address [address] [place] [address] Care Team Providers Care Radiator Core Tester Name Role Phone Roxi Cesar MD Primary Care Provider [phone] Philip Bartlett MD Primary Care Provider [phone] Aubrey Grimaldo DO Primary Care Provider [facility] Dwayne Rosen MD Primary Care Provider [phone] Encounter Details Date Type Department Care Team Description 12/01/2018 Partition Assembly Machine Operator Report Medical Records 4 [place] [address] Justice Nova MD Social History Tobacco Use [...] on filedocumented in this encounter Care Teams Radiator Core Tester Relationship Specialty Start Date End Date Roxi Cesar MD [address] [place], [place] [phone] PCP - General 09/12/03 07/15/19 Philip Bartlett MD [address] [place] [address] PCP - General Internal Medicine 07/16/19 05/12/23 Aubrey Grimaldo, [address] [place] [address] PCP - General Internal Medicine 05/13/23 01/12/24 Dwayne Puentes MD [address] [place] [address] PCP - General Internal Medicine 01/13/24 documented as of this encounter
--- OUTSIDE RECORDS SUMMARY | 2025-05-03 19:40 | XMS_ITS | Encounter Summary ---
Author Organization [facility] Address [address] [place] [address] Care Team Providers Care C Consultant Name Role Phone Philip Bartlett MD Primary Care Provider Aubrey Grimaldo DO Primary Care Provider [facility] MD Primary Care Provider [phone] Encounter Details Date Type Department Care Team Description 09/13/2022 Foreign Exchange Position Clerk Report Medical Records [address] [place] [address] Kenn Rutherford MD Social History Tobacco Use [...] on filedocumented in this encounter Care Teams C Consultant Relationship Specialty Start Date End Date Philip Bartlett MD [address] [place] [address] PCP - General Internal Medicine 07/16/19 05/12/23 Aubrey Grimaldo, [address] [place] [address] PCP - General Internal Medicine 05/13/23 01/12/24 Dwayne Puentes MD [address] [place] [address] PCP - General Internal Medicine 01/13/24 documented as of this encounter
--- OUTSIDE RECORDS SUMMARY | 2025-05-03 19:40 | XMS_ITS | Encounter Summary ---
Author Organization [facility] Address [address] [place] [address] Care Team Providers Care Track Subway Repair Supervisor Name Role Phone Philip Bartlett MD Primary Care Provider [phone] Aubrey Grimaldo DO Primary Care Provider Unavaila Dwayne Rosen MD Primary Care Provider [phone] Encounter Details Date Type Department Care Team Description 07/05/2021 Refill Adult Medicine [address] [phone] Philip Bartlett MD [address] [place] [address] [phone] Social History Tobacco Use Types Packs/Day Years [...] on filedocumented in this encounter Care Teams Track Subway Repair Supervisor Relationship Specialty Start Date End Date Philip Bartlett MD [address] [place] [address] PCP - General Internal Medicine 07/16/19 05/12/23 Aubrey Grimaldo DO [address] [place] [address] PCP - General Internal Medicine 05/13/23 01/12/24 Dwayne Puentes MD [address] [place] [address] PCP - General Internal Medicine 01/13/24 documented as of this encounter
--- OUTSIDE RECORDS SUMMARY | 2025-05-03 19:40 | XMS_ITS | Encounter Summary ---
Author Organization [facility] Address [address] [place] [address] Care Team Providers Care Gold Marker Name Role Phone Philip Bartlett MD Primary Care Provider [phone] Aubrey Grimaldo DO Primary Care Provider Unavaila Dwayne Rosen MD Primary Care Provider [phone] Encounter Details Date Type Department Care Team Description 12/17/2022 Pt. Non Urgent Medic al Question OBGYN - [place] [address] [place] [address] Navarro Stewart, CNM [address] [place] [address] Social History Tobacco Use Types Packs/Day Years [...] Telephone Encounter - Bianca Purdy R.N. - 12/17/2022 9:43 AM EDTFrom: Irma Harris To: Navarro Stewart CNM Sent: 12/17/2022 8:40 AM EDT Subject: Period This is the second period after stopping the pills. I am bleeding alot. So bad I've bleed through twice since yesterday. The cramping is back and pretty bad. I have never had this much bleeding or cramping before. Thank you Irma Harris documented in this encounter Plan of Treatment Not on file documented as of this encounter Visit Diagnoses Not on filedocumented in this encounter Care Teams Gold Marker Relationship Specialty Start Date End Date Philip Bartlett MD [address] [place] [address] PCP - General Internal Medicine 07/16/19 05/12/23 Aubrey Grimaldo DO [address] [place] [address] PCP - General Internal Medicine 05/13/23 01/12/24 Dwayne Puentes MD [address] [place] [address] PCP - General Internal Medicine 01/13/24 documented as of this encounter
--- OUTSIDE RECORDS SUMMARY | 2025-05-03 19:40 | XMS_ITS | Encounter Summary ---
Author Organization [facility] Address [address] [place] [address] Care Team Providers Care Mutuel Teller Name Role Phone Philip Bartlett MD Primary Care Provider [phone] Aburey Grimaldo DO Primary Care Provider Unavaila Dwayne Rosen MD Primary Care Provider [phone] Encounter Details Date Type Department Care Team Description 06/25/2021 Pt. Non Urgent Medical Question [facility] [address] [place] [address] Monique Mitchell CNM Social History Tobacco Use [...] a refill of my control sent to [facility]. They have no more refills available. Thank you. documented in this encounter Plan of Treatment Not on file documented as of this encounter Visit Diagnoses Not on filedocumented in this encounter Care Teams Mutuel Teller Relationship Specialty Start Date End Date Philip Bartlett MD [address] [place] [address] PCP - General Internal Medicine 07/16/19 05/12/23 Aubrey Grimaldo DO [address] [place] [address] PCP - General Internal Medicine 05/13/23 01/12/24 Dwayne Puentes MD [address] [place] [address] PCP - General Internal Medicine 01/13/24 documented as of this encounter
--- OUTSIDE RECORDS SUMMARY | 2025-05-03 19:40 | XMS_ITS | Encounter Summary ---
Author Organization [facility] Address [address] [place] [address] Care Team Providers Care Land Survey Technician Name Role Phone Philip Bartlett MD Primary Care Provider [phone] Aubrey Grimaldo DO Primary Care Provider Unavaila Dwayne Rosen MD Primary Care Provider [phone] Encounter Details Date Type Department Care Team Description 12/23/2022 Pt. Non Urgent Medical Question Adult Medicine B - [address] [phone] Philip Bartlett MD [address] [place] [address] Social History Tobacco Use Types Packs/Day Years [...] on filedocumented in this encounter Care Teams Land Survey Technician Relationship Specialty Start Date End Date Philip Bartlett MD [address] [place] [address] PCP - General Internal Medicine 07/16/19 05/12/23 Aubrey Grimaldo DO [address] [place] [address] PCP - General Internal Medicine 05/13/23 01/12/24 Dwayne Puentes MD [address] [place] [address] PCP - General Internal Medicine 01/13/24 documented as of this encounter
--- OUTSIDE RECORDS SUMMARY | 2025-05-03 19:40 | XMS_ITS | Encounter Summary ---
Author Organization [facility] Address [address] [place] [address] Care Team Providers Care Pierogi Maker Name Role Phone Roxi Cesar MD Primary Care Provider [phone] Philip Bartlett MD Primary Care Provider Aubrey Grimaldo DO Primary Care Provider [facility] Dwayne Rosen MD Primary Care Provider [phone] Encounter Details Date Type Department Care Team Description 11/22/2009 General Office Dispatcher Report Medical Records 4 [place] [address] Justice Nova [address] [place] [address] [phone] Social History Tobacco Use Types Packs/Day Years Used Date Smoking Tobacco: Former Comments:QUIT-1995, Started @ age 14 Alcohol Use Standard Drinks/Week Comments Yes 0 (1 standard drink = 0.6 oz pur e alcohol) rarely Sex Assigned at Date Recorded Not on file Job Start Date Occupation Industry Not on file Not on file Not on file documented as of this encounter Plan of Treatment Not on file documented as of this encounter Visit Diagnoses Not on filedocumented in this encounter Care Teams Pierogi Maker Relationship Specialty Start Date End Date Roxi Cesar MD [address] [place], [place] [phone] PCP - General 09/12/03 07/15/19 Philip Bartlett MD [address] [place] [address] [id number] PCP - General Internal Medicine 07/16/19 05/12/23 Aubrey Grimaldo, [address] [place] [address] PCP - General Internal Medicine 05/13/23 01/12/24 Dwayne Puentes MD [address] [place] [address] PCP - General Internal Medicine 01/13/24 documented as of this encounter
--- OUTSIDE RECORDS SUMMARY | 2025-05-03 19:40 | XMS_ITS | Encounter Summary ---
Author Organization [facility] [place] [address] Care Team Providers Care Welding Machine Operator Arc Name Role Phone Dwayne Puentes MD Primary Care Provider [phone] Encounter Details Date Type Department Care Team (Late st Contact Info) Description 03/10/2025 Results Follow-Up Adult Medicine [facility] [address] [place], [place] [phone] Karoline Mann NP [address] [place], [place] Social History Tobacco Use Types Packs/Day [...] your loved ones. For example, child care education coordinator or elderly care for an older adult? [...] EST Office Visit [place] Medicine [place] - [address] [place] [phone] Dwayne Puentes MD [address] [place] 09/28/2025 10:40 AM EDT Appointment Radiology Department - [address] [place], [place] [phone] documented as of this encounter Goals Goal [...] documented as of this encounter Care Teams Welding Machine Operator Arc Relationship Specialty Start Date End Date Dwayne Puentes MD [address] [place] PCP - General 01/13/24 documented as of this encounter
--- OUTSIDE RECORDS SUMMARY | 2025-05-03 19:40 | XMS_ITS | Encounter Summary ---
Author Organization [facility] Address [address] [place] [address] Care Team Providers Care City Comptroller Name Role Phone Philip Bartlett MD Primary Care Provider [phone] Aubrey Grimaldo DO Primary Care Provider Unavaila Dwayne Rosen MD Primary Care Provider [phone] Encounter Details Date Type Department Care Team Description 02/07/2023 Pt. Non Urgent Medic al Question OBGYN - [place] [address] [place] [address] Pau Jiménez DO Social History Tobacco Use [...] Telephone Encounter - Bianca Purdy R.N. - 02/07/2023 1:23 PM EDTFrom: Irma Harris To: Kyle Jiménez Sent: 02/07/2023 1:21 PM EDT Subject: Surgery Dr. Jiménez, I was wondering if I had surgery to have my appendix removed on the 31 of January. Would there be a delay in this surgery. Thank you Irma harris documented in this encounter Plan of Treatment Not on file documented as of this encounter Visit Diagnoses Not on filedocumented in this encounter Care Teams City Comptroller Relationship Specialty Start Date End Date Philip Bartlett MD [address] [place] [address] PCP - General Internal Medicine 07/16/19 05/12/23 Aubrey Grimaldo DO [address] [place] [address] PCP - General Internal Medicine 05/13/23 01/12/24 Dwayne Puentes MD [address] [place] [address] PCP - General Internal Medicine 01/13/24 documented as of this encounter
--- OUTSIDE RECORDS SUMMARY | 2025-05-03 19:40 | XMS_ITS | Encounter Summary ---
Author Organization [facility] Address [address] [place] [address] Care Team Providers Care Recreation Program Specialist Name Role Phone Philip Bartlett MD Primary Care Provider [phone] Aubrey Grimaldo DO Primary Care Provider [facility] Rosen MD Primary Care Provider [phone] Encounter Details Date Type Department Care Team Description 10/08/2022 Tube Closing Machine Operator Report Medical Records [address] [place] [address] Kenn Rutherford MD Social History Tobacco Use [...] on filedocumented in this encounter Care Teams Recreation Program Specialist Relationship Specialty Start Date End Date Philip Bartlett MD [address] [place] [address] PCP - General Internal Medicine 07/16/19 05/12/23 Aubrey Grimaldo, [address] [place] [address] PCP - General Internal Medicine 05/13/23 01/12/24 Dwayne Puentes MD [address] [place] [address] PCP - General Internal Medicine 01/13/24 documented as of this encounter
--- OUTSIDE RECORDS SUMMARY | 2025-05-03 19:40 | XMS_ITS | Encounter Summary ---
Author Organization [facility] Address [address] [place] [address] Care Team Providers Care Communication Center Coordinator Name Role Phone Roxi Cesar MD Primary Care Provider [phone] Philip Bartlett MD Primary Care Provider [phone] Aubrey Grimaldo DO Primary Care Provider [facility] Dwayne Rosen MD Primary Care Provider [phone] Encounter Details Date Type Department Care Team Description 10/01/2012 Poultry Hatchery Manager Report Medical Records [address] [place] [address] Justice Nova MD Social History Tobacco Use [...] filedocumented in this encounter Care Teams Communication Center Coordinator Relationship Specialty Start Date End Date Roxi Cesar MD [address] [place] [address] [phone] PCP - General 09/12/03 07/15/19 Philip Bartlett MD [address] [place] [address] PCP - General Internal Medicine 07/16/19 05/12/23 Aubrey Grimaldo, [address] [place] [address] PCP - General Internal Medicine 05/13/23 01/12/24 Dwayne Puentes MD [address] [place] [address] PCP - General Internal Medicine 01/13/24 documented as of this encounter
--- OUTSIDE RECORDS SUMMARY | 2025-05-03 19:40 | XMS_ITS | Clinical Summary ---
Author Organization [facility] Address [address] [place] [address] Care Team Providers Care Graphics Programmer Name Role Phone Philip Bartlett MD Primary Care Provider Unavail able Allergies Active Allergy Reactions Criticality Noted Date Comments Prochlorperazine Edisylate Other (See Comments) 05/13/2008 Passed out Benzyl Alcohol Unknown/Patient and Family Unable to Define Medium 01/15/2023 Ipratropium [place] [facility] Swelling Medium 04/15/2019 Linaclotide Itching Low [...] (1 - 1-dose 75+ series) 2050 Insurance [facility] Care Teams Graphics Programmer Relationship Specialty Start Date End Date Philip Bartlett MD PCP - General Internal Medicine 01/15/23
--- OUTSIDE RECORDS SUMMARY | 2025-05-03 19:40 | XMS_ITS | Encounter Summary ---
Author Organization [facility] Address [address] [place] [address] Care Team Providers Care Anthropometrist Name Role Phone Philip Bartlett MD Primary Care Provider [phone] Aubrey Grimaldo DO Primary Care Provider Unavaila Dwayne Rosen MD Primary Care Provider Encounter Details Date Type Department Care Team Description 02/26/2021 Pt. Non Urgent Medical Question Adult Medicine B - [address] [phone] Philip Bartlett MD [address] [place] [address] Social History Tobacco Use Types Packs/Day Years [...] on filedocumented in this encounter Care Teams Anthropometrist Relationship Specialty Start Date End Date Philip Bartlett MD [address] [place] [address] PCP - General Internal Medicine 07/16/19 05/12/23 Aubrey Grimaldo DO [address] [place] [address] PCP - General Internal Medicine 05/13/23 01/12/24 Dwayne Puentes MD [address] [place] [address] PCP - General Internal Medicine 01/13/24 documented as of this encounter
--- OUTSIDE RECORDS SUMMARY | 2025-05-03 19:40 | XMS_ITS | Encounter Summary ---
Author Organization [facility] Address [address] [place] [address] Care Team Providers Care Host Coordinator Name Role Phone Philip Bartlett MD Primary Care Provider [phone] Aubrey Grimaldo DO Primary Care Provider [facility] Dwayne Rosen MD Primary Care Provider [phone] Encounter Details Date Type Department Care Team Description 03/06/2021 Process Stripper Report Medical Records [address] [place] [address] Nona Cleaning Social History Tobacco Use Types Packs/Day Years [...] on filedocumented in this encounter Care Teams Host Coordinator Relationship Specialty Start Date End Date Philip Bartlett MD [address] [place] [address] PCP - General Internal Medicine 07/16/19 05/12/23 Aubrey Grimaldo, [address] [place] [address] PCP - General Internal Medicine 05/13/23 01/12/24 Dwayne Puentes MD [address] [place] [address] PCP - General Internal Medicine 01/13/24 documented as of this encounter
--- OUTSIDE RECORDS SUMMARY | 2025-05-03 19:40 | XMS_ITS | Encounter Summary ---
Author Organization [facility] Address [address] [place] [address] Care Team Providers Care Asset Protection Detective Name Role Phone Philip Bartlett MD Primary Care Provider [phone] Aubrey Grimaldo DO Primary Care Provider Unavaila Dwayne Rosen MD Primary Care Provider [phone] Encounter Details Date Type Department Care Team Description 03/18/2023 Pt. Non Urgent Medic al Question OBGYN - [place] [address] [place] [address] Pau Jiménez DO Social History Tobacco Use [...] Telephone Encounter - Bianca Purdy R.N. - 03/18/2023 9:17 AM EDTFrom: Irma [...] on filedocumented in this encounter Care Teams Asset Protection Detective Relationship Specialty Start Date End Date Philip Bartlett MD [address] [place] [address] PCP - General Internal Medicine 07/16/19 05/12/23 Aubrey Grimaldo DO [address] [place] [address] PCP - General Internal Medicine 05/13/23 01/12/24 Dwayne Puentes MD [address] [place] [address] PCP - General Internal Medicine 01/13/24 documented as of this encounter
--- OUTSIDE RECORDS SUMMARY | 2025-05-03 19:40 | XMS_ITS | Encounter Summary ---
Author Organization [facility] Address [address] [place] [address] Care Team Providers Care Radiation Technician Name Role Phone Roxi Cesar MD Primary Care Provider [phone] Philip Bartlett MD Primary Care Provider [phone] Aubrey Grimaldo DO Primary Care Provider [facility] Dwayne Rosen MD Primary Care Provider [phone] Encounter Details Date Type Department Care Team Description 03/23/2015 Cartridge Loading Operator Report Medical Records [address] [place] [address] Justice Nova MD Social History Tobacco Use [...] on filedocumented in this encounter Care Teams Radiation Technician Relationship Specialty Start Date End Date Roxi Cesar MD [address] [place], [place] [phone] PCP - General 09/12/03 07/15/19 Philip Bartlett MD [address] [place] [address] [phone] PCP - General Internal Medicine 07/16/19 05/12/23 Aubrey Grimaldo, [address] [place] [address] PCP - General Internal Medicine 05/13/23 01/12/24 Dwayne Puentes MD [address] [place] [address] PCP - General Internal Medicine 01/13/24 documented as of this encounter
--- OUTSIDE RECORDS SUMMARY | 2025-05-03 19:40 | XMS_ITS | Encounter Summary ---
Author Organization [facility] Address [address] [place] [address] Care Team Providers Care Head Of Design Name Role Phone Philip Bartlett MD Primary Care Provider [phone] Aubrey Grimaldo DO Primary Care Provider [facility] Dwayne Rosen MD Primary Care Provider [phone] Encounter Details Date Type Department Care Team Description 05/19/2020 Release of Information Medical Records [address] [place] [address] Abstract, Provider Social History Tobacco Use Types [...] on filedocumented in this encounter Care Teams Head Of Design Relationship Specialty Start Date End Date Philip Bartlett MD [address] [place] [address] PCP - General Internal Medicine 2/6/20 12/3/23 Aubrey Grimaldo DO [address] [place] [address] PCP - General Internal Medicine 05/13/23 01/12/24 Dwayne Puentes MD [address] [place] [address] PCP - General Internal Medicine 01/13/24 documented as of this encounter
--- OUTSIDE RECORDS SUMMARY | 2025-05-03 19:40 | XMS_ITS | Encounter Summary ---
Author Organization [facility] [place] [address] Care Team Providers Care Drop Forger Helper Name Role Phone Dwayne Puentes MD Primary Care Provider [phone] Encounter Details Date Type Department Care Team (Late st Contact Info) Description 03/11/2025 Results Follow-Up Adult Medicine [facility] [address] [place] [address] Dwayne Puentes MD [address] [place] [address] Social History Tobacco Use Types Packs/Day Years [...] your loved ones. For example, early childhood education specialist or elderly care for an older adult? [...] EST Office Visit [place] [address] [place] [address] [place] [phone] Dwayne Puentes MD [address] [place] 09/28/2025 10:40 AM EDT Appointment Radiology Department - [address] [phone] Scheduled Orders Name Type Priority Associated Diagnoses [...] documented as of this encounter Care Teams Drop Forger Helper Relationship Specialty Start Date End Date Dwayne Puentes MD 4 [facility] [place] PCP - General 01/13/24 documented as of this encounter
--- OUTSIDE RECORDS SUMMARY | 2025-05-03 19:40 | XMS_ITS | Encounter Summary ---
Author Organization [facility] Address [address] [place] [address] Care Team Providers Care Representative Personal Service Name Role Phone Philip Bartlett MD Primary Care Provider [phone] Aubrey Grimaldo DO Primary Care Provider Unavaila Dwayne Rosen MD Primary Care Provider Reason for Visit * Reason Onset Date Comments refill request 07/05/2021 Encounter Details Date Type Department Care Team Description 07/05/2021 Refill Pulmonology - [place] 175 [facility] [address] [place] [phone] Zahida Nevarez MD [address] [place] [phone] refill request Social History Tobacco Use Types [...] Sarah Tracy - 07/14/2021 2:27 PM EST [facility] fax received, requesting for 90day [...] Payor: LORENZO/PPO POS / Plan: PPO $0 [id number] / Product Type: PPO [id number] documented in this encounter Plan of Treatment Not on file documented as of this encounter Visit Diagnoses Diagnosis Moderate persistent asthma, unspecified whether complicated documented in this encounter Care Teams Representative Personal Service Relationship Specialty Start Date End Date Philip Bartlett MD [address] [place] [address] PCP - General Internal Medicine 07/16/19 05/12/23 Aubrey Grimaldo DO [address] [place] [address] PCP - General Internal Medicine 05/13/23 01/12/24 Dwayne Puentes MD [address] [place] [address] PCP - General Internal Medicine 01/13/24 documented as of this encounter
--- OUTSIDE RECORDS SUMMARY | 2025-05-03 19:40 | XMS_ITS | Encounter Summary ---
Author Organization [facility] Address [address] [place] [address] Care Team Providers Care Enrobing Machine Operator Name Role Phone Philip Bartlett MD Primary Care Provider [phone] Aubrey Grimaldo DO Primary Care Provider Unavaila Dwayne Rosen MD Primary Care Provider [phone] Encounter Details Date Type Department Care Team Description 11/19/2022 Pt. Non Urgent Medic al Question OBGYN - [place] [address] [place] [address] Navarro Stewart, CNM [address] [place] [address] Social History Tobacco Use Types Packs/Day Years [...] on filedocumented in this encounter Care Teams Enrobing Machine Operator Relationship Specialty Start Date End Date Philip Bartlett MD [address] [place] [address] PCP - General Internal Medicine 07/16/19 05/12/23 Aubrey Grimaldo DO [address] [place] [address] PCP - General Internal Medicine 05/13/23 01/12/24 Dwayne Puentes MD [address] [place] [address] PCP - General Internal Medicine 01/13/24 documented as of this encounter
--- OUTSIDE RECORDS SUMMARY | 2025-05-03 19:40 | XMS_ITS | Encounter Summary ---
Author Organization [facility] Address [address] [place] [address] Care Team Providers Care Plumbing Hardware Assembler Name Role Phone Philip Bartlett MD Primary Care Provider [phone] Aubrey Grimaldo DO Primary Care Provider [facility] Dwayne Rosen MD Primary Care Provider [phone] Encounter Details Date Type Department Care Team Description 03/23/2021 Building Performance Consultant Report Medical Records [address] [place] [address] Berry Conley MD Social History Tobacco Use Types Packs/Day [...] on filedocumented in this encounter Care Teams Plumbing Hardware Assembler Relationship Specialty Start Date End Date Philip Bartlett MD [address] [place] [address] PCP - General Internal Medicine 07/16/19 05/12/23 Aubrey Grimaldo, [address] [place] [address] PCP - General Internal Medicine 05/13/23 01/12/24 Dwayne Puentes MD [address] [place] [address] PCP - General Internal Medicine 01/13/24 documented as of this encounter
--- OUTSIDE RECORDS SUMMARY | 2025-05-03 19:40 | XMS_ITS | Encounter Summary ---
Author Organization [facility] Address [address] [place] [address] Care Team Providers Care Fine Arts Packer Name Role Phone Philip Bartlett MD Primary Care Provider [phone] Aubrey Grimaldo DO Primary Care Provider [facility] Dwayne Rosen MD Primary Care Provider [phone] Encounter Details Date Type Department Care Team Description 05/21/2021 Telephone Adult Medicine B - [place] [address] [place] [address] Caitlyn Desai MD Social History Tobacco Use Types Packs/Day [...] encounter Miscellaneous Notes * Telephone Encounter - Caitlyn Menon MD - 05/21/2021 8:32 PM EST call center director note, late entry Received page on 05/20, stating patient is upset as she had a telehealth visit schedule but provider did not call on 05/19. She is having nasal congestion and patient is concerned about possible sinus infection. Advised laborer poultry hatchery to have patient call [facility] for urgent visit to address this. FYI to PCP documented in this encounter Plan of Treatment Not on file documented as of this encounter Visit Diagnoses Not on filedocumented in this encounter Care Teams Fine Arts Packer Relationship Specialty Start Date End Date Philip Bartlett MD [address] [place] [address] PCP - General Internal Medicine 07/16/19 05/12/23 Aubrey Grimaldo DO [address] [place] [address] PCP - General Internal Medicine 05/13/23 01/12/24 Dwayne Puentes MD [address] [place] [address] PCP - General Internal Medicine 01/13/24 documented as of this encounter
--- OUTSIDE RECORDS SUMMARY | 2025-05-03 19:40 | XMS_ITS | Encounter Summary ---
Author Organization [facility] Address [address] [place] [address] Care Team Providers Care Wood Veneer Taper Name Role Phone Roxi Cesar MD Primary Care Provider [phone] Philip Bartlett MD Primary Care Provider [phone] Aubrey Grimaldo DO Primary Care Provider [facility] Dwayne Rosen MD Primary Care Provider [phone] Encounter Details Date Type Department Care Team Description 09/30/2017 Recapper Report Medical Records [address] [place] [address] Justice Nova MD Social History Tobacco Use [...] on filedocumented in this encounter Care Teams Wood Veneer Taper Relationship Specialty Start Date End Date Roxi Cesar MD [address] [place], [place] [phone] PCP - General 09/12/03 07/15/19 Philip Bartlett MD [address] [place] [address] PCP - General Internal Medicine 07/16/19 05/12/23 Aubrey Grimaldo, [address] [place] [address] PCP - General Internal Medicine 05/13/23 01/12/24 Dwayne Puentes MD [address] [place] [address] PCP - General Internal Medicine 01/13/24 documented as of this encounter
--- OUTSIDE RECORDS SUMMARY | 2025-05-03 19:40 | XMS_ITS | Encounter Summary ---
Author Organization [facility] Address [address] [place] [address] Care Team Providers Care Customer Service Analyst Name Role Phone Roxi Cesar MD Primary Care Provider [phone] Philip Bartlett MD Primary Care Provider [phone] Aubrey Grimaldo DO Primary Care Provider Aleisha Dwayne Rosen MD Primary Care Provider [phone] Encounter Details Date Type Department Care Team Description 09/19/2015 Release of Information Medical Records [address] [place] [address] Abstract, Provider Social History Tobacco Use Types [...] on filedocumented in this encounter Care Teams Customer Service Analyst Relationship Specialty Start Date End Date Roxi Cesar MD [address] [place] [address] PCP - General 09/12/03 07/15/19 Philip Bartlett MD [address] [place] [address] PCP - General Internal Medicine 07/16/19 05/12/23 Aubrey Grimaldo, [address] [place] [address] PCP - General Internal Medicine 05/13/23 01/12/24 Dwayne Puentes MD [address] [place] [address] PCP - General Internal Medicine 01/13/24 documented as of this encounter
--- OUTSIDE RECORDS SUMMARY | 2025-05-03 19:40 | XMS_ITS | Encounter Summary ---
Author Organization [facility] Address [address] [place] [address] Care Team Providers Care Lieutenant Fire Fighter Name Role Phone Roxi Cesar MD Primary Care Provider Philip Bartlett MD Primary Care Provider Aubrey Grimaldo DO Primary Care Provider Unavaila Dwayne Rosen MD Primary Care Provider [phone] Reason for Visit * Reason Onset Date Comments Constipation 10/14/2014 Encounter Details Date Type Department Care Team Description 10/14/2014 Telephone Adult Medicine [address] [phone] Roxi Cesar MD [address] [place] [address] [phone] Constipation Social History Tobacco Use Types Packs/Day [...] a nurse now, please call and advise [phone] * Telephone Encounter - Daniella Martino R.N. - 10/14/2014 11:25 AM EDT CALL #1 PLACED TO PATIENT Patient called. Left message on answering machine to call back [facility] at [phone] * Telephone Encounter - Moira Manjarrez - [...] Stated that she that she went to [place] [facility] yesterday for her Constipation. Patient was [...] on filedocumented in this encounter Care Teams Lieutenant Fire Fighter Relationship Specialty Start Date End Date Roxi Cesar MD [address] [place] [address] PCP - General 09/12/03 07/15/19 Philip Bartlett MD [address] [place] [address] PCP - General Internal Medicine 07/16/19 05/12/23 Aubrey Grimaldo DO [address] [place] [address] PCP - General Internal Medicine 05/13/23 01/12/24 Dwayne Puentes MD [address] [place] [address] PCP - General Internal Medicine 01/13/24 documented as of this encounter
--- OUTSIDE RECORDS SUMMARY | 2025-05-03 19:40 | XMS_ITS | Encounter Summary ---
Author Organization [facility] Address [address] [place] [address] Care Team Providers Care Cullet Crusher And Washer Name Role Phone Philip Bartlett MD Primary Care Provider [phone] Aubrey Grimaldo DO Primary Care Provider [facility] Dwayne Rosen MD Primary Care Provider [phone] Encounter Details Date Type Department Care Team Description 04/03/2023 Hospital Medical Records [address] [place] [address] Pau Jiménez DO Social History Tobacco Use [...] on filedocumented in this encounter Care Teams Cullet Crusher And Washer Relationship Specialty Start Date End Date Philip Bartlett MD [address] [place] [address] PCP - General Internal Medicine 07/16/19 05/12/23 Aubrey Grimaldo, [address] [place] [address] PCP - General Internal Medicine 05/13/23 01/12/24 Dwayne Puentes MD [address] [place] [address] PCP - General Internal Medicine 01/13/24 documented as of this encounter
--- OUTSIDE RECORDS SUMMARY | 2025-05-03 19:40 | XMS_ITS | Encounter Summary ---
Author Organization [facility] Address [address] [place] [address] Care Team Providers Care Repairer Veneer Sheet Name Role Phone oRxi Cesar MD Primary Care Provider Philip Bartlett MD Primary Care Provider [phone] Aubrey Grimaldo DO Primary Care Provider Unavaila Dwayne Rosen MD Primary Care Provider [phone] Reason for Visit * Reason Onset Date Comments anxiety 09/18/2014 Encounter Details Date Type Department Care Team Description 09/18/2014 Telephone Adult Urgent Care - [address] [phone] Roxi Cesar MD [address] [place] [address] [phone] anxiety Social History Tobacco Use Types Packs/Day [...] Payor: LORENZO/PPO POS / Plan: PPO $0 [place] [id number] / Product Type: PPO [id number] documented in this encounter Plan of Treatment Not on file documented as of this encounter Visit Diagnoses Not on filedocumented in this encounter Care Teams Repairer Veneer Sheet Relationship Specialty Start Date End Date Roxi Cesar MD [address] [place] [address] PCP - General 09/12/03 07/15/19 Philip Bartlett MD [address] [place] [address] PCP - General Internal Medicine 07/16/19 05/12/23 Aubrey Grimaldo DO [address] [place] [address] PCP - General Internal Medicine 05/13/23 01/12/24 Dwayne Puentes MD [address] [place] [address] PCP - General Internal Medicine 01/13/24 documented as of this encounter
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
--- OUTSIDE RECORDS SUMMARY | 2025-05-03 19:40 | XMS_ITS | Encounter Summary ---
Author Organization [facility] Address [address] [place] [address] Care Team Providers Care Lens Maker Name Role Phone Pcp, Nidhi Primary Care Provider Unavailabl e Philip Bartlett MD Primary Care Provider Unavail able Encounter Details Date Type Department Care Team (Late st Contact Info) Description 12/12/2022 Scanned Document [facility] NEUROPSYCH SCAN Unknown Unknow Provider Address [...] on filedocumented in this encounter Care Teams Lens Maker Relationship Specialty Start Date End Date Pcp, No PCP - General 04/13/22 01/14/23 Philip Bartlett MD PCP - General Internal Medicine 01/15/23 documented as of this encounter
--- OUTSIDE RECORDS SUMMARY | 2025-05-03 19:40 | XMS_ITS | Encounter Summary ---
Author Organization [facility] Address [address] [place] [address] Care Team Providers Care Federal Law Clerk Name Role Phone Philip Bartlett MD Primary Care Provider [phone] Aubrey Grimaldo DO Primary Care Provider Unavaila Dwayne Rosen MD Primary Care Provider [phone] Reason for Visit * Reason Onset Date Comments Surgery (Schedule) 03/29/2023 Encounter Details Date Type Department Care Team Description 03/29/2023 Telephone OBN - [place] [address] [place] [address] Pau Jiménez DO Surgery (Schedule) Social History [...] PM EDT Patient received a call from [facility] confirming her surgery on 04/03/23. Patient is confused with thetime of surgery and when she needs to be there, She has been given 2 different times. Please call documented in this encounter Plan of Treatment Not on file documented as of this encounter Visit Diagnoses Not on filedocumented in this encounter Care Teams Federal Law Clerk Relationship Specialty Start Date End Date Philip Bartlett MD [address] [place] [address] PCP - General Internal Medicine 07/16/19 05/12/23 Aubrey Grimaldo DO [address] [place] [address] PCP - General Internal Medicine 05/13/23 01/12/24 Dwayne Puentes MD [address] [place] [address] PCP - General Internal Medicine 01/13/24 documented as of this encounter
--- OUTSIDE RECORDS SUMMARY | 2025-05-03 19:40 | XMS_ITS | Encounter Summary ---
Author Organization [facility] Address [address] [place] [address] Care Team Providers Care Sales Representative Cash Registers Name Role Phone Philip Bartlett MD Primary Care Provider [phone] Aubrey Grimaldo DO Primary Care Provider Unavaila Dwayne Rosen MD Primary Care Provider [phone] Encounter Details Date Type Department Care Team Description 02/01/2023 Pt. Non Urgent Medical Question Gastroenterology - [place] [address] [facility] [address] [place] [address] Nevaeh Uriostegui DScPAS Social History [...] on filedocumented in this encounter Care Teams Sales Representative Cash Registers Relationship Specialty Start Date End Date Philip Bartlett MD [address] [place] [address] PCP - General Internal Medicine 07/16/19 05/12/23 Aubrey Grimaldo DO [address] [place] [address] PCP - General Internal Medicine 05/13/23 01/12/24 Dwayne Puentes MD [address] [place] [address] PCP - General Internal Medicine 01/13/24 documented as of this encounter
--- OUTSIDE RECORDS SUMMARY | 2025-05-03 19:40 | XMS_ITS | Encounter Summary ---
Author Organization [facility] Address [address] [place] [address] Care Team Providers Care Digital Tech Name Role Phone Philip Bartlett MD Primary Care Provider [phone] Aubrey Grimaldo DO Primary Care Provider Unavaila Dwayne Rosen MD Primary Care Provider [phone] Encounter Details Date Type Department Care Team Description 01/30/2023 Pt. Non Urgent Medical Question Gastroenterology - [place] 175 [facility] [address] [place] [address] Nevaeh Uriostegui DScPAS Social History [...] on filedocumented in this encounter Care Teams Digital Tech Relationship Specialty Start Date End Date Philip Bartlett MD [address] [place] [address] PCP - General Internal Medicine 07/16/19 05/12/23 Aubrey Grimaldo DO [address] [place] [address] PCP - General Internal Medicine 05/13/23 01/12/24 Dwayne Puentes MD [address] [place] [address] PCP - General Internal Medicine 01/13/24 documented as of this encounter
--- OUTSIDE RECORDS SUMMARY | 2025-05-03 19:40 | XMS_ITS | Encounter Summary ---
Author Organization [facility] Address [address] [place] [address] Care Team Providers Care Jira Administrator Name Role Phone Philip Bartlett MD Primary Care Provider [phone] Aubrey Grimaldo DO Primary Care Provider Unavaila Dwayne Rosen MD Primary Care Provider [phone] Reason for Visit * Reason Onset Date Comments TEST RESULTS 12/06/2022 Encounter Details Date Type Department Care Team Description 12/06/2022 Telephone Adult Medicine [address] [phone] Philip Bartlett MD [address] [place] [address] TEST RESULTS Social History Tobacco Use Types [...] she reveiwed my message for her on 1jiajie after she called: Good morning, your ultrasound [...] on filedocumented in this encounter Care Teams Jira Administrator Relationship Specialty Start Date End Date Philip Bartlett MD [address] [place] [address] PCP - General Internal Medicine 07/16/19 05/12/23 Aubrey Grimaldo DO [address] [place] [address] PCP - General Internal Medicine 05/13/23 01/12/24 Dwayne Puentes MD [address] [place] [address] PCP - General Internal Medicine 01/13/24 documented as of this encounter
--- OUTSIDE RECORDS SUMMARY | 2025-05-03 19:40 | XMS_ITS | Encounter Summary ---
Author Organization [facility] Address [address] [place] [address] Care Team Providers Care Ore Grader Name Role Phone Philip Bartlett MD Primary Care Provider [phone] Aubrey Grimaldo DO Primary Care Provider Unavaila Dwayne Rosen MD Primary Care Provider [phone] Reason for Visit * Reason Onset Date Comments APPOINTMENT 06/30/2021 Encounter Details Date Type Department Care Team Description 06/30/2021 Telephone Pulmonology - [place] 175 [facility] [address] [place] [address] Zahida Bolivar MD [address] [place] [phone] APPOINTMENT Social History Tobacco Use Types Packs/Day [...] on filedocumented in this encounter Care Teams Ore Grader Relationship Specialty Start Date End Date Philip Bartlett MD [address] [place] [address] PCP - General Internal Medicine 07/16/19 05/12/23 Aubrey Grimaldo DO [address] [place] [address] PCP - General Internal Medicine 05/13/23 01/12/24 Dwayne Puentes MD [address] [place] [address] PCP - General Internal Medicine 01/13/24 documented as of this encounter
--- OUTSIDE RECORDS SUMMARY | 2025-05-03 19:40 | XMS_ITS | Encounter Summary ---
Author Organization [facility] Address [address] [place] [address] Care Team Providers Care Home Stager Name Role Phone Philip Bartlett MD Primary Care Provider [phone] Aubrey Grimaldo DO Primary Care Provider Unavaila [facility] Dwayne Puentes MD Primary Care Provider Encounter Details Date Type Department Care Team Description 06/08/2021 In Store Marketing Representative Report Medical Records [address] [place] [address] [place] Walker Social History Tobacco Use Types [...] on filedocumented in this encounter Care Teams Home Stager Relationship Specialty Start Date End Date Philip Bartlett MD [address] [place] [address] PCP - General Internal Medicine 07/16/19 05/12/23 Aubrey Grimaldo DO [address] [place] [address] PCP - General Internal Medicine 05/13/23 01/12/24 Dwayne Puentes MD [address] [place] [address] PCP - General Internal Medicine 01/13/24 documented as of this encounter
--- OUTSIDE RECORDS SUMMARY | 2025-05-03 19:40 | XMS_ITS | Encounter Summary ---
Author Organization [facility] Address [address] [place] [address] Care Team Providers Care Diversified Crops Farmworker Name Role Phone Philip Bartlett MD Primary Care Provider [phone] Aubrey Grimaldo DO Primary Care Provider Unavaila Dwayne Rosen MD Primary Care Provider [phone] Encounter Details Date Type Department Care Team Description 09/27/2022 Orders Only Gastroenterology - [place] [address] [facility] [address] [place] [address] Nevaeh Uriostegui DScPAS Lower abdominal [...] type documented in this encounter Care Teams Diversified Crops Farmworker Relationship Specialty Start Date End Date Philip Bartlett MD [address] [place] [address] PCP - General Internal Medicine 07/16/19 05/12/23 Aubrey Grimaldo DO [address] [place] [address] PCP - General Internal Medicine 05/13/23 01/12/24 Dwayne Puentes MD [address] [place] [address] PCP - General Internal Medicine 01/13/24 documented as of this encounter
--- OUTSIDE RECORDS SUMMARY | 2025-05-03 19:41 | XMS_ITS | Encounter Summary ---
Author Organization [facility] Address [address] [place] [address] Care Team Providers Care Biofuels Plant Superintendent Name Role Phone Dwayne Puentes MD Primary Care Provider [phone] Reason for Visit * Reason Onset Date Comments Medication 02/03/2024 Encounter Details Date Type Department Care Team Description 02/03/2024 Telephone Gastroenterology - [place] 175 [facility] [address] [place] [phone] Moody, Nevaeh, DScPAS Medication Social History Tobacco [...] on filedocumented in this encounter Care Teams Biofuels Plant Superintendent Relationship Specialty Start Date End Date Dwayne Puentes MD [address] [place] [address] PCP - General Internal Medicine 01/13/24 documented as of this encounter
--- OUTSIDE RECORDS SUMMARY | 2025-05-03 19:41 | XMS_ITS | Encounter Summary ---
Author Organization [facility] Address [address] [place] [address] Care Team Providers Care Fire Operations Forester Name Role Phone Aubrey Grimaldo DO Primary Care Provider Dwayne Fleming MD Primary Care Provider [phone] Encounter Details Date Type Department Care Team Description 09/03/2023 Orders Only Gastroenterology - [address] [place] [phone] Moody, Nevaeh, DScPAS Constipation, unspecified constipation type; Abdominal bloating Social History Tobacco Use Types Packs/Day Years [...] Procedure Name Priority Date/Time Associated Diagnosis Comments CHG RADIOLOGIC EXAM ABDOMEN 2 VIEWS Routine 08/26/2023 Constipation, unspecified constipation type Abdominal bloating documented in this encounter Results * RADIOLOGIC EXAM ABDOMEN 2 VIEWS (08/26/2023) Nevaeh Uriostegui DScPAS RADIOLOGY documented in this encounter Visit Diagnoses Diagnosis Constipation, unspecified constipation type Abdominal bloating Flatulence, eructation, and gas pain documented in this encounter Care Teams Fire Operations Forester Relationship Specialty Start Date End Date Aubrey Grimaldo DO PCP - General Internal Medicine 05/13/23 01/12/24 Dwayne Puentes MD [address] [place] [address] PCP - General Internal Medicine 01/13/24 documented as of this encounter
--- OUTSIDE RECORDS SUMMARY | 2025-05-03 19:41 | XMS_ITS | Encounter Summary ---
Author Organization [facility] Address [address] [place] [address] Care Team Providers Care Sack Department Supervisor Name Role Phone Aubrey Grimaldo DO Primary Care Provider Dwayne Fleming MD Primary Care Provider [phone] Reason for Visit * Reason Onset Date Comments Provider Call Back 06/28/2023 Encounter Details Date Type Department Care Team Description 06/28/2023 Telephone Gastroenterology - [place] [address] [facility] [address] [place] [address] Nevaeh Uriostegui DScPAS Provider Call [...] encounter Miscellaneous Notes * Telephone Encounter - Sandy Uriostegui - 06/28/2023 3:17 PM EST Patient was here for for Pulmo, she was following up from the message from June but it was more towards schedulers. Patient is having indigestion issues still and constipation. Patient started a probioatic for digestive system. Patient states the only time she can produce gas is when she drinks soda. Please reach out to patient. documented in this encounter Plan of Treatment Not on file documented as of this encounter Visit Diagnoses Not on filedocumented in this encounter Care Teams Sack Department Supervisor Relationship Specialty Start Date End Date Aubrey Grimaldo DO PCP - General Internal Medicine 05/13/23 01/12/24 Dwayne Puentes MD [address] [place] [address] PCP - General Internal Medicine 01/13/24 documented as of this encounter
--- OUTSIDE RECORDS SUMMARY | 2025-05-03 19:41 | XMS_ITS | Encounter Summary ---
Author Organization [facility] Address [address] [place] [address] Care Team Providers Care Dispatcher Radioactive Waste Disposal Name Role Phone Philip Bartlett MD Primary Care Provider [phone] Aubrey Grimaldo DO Primary Care Provider Unavaila Dwayne Rosen MD Primary Care Provider [phone] Reason for Visit * Reason Onset Date Comments Provider Call Back 06/12/2022 Encounter Details Date Type Department Care Team Description 06/12/2022 Telephone Adult Medicine [address] [id number] Philip Bartlett MD [address] [place] [address] Provider Call Back Social History Tobacco Use [...] Refaxed order, benefits and demographic information to [facility]. * Telephone Encounter - Vaishnavi Donald [...] needs the referral information from 05/24 psychiatry #[id number] re-faxed over with office notes and demographic [...] on filedocumented in this encounter Care Teams Dispatcher Radioactive Waste Disposal Relationship Specialty Start Date End Date Philip Bartlett MD [address] [place] [address] PCP - General Internal Medicine 07/16/19 05/12/23 Aubrey Grimaldo DO [address] [place] [address] PCP - General Internal Medicine 05/13/23 01/12/24 Dwayne Puentes MD [address] [place] [address] PCP - General Internal Medicine 01/13/24 documented as of this encounter
--- OUTSIDE RECORDS SUMMARY | 2025-05-03 19:41 | XMS_ITS | Encounter Summary ---
Author Organization [facility] Address [address] [place] [address] Care Team Providers Care Rocket Assembly Operator Name Role Phone Philip Bartlett MD Primary Care Provider [phone] Aubrey Grimaldo DO Primary Care Provider Unavaila Dwayne Rosen MD Primary Care Provider [phone] Encounter Details Date Type Department Care Team Description 08/14/2022 Telephone Adult Medicine [address] [phone] Philip Bartlett MD [address] [place] [address] Social History Tobacco Use Types Packs/Day Years [...] on filedocumented in this encounter Care Teams Rocket Assembly Operator Relationship Specialty Start Date End Date Philip Bartlett MD [address] [place] [address] PCP - General Internal Medicine 07/16/19 05/12/23 Aubrey Grimaldo DO [address] [place] [address] PCP - General Internal Medicine 05/13/23 01/12/24 Dwayne Puentes MD [address] [place] [address] PCP - General Internal Medicine 01/13/24 documented as of this encounter
--- OUTSIDE RECORDS SUMMARY | 2025-05-03 19:41 | XMS_ITS | Encounter Summary ---
Author Organization [facility] Address [address] [place] [address] Care Team Providers Care Marketing Programs Manager Name Role Phone Philip Bartlett MD Primary Care Provider [phone] Aubrey Grimaldo DO Primary Care Provider Unavaila Dwayne Rosen MD Primary Care Provider [phone] Encounter Details Date Type Department Care Team Description 04/09/2023 Orders Only Medical Records [address] [place] [address] [facility] Social History Tobacco Use Types Packs/Day [...] this encounter Results * OUTSIDE CT (04/08/2023) [facility] RADIOLOGY documented in this encounter Visit Diagnoses Not on filedocumented in this encounter Care Teams Marketing Programs Manager Relationship Specialty Start Date End Date Philip Bartlett MD [address] [place] [address] PCP - General Internal Medicine 07/16/19 05/12/23 Aubrey Grimaldo DO [address] [place] [address] PCP - General Internal Medicine 05/13/23 01/12/24 Dwayne Puentes MD [address] [place] [address] PCP - General Internal Medicine 01/13/24 documented as of this encounter
--- OUTSIDE RECORDS SUMMARY | 2025-05-03 19:41 | XMS_ITS | Encounter Summary ---
Author Organization [facility] Address [address] [place] [address] Care Team Providers Care Imagery Intelligence Name Role Phone Philip Bartlett MD Primary Care Provider [phone] Aubrey Grimaldo DO Primary Care Provider Unavaila Dwayne Rosen MD Primary Care Provider [phone] Reason for Visit * Reason Onset Date Comments vaginal problems 12/13/2021 yeast infection Encounter Details Date Type Department Care Team Description 12/13/2021 Telephone Adult Medicine [address] [phone] Philip Bartlett MD [address] [place] [address] vaginal problems (yeast infection) Social History Tobacco [...] will go to a walk-in clinic since COURTESY CAR DRIVER can't get her in soon. Caller offered to speak with the nurse for assistance: YES Response: Patient offered to speak with nurse for assistance and patient agreed. Message forwarded to nurse. documented in this encounter Plan of Treatment Not on file documented as of this encounter Visit Diagnoses Not on filedocumented in this encounter Care Teams Imagery Intelligence Relationship Specialty Start Date End Date Philip Bartlett MD [address] [place] [address] PCP - General Internal Medicine 07/16/19 05/12/23 Aubrey Grimaldo DO [address] [place] [address] PCP - General Internal Medicine 05/13/23 01/12/24 Dwayne Puentes MD [address] [place] [address] PCP - General Internal Medicine 01/13/24 documented as of this encounter
--- OUTSIDE RECORDS SUMMARY | 2025-05-03 19:41 | XMS_ITS | Encounter Summary ---
Author Organization [facility] Address [address] [place] [address] Care Team Providers Care Pants Maker Name Role Phone Philip Bartlett MD Primary Care Provider [phone] Aubrey Grimaldo DO Primary Care Provider [facility] Dwayne Rosen MD Primary Care Provider [phone] Encounter Details Date Type Department Care Team Description 04/15/2023 Absorption Operator Report Medical Records [address] [place] [address] Anil Dominguez PA-C Social History Tobacco Use [...] on filedocumented in this encounter Care Teams Pants Maker Relationship Specialty Start Date End Date Philip Bartlett MD [address] [place] [address] PCP - General Internal Medicine 07/16/19 05/12/23 Aubrey Grimaldo DO [address] [place] [address] PCP - General Internal Medicine 05/13/23 01/12/24 Dwayne Puentes MD [address] [place] [address] PCP - General Internal Medicine 01/13/24 documented as of this encounter
--- OUTSIDE RECORDS SUMMARY | 2025-05-03 19:41 | XMS_ITS | Encounter Summary ---
Author Organization [facility] Address [address] [place] [address] Care Team Providers Care Insurance Operations Rep Name Role Phone Philip Bartlett MD Primary Care Provider [phone] Aubrey Grimaldo DO Primary Care Provider Unavaila Dwayne Rosen MD Primary Care Provider [phone] Reason for Visit * Reason Onset Date Comments Curriculum And Assessment Coordinator Feedback 11/28/2021 Orthopedics Encounter Details Date Type Department Care Team Description 11/28/2021 Telephone Adult Medicine [address] [address] Philip Bartlett MD [address] [place] [address] Curriculum And Assessment Coordinator Feedback (Orthopedics) Social History Tobacco Use Types Packs/Day Years [...] Telephone Encounter - Philip Bartlett MD - 11/28/2021 3:05 PM EDT Yes-- in error -- referral was canceled in pts chart. * Telephone Encounter - Elizabeth Goldstein - 11/28/2021 2:[address] Bartlett, An emergency orthopedic referral was placed for this pt to see Dr. Jones for complete quadicep tear. I believe this is an error. Please verify if okay to close this order. Thank you, Elizabeth Sahu Referrals Rep documented in this encounter Plan of Treatment Not on file documented as of this encounter Visit Diagnoses Not on filedocumented in this encounter Care Teams Insurance Operations Rep Relationship Specialty Start Date End Date Philip Bartlett MD [address] [place] [address] PCP - General Internal Medicine 07/16/19 05/12/23 Aubrey Grimaldo DO [address] [place] [address] PCP - General Internal Medicine 05/13/23 01/12/24 Dwayne Puentes MD [address] [place] [address] PCP - General Internal Medicine 01/13/24 documented as of this encounter
--- OUTSIDE RECORDS SUMMARY | 2025-05-03 19:41 | XMS_ITS | Encounter Summary ---
Author Organization [facility] Address [address] [place] [address] Care Team Providers Care Manufacturing Storeperson Name Role Phone Aubrey Grimaldo DO Primary Care Provider Dwayne Fleming MD Primary Care Provider [phone] Reason for Visit * Reason Comments E-prescribe Rx Request Encounter Details Date Type Department Care Team Description 11/10/2023 Refill Gastroenterology - [place] [address] [facility] [address] [place] [phone] Nevaeh Uriostegui DScPAS E-prescribe Rx Request Social [...] encounter Miscellaneous Notes * Telephone Encounter - Allyssa Estrada - 11/11/2023 10:10 AM EDT LÓPEZ: 08/26/23 12/19/23 upcoming appointment documented in this encounter Plan of Treatment Not on file documented as of this encounter Visit Diagnoses Not on filedocumented in this encounter Care Teams Manufacturing Storeperson Relationship Specialty Start Date End Date Aubrey Grimaldo DO PCP - General Internal Medicine 05/13/23 01/12/24 Dwayne Puentes MD [address] [place] [address] PCP - General Internal Medicine 01/13/24 documented as of this encounter
--- OUTSIDE RECORDS SUMMARY | 2025-05-03 19:41 | XMS_ITS | Encounter Summary ---
Author Organization [facility] Address [address] [place] [address] Care Team Providers Care Medical Billing Assistant Name Role Phone Aubrey Grimaldo DO Primary Care Provider Dwayne Fleming MD Primary Care Provider [phone] Encounter Details Date Type Department Care Team Description 08/23/2023 Orders Only Medical Records [address] [place] [address] Adarsh Webb DO [address] [facility] [address] [facility] [place] [address] Social History Tobacco Use Types Packs/Day Years [...] Name Priority Date/Time Associated Diagnosis Comments OUTSIDE COLONOSCOPY Routine 08/23/2023 documented in this encounter Results * OUTSIDE COLONOSCOPY (08/23/2023) Adarsh Webb DO RADIOLOGY documented in this encounter Visit Diagnoses Not on filedocumented in this encounter Care Teams Medical Billing Assistant Relationship Specialty Start Date End Date Aubrey Grimaldo DO PCP - General Internal Medicine 05/13/23 01/12/24 Dwayne Puentes MD [address] [place] [address] PCP - General Internal Medicine 01/13/24 documented as of this encounter
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
--- OUTSIDE RECORDS SUMMARY | 2025-05-03 19:41 | XMS_ITS | Clinical Summary ---
Author Organization 175 [facility] Address [address] [place] [address] Phone Care Team Providers Care News Camera Person Name Role Phone Dwayne Puentes MD Primary Care Provider Allergies Active Allergy Reactions Criticality Noted Date Comments Benzocaine Swelling Low 04/13/2015 Benzyl Alcohol Unknown High 01/12/2025 Ipratropium Other,Swelling 08/21/2007 Facial swelling Doesn't remember Facial swelling Ipratropium [place] 04/15/2019 Linaclotide Itching 11/12/2022 Boric Acid 06/08/2024 Other Swelling Low 05/13/2008 BENZYL [id number] - Other Reaction(s): OTHER Passed out Pneumococcal Vaccine High 07/13/2013 Localized swelling @ inj site Prochlorperazine Other 05/13/2008 Doesn't remember Passed out Tioconazole Other 04/22/2021 Doesn't remember Verapamil Unknown High 01/12/2025 Medications acetaminophen (TYLENOL) 325 mg capsule Take by mouth. OTC Active cetirizine (ZyrTEC) 10 mg tablet Take 1 tablet (10 mg total) by mouth 2 (two) times a day. Prescribed by wood veneer taper 4 Active fluticasone propionate (FLONASE) 50 mcg/actuation nasal spray Administer 2 sprays into affected nostril(s). Prescribe by wood veneer taper 4 Active OXcarbazepine (TRILEPTAL) 150 mg tablet [...] veins of lower extremity 10/07/2024 Bipolar disorder ([facility] V24, [facility] V28) 09/10 Anxiety 10/07/2024 Hyperlipidemia [...] who ordered an x-ray, was referred to [facility] orthopedics, over the last few years has tried physical therapy 3 or 4 separate times addressing the neck and shoulder pain. She has tried injections with Dr. Carlisle, landcare facilitator. This morning she started a prednisone pack [...] had MRI thoracic spine January 2024 at [facility] with minimal degenerative changes, no [...] patch that she was prescribed by her BAND BUILDER, musculoskeletal issues like she describes can be a symptom from perimenopause/menopause low hormone levels. She will call her BAND BUILDER to let them know she is interested [...] 03/17/2025 3:00 PM EDT Office Visit Pulmonology [facility] [address] [facility] [address] [place] [address] Zahida Bolivar MD Dyspnea, unspecified type (Primary Dx); Mild intermittent asthma, unspecified whether complicated 03/11/2025 Results Follow-Up Adult Medicine [facility] [address] [place] [phone] Dwayne Puentes MD 03/10/2025 Results Follow-Up [place] [address] [place] [address] Karoline Mann NP 03/08/2025 10:30 AM EDT Office Visit [address] [phone] Karoline Mann, ALIA Nasal bleeding (Primary Dx); SOB (shortness of breath) on exertion; Increased thirst; Blood glucose elevated; Need for prophylactic vaccination and inoculation against influenza 02/20/2025 9:45 AM EDT - 02/20/2025 11:59 PM EDT Hospital Encounter [facility] [address] [place] [address] Headache associated with sexual activity Discharge Disposition: Home or Self Care 02/03/2025 4:00 PM EDT Office Visit [facility] [address] [facility] [address] [place] [address] Jacklyn Altman, PA Headache associated with sexual activity (Primary Dx) from Last 3 Months Immunizations Immunization Administration [...] your loved ones. For example, child care associate teacher or elderly care for an older [...] 9:30 AM EST Office Visit Adult Medicine [place] - [address] [phone] Dwayne Puentes MD [address] [place] [address] 09/28/2025 10:40 AM EDT Appointment Radiology Department - [address] [phone] Health Maintenance Due Date Last Done Comments [...] LAB CHEMISTRY METHOD 03/08/2025 4:02 PM EDT [facility] Triglycerides 87 0 - 150 mg/dL LAB CHEMISTRY METHOD 03/08/2025 4:02 PM EDT [facility] HDL 51 >=40 mg/dL LAB CHEMISTRY METHOD 03/08/2025 4:02 PM EDT [facility] LDL Calculated 104(H) 0 - 100 mg/dL LAB CHEMISTRY METHOD 03/08/2025 4:02 PM EDT [facility] Comment:Estimated LDL Calcul ated using equation: Total cholesterol - HDL cholesterol - (Triglycerides/5) VLDL Cholesterol Jon 17.4 mg/dL LAB CHEMISTRY METHOD 03/08/2025 4:02 PM EDT [facility] Non HDL Chol. (LDL+VLDL) 121 <145 mg/dL LAB CHEMISTRY METHOD 03/08/2025 4:02 PM EDT [facility] Chol/HDL Ratio 3.4 0.0 - 4.4 LAB CHEMISTRY METHOD 03/08/2025 4:02 PM EDT [facility] Blood Venous blood specimen / Unknown Venipuncture / Unknown 03/08/2025 11:47 AM EDT 03/08/2025 11:47 AM EDT us Dwayne Puentes MD LAB BLOOD ORDERABLES Final Result [facility] [address] [place] [address], [place] [phone] * D-Dimer (03/08/2025 11:47 AM EDT) D-Dimer, [...] infected, trauma patients, DIC, acute CVA, acute UT, unstable angina, AF, old age, , and smoking. D-Dimer may be decreased with: Initiation of heparin therapy and oral anticoagulants. Karoline Mann NP LAB BLOOD ORDERABLES Final R esult [facility] [address] [place] [address], [place] [phone] * Hemoglobin A1c (03/08/2025 11:47 AM EDT) [facility] Hemoglobin A1C 5.3 <6.5 % LAB CHEMISTRY METHOD 03/09/2025 8:51 AM EDT [facility] Mean Bld Glu Estim. 105 mg/dL LAB CHEMISTRY METHOD 03/09/2025 8:51 AM EDT [facility] Blood Venous blood specimen / Unknown Venipuncture / Unknown 03/08/2025 11:47 AM EDT 03/08/2025 11:47 AM EDT Karoline Mann BEAD FLIPPER LAB BLOOD ORDERABLES Final R esult [facility] [address] [place] [address], * (ABNORMAL) Comprehensive metabolic panel (03/08/2025 11:47 AM EDT) Sodium 139 133 - 145 mmol/L LAB CHEMISTRY METHOD 03/08/2025 4:11 PM [facility] Potassium 3.9 3.5 - 5.5 mmol/L LAB CHEMISTRY METHOD 03/08/2025 4:11 PM [facility] Chloride 107 96 - 110 mmol/L LAB CHEMISTRY METHOD 03/08/2025 4:11 PM [facility] CO2 28 21 - 32 mmol/L LAB CHEMISTRY METHOD 03/08/2025 4:11 PM [facility] Anion Gap 4 3 - 11 LAB CHEMISTRY METHOD 03/08/2025 4:11 PM [facility] Glucose 101(H) 70 - 100 mg/dL LAB CHEMISTRY METHOD 03/08/2025 4:11 PM [facility] BUN 14 5 - 25 mg/dL LAB CHEMISTRY METHOD 03/08/2025 4:11 PM [facility] Creatinine 0.87 0.50 - 1.10 mg/dL LAB CHEMISTRY METHOD 03/08/2025 4:11 PM [facility] eGFR 82 >=60 mL/min/1. 73m2 LAB CHEMISTRY METHOD 03/08/2025 4:11 PM [facility] Comment:Calculation based on the Chronic Kidney Disease Epidemiology Collaboration (CKD-EPI) equation refit without adjustment for race. BUN/Creatinine Ratio 16.1 LAB CHEMISTRY METHOD 03/08/2025 4:11 PM [facility] Calcium 9.2 8.5 - 10.5 mg/dL LAB CHEMISTRY METHOD 03/08/2025 4:11 PM [facility] AST (SGOT) 19 10 - [...] R esult [facility] [address] [place] [address], * MR Brain wo Contrast (02/20/2025 10:38 [...] Signed Date: 02/23/2025 15:15 ET Workstation ID: [id number] Transcribed By: Self Edit Transcribed Date: 02/23/2025 [...] A few very small scattered foci of I2wroctcstttyy in the supratentorial white matter are unchanged. [...] Signed Date: 02/23/2025 15:15 ET Workstation ID: [id number] Transcribed By: Self Edit Transcribed Date: 02/23/2025 12:41 ET Jacklyn Kyle NAILS IM MRI PROCEDURES Final Res ult * COLONOSCOPY Anesthesia - MAC; [facility] (01/19/2025 1:29 PM EDT) Anatomical Region Laterality Modality Other 01/19/2025 1:15 PM EDT Impressions 01/19/2025 1:30 PM EDT - Diverticulosis in the entire examined colon. - No specimens collected. Recommendation: - Repeat colonoscopy in 10 years for screening purposes. - Use fiber, for example Citrucel, Fibercon, Konsyl or Metamucil. Narrative 01/19/2025 1:30 PM EDT [facility] GI Patient Name: Royal Monterroso Procedure Date: [...] or abscess without bleeding CPT copyright 2020 [employer]. All rights reserved. The codes documented in this report are preliminary and upon wrapper stitcher review may be revised to meet current compliance requirements. Keon Sheehan MD 01/19/2025 1:29:57 PM This report has been signed electronically.Keon Sheehan MD Number of Addenda: 0 Note Initiated On: 01/19/2025 1:15 PM Scope In: Scope Out: Endoscopy Department at [facility] - [address] [place] [phone] Procedure Note Keon Sheehan MD - 01/19/2025 [facility] GI Patient Name: Royal Monterroso Procedure Date: [...] or abscess without bleeding CPT copyright 2020 [employer]. All rights reserved. The codes documented in this report are preliminary and upon wrapper stitcher reviewmay be revised to meet current compliance requirements. Keon Sheehan MD 01/19/2025 1:29:57 PM This report has been signed electronically.Keon Sheehan MD Number of Addenda: 0 Note Initiated On: 01/19/2025 1:15 PM Scope In: Scope Out: Endoscopy Department at [facility] - [address] [place] [phone] IMPRESSION: - Diverticulosis in the entire examined [...] is recommended in 1 year. Mammo Location: [facility], [address] [place] [address], [address], . -------- FINAL REPORT -------- Dictated By: Iraida Curry Dictated Date: 09/22/2024 14:23 ET Assigned Physician: Iraida Curry Reviewed and Electronically Signed By: Iraida Curry Signed Date: 09/22/2024 14:28 ET Workstation ID: [id number] Transcribed By: Self Edit Transcribed Date: 09/22/2024 [...] is recommended in 1 year. Mammo Location: [facility], [address] [place] [address], [address], . -------- FINAL REPORT -------- Dictated By: Iraida Curry Dictated Date: 09/22/2024 14:23 ET Assigned Physician: Iraida Curry Reviewed and Electronically Signed By: Iraida Curry Signed Date: 09/22/2024 14:28 ET Workstation ID: [id number] Transcribed By: Self Edit Transcribed Date: 09/22/2024 14:23 ET Dwayne Puentes MD IMG BI PROCEDURES Final Res ult * Hepatitis C Screening (11/29/2022) Pathologist [facility] Hepatitis C Screening abstracted Historical Provider [facility] Final Result * Cervical Cancer Screening: HPV (06/24/2020) Pathologist [facility] Cervical Cancer Screening: HPV abstracted, negative Historical Provider [facility] Final Result from Last 3 Months or Most Recently Relevant to Health Maintenance Insurance [employer]) MEDICARE Care Teams News Camera Person Relationship Specialty Start Date End Date Dwayne Puentes MD [address] [place] [address] PCP - General 01/13/24
--- OUTSIDE RECORDS SUMMARY | 2025-05-03 19:41 | XMS_ITS | Encounter Summary ---
Author Organization [facility] Address [address] [place] [address] Care Team Providers Care Pull Up Hand Name Role Phone Aubrey Grimaldo DO Primary Care Provider Dwayne Fleming MD Primary Care Provider [phone] Encounter Details Date Type Department Care Team Description 01/05/2024 Pt. Non Urgent Medic al Question Adult Medicine - [address] [address] Milagro Parker MD Social History Tobacco Use Types Packs/Day [...] Telephone Encounter - Amarilis Peralta L.P.N. - 01/06/2024 7:58 AM EDT From: Irma Harris To: Katie Davenport Sent: 01/05/2024 4:56 PM EDT Subject: Exhaustion I am starting to get really tired again all the time. I would like to come in to be seen to make sure everything is normal. Thank Irma Harris documented in this encounter Plan of Treatment Not on file documented as of this encounter Visit Diagnoses Not on filedocumented in this encounter Care Teams Pull Up Hand Relationship Specialty Start Date End Date Aubrey Grimaldo DO PCP - General Internal Medicine 05/13/23 01/12/24 Dwayne Puentes MD [address] [place] [address] PCP - General Internal Medicine 01/13/24 documented as of this encounter
--- OUTSIDE RECORDS SUMMARY | 2025-05-03 19:41 | XMS_ITS | Encounter Summary ---
Author Organization [facility] Address [address] [place] [address] Care Team Providers Care Chemical Plant Worker Name Role Phone Philip Bartlett MD Primary Care Provider [phone] Aubrey Grimaldo DO Primary Care Provider Unavaila Dwayne Rosen MD Primary Care Provider [phone] Encounter Details Date Type Department Care Team Description 05/22/2022 Pt. Non Urgent Medical Question Adult Medicine B - [address] [phone] Katherine Harris PA-C [address] [place] [address] Social History Tobacco Use Types Packs/Day Years [...] on filedocumented in this encounter Care Teams Chemical Plant Worker Relationship Specialty Start Date End Date Philip Bartlett MD [address] [place] [address] PCP - General Internal Medicine 07/16/19 05/12/23 Aubrey Grimaldo DO [address] [place] [address] PCP - General Internal Medicine 05/13/23 01/12/24 Dwayne Puentes MD [address] [place] [address] PCP - General Internal Medicine 01/13/24 documented as of this encounter
--- OUTSIDE RECORDS SUMMARY | 2025-05-03 19:41 | XMS_ITS | Encounter Summary ---
Author Organization [facility] Address [address] [place] [address] Care Team Providers Care Teacher Specialist Name Role Phone Aubrey Grimaldo DO Primary Care Provider Dwayne Fleming MD Primary Care Provider Encounter Details Date Type Department Care Team Description 08/13/2023 Pt. Non Urgent Medic al Question Adult Medicine - [address] [address] Aubrey Grimaldo DO Social History Tobacco Use [...] follow up I was seen in the [facility] er on Saturday and they want me to follow up with you. documented in this encounter Plan of Treatment Not on file documented as of this encounter Visit Diagnoses Not on filedocumented in this encounter Care Teams Teacher Specialist Relationship Specialty Start Date End Date Aubrey Grimaldo DO PCP - General Internal Medicine 05/13/23 01/12/24 Dwayne Puentes MD [address] [place] [address] PCP - General Internal Medicine 01/13/24 documented as of this encounter
--- OUTSIDE RECORDS SUMMARY | 2025-05-03 19:41 | XMS_ITS | Encounter Summary ---
Author Organization [facility] Address [address] [place] [address] Care Team Providers Care Sexual Assault Response Coordinator Name Role Phone Aubrey Grimaldo DO Primary Care Provider Aleishaa Dwayne Rosen MD Primary Care Provider [phone] Encounter Details Date Type Department Care Team Description 08/23/2023 Hospital Medical Records [address] [place] [address] Adarsh Webb DO 175 [facility] [address] [facility] [place] [address] Social History Tobacco Use Types Packs/Day Years [...] on filedocumented in this encounter Care Teams Sexual Assault Response Coordinator Relationship Specialty Start Date End Date Aubrey Grimaldo DO PCP - General Internal Medicine 05/13/23 01/12/24 Dwayne Puentes MD [address] [place] [address] PCP - General Internal Medicine 01/13/24 documented as of this encounter
--- OUTSIDE RECORDS SUMMARY | 2025-05-03 19:41 | XMS_ITS | Encounter Summary ---
Author Organization [facility] Address [address] [place] [address] Care Team Providers Care Animal Keeper Head Name Role Phone Aubrey Grimaldo DO Primary Care Provider Dwayne Fleming MD Primary Care Provider [phone] Reason for Visit * Reason Onset Date Comments medication problems 07/24/2023 Encounter Details Date Type Department Care Team Description 07/24/2023 Telephone Gastroenterology - [place] [address] [facility] [address] [place] [address] Nevaeh Uriostegui DScPAS medication problems [...] * Telephone Encounter - Sandy Uriostegui - 07/24/2023 12:24 PM EST Received fax from [facility] about Rabeprazole SOD DR 20 mg tabl. [facility] is requesting alternative as the cost for 1 month is $64.89. Please call pharmacy and they said they will help us figure out a less expensive alternative for patient documented in this encounter Plan of Treatment Not on file documented as of this encounter Visit Diagnoses Not on filedocumented in this encounter Care Teams Animal Keeper Head Relationship Specialty Start Date End Date Aubrey Grimaldo DO PCP - General Internal Medicine 05/13/23 01/12/24 Dwayne Puentes MD [address] [place] [address] PCP - General Internal Medicine 01/13/24 documented as of this encounter
--- OUTSIDE RECORDS SUMMARY | 2025-05-03 19:41 | XMS_ITS | Encounter Summary ---
Author Organization [facility] Address [address] [place] [address] Care Team Providers Care Barrel Endshaker Adjuster Name Role Phone Aubrey Grimaldo DO Primary Care Provider Dwayne Fleming MD Primary Care Provider [phone] Encounter Details Date Type Department Care Team Description 08/28/2023 Orders Only Medical Records [address] [place] [address] Adarsh Webb DO 175 [facility] [address] [facility] [place] [address] Social History Tobacco Use Types Packs/Day Years [...] on filedocumented in this encounter Care Teams Barrel Endshaker Adjuster Relationship Specialty Start Date End Date Aubrey Grimaldo DO PCP - General Internal Medicine 05/13/23 01/12/24 Dwayne Puentes MD [address] [place] [address] PCP - General Internal Medicine 01/13/24 documented as of this encounter
== END 2025-05-03 14:52 | disposition home or self-care (01) ==
LOC: HO.HMGAL 14:52
PROVIDERS: PCP Internal Medicine; Visit Provider Registered Nurse Emergency
DX: J30.89 Other allergic rhinitis (principal)
CPT/HCPCS: 95117; 95165

== ENCOUNTER 2025-05-17 12:39 | Outpatient (AMB) | payer BC, MEDICARE, SELFPAY | END 2025-05-17 12:39 | disposition home or self-care (01) | LOC: HO.HMGAL 12:39 | PROVIDERS: PCP Internal Medicine; Visit Provider Registered Nurse Emergency | DX: J30.89 Other allergic rhinitis (principal) | CPT/HCPCS: 95117; 95165 ==

== ENCOUNTER 2025-05-31 09:23 | Outpatient (AMB) | payer BC, MEDICARE, SELFPAY ==
--- OUTSIDE RECORDS SUMMARY | 2025-05-26 09:05 | XMS_ITS | Encounter Summary ---
Author Organization [facility] [place] [address] Care Team Providers Care Sample Maker Hand Name Role Phone Dwayne Puentes MD Primary Care Provider [phone] Encounter Details Date Type Department Care Team (Late st Contact Info) Description 05/26/2025 9:05 AM EST Lab Draw Station - [address] [phone] Hyperlipidemia, unspecified hyperlipidemia type Social History Tobacco Use Types Packs/Day [...] for your loved ones. For example, children's literature professor or elderly care for an older adult? [...] Care Team (Late st Contact Info) Description 06/17/2025 12:00 PM EST [facility] Visit [facility] [address] [place] [phone] Kj Varma MD [address] [place] [address] 07/08/2025 9:30 AM EST Office Visit Adult Medicine [address] [phone] Dwayne Puentes MD [address] [place] [address] 09/28/2025 10:40 AM EDT Appointment Radiology Department - [address] [phone] documented as of this encounter Goals Goal [...] PANEL WITH REFLEX TO DIRECT LDL Routine 05/26/2025 9:03 AM EST Hyperlipidemia, unspecified hyperlipidemia type documented in this encounter Results * (ABNORMAL) Lipid panel with reflex to direct LDL (05/26/2025 9:03 AM EST) Cholesterol 185 0 - 200 mg/dL 05/26/2025 2:50 PM [facility] Triglycerides 158(H) 0 - 150 mg/dL 05/26/2025 2:50 PM [facility] HDL 45 >=40 mg/dL 05/26/2025 2:50 PM [facility] LDL Calculated 108(H) 0 - 100 mg/dL 05/26/2025 2:50 PM [facility] Comment:Estimated LDL is wlaker culated using the Friedewald equation: Total cholesterol - HDL cholesterol - (Triglycerides/5) VLDL Cholesterol Walker 31.6 mg/dL 05/26/2025 2:50 PM [facility] Non HDL Chol. (LDL+VLDL) 140 <145 mg/dL 05/26/2025 2:50 PM [facility] Chol/HDL Ratio 4.1 0.0 - 4.4 05/26/2025 2:50 PM [facility] Blood Venous blood specimen / Unknown Venipuncture / Unknown 05/26/2025 9:03 AM EST 05/26/2025 9:03 AM EST us Dwayne Puentes MD LAB BLOOD ORDERABLES Final Result [facility] [address] [place] [address], documented in this encounter Visit Diagnoses Diagnosis Hyperlipidemia, unspecified hyperlipidemia type documented in this encounter Additional Health Concerns Assessment Noted Time PHQ-9 Depression Total Score: 10 2 025 3:00 PM EDT documented as of this encounter Care Teams Sample Maker Hand Relationship Specialty Start Date End Date Dwayne Puentes MD [address] [place] [address] PCP - General 01/13/24 documented as of this encounter
--- OUTSIDE RECORDS SUMMARY | 2025-05-31 10:36 | XMS_ITS | Clinical Summary ---
Author Organization [facility] Address [address] [place] [address] Care Team Providers Care Value Analyst Name Role Phone Philip Bartlett MD Primary Care Provider Unavail able Allergies Active Allergy Reactions Criticality Noted Date Comments Prochlorperazine Edisylate Other (See Comments) 05/13/2008 Passed out Benzyl Alcohol Unknown/Patient and Family Unable to Define Medium 01/15/2023 Ipratropium [place] [facility] Swelling Medium 04/15/2019 Linaclotide Itching Low [...] (1 - 1-dose 75+ series) 2050 Insurance [facility] Care Teams Value Analyst Relationship Specialty Start Date End Date Philip Bartlett MD PCP - General Internal Medicine 01/15/23
--- OUTSIDE RECORDS SUMMARY | 2025-05-31 10:36 | XMS_ITS | Encounter Summary ---
Author Organization [facility] Address [address] [place] [address] Care Team Providers Care Laundry Sorter Name Role Phone Pcp, Nidhi Primary Care Provider Unavailabl e Philip Bartlett MD Primary Care Provider Unavail able Encounter Details Date Type Department Care Team (Late st Contact Info) Description 12/12/2022 Scanned Document [facility] NEUROPSYCH SCAN Unknown Unknow Provider [...] on filedocumented in this encounter Care Teams Laundry Sorter Relationship Specialty Start Date End Date Pcp, No PCP - General 04/13/22 01/14/23 Philip Bartlett MD PCP - General Internal Medicine 01/15/23 documented as of this encounter
--- OUTSIDE RECORDS SUMMARY | 2025-05-31 10:36 | XMS_ITS | Encounter Summary ---
Author Organization [facility] Address [address] [place] [address] Care Team Providers Care Clamper Name Role Phone Dwayne Puentes MD Primary Care Provider Encounter Details Date Type Department Care Team ([facility] st Contact Info) Description 05/26/2025 Results Follow-Up Adult Medicine [facility] [address] [place] [address] Dwayne Puentes MD [address] [place] [address] Social History Tobacco Use Types Packs/Day Years [...] for your loved ones. For example, child development assistant or elderly care for an older [...] Description 06/17/2025 12:00 PM EST Office Visit - [place] 175 [facility] [address] [place] [phone] Kj Varma MD [address] [place] [address] 07/08/2025 9:30 AM EST Office Visit [facility] [place] - [address] [phone] Dwayne Puentes MD [address] [place] [address] 09/28/2025 10:40 AM EDT Appointment Radiology Department - [address] [phone] Scheduled Orders Name Type Priority Associated Diagnoses Orde r Schedule Lipid panel with reflex to direct LDL Lab Routine Hyperlipidemia, unspecified hyperlipidemia type 1 Occurrences starting 05/26/2025 until 05/26/2026 documented as of this encounter Goals Goal [...] documented as of this encounter Care Teams Clamper Relationship Specialty Start Date End Date Dwayne Puentes MD [address] [place] [address] PCP - General 01/13/24 documented as of this encounter
--- OUTSIDE RECORDS SUMMARY | 2025-05-31 10:36 | XMS_ITS | Clinical Summary ---
Author Organization [facility] Prior to 11/07/[address] [place] [address] Care Team Providers Care Manager Hris Name Role Phone Philip Bartlett MD Primary Care Provider [phone] Allergies Active Allergy Reactions Criticality Noted Date Comments Ipratropium Other (See Comments),Swelling 08/21/2007 Doesn't remember Facial swelling Ipratropium [place] [facility] 04/15/2019 Other Swelling Low 04/13/2015 Prochlorperazine [...] age to complete this topic Care Teams Manager Hris Relationship Specialty Start Date End Date Philip Bartlett MD PCP - General Internal Medicine 09/12/21
--- OUTSIDE RECORDS SUMMARY | 2025-05-31 10:36 | XMS_ITS | Patient Health Record ---
[facility] Address [address] [place] [address] Care Team Providers Care Financial Service Professional Name Role Phone Dhruv YIN, Philip Primary Care Provider Katherine Stout Unavailable [phone] Allergies Allergen (clinical drug ingredient) Drug/Non Drug Allergy documented on EMR Reaction Allergy Type Onset Date Status Atrovent Unknown Drug Allergy Active ipratropium Ipratropium [place] Unknown Drug Allergy Active tioconazole Monistat 1 [...] Insured Coverage Start Date Coverage End Date [facility] All Others [address] [place] [address] [phone] [id number] Jose R Harris Spouse - patient is the spouse of the insured Medical (General) History Medical History History ICD Code Anxiety asthma Depression Headaches/Migraines Chicken pox Gall bladder problems Irritable bowel syndrome Constipation Reflux ( GERD) Surgical History Surgery Date(Month/Year) gall bladder 04/2019
--- OUTSIDE RECORDS SUMMARY | 2025-05-31 10:37 | XMS_ITS | Clinical Summary ---
Author Organization [facility] Address [address] [place] [address] Phone Care Team Providers Care Campaign Developer Name Role Phone Dwayne Puentes MD Primary Care Provider Allergies Active Allergy Reactions Criticality Noted Date Comments Benzocaine Swelling Low 04/13/2015 Benzyl Alcohol Unknown High 01/12/2025 Ipratropium Other,Swelling 08/21/2007 Facial swelling Doesn't remember Facial swelling Ipratropium Dresser 04/15/2019 Linaclotide Itching 11/12/2022 Boric Acid 06/08/2024 Other Swelling Low 05/13/2008 BENZYL [id number] - Other Reaction(s): OTHER Passed out Pneumococcal Vaccine High 07/13/2013 Localized swelling @ inj site Prochlorperazine Other 05/13/2008 Doesn't remember Passed out Tioconazole Other 04/22/2021 Doesn't remember Verapamil Unknown High 01/12/2025 Medications acetaminophen (TYLENOL) 325 mg capsule Take by mouth. OTC Active cetirizine (ZyrTEC) 10 mg tablet Take 1 tablet (10 mg total) by mouth 2 (two) times a day. Prescribed by spinning frame fixer 06/18/19 24 Active fluticasone propionate (FLONASE) 50 mcg/actuation nasal spray Administer 2 sprays into affected nostril(s). Prescribe by spinning frame fixer 06/18/19 24 Active OXcarbazepine (TRILEPTAL) 150 mg tablet Take 1 tablet (150 mg total) by mouth 1 (one) time each day in the morning. Prescribe by Psychiatrist 06/14/19 24 Active oxyBUTYnin XL (DITROPAN-XL) 10 mg 24 hr tablet Take 1 tablet (10 mg total) by mouth 1 (one) time each day. Prescribed in Urology 08/01/19 24 Active cycloSPORINE (RESTASIS) 0.05 % ophthalmic emulsion Administer 1 drop into both eyes 2 (two) times a day. Prescribed by opthalmology Active carboxymethylc a-iixouef-ylqu 80 (Refresh Digital) 0.5-1-0.5 % drops Administer [...] mg tablet Take by mouth. Ac tive pantoprazole (PROTONIX) 40 mg EC tablet TAKE 1 TABLET TWICE A DAY. DO NOT CRUSH, CHEW, OR SPLIT 180 tablet 3 05/04/20 25 Active pantoprazole (PROTONIX) 40 mg EC tablet Take 1 tablet (40 mg total) by mouth 2 (two) times a day. Do not crush, chew, or split. 180 tablet 3 04/22/20 24 025 Discontinued Active Problems Problem Noted Date Diagnosed Date Varicose veins of lower extremity 10/07/2024 Bipolar disorder 10/07/2024 Anxiety 10/07/2024 Hyperlipidemia 10/07/2024 Obesity (BMI 30-39.9) [...] who ordered an x-ray, was referred to [facility] orth[facility], over the last few years has tried physical therapy 3 or 4 separate times addressing the neck and shoulder pain. She has tried injections with Dr. Carlisle, care transitions nurse. This morning she started a prednisone [...] had MRI thoracic spine January 2024 at [facility] with minimal degenerative changes, no significant degenerative [...] patch that she was prescribed by her MACHINE II CUTTER, musculoskeletal issues like she describes can be a symptom from perimenopause/menopause low hormone levels. She will call her MACHINE II CUTTER to let them know she is interested [...] 05/22/20 21 Endometriosis 02/23/2019 Major depressive disorder, recurrent episode, mo derate 10/06/2013 Genital herpes 04/13/2011 Overview (08/06/2023): Occasional [...] Encounters Date Type Department Care Team Description 05/26/2025 9:05 AM EST Lab Draw Station - [address] [phone] Hyperlipidemia, unspecified hyperlipidemia type 05/26/2025 Results Follow-Up Adult Medicine [address] [phone] Dwayne Puentes MD 05/25/2025 Telephone Adult Medicine West - [address] [phone] Dwayne Puentes MD 03/17/2025 3:00 PM EDT Office Visit Pulmonology - [place] [address] [facility] [address] [place] [phone] Zahida Bolivar MD Dyspnea, unspecified type (Primary Dx); Mild intermittent asthma, unspecified whether complicated 03/11/2025 Results Follow-Up [address] [phone] Dwayne Puentes MD 03/10/2025 Results Follow-Up [address] [phone] Karoline Mann NP 03/08/2025 10:30 AM EDT Office Visit [address] [phone] Karoline Mann, ALIA Nasal bleeding (Primary Dx); SOB (shortness of breath) on exertion; Increased thirst; Blood glucose elevated; Need for prophylactic vaccination and inoculation against influenza from Last 3 Months Immunizations Immunization Administration [...] your loved ones. For example, child care teacher or elderly care for an older [...] Description 06/17/2025 12:00 PM EST Office Visit [facility] [address] [facility] [address] [place] [phone] Kj Varma MD [address] [place] [address] 07/08/2025 9:30 AM EST Office Visit Adult Medicine [place] - [place] [address] [place], [place] [phone] Dwayne Puentes MD [address] [place], [place] 09/28/2025 10:40 AM EDT Appointment Radiology Department - [address] [phone] Health Maintenance Due Date Last Done Comments Pneumococcal Vaccine: 50+ Years (2 of 2 - PCV) 07/09/2014 07/09/2013 Medicare Annual Wellness Visit 05/18/2022 RSV Immunization Adult Patients (1 - Risk 50-74 years 1-dose series) 2025 Zoster Vaccines (1 of 2) 2025 02/18/2018 Cervical Cancer Screening: HPV 06/24/2025 06/24/2020 Social Influencers of Health Screening 03/08/2026 03/08/2025 Breast Cancer Screening 09/22/2026 09/23/19 25, 09/10/2023, 08/08/2022, Additional history exists Cholesterol Screening (Lipid Panel) 05/26/2030 05/26/2025, 05/25/2025, 03/08/2025, Additional history exists DTaP,Tdap,and Td Vaccines (4 [...] 9:03 AM EST Hyperlipidemia, unspecified hyperlipidemia type LIPID PANEL WITH REFLEX TO DIRECT LDL [...] for prophylactic vaccination and inoculation against influenza COLONOSCOPY Routine 01/19/2025 1:29 PM EDT Irritable [...] to direct LDL (05/26/2025 9:03 AM EST) Only the most recent of2 resultswithin the time period is included. Cholesterol 185 0 - 200 mg/dL 05/26/2025 2:50 PM [facility] Triglycerides 158(H) 0 - 150 mg/dL 05/26/2025 2:50 PM [facility] HDL 45 >=40 mg/dL 05/26/2025 2:50 PM [facility] LDL Calculated 108(H) 0 - 100 mg/dL 05/26/2025 2:50 PM [facility] Comment:Estimated LDL is walker culated using the Friedewald equation: Total cholesterol - HDL cholesterol - (Triglycerides/5) VLDL Cholesterol Walker 31.6 mg/dL 05/26/2025 2:50 PM [facility] Non HDL Chol. (LDL+VLDL) 140 <145 mg/dL 05/26/2025 2:50 PM [facility] Chol/HDL Ratio 4.1 0.0 - 4.4 05/26/2025 2:50 PM EST [facility] Blood Venous blood specimen / Unknown Venipuncture / Unknown 05/26/2025 9:03 AM EST 05/26/2025 9:03 AM EST Dwayne Puentes MD LAB BLOOD ORDERABLES Final Result Performing Organization Address [facility]/ZIP Co de Phone Number [facility] [address] [place] [address], * D-Dimer (03/08/2025 11:47 AM EDT) D-Dimer, Quant (D-DU) <150 <=230 ng/mL DDU LAB COAGULATION METHOD 03/08/2025 1:56 PM EDT [facility] Blood Venous blood specimen / Unknown Venipuncture / Unknown 03/08/2025 11:47 AM EDT 03/08/2025 11:47 AM EDT Narrative [facility] - 03/08/2025 1:56 PM EDT D-Dimer <230 ng/mL (D-Dimer units) is the threshold for exclusion of DVT/PE. D-Dimer may be elevated in: Critically ill, severely infected, trauma patients, DIC, acute CVA, acute NC, unstable angina, AF, old age, , and smoking. D-Dimer may be decreased with: Initiation of heparin therapy and oral anticoagulants. Karoline Mann NP LAB BLOOD ORDERABLES Final R esult [facility] [address] [place] [address], [place] [phone] * Hemoglobin A1c (03/08/2025 11:47 AM EDT) Hemoglobin A1C 5.3 <6.5 % LAB CHEMISTRY METHOD 03/09/2025 8:51 AM EDT [facility] Mean Bld Glu Estim. 105 mg/dL LAB CHEMISTRY METHOD 03/09/2025 8:51 AM [facility] Blood Venous blood specimen / Unknown Venipuncture / Unknown 03/08/2025 11:47 AM EDT 03/08/2025 11:47 AM EDT us Karoline Mann MEDICAL INSURANCE BILLER LAB BLOOD ORDERABLES Final R esult [facility] [address] [place] [address], [place] [phone] * (ABNORMAL) Comprehensive metabolic panel (03/08/2025 11:47 AM EDT) Sodium 139 133 - 145 mmol/L LAB CHEMISTRY METHOD 03/08/2025 4:11 PM [facility] Potassium 3.9 3.5 - 5.5 mmol/L LAB CHEMISTRY METHOD 03/08/2025 4:11 PM [facility] Chloride 107 96 - 110 mmol/L LAB CHEMISTRY METHOD 03/08/2025 4:11 PM [facility] CO2 28 21 - 32 mmol/L LAB CHEMISTRY METHOD 03/08/2025 4:11 PM [facility] Anion Gap 4 3 - 11 LAB CHEMISTRY METHOD 03/08/2025 4:11 PM [facility] Glucose 101(H) 70 - 100 mg/dL LAB CHEMISTRY METHOD 03/08/2025 4:11 PM [facility] BUN 14 5 - 25 mg/dL LAB CHEMISTRY METHOD 03/08/2025 4:11 PM [facility] Creatinine 0.87 0.50 - 1.10 mg/dL LAB CHEMISTRY METHOD 03/08/2025 4:11 PM [facility] eGFR 82 >=60 mL/min/1. 73m2 LAB CHEMISTRY METHOD 03/08/2025 4:11 PM [facility] Comment:Calculation based on the Chronic Kidney Disease Epidemiology Collaboration (CKD-EPI) equation refit without adjustment for race. BUN/Creatinine Ratio 16.1 LAB CHEMISTRY METHOD 03/08/2025 4:11 PM EDT [facility] Calcium 9.2 8.5 - 10.5 mg/dL LAB CHEMISTRY METHOD 03/08/2025 4:11 PM EDT [facility] AST (SGOT) 19 10 - 42 unit/L LAB CHEMISTRY METHOD 03/08/2025 4:11 PM EDT [facility] ALT (SGPT) 33 10 - 60 unit/L LAB CHEMISTRY METHOD 03/08/2025 4:11 PM EDT [facility] Alkaline Phosphatase 82 42 - 121 unit/L LAB CHEMISTRY METHOD 03/08/2025 4:11 PM T [facility] Total Protein 6.8 6.0 - 8.0 g/dL LAB CHEMISTRY METHOD 03/08/2025 4:11 PM EDT [facility] Albumin 4.1 3.2 - 5.0 g/dL LAB CHEMISTRY METHOD 03/08/2025 4:11 PM EDT [facility] Total Bilirubin 0.5 0.0 - 1.4 mg/dL LAB CHEMISTRY METHOD 03/08/2025 4:11 PM EDT [facility] Blood Venous blood specimen / Unknown Venipuncture / Unknown 03/08/2025 11:47 AM EDT 03/08/2025 11:47 AM EDT us Karoline Mann MEDICAL INSURANCE BILLER LAB BLOOD ORDERABLES Final R esult [facility] [address] [place] [address], * COLONOSCOPY Anesthesia - MAC; [facility] ENDOSCOPY (01/19/2025 1:29 PM EDT) Anatomical Region Laterality Modality Other 01/19/2025 1:15 PM EDT Impressions 01/19/2025 1:30 PM EDT - Diverticulosis in the entire examined colon. - No specimens collected. Recommendation: - Repeat colonoscopy in 10 years for screening purposes. - Use fiber, for example Citrucel, Fibercon, Konsyl or Metamucil. Narrative 01/19/2025 1:30 PM EDT [facility] GI Patient Name: Royal Monterroso Procedure [...] or abscess without bleeding CPT copyright 2020 [employer]. All rights reserved. The codes documented in this report are preliminary and upon senior software engineer review may be revised to meet current compliance requirements. Keon Sheehan MD 01/19/2025 1:29:57 PM This report has been signed electronically.Keon Sheehan MD Number of Addenda: 0 Note Initiated On: 01/19/2025 1:15 PM Scope In: Scope Out: Endoscopy Department at [facility] - [address] [place] [phone] Procedure Note Keon Sheehan MD - 01/19/2025 [facility] GI Patient Name: Royal Monterroso Procedure [...] or abscess without bleeding CPT copyright 2020 [employer]. All rights reserved. The codes documented in this report are preliminary and upon senior software engineer reviewmay be revised to meet current compliance requirements. Keon Sheehan MD 01/19/2025 1:29:57 PM This report has been signed electronically.Keon Sheehan MD Number of Addenda: 0 Note Initiated On: 01/19/2025 1:15 PM Scope In: Scope Out: Endoscopy Department at [facility] - [address] [place] [phone] IMPRESSION: - Diverticulosis in the entire examined [...] is recommended in 1 year. Mammo Location: [facility], [address] [place] [address], [id number], . -------- FINAL REPORT -------- Dictated By: Iraida Curry Dictated Date: 09/22/2024 14:23 ET Assigned Physician: Iraida Curry Reviewed and Electronically Signed By: Iraida Curry Signed Date: 09/22/2024 14:28 ET Workstation ID: [id number] Transcribed By: Self Edit Transcribed Date: 09/22/2024 [...] is recommended in 1 year. Mammo Location: [facility], [address] [place] [address], [id number], . -------- FINAL REPORT -------- Dictated By: Iraida Curry Dictated Date: 09/22/2024 14:23 ET Assigned Physician: Iraida Curry Reviewed and Electronically Signed By: Iraida Curry Signed Date: 09/22/2024 14:28 ET Workstation ID: [id number] Transcribed By: Self Edit Transcribed Date: 09/22/2024 14:23 ET Dwayne Puentes MD IMG BI PROCEDURES Final Res ult * Hepatitis C Screening (11/29/2022) Hepatitis C Screening abstracted Historical Provider HEALTH MAINTENANCE Final Result * Cervical Cancer Screening: HPV (06/24/2020) Cervical Cancer Screening: HPV abstracted, negative Historical Provider HEALTH MAINTENANCE Final Result from Last 3 Months or Most Recently Relevant to Health Maintenance Insurance [facility]) MEDICARE Care Teams Campaign Developer Relationship Specialty Start Date End Date Dwayne Puentes MD [address] [place] [address] PCP - General 01/13/24
== END 2025-05-31 09:24 | disposition home or self-care (01) ==
LOC: HO.HMGAL 09:23
PROVIDERS: PCP Internal Medicine; Visit Provider Registered Nurse Emergency
DX: J30.89 Other allergic rhinitis (principal)
CPT/HCPCS: 95117; 95165